=== PATIENT | female | born 1950 | race Caucasian/White ===

== ENCOUNTER → 2016-11-01 | Outpatient (CLI) | payer MEDICARE ==
--- NOTE | 2016-11-03 07:42 | MM ---
Reason for exam: screening (asymptomatic). Last mammogram was performed 4 years and 6 months ago. History: Patient is postmenopausal. Family history of breast cancer in paternal aunt. Physical Findings: A clinical breast exam by your physician is recommended on an annual basis and results should be correlated with mammographic findings. MG 3D Screening Mammo W/Cad Bilateral CC and MLO view(s) were taken. Prior study comparison: April 24, 2012, CAD bilateral diagnostic mammogram. March 08, 2012, right diagnostic mammogram w/CAD. There are scattered fibroglandular densities. No significant changes when compared with prior studies. ASSESSMENT: Benign, BI-RAD 2 RECOMMENDATION: Routine screening mammogram of both breasts in 1 year.
== END | disposition home or self-care (01) ==
LOC: RADMAMWWP 13:37
PROVIDERS: ATTEND Obstetrics & Gynecology
DX: Z12.31 Encounter for screening mammogram for malignant neoplasm of breast (principal)
CPT/HCPCS: 77063; G0202

== ENCOUNTER → 2017-04-17 | Outpatient (CLI) | payer MEDICARE ==
[2017-04-17 14:04] LABS: Blood Urea Nitrogen 12 mg/dL (7-17); Non-African American GFR(MDRD) >60 (>60 ml/min/1.73 sqM)
--- NOTE | 2017-04-17 14:56 | CT ---
EXAMINATION TYPE: CT soft tissue neck w con DATE OF EXAM: 04/17/2017 COMPARISON: NONE HISTORY: Lt Neck/Throat pain CT DLP: 279.2 mGycm CONTRAST: CT scan of the neck is performed with IV Contrast, patient injected with 100 mL of Omnipaque 300. Contrast enhanced CT of the neck was performed from the skull base through the lung apices. AIRWAY: The supraglottic, glottic, and subglottic portions of the airway appear patent and free of mass. SALIVARY GLANDS: The submandibular and parotid glands are free of mass or inflammatory process. THYROID GLAND: No nodules or masses seen. LYMPH NODES: No adenopathy seen greater than 1cm. LUNG APICES: No nodule or mass is seen. OTHER: Vascular structures are patent. Severe multilevel degenerative disc changes with ventral and dorsal spondylosis central stenosis at C4-5 and C5-6. No abscess seen. IMPRESSION: 1. No distinct abnormality to account for patient's symptoms. 2. Severe degenerative disc disease and spondylosis as discussed.
== END | disposition home or self-care (01) ==
LOC: RADCTMAIN 13:03
PROVIDERS: ATTEND Otolaryngology
DX: R07.0 Pain in throat (principal); M54.2 Cervicalgia
CPT/HCPCS: 82565; 84520; 70491; 36415; Q9967

== ENCOUNTER → 2017-11-13 | Outpatient (CLI) | payer MEDICARE ==
--- NOTE | 2017-11-15 08:53 | MM ---
Reason for exam: screening (asymptomatic). Last mammogram was performed 1 year ago. History: Patient is postmenopausal. Family history of breast cancer in paternal aunt. Physical Findings: A clinical breast exam by your physician is recommended on an annual basis and results should be correlated with mammographic findings. MG 3D Screening Mammo W/Cad Bilateral CC and MLO view(s) were taken. Prior study comparison: November 01, 2016, bilateral MG 3d screening mammo w/cad. April 24, 2012, CAD bilateral diagnostic mammogram. There are scattered fibroglandular densities. Asymmetries on the right show no persisting abnormality on the 3D images. Precautionary 6 month follow up recommended. Otherwise, no significant change. ASSESSMENT: Probably benign, BI-RAD 3 RECOMMENDATION: Follow-up diagnostic mammogram of the right breast in 6 months.
== END | disposition home or self-care (01) ==
LOC: RADMAMWWP 12:55
PROVIDERS: ATTEND Obstetrics & Gynecology
DX: Z12.31 Encounter for screening mammogram for malignant neoplasm of breast (principal)
CPT/HCPCS: 77063; 77067

== ENCOUNTER → 2018-06-12 | Outpatient (CLI) | payer MEDICARE ==
--- NOTE | 2018-06-13 06:28 | CT ---
EXAMINATION TYPE: CT sinus wo con DATE OF EXAM: 06/12/2018 COMPARISON: CT brain August 24, 2015. CT facial bones November 19, 2010. HISTORY: Headaches with Vocal cord issue and sinus trouble and with throat problems per patient. Post nasal drip per order. CT DLP: 533 mGycm. Automated Exposure Control for Dose Reduction was Utilized. TECHNIQUE: CT scan of the sinuses is performed without contrast, axial images are obtained, coronal r eformatted images are also reviewed. FINDINGS: Mild lobulated mucosal thickening involving inferior right maxillary sinus is improved from [address] CT. Remainder paranasal sinuses are clear without suspicious opacification or air-fluid levels . The ostiomeatal complex is patent bilaterally on the coronal images. Visualized portion of mastoid air cells show no abnormal opacification. The globes are intact bilate rally. Visualized portion of brain parenchyma redemonstrates mild to moderate diffuse cerebral atrop hy. IMPRESSION: Mild inferior chronic maxillary sinus disease. No acute sinusitis evident.
== END | disposition home or self-care (01) ==
LOC: RADCTMAIN 16:22
PROVIDERS: ATTEND Otolaryngology
DX: J32.0 Chronic maxillary sinusitis (principal)
CPT/HCPCS: 70486

== ENCOUNTER 2019-02-13 16:46 | Emergency (ER) | payer MEDICARE ==
[2019-02-13 17:43] LABS: Appearance,Urine Clear (Clear); Bacteria,Urine Rare /hpf; Bilirubin,Urine Negative (Negative); Blood,Urine Negative (Negative); Color,Urine Yellow; Glucose,Urine (UA) Negative (Negative); Hyaline Casts,Urine 42 /lpf (0-2); Hyphae Yeast, Urine Rare /hpf; Ketones,Urine Negative (Negative); Leukocyte Esterase,Urine Small (Negative); Nitrite,Urine Negative (Negative); PH, Urine 6.5 (5.0-8.0); Protein,Urine Negative (Negative); RBC,Urine 1 /hpf (0-5); Specific Gravity,Urine 1.016 (1.001-1.035); Squamous Epithelial Cell,Urine 1 /hpf (0-4); Urobilinogen,Urine <2.0 mg/dL (<2.0)
[2019-02-13 17:53] LABS: Albumin 4.7 g/dL (3.5-5.0); Calcium 10.6 mg/dL (8.4-10.2); Magnesium 1.8 mg/dL (1.6-2.3); Potassium 2.9 mmol/L (3.5-5.1); Total Bilirubin 0.6 mg/dL (0.2-1.3)
[2019-02-13] MEDS ORDERED: Potassium Replacement Protocol 1 EACH MISC MISCELLANE PRN (17:57)
[2019-02-13 17:58] LABS: Anisocytosis Slight; Basophils # (A) 0.1 k/uL (0-0.2); Basophils % (A) 1 %; Eosinophils # (A) 0.4 k/uL (0-0.7); Eosinophils % (A) 6 %; HCT 39.9 % (34.0-46.0); HGB 13.1 gm/dL (11.4-16.0); Lymphocytes # (A) 1.5 k/uL (1.0-4.8); Lymphocytes % (A) 25 %; MCH 32.3 pg (25.0-35.0); MCHC 32.8 g/dL (31.0-37.0); MCV 98.3 fL (80.0-100.0); Macrocytosis Slight; Mean Platelet Volume 7.7; Monocytes # (A) 0.2 k/uL (0-1.0); Monocytes % (A) 3 %; Neutrophils # (A) 3.8 k/uL (1.3-7.7); Neutrophils % (A) 61 %; Platelet Count 323 k/uL (150-450); RBC 4.06 m/uL (3.80-5.40); RDW 16.5 % (11.5-15.5); WBC 6.1 k/uL (3.8-10.6)
[2019-02-13] MEDS ORDERED: POTASSIUM CHLORIDE ER 20 MEQ TAB.ER PO SCH (18:00)
[2019-02-13] MEDS: POTASSIUM CHLORIDE 20 MEQ in WATER FOR INJECTION 1 100ML.BAG IVPB SCH ×2 (18:26→20:34)
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
[2019-02-13 20:59] VITALS: BP 124/82; PULSE 72; RESP 19; TEMP 98
== END 2019-02-13 20:59 | disposition home or self-care (01) ==
LOC: EC 16:46
DX: E87.6 Hypokalemia (principal); I45.10 Unspecified right bundle-branch block; N39.0 Urinary tract infection, site not specified; I10 Essential (primary) hypertension; M79.7 Fibromyalgia; M06.9 Rheumatoid arthritis, unspecified; F32.9 Major depressive disorder, single episode, unspecified; F41.9 Anxiety disorder, unspecified; Z87.891 Personal history of nicotine dependence; Z88.5 Allergy status to narcotic agent; Z88.8 Allergy status to other drugs, medicaments and biological substances; Z79.890 Hormone replacement therapy; Z79.891 Long term (current) use of opiate analgesic; Z79.899 Other long term (current) drug therapy; Z86.73 Personal history of transient ischemic attack (TIA), and cerebral infarction without residual deficits; Z97.8 Presence of other specified devices; Z80.0 Family history of malignant neoplasm of digestive organs; Z82.49 Family history of ischemic heart disease and other diseases of the circulatory system
CPT/HCPCS: 36415; 93005; 80053; 83735; 85025; 81001; 99285; 96365; J3480

== ENCOUNTER 2019-05-14 14:02 | Inpatient (IN) | payer MEDICARE ==
[2019-05-14 15:15] LABS: ABG Base Excess 15.1 mmol/L; ABG HCO3 38 mmol/L (21-25); ABG Oxygen Saturation 60.2 % (94-97); ABG PCO2 48 mmHg (35-45); ABG PH 7.51 (7.35-7.45); ABG TCO2 40 mmol/L (19-24); Allen Test Performed? Yes
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
[2019-05-14 15:18] LABS: ABG PO2 32 mmHg (83-108)
[2019-05-14 15:29] LABS: Appearance,Urine Clear (Clear); Bilirubin,Urine Negative (Negative); Blood,Urine Negative (Negative); Color,Urine Yellow; Glucose,Urine (UA) Negative (Negative); Ketones,Urine Trace (Negative); Leukocyte Esterase,Urine Negative (Negative); Nitrite,Urine Negative (Negative); Protein,Urine Negative (Negative); Specific Gravity,Urine 1.015 (1.001-1.035); Urobilinogen,Urine <2.0 mg/dL (<2.0)
[2019-05-14 15:31] LABS: Albumin 3.4 g/dL (3.5-5.0); Calcium 8.8 mg/dL (8.4-10.2); Magnesium 2.4 mg/dL (1.6-2.3); Potassium 3.1 mmol/L (3.5-5.1); Total Bilirubin 1.2 mg/dL (0.2-1.3); Total Protein 6.2 g/dL (6.3-8.2)
[2019-05-14 15:33] LABS: INR 1.1 (<1.2); Partial Thromboplastin Time 28.4 sec (22.0-30.0); Prothrombin Time 11.4 sec (9.0-12.0)
--- NOTE | 2019-05-14 15:33 | XR ---
EXAMINATION TYPE: XR chest 2V DATE OF EXAM: 05/14/2019 COMPARISON: 08/24/2015 HISTORY: Shortness of breath TECHNIQUE: Frontal and lateral views of the chest are obtained. FINDINGS: Scattered senescent parenchymal changes noted. Hyperinflation compatible with COPD. Patchy perihilar and basilar infiltrates noted. Chronic elevation right hemidiaphragm. Heart size is stable. Mediastinal structures are stable and grossly unremarkable. No evidence for hilar prominence. Degenerative changes dorsal spine. IMPRESSION: 1. Patchy perihilar and basilar infiltrates noted. Chronic elevation right hemidiaphragm.
[2019-05-14 15:37] LABS: Anisocytosis Slight; HCT 29.8 % (34.0-46.0); HGB 9.8 gm/dL (11.4-16.0); Hypochromasia Slight; MCH 33.3 pg (25.0-35.0); MCHC 32.8 g/dL (31.0-37.0); MCV 101.8 fL (80.0-100.0); Macrocytosis Moderate; Mean Platelet Volume 7.8; Platelet Count 555 k/uL (150-450); Poikilocytosis Moderate; RBC 2.93 m/uL (3.80-5.40); RDW 19.4 % (11.5-15.5); WBC 9.5 k/uL (3.8-10.6)
[2019-05-14 15:52] LABS: Anisocytosis (M) Present; Lymphocytes # (M) 1.33 k/uL (1.0-4.8); Monocytes # (M) 0.67 k/uL (0-1.0); Neutrophils % (M) 79 %; Nucleated Red Blood Cells 0 /100 WBC (0-0); Reactive Lymphocytes Present; Total Cells Counted 100
[2019-05-14 15:53] LABS: Polychromasia Present
[2019-05-14] MEDS ORDERED: AZITHROMYCIN 500 MG in SODIUM CHLORIDE 0.9% 250 ML IVPB STA (16:27)
[2019-05-14] MEDS ORDERED: PNEUMONIA PROTOCOL UTILIZED 1 EACH MISC PO PRN (16:27)
[2019-05-14] MEDS ORDERED: cefTRIAXone IN SWFI 1,000 MG/10 ML SYRINGE IVP STA (16:33)
--- NOTE | 2019-05-14 16:52 | CT ---
EXAMINATION TYPE: CT angio chest DATE OF EXAM: 05/14/2019 4:35 PM COMPARISON: None HISTORY: Pneumonia, abnormal CXR, weakness CT DLP: 254.4 mGycm Automated exposure control for dose reduction was used. CONTRAST: CTA scan of the thorax is performed with IV Contrast, patient injected with 80 mL of Isovue 370, pulm onary embolism protocol. There are 3-D post processed images.. FINDINGS: There is extensive patchy pulmonary alveolar edema. 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 There are multiple enlarged mediastinal and bronchial lymph nodes that measure up to 1.5 cm. Thoracic aorta shows no aneurysm or dissection. There is normal contrast opacification of the thoracic aorta. The ascending aorta measures 3.3 cm. There is normal contrast opacification of the pulmonary arteries. There are no filling defects. There is hypertrophic degenerative spurring in the thoracic spine. There is multilevel degenerative disc s pace narrowing and sclerosis of the endplates. There is thoracic spinal catheter noted. IMPRESSION: NO EVIDENCE OF PULMONARY EMBOLISM. EXTENSIVE PULMONARY AIRSPACE INFILTRATES. THIS APPEARS NEW COMPARED TO OLD CT SCAN OF 08/29/2011. THER E IS INCREASED MEDIASTINAL AND BRONCHIAL ADENOPATHY COMPARED TO OLD EXAM.
[2019-05-14] MEDS ORDERED: ASPIRIN 81 MG PO STA (17:26)
[2019-05-14] MEDS ORDERED: HEPARIN SODIUM,PORCINE 5,000 UNIT/ML 1 ML VIAL IV ONE (17:26)
[2019-05-14] MEDS ORDERED: HEPARIN SODIUM,PORCINE 5,000 UNIT/ML 1 ML VIAL IV PRN (17:26)
[2019-05-14] MEDS ORDERED: HEPARIN SOD,PORK IN 0.45% NACL 25,000 UNIT in 0.45% NACL 1 250ML.BAG IV SCH (17:30)
[2019-05-14] MEDS: SODIUM CHLORIDE 0.9% 1,000 ML IV SCH (17:59)
[2019-05-14] MEDS: FUROSEMIDE 10 MG/ML 4 ML VIAL IV SCH (21:24)
[2019-05-14] MEDS ORDERED: Potassium Replacement Protocol 1 EACH MISC MISCELLANE PRN (21:51)
[2019-05-14] MEDS: POTASSIUM CHLORIDE ER 20 MEQ TAB.ER PO SCH ×2 (21:56→22:46)
[2019-05-14] MEDS: ATORVASTATIN 20 MG TAB PO SCH (22:46)
--- NOTE | 2019-05-14 22:48 | P.HPIM ---
History of Present Illness H&P Date: 05/14/19 Chief Complaint: Generalized weakness and fatigue Patient is a 69-year-old female with a known history of rheumatoid arthritis currently on methotrexate and embrel , fibromyalgia, chronic pain, osteoarthritis, hypertension, depression/anxiety and also history of lumbar spinal stenosis, connective tissue disorder presented to the hospital with complaints of generalized weakness and fatigue. Patient says that she has been having these symptoms for the past 1 week and also she fell on the floor due to weaknessx2 and says she did hit her head at that time. Patient denied any fever or chills at home. No cough or sputum production. As per the family she had a cough off her taking deep breath last night. Patient came back last night from 10 day bus trip to [place] and visited [facility] and other places. Denied any complaints of chest pain. No headache or lightheadedness. Denied any leg swelling or calf pain. Patient does admit to having some mild ankle swelling. Denied any history of DVT in the past. Patient says that she has been sleeping more than normal as well. No speech problems or any focal weakness. Chest x-ray showed patchy perihilar and basilar infiltrate is noted. Chronic elevation of right diaphragm. D-dimer 0.61 CT angiogram of the chest was done showed no evidence of pulmonary embolism. Extensive pulmonary airspace infiltrates. This appears to be new compared to old computed tomography scan 2010. there is increase in mediastinal and bronchial adenopathy. 136, potassium 3.1, troponin 0.195 on admission. Patient was hypoxic with pulse ox 84% on room air at admission. Patient is not on any home oxygen. Review of Systems Constitutional: Patient denies any fever or chills . Patient does have generalized weakness and fatigue.. Abdomen: Patient denied nausea vomiting and diarrhea and abdominal pain. Cardiovascular: Patient denies any chest pain or short of breath no pal pitations. No leg swelling. Respiratory: patient denied any cough is from production. Does have shortness of breath Neurologic: Patient denied any numbness or tingling headache. Musculoskeletal: Patient denies any complaints of joint swelling or deformity. Skin: Negative Psychiatric: Negative Endocrine: No heat or cold intolerance. No recent weight gain. Genitourinary: No dysuria or hematuria. All other 14 point ROS negative except the above Past Medical History Past Medical History: CVA/TIA, Fibromyalgia, GERD/Reflux, Hypertension, Osteoa rthritis (OA), Rheumatoid Arthritis (RA) Additional Past Medical History / Comment(s): DJD,TIA -no residual,SOB,lumbar spinal stenosis,connective tissue disorder limited rom olvin wrists(fused) History of Any Multi-Drug Resistant Organisms: None Reported Past Surgical History: Orthopedic Surgery, Tonsillectomy, Tubal Ligation Additional Past Surgical History / Comment(s): ORIF LEFT TIB/FIB, LEFT FOOT SX, LASIK EYE SX Additional Past Anesthesia/Blood Transfusion Reaction / Comment(s): STATES POST OP ORTHO SX ENDED UP WITH TRACH, UNSURE IF PROBLEM WAS RELATED TO ANESTHESIA OR NOT in 1968, no problems with prior blood transfusion. Past Psychological History: Anxiety, Depression Smoking Status: Never smoker Past Alcohol Use History: None Reported Past Drug Use History: None Reported - Past Family History Father Family Medical History: Cancer Additional Family Medical History / Comment(s): lung Brother(s) Family Medical History: Cancer Additional Family Medical History / Comment(s): stomach Mother Family Medical History: Renal Disease Additional Family Medical History / Comment(s): heart problem Medications and Allergies Home Medications Medication Instructions Recorded Confirmed Type Etanercept [Enbrel] 50 mg SQ LAWTON 08/26/14 05/14/19 History Gabapentin [Neurontin] 600 mg PO TID 08/26/14 05/14/19 History Hydrochlorothiazide [Hydrodiuril] 25 mg PO DAILY 08/26/14 05/14/19 History Levothyroxine Sodium [Synthroid] 50 mcg PO DAILY 08/26/14 05/14/19 History buPROPion SR [Wellbutrin SR] 150 mg PO BID 08/26/14 05/14/19 History Melatonin 2 mg PO HS 12/03/14 05/14/19 History Venlafaxine HCl [Effexor XR] 75 mg PO BID 12/04/14 05/14/19 History Multivit-Min/FA/Lycopen/Lutein 1 tab PO DAILY 07/20/16 05/14/19 History [Centrum Silver Tablet] Atorvastatin [Lipitor] 20 mg PO HS 02/13/19 05/14/19 History Folic Acid 1 mg PO DAILY 02/13/19 05/14/19 History Methotrexate Sodium [Methotrexate] 25 mg PO LAWTON 02/13/19 05/14/19 History Metoprolol Tartrate [Lopressor] 50 mg PO BID 02/13/19 05/14/19 History Morphine Pump 1 pump INTRATHECA CONTINUOUS 02/13/19 05/14/19 History Propylene Glycol/Peg 400/Pf 1 drop BOTH EYES QID 02/13/19 05/14/19 History [Systane 0.3-0.4% Eye Drop] busPIRone HCl [Buspar] 10 mg PO BID 02/13/19 05/14/19 History oxyCODONE-APAP 7.5-325MG [Percocet 1 tab PO DAILY PRN 02/13/19 05/14/19 History 7.5-325 mg] Acyclovir 400 mg PO BID 05/14/19 05/14/19 History Furosemide [Lasix] 20 mg PO DAILY 05/14/19 05/14/19 History L.acidoph,Paracasei, B.lactis 1 cap PO DAILY 05/14/19 05/14/19 History [Probiotic] Potassium Chloride ER [K-Dur 10] 20 meq PO DAILY 05/14/19 05/14/19 History Ranitidine HCl [Zantac] 150 mg PO DAILY 05/14/19 05/14/19 History Sennosides/Docusate Sodium 1 tab PO DAILY 05/14/19 05/14/19 History [Docusate Sodium-Sennosides Tab] Allergies Allergy/AdvReac Type Severity Reaction Status Date / Time amlodipine besylate Allergy severe Verified 05/14/19 15:05 [From [facility]] nausea vomiting fentanyl Allergy severe Verified 05/14/19 15:05 nausea vomiting Physical Exam Vitals: Vital Signs Temp Pulse Pulse Resp BP BP Pulse Ox 05/14/19 21:25 14 05/14/19 19:40 97.9 F 64 17 103/54 94 L 05/14/19 18:51 96.5 F L 84 16 116/55 94 L 05/14/19 18:19 98.7 F 80 18 104/51 93 L 05/14/19 16:10 76 100/54 96 05/14/19 16:00 78 101/57 95 05/14/19 15:50 77 101/57 94 L 05/14/19 15:40 77 101/57 97 05/14/19 15:30 80 20 91/49 93 L 05/14/19 15:20 77 91/49 92 L 05/14/19 15:10 81 91/49 88 L 05/14/19 15:00 80 102/49 66 L 05/14/19 14:50 82 102/49 71 L 05/14/19 14:40 88 62 L 05/14/19 14:30 20 05/14/19 14:16 98.0 F 87 18 108/58 84 L Intake and Output 05/14/19 05/14/19 05/14/19 06:59 14:59 22:59 Other: Voiding Method Toilet Weight 65.771 kg PHYSICAL EXAMINATION: Patient is lying in the bed comfortably, no acute distress, awake alert and oriented.. HEENT: Normocephalic. Neck is supple. Pupils reactive. Nostrils clear. Oral cavity is moist. Ears reveal no drainage. Neck reveals no JVD, carotid bruits, or thyromegaly. CHEST EXAMINATION: Trachea is central. Symmetrical expansion. Bilateral scattered crackles noted. No wheezing.. CARDIAC: Normal S1, S2 with no gallops. No murmurs ABDOMEN: Soft. Bowel sounds normal. No organomegaly. No abdominal bruits. Extremities: reveal no edema. No clubbing or cyanosis Neurologically awake, alert, oriented x3 with well-coordinated movements. Lethargic. No focal deficits noted Skin: No rash or skin lesions. Psychiatric: Coperative. Nonsuicidal Musculoskeletal: No joint swelling or deformity. Normal range of motion. Results CBC & Chem 7: 05/14/19 14:50 05/14/19 14:50 Labs: Abnormal Lab Results - Last 24 Hours (Table) 05/14/19 05/14/19 05/14/19 Range/Units 14:50 14:50 14:50 RBC 2.93 L (3.80-5.40) m/uL Hgb 9.8 L (11.4-16.0) gm/dL Hct 29.8 L (34.0-46.0) % MCV 101.8 H (80.0-100.0) fL RDW 19.4 H (11.5-15.5) % Plt Count 555 H (150-450) k/uL D-Dimer (<0.60) mg/L FEU ABG pH (7.35-7.45) ABG pCO2 (35-45) mmHg ABG pO2 (83-108) mmHg ABG HCO3 (21-25) mmol/L ABG Total CO2 (19-24) mmol/L ABG O2 Saturation (94-97) % Sodium 136 L (137-145) mmol/L Potassium 3.1 L (3.5-5.1) mmol/L Chloride 88 L (98-107) mmol/L Carbon Dioxide 37 H (22-30) mmol/L BUN 21 H (7-17) mg/dL Glucose 116 H (74-99) mg/dL Magnesium 2.4 H (1.6-2.3) mg/dL AST 182 H (14-36) U/L Troponin I 0.195 H* (0.000-0.034) ng/mL Total Protein 6.2 L (6.3-8.2) g/dL Albumin 3.4 L (3.5-5.0) g/dL TSH 0.290 L (0.465-4.680) mIU/L Free T3 pg/mL 2.3 L (2.8-5.3) pg/ml Urine Ketones (Negative) 05/14/19 05/14/19 05/14/19 Range/Units 14:50 14:50 15:12 RBC (3.80-5.40) m/uL Hgb (11.4-16.0) gm/dL Hct (34.0-46.0) % MCV (80.0-100.0) fL RDW (11.5-15.5) % Plt Count (150-450) k/uL D-Dimer 0.60 H (<0.60) mg/L FEU ABG pH 7.51 H (7.35-7.45) ABG pCO2 48 H (35-45) mmHg ABG pO2 32 L* (83-108) mmHg ABG HCO3 38 H (21-25) mmol/L ABG Total CO2 40 H (19-24) mmol/L ABG O2 Saturation 60.2 L (94-97) % Sodium (137-145) mmol/L Potassium (3.5-5.1) mmol/L Chloride (98-107) mmol/L Carbon Dioxide (22-30) mmol/L BUN (7-17) mg/dL Glucose (74-99) mg/dL Magnesium (1.6-2.3) mg/dL AST (14-36) U/L Troponin I (0.000-0.034) ng/mL Total Protein (6.3-8.2) g/dL Albumin (3.5-5.0) g/dL TSH (0.465-4.680) mIU/L Free T3 pg/mL (2.8-5.3) pg/ml Urine Ketones Trace H (Negative) Thrombosis Risk Factor Assmnt - DVT/VTE Prophylaxis DVT/VTE Prophylaxis: Pharmacologic Prophylaxis ordered - Choose All That Apply Any of the Below Risk Factors Present?: Yes Each Factor Represents 1 point: Serious lung disease incl. pneumonia (< 1month) Each Risk Factor Represents 2 Points: Age 61-74 years Thrombosis Risk Factor Assessment Total Risk Factor Score: 3 Thrombosis Risk Factor Assessment Level: Moderate Risk Assessment and Plan Assessment: Acute hypoxemic respiratory failure secondary to extensive pulmonary infiltrates. Bilateral airspace infiltrates likely due to pneumonia versus interstitial lung disease Elevated troponin level. Possible non-ST elevated MA s/p recent falls 2 in one week. Rheumatoid arthritis on immunotherapy Fibromyalgia Chronic pain Depression/anxiety Chronically elevated right diaphragm Hypertension GERD Osteoarthritis Hypothyroidism History of lumbar spinal stenosis History of TIA History of connective tissue disorder DVT prophylaxis. Plan: Patient will be continued on antibiotics in the form of ceftriaxone and azithromycin. Oxygen therapy. Patient is also being continued on heparin drip. Trend troponins. Continue with aspirin and statins. Continue with home medications and follow up closely. Cardiology and pulmonary will be consulted. Further recommendations based on the clinical course. Discussed with her family at bedside in detail. Time with Patient: Greater than 30
--- NOTE | 2019-05-14 23:13 | CT ---
INDICATION: Fall one week ago, headache TECHNIQUE: CT acquisition is performed through the brain. Sagittal and coronal reformatted images are provided. No IV contrast is administered. DOSE INFORMATION: DLP 1036.4 mGy-cm. This CT exam was performed using one or more of the following dose reduction techniques: automated exposure control, adjustment of the mA and/or kV according to patient size, and/or use of iterative reconstruction technique. COMPARISON: CT head 08/24/15. FINDINGS: There is no evidence of acute intracranial hemorrhage or abnormal extra-axial fluid collection. There is no mass effect or midline shift. There is generalized parenchymal volume loss with symmetric prominence of the sulci, ventricles, and basal cisterns. The amin-white matter differentiation is preserved. The calvarium is intact. The paranasal sinuses and mastoid air cells are clear. IMPRESSION: 1. No evidence of acute intracranial process.
[2019-05-14 23:52] LABS: T4, Free (Free Thyroxine) 1.96 ng/dL (0.78-2.19)
[2019-05-15 06:21] LABS: Anisocytosis Slight; Basophils % (A) 0 %; Eosinophils # (A) 0.1 k/uL (0-0.7); Eosinophils % (A) 1 %; HCT 30.5 % (34.0-46.0); Hypochromasia Slight; Lymphocytes # (A) 0.6 k/uL (1.0-4.8); Lymphocytes % (A) 7 %; MCH 34.1 pg (25.0-35.0); MCHC 32.8 g/dL (31.0-37.0); MCV 103.7 fL (80.0-100.0); Macrocytosis Moderate; Mean Platelet Volume 7.2; Monocytes # (A) 0.2 k/uL (0-1.0); Monocytes % (A) 2 %; Neutrophils # (A) 7.5 k/uL (1.3-7.7); Neutrophils % (A) 87 %; Platelet Count 487 k/uL (150-450); Poikilocytosis Moderate; RBC 2.94 m/uL (3.80-5.40); WBC 8.7 k/uL (3.8-10.6)
[2019-05-15 06:31] LABS: Calcium 8.2 mg/dL (8.4-10.2)
[2019-05-15 06:50] LABS: Potassium 2.7 mmol/L (3.5-5.1)
[2019-05-15] MEDS: SODIUM CHLORIDE 0.9% 1,000 ML IV SCH (07:07)
[2019-05-15] MEDS: LEVOTHYROXINE 50 MCG TAB PO SCH (07:08)
[2019-05-15] MEDS: POTASSIUM CHLORIDE ER 20 MEQ TAB.ER PO SCH ×4 (07:08→20:09)
--- NOTE | 2019-05-15 07:35 | XR ---
EXAMINATION TYPE: XR chest 2V DATE OF EXAM: 05/15/2019 COMPARISON: Chest x-ray and CT chest from yesterday. HISTORY: Pneumonia progress study. TECHNIQUE: Frontal and lateral views of the chest are obtained. FINDINGS: There is persistent elevation and eventration anterior aspect right hemidiaphragm. Diffuse opacities bilaterally remain present. No pleural effusion or pneumothorax is seen bilaterally. The cardiac silhouette size remains within normal limits. Spine is straightened on lateral view. IMPRESSION: Diffuse bilateral alveolar edema and/or infiltrates are redemonstrated. No significant c hange from one day earlier.
[2019-05-15] MEDS: busPIRone HCl 10 MG TAB PO SCH ×2 (08:19→20:09)
[2019-05-15] MEDS: FAMOTIDINE 20 MG TAB PO SCH (08:19)
[2019-05-15] MEDS: buPROPion SR 150 MG TABLET.ER PO SCH ×2 (08:19→20:09)
[2019-05-15] MEDS: FOLIC ACID 1 MG TAB PO SCH (08:19)
[2019-05-15] MEDS: VIT A,C & E-LUTEIN-MINERALS 1 EACH TAB PO SCH (08:19)
[2019-05-15] MEDS: SENNOSIDES-DOCUSATE SODIUM 1 EACH TAB PO SCH (08:19)
[2019-05-15] MEDS: ARTIFICIAL TEARS-HYPROMELLOSE DROPS 15 ML BTL BOTH EYES SCH ×4 (08:28→20:11)
[2019-05-15] MEDS: FUROSEMIDE 10 MG/ML 4 ML VIAL IV SCH (08:28)
[2019-05-15] MEDS ORDERED: ASPIRIN 325 MG TAB PO SCH (09:00)
--- NOTE | 2019-05-15 11:17 | ECHOF ---
Referral Reason:pulm edema MEASUREMENTS -------- HEIGHT: 170.2 cm WEIGHT: 63.0 kg BP: 99/57 RVIDd: 2.1 cm (< 3.3) IVSd: 1.3 cm (0.6 - 1.1) LVIDd: 3.2 cm (3.9 - 5.3) LVPWd: 1.4 cm (0.6 - 1.1) IVSs: 1.5 cm LVIDs: 1.6 cm LVPWs: 1.7 cm LAESV Index (A-L): 16.68 ml/m Ao Diam: 2.6 cm (2.0 - 3.7) AV Cusp: 2.0 cm (1.5 - 2.6) LA Diam: 3.9 cm (2.7 - 3.8) MV EXCURSION: 14.967 mm (> 18.000) MV EF SLOPE: 71 mm/s (70 - 150) EPSS: 0.5 cm MV E Rob: 1.12 m/s MV DecT: 186 ms MV A Rob: 1.20 m/s MV E/A Ratio: 0.94 RAP: 5.00 mmHg RVSP: 34.67 mmHg FINDINGS -------- Sinus rhythm. This was a technically good study. The left ventricular size is normal. There is mild concentric left ventricular hypertrophy. Overa ll left ventricular systolic function is normal with, an EF between 55 - 60 %. Normal LAP Grade 1 D iastolic Dysfunction. The right ventricle is normal in size. Normal LA size by volume 22+/-6 ml/m2. The right atrial size is normal. Aortic valve is trileaflet and is mildly thickened. The mitral valve is normal. Mild mitral regurgitation is present. The tricuspid valve appears structurally normal. [id number] tricuspid regurgitation present. Right ventricular systolic pressure is normal at < 35 mmHg. There is no pulmonic regurgitation present. The aortic root size is normal. Normal inferior vena cava with normal inspiratory collapse consistent with estimated right atrial pre ssure of 5 mmHg. CONCLUSIONS -------- 1. Sinus rhythm. 2. This was a technically good study. 3. The left ventricular size is normal. 4. There is mild concentric left ventricular hypertrophy. 5. Overall left ventricular systolic function is normal with, an EF between 55 - 60 %. 6. Normal LAP Grade 1 Diastolic Dysfunction. 7. The right ventricle is normal in size. 8. Normal LA size by volume 22+/-6 ml/m2. 9. The right atrial size is normal. 10. Aortic valve is trileaflet and is mildly thickened. 11. The mitral valve is normal. 12. Mild mitral regurgitation is present. 13. The tricuspid valve appears structurally normal. 14. [id number] tricuspid regurgitation present. 15. Right ventricular systolic pressure is normal at < 35 mmHg. 16. There is no pulmonic regurgitation present. 17. The aortic root size is normal. 18. Normal inferior vena cava with normal inspiratory collapse consistent with estimated right atrial pressure of 5 mmHg. [employer] ATTENDANT: Angelina Ernst RDCS
[2019-05-15] MEDS ORDERED: POTASSIUM CHLORIDE 20 MEQ in WATER FOR INJECTION 1 100ML.BAG IVPB ONE (12:00)
[2019-05-15] MEDS: METOPROLOL TARTRATE 25 MG TAB PO SCH ×2 (12:39→20:09)
--- NOTE | 2019-05-15 15:38 | P.CNPUL ---
History of Present Illness Consult date: 05/15/19 Requesting physician: Linwood Rosenthal Reason for consult: dyspnea Chief complaint: Shortness of breath, weakness History of present illness: This is a 69-year-old white female patient of Dr. 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 Knox for pain management, and recently had a pain pump implanted. Patient presents to the emergency department with her daughter on 05/14/2019 for evaluation of profound fatigue and weakness, increased shortness of breath. Patient states she does have some shortness of breath on a regular basis however in the last 2 months this has significantly worsened, and she has been increasingly weak, she has had a loss of appetite, and 10 pound weight loss in the last 6 months. Denied any fever or chills, denied any night sweats, denied any chest pain, denied hemoptysis, denied any pleuritic chest discomfort, no cough, or congestion. Patient takes Enbrel and methotrexate for history of rheumatoid arthritis and follows with Dr. Flores from rheumatology. She states her weakness has gotten to the point where she had laid on the couch and was unable to even get up to the bathroom. Patient did have recent travel to [place] however she states her symptoms started long prior to her trip to [place]. No abdominal pain, no vomiting, she did report some mild ankle swelling, no chest pain, no calf pain, no altered mentation no worsening speech problems. Chest x-ray showed patchy pe rihilar and basilar infiltrates and chronic elevation of the right hemidiaphragm, lab work did not show leukocytosis, white blood cell count on admission was 9.5, hemoglobin is 9.8, platelet count was 555, d-dimer was mildly elevated at 0.60, sodium was 136, potassium 3.1, chloride was 88, CO2 is 37, BUN was 21, creatinine 1.02, plasma lactic acid was within normal limits at 1.7, troponins were elevated to 0.195, and 0.062. ProBNP was obtained and was elevated at 5330, pro-calcitonin was elevated at 0.99 suggesting presence of an infectious process, TSH was low at 0.290 and free T3 was 2.3. Urinalysis was negative for infection, with only trace ketones. CT chest angiogram was completed showing no evidence of pulmonary embolism but extensive pulmonary airspace infiltrates and increased mediastinal bronchial adenopathy, with multiple enlarged mediastinal bronchial lymph nodes measuring up to 1.[address] showed no evidence of acute intracranial process. Echocardiogram was completed showing normal left ventricular systolic function with an EF of 55- 60%, mild mitral regurg and mild to moderate tricuspid regurgitation no evidence of pulmonary hypertension. Patient was started on empiric antibiotics in the form of Rocephin and Zithromax, and IV Lasix and today's chest x-ray still shows diffuse bilateral alveolar edema and/or infiltrates with no significant change from the day earlier. He is currently on 4 L of oxygen with a pulse ox of 94%, blood pressure was 93/54, she is in no significant distress, and her lung sounds are positive for only bibasilar crackles, no rhonchi, no wheezing. Review of Systems All systems: negative Constitutional: Denies chills, Denies fever Eyes: denies blurred vision, denies pain Ears, nose, mouth and throat: Denies headache, Denies sore throat Cardiovascular: Denies chest pain, Denies shortness of breath Respiratory: Reports dyspnea, Denies cough Gastrointestinal: Reports loss of appetite, Denies abdominal pain, Denies diarrhea, Denies nausea, Denies vomiting Genitourinary: Denies dysuria, Denies hematuria Musculoskeletal: Denies myalgias Integumentary: Denies pruritus, Denies rash Neurological: Reports weakness, Denies numbness Psychiatric: Denies anxiety, Denies depression Endocrine: Denies fatigue, Denies weight change Past Medical History Past Medical History: CVA/TIA, Fibromyalgia, GERD/Reflux, Hypertension, Osteoarthritis (OA), Rheumatoid Arthritis (RA) Additional Past Medical History / Comment(s): DJD,TIA -no residual,SOB,lumbar spinal stenosis,connective tissue disorder limited rom olvin wrists(fused) History of Any Multi-Drug Resistant Organisms: None Reported Past Surgical History: Orthopedic Surgery, Tonsillectomy, Tubal Ligation Additional Past Surgical History / Comment(s): ORIF LEFT TIB/FIB, LEFT FOOT SX, LASIK EYE SX Additional Past Anesthesia/Blood Transfusion Reaction / Comment(s): STATES POST OP ORTHO SX ENDED UP WITH TRACH, UNSURE IF PROBLEM WAS RELATED TO ANESTHESIA OR NOT in 1968, no problems with prior blood transfusion. Past Psychological History: Anxiety, Depression Smoking Status: Never smoker Past Alcohol Use History: None Reported Past Drug Use History: None Reported - Past Family History Father Family Medical History: Cancer Additional Family Medical History / Comment(s): lung Brother(s) Family Medical History: Cancer Additional Family Medical History / Comment(s): stomach Mother Family Medical History: Renal Disease Additional Family Medical History / Comment(s): heart problem Medications and Allergies Home Medications Medication Instructions Recorded Confirmed Type Etanercept [Enbrel] 50 mg SQ LAWTON 08/26/14 05/14/19 History Gabapentin [Neurontin] 600 mg PO TID 08/26/14 05/14/19 History Hydrochlorothiazide [Hydrodiuril] 25 mg PO DAILY 08/26/14 05/14/19 History Levothyroxine Sodium [Synthroid] 50 mcg PO DAILY 08/26/14 05/14/19 History buPROPion SR [Wellbutrin SR] 150 mg PO BID 08/26/14 05/14/19 History Melatonin 2 mg PO HS 12/03/14 05/14/19 History Venlafaxine HCl [Effexor XR] 75 mg PO BID 12/04/14 05/14/19 History Multivit-Min/FA/Lycopen/Lutein 1 tab PO DAILY 07/20/16 05/14/19 History [Centrum Silver Tablet] Atorvastatin [Lipitor] 20 mg PO HS 02/13/19 05/14/19 History Folic Acid 1 mg PO DAILY 02/13/19 05/14/19 History Methotrexate Sodium [Methotrexate] 25 mg PO LAWTON 02/13/19 05/14/19 History Metoprolol Tartrate [Lopressor] 50 mg PO BID 02/13/19 05/14/19 History Morphine Pump 1 pump INTRATHECA CONTINUOUS 02/13/19 05/14/19 History Propylene Glycol/Peg 400/Pf 1 drop BOTH EYES QID 02/13/19 05/14/19 History [Systane 0.3-0.4% Eye Drop] busPIRone HCl [Buspar] 10 mg PO BID 02/13/19 05/14/19 History oxyCODONE-APAP 7.5-325MG [Percocet 1 tab PO DAILY PRN 02/13/19 05/14/19 History 7.5-325 mg] Acyclovir 400 mg PO BID 05/14/19 05/14/19 History Furosemide [Lasix] 20 mg PO DAILY 05/14/19 05/14/19 History L.acidoph,Paracasei, B.lactis 1 cap PO DAILY 05/14/19 05/14/19 History [Probiotic] Potassium Chloride ER [K-Dur 10] 20 meq PO DAILY 05/14/19 05/14/19 History Ranitidine HCl [Zantac] 150 mg PO DAILY 05/14/19 05/14/19 History Sennosides/Docusate Sodium 1 tab PO DAILY 05/14/19 05/14/19 History [Docusate Sodium-Sennosides Tab] Allergies Allergy/AdvReac Type Severity Reaction Status Date / Time amlodipine besylate Allergy severe Verified 05/14/19 15:05 [From [facility]] nausea vomiting fentanyl Allergy severe Verified 05/14/19 15:05 nausea vomiting Physical Exam Vitals: Vital Signs Temp Pulse Pulse Resp BP BP Pulse Ox 05/15/19 12:00 90 16 93/54 94 L 05/15/19 08:00 16 05/15/19 04:06 98.0 F 86 16 99/57 93 L 05/14/19 22:49 96.9 F L 76 16 109/62 95 05/14/19 21:25 14 05/14/19 19:40 97.9 F 64 17 103/54 94 L 05/14/19 18:51 96.5 F L 84 16 116/55 94 L 05/14/19 18:19 98.7 F 80 18 104/51 93 L 05/14/19 16:10 76 100/54 96 05/14/19 16:00 78 101/57 95 05/14/19 15:50 77 101/57 94 L 05/14/19 15:40 77 101/57 97 05/14/19 15:30 80 20 91/49 93 L 05/14/19 15:20 77 91/49 92 L 05/14/19 15:10 81 91/49 88 L 05/14/19 15:00 80 102/49 66 L 05/14/19 14:50 82 102/49 71 L 05/14/19 14:40 88 62 L 05/14/19 14:30 20 05/14/19 14:16 98.0 F 87 18 108/58 84 L Intake and Output 05/14/19 05/15/19 05/15/19 22:59 06:59 14:59 Intake Total 364.328 Output Total 2100 Balance -1735.672 Intake: Intake, IV Titration 364.328 Amount Azithromycin 500 mg In 250 Sodium Chloride 0.9% 250 ml @ 250 mls/hr IVPB ONCE STA Rx#:[id number] Heparin Sod,Pork in 0.45% 64.328 NaCl 25,000 unit In 0.45 % NaCl 1 250ml.bag @ 12 UNITS/KG/HR 7.893 mls/hr IV .Q24H YONATHAN Rx#: [id number] cefTRIAXone 1 gm In 50 Sodium Chloride 0.9% 50 ml @ 100 mls/hr IVPB Q24H YONATHAN Rx#:[id number] Output: Urine 2100 Other: Voiding Method Toilet Toilet Toilet Weight 63.4 kg GENERAL EXAM: Alert, pleasant, 69-year-old white female, on 4 L of oxygen with a pulse ox of 94%, comfortable in no apparent distress. HEAD: Normocephalic/atraumatic. EYES: Normal reaction of pupils, equal size. Conjunctiva pink, sclera white. NOSE: Clear with pink turbinates. THROAT: No erythema or exudates. NECK: No masses, no JVD, no thyroid enlargement, no adenopathy. CHEST: No chest wall deformity. Symmetrical expansion. LUNGS: Equal air entry with basilar crackles, but no wheeze, rhonchi or dullness. CVS: Regular rate and rhythm, normal S1 and S2, no gallops, no murmurs, no rubs ABDOMEN: Soft, nontender. No hepatosplenomegaly, normal bowel sounds, no guarding or rigidity. EXTREMITIES: No clubbing, no edema, no cyanosis, 2+ pulses and upper and lower extremities. MUSCULOSKELETAL: Muscle strength and tone normal. SPINE: No scoliosis or deformity SKIN: No rashes CENTRAL NERVOUS SYSTEM: Alert and oriented -3. No focal deficits, tone is normal in all 4 extremities. PSYCHIATRIC: Alert and oriented -3. Appropriate affect. Intact judgment and insight. Results - Laboratory Findings CBC and BMP: 05/15/19 05:48 08/22/19 05:48 ABG ABG pH 7.51 (7.35-7.45) H 05/14/19 15:12 ABG pCO2 48 mmHg (35-45) H 05/14/19 15:12 ABG pO2 32 mmHg (83-108) L* 05/14/19 15:12 ABG O2 Saturation 60.2 % (94-97) L 05/14/19 15:12 PT/INR, D-dimer PT 11.4 sec (9.0-12.0) 05/14/19 14:50 INR 1.1 (<1.2) 05/14/19 14:50 D-Dimer 0.60 mg/L FEU (<0.60) H 05/14/19 14:50 Abnormal lab findings: Abnormal Labs 05/14/19 05/14/19 05/14/19 14:50 14:50 14:50 RBC 2.93 L Hgb 9.8 L Hct 29.8 L MCV 101.8 H RDW 19.4 H Plt Count 555 H Lymphocytes # APTT D-Dimer ABG pH ABG pCO2 ABG pO2 ABG HCO3 ABG Total CO2 ABG O2 Saturation Sodium 136 L Potassium 3.1 L Chloride 88 L Carbon Dioxide 37 H BUN 21 H Glucose 116 H Calcium Magnesium 2.4 H AST 182 H Troponin I 0.195 H* Total Protein 6.2 L Albumin 3.4 L Procalcitonin TSH 0.290 L Free T3 pg/mL 2.3 L Urine Ketones 05/14/19 05/14/19 05/14/19 14:50 14:50 15:12 RBC Hgb Hct MCV RDW Plt Count Lymphocytes # APTT D-Dimer 0.60 H ABG pH 7.51 H ABG pCO2 48 H ABG pO2 32 L* ABG HCO3 38 H ABG Total CO2 40 H ABG O2 Saturation 60.2 L Sodium Potassium Chloride Carbon Dioxide BUN Glucose Calcium Magnesium AST Troponin I Total Protein Albumin Procalcitonin TSH Free T3 pg/mL Urine Ketones Trace H 05/14/19 05/15/19 05/15/19 19:10 00:45 05:48 RBC 2.94 L Hgb 10.0 L Hct 30.5 L MCV 103.7 H RDW 18.0 H Plt Count 487 H Lymphocytes # 0.6 L APTT 113.0 H* D-Dimer ABG pH ABG pCO2 ABG pO2 ABG HCO3 ABG Total CO2 ABG O2 Saturation Sodium Potassium Chloride Carbon Dioxide BUN Glucose Calcium Magnesium AST Troponin I Total Protein Albumin Procalcitonin 0.99 H TSH Free T3 pg/mL Urine Ketones 05/15/19 05/15/19 05/15/19 05:48 05:48 09:11 RBC Hgb Hct MCV RDW Plt Count Lymphocytes # APTT 43.3 H D-Dimer ABG pH ABG pCO2 ABG pO2 ABG HCO3 ABG Total CO2 ABG O2 Saturation Sodium 135 L Potassium 2.7 L* Chloride 89 L Carbon Dioxide 38 H BUN 21 H Glucose 100 H Calcium 8.2 L Magnesium AST Troponin I 0.062 H* Total Protein Albumin Procalcitonin TSH Free T3 pg/mL Urine Ketones - Diagnostic Findings Chest x-ray: report reviewed, image reviewed CT scan - chest: report reviewed, image reviewed Additional studies: Echocardiogram reviewed, EKG reviewed Assessment and Plan Plan: Assessment: #1. Acute hypoxemic respiratory failure, with significant multifocal airspace disease present on chest x-ray and CTA chest, with possibilities related to acute congestive heart failure, interstitial lung disease, rheumatoid lung, and infectious etiology. CT angios chest was negative for any evidence of pulmonary embolism #2. Acute exacerbation of CHF, with preserved left ventricular systolic function #3. Consider interstitial lung disease with mediastinal and bronchial adenopathy, could be related to underlying connective tissue disorder, rheumatoid arthritis, rule out sarcoidosis. Zak level is pending, calcium is nonelevated #4. History of rheumatoid arthritis, Sjogren's disease, on Enbrel and methotrexate #5. History of CVA in 1965 with residual speech slurring #6. Hypertension #7. Osteoarthritis #8. DJD #9. Lumbar spinal stenosis #10. Chronic pain, fibromyalgia, follows in the pain clinic, has a pain pump implanted #11. Anxiety, depression Plan: Continue IV Lasix, although patient has been diuresed overnight, and today's follow-up chest x-ray did not show significant improvement in the appearance of multifocal airspace disease present bilaterally. No fever or chills, no complaints of chest pain, no cough or congestion. Doubt significant infectious process, although cannot entirely rule it out, procalcitonin came back mildly elevated. Obtain a sputum specimen. CT chest and chest x-rays have been reviewed by Dr. Townsend, patient has been seen and evaluated by Dr. Townsend, there is possibility of interstitial lung disease could be related to underlying rheumatoid arthritis. Rule out sarcoidosis, Zak level is pending, although calcium level was nonelevated. May have to consider thoracoscopic lung biopsy to establish a definitive diagnosis of interstitial lung disease. For now continue with conservative measures, will add IV steroids. Continue bronchodilators, antibiotics, and IV Lasix. I performed a history & physical examination of the patient and discussed their management with my nurse practitioner, Jocelyne Barrios. I reviewed the nurse practitioner's note and agree with the documented findings and plan of care. Lung sounds are positive for diminished breath sounds with bibasilar crackles. The findings and the impression was discussed with the patient. I attest to the documentation by the nurse practitioner. Time with Patient: Greater than 30
[2019-05-15 17:04] LABS: Glucose,Whole Blood 92 mg/dL (75-99)
[2019-05-15] MEDS: INSULIN ASPART (NovoLOG) 100 UNIT/ML VIAL SQ SCH ×2 (17:49→20:13)
[2019-05-15] MEDS: methylPREDNISolone SOD SUCCI 125 MG/2 ML VIAL IV SCH ×2 (17:55→22:57)
[2019-05-15] MEDS: AZITHROMYCIN 500 MG TAB PO SCH (17:55)
--- NOTE | 2019-05-15 18:46 | CONS ---
CONSULTATION Mrs. Aponte is a 69-year-old female with known history of rheumatoid arthritis who presented with symptoms of progressive fatigue and weakness going on for the last few weeks. She had no associated chest discomfort. She had worsening dyspnea, occasional peripheral edema. No dizziness or palpitations. No syncope. No clear PND. No orthopnea. She is followed by Dr. Gonzales on a regular basis for arrhythmia; that has been stable. She has no other cardiac history. She has longstanding history of rheumatoid arthritis and has been followed by Dr. Flores in the past. Her coronary risk factors are positive for history of hypertension, hyperlipidemia. She is a nonsmoker, nondiabetic. Her medications include: 1. Lipitor 20 mg daily. 2. Acyclovir. 3. Enbrel. 4. Lasix 20 mg daily. 5. Neurontin. 6. Hydrochlorothiazide 25 mg daily. 7. Methotrexate 25 mg daily. 8. Metoprolol tartrate 50 mg twice a day. 9. Potassium 10 mEq daily. 10.Venlafaxine. 11.Bupropion. 12.Oxycodone. REVIEW OF SYSTEMS: RESPIRATORY SYSTEM: She has dyspnea on exertion. She has cough. No recent wheezing. GI SYSTEM: No recent GI bleeding. No peptic ulcer disease. SYSTEM: No dysuria or hematuria. NERVOUS SYSTEM: No history of stroke or seizure. MUSCULOSKELETAL: She has significant arthritic pain related to her rheumatoid arthritis. PHYSICAL EXAMINATION: This is a 69-year-old female, alert, oriented, in no apparent distress. Blood pressure running in the low 100s, high 90s, with a heart rate in the 60s to 70s. HEAD: Normocephalic. EYES: Sclerae anicteric. NECK: Left-sided bruit. LUNGS: Crackles bilaterally. HEART: Regular rate, rhythm S1, S2. No S3 with systolic ejection murmur at the base 2/6. No diastolic murmur. No rub. ABDOMEN: Soft, nontender. Positive bowel sounds. No organomegaly. EXTREMITIES: Trace edema. LAB DATA: Echocardiogram revealed a normal left ventricular size and systolic function with no evidence of increased left atrial pressure, with mild to moderate tricuspid regurgitation and mild mitral regurgitation. Her EKG shows sinus mechanism, normal axis and intervals with nonspecific ST-T wave changes. Her chest x-ray shows bilateral fluffy infiltrate. She underwent CT scan of the chest that showed no evidence pulmonary embolism with extensive pulmonary airspace that is new since 2011, with mediastinal bronchial adenopathy. Her troponin is 0.195 and 0.062. Procalcitonin is 0.99. BUN and creatinine are 21 and 0.87. Potassium 2.7. PH 7.51, pCO2 48, PO2 of 32. Her hemoglobin is 10, white blood cells of 8.7. IMPRESSION: 1. Severe hypoxemia on presentation with a bilateral fluffy infiltrate raising the possibility of possible rheumatoid lungs. 2. Mild troponin elevation, most likely related to the hypoxemia. I do not believe that we are dealing with a myocardial infarction. 3. Mild elevation of NT proBNP with preserved systolic function and normal left atrial pressure by echocardiography, with no clear physical examination consistent with congestive heart failure. 4. History of rheumatoid arthritis. 5. History of hypertension. 6. Hyperlipidemia. RECOMMENDATIONS: From the cardiac standpoint, I will resume a lower dose of beta yovana. Continue the rest of her present regimen. Will await the input of Dr. Vides. I would expect that if we should be able to switch her diuretics to oral tomorrow. Will replace her potassium. Depending on her progress, further recommendations will be made. I will stop her IV heparin at this time. Thank you for this consult. Will follow with you. MMODL / IJN: [id number] / GENEVA
[2019-05-15] MEDS: ATORVASTATIN 20 MG TAB PO SCH (20:09)
[2019-05-15 20:10] LABS: Glucose,Whole Blood 186 mg/dL (75-99)
[2019-05-16] MEDS: SODIUM CHLORIDE 0.9% 1,000 ML IV SCH (05:32)
[2019-05-16] MEDS: INSULIN ASPART (NovoLOG) 100 UNIT/ML VIAL SQ SCH ×4 (06:25→20:47)
[2019-05-16] MEDS: LEVOTHYROXINE 50 MCG TAB PO SCH (06:26)
[2019-05-16] MEDS: methylPREDNISolone SOD SUCCI 125 MG/2 ML VIAL IV SCH ×3 (06:26→17:19)
[2019-05-16 06:29] LABS: Glucose,Whole Blood 139 mg/dL (75-99)
[2019-05-16 07:22] LABS: Anisocytosis Slight; Basophils % (A) 0 %; Eosinophils % (A) 0 %; HCT 30.6 % (34.0-46.0); HGB 10.1 gm/dL (11.4-16.0); Hypochromasia Moderate; Lymphocytes # (A) 0.3 k/uL (1.0-4.8); Lymphocytes % (A) 5 %; MCH 34.7 pg (25.0-35.0); MCV 105.3 fL (80.0-100.0); Macrocytosis Moderate; Mean Platelet Volume 7.4; Monocytes # (A) 0.1 k/uL (0-1.0); Monocytes % (A) 1 %; Neutrophils # (A) 5.9 k/uL (1.3-7.7); Neutrophils % (A) 93 %; Platelet Count 467 k/uL (150-450); Poikilocytosis Slight; RDW 17.7 % (11.5-15.5); WBC 6.3 k/uL (3.8-10.6)
[2019-05-16 07:23] LABS: African American GFR (CKD) >90 (>60 ml/min/1.73 sqM); Anion Gap 7 mmol/L; Blood Urea Nitrogen 18 mg/dL (7-17); Calcium 8.5 mg/dL (8.4-10.2); Carbon Dioxide 38 mmol/L (22-30); Chloride 94 mmol/L (98-107); Glucose 133 mg/dL (74-99); Potassium 4.2 mmol/L (3.5-5.1); Sodium 139 mmol/L (137-145)
[2019-05-16] MEDS: IPRATROPIUM-ALBUTEROL 3 ML NEB INHALATION PRN ×2 (08:39→20:50)
[2019-05-16] MEDS: POTASSIUM CHLORIDE ER 20 MEQ TAB.ER PO SCH (08:50)
[2019-05-16] MEDS: FAMOTIDINE 20 MG TAB PO SCH (08:50)
[2019-05-16] MEDS: ARTIFICIAL TEARS-HYPROMELLOSE DROPS 15 ML BTL BOTH EYES SCH ×4 (08:50→20:37)
[2019-05-16] MEDS: busPIRone HCl 10 MG TAB PO SCH ×2 (08:50→20:37)
[2019-05-16] MEDS: SENNOSIDES-DOCUSATE SODIUM 1 EACH TAB PO SCH (08:50)
[2019-05-16] MEDS: METOPROLOL TARTRATE 25 MG TAB PO SCH ×2 (08:50→20:37)
[2019-05-16] MEDS: VIT A,C & E-LUTEIN-MINERALS 1 EACH TAB PO SCH (08:51)
[2019-05-16] MEDS: buPROPion SR 150 MG TABLET.ER PO SCH ×2 (08:51→20:38)
[2019-05-16] MEDS: FOLIC ACID 1 MG TAB PO SCH (08:51)
[2019-05-16] MEDS: ASPIRIN 81 MG PO SCH (08:51)
--- NOTE | 2019-05-16 11:17 | P.PN ---
Subjective Progress Note Date: 05/16/19 Principal diagnosis: Acute hypoxic respiratory failure, multifactorial, acute diastolic congestive heart, interstitial lung disease, rheumatoid lung and infectious etiology. This is a 69-year-old white female patient of Dr. 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 Knox for pain management, and recently had a pain pump implanted. Patient presents to the emergency department with her daughter on 05/14/2019 for evaluation of profound fatigue and weakness, increased shortness of breath. Patient states she does have some shortness of breath on a regular basis however in the last 2 months this has significantly worsened, and she has been increasingly weak, she has had a loss of appetite, and 10 pound weight loss in the last 6 months. Denied any fever or chills, denied any night sweats, denied any chest pain, denied hemoptysis, denied any pleuritic chest discomfort, no cough, or congestion. Patient takes Enbrel and methotrexate for history of rheumatoid arthritis and follows with Dr. Flores from rheumatology. She states her weakness has gotten to the point where she had laid on the couch and was unable to even get up to the bathroom. Patient did have recent travel to [place] however she states her symptoms started long prior to her trip to [place]. No abdominal pain, no vomiting, she did report some mild ankle swelling, no chest pain, no calf pain, no altered mentation no worsening speech problems. Chest x-ray showed patchy perihilar and basilar infiltrates and chronic elevation of the right hemidiaphragm, lab work did not show leukocytosis, white blood cell count on admission was 9.5, hemoglobin is 9.8, platelet count was 555, d-dimer was mildly elevated at 0.60, sodium was 136, potassium 3.1, chloride was 88, CO2 is 37, BUN was 21, creatinine 1.02, plasma lactic acid was within normal limits at 1.7, troponins were elevated to 0.195, and 0.062. ProBNP was obtained and was elevated at 5330, pro-calcitonin was elevated at 0.99 suggesting presence of an infectious process, TSH was low at 0.290 and free T3 was 2.3. Urinalysis was negative for infection, with only trace ketones. CT chest angiogram was completed showing no evidence of pulmonary embolism but extensive pulmonary airspace infiltrates and increased mediastinal bronchial adenopathy, with multiple enlarged mediastinal bronchial lymph nodes measuring up to 1.[address] showed no evidence of acute intracranial process. Echocardiogram was completed showing normal left ventricular systolic function with an EF of 55- 60%, mild mitral regurg and mild to moderate tricuspid regurgitation no evidence of pulmonary hypertension. Patient was started on empiric antibiotics in the form of Rocephin and Zithromax, and IV Lasix and today's chest x-ray still shows diffuse bilateral alveolar edema and/or infiltrates with no significant change from the day earlier. He is currently on 4 L of oxygen with a pulse ox of 94%, blood pressure was 93/54, she is in no significant distress, and her lung sounds are positive for only bibasilar crackles, no rhonchi, no wheezing. The patient is seen today 05/16/2019 in follow-up on the selective care unit. She is awake and alert in no acute distress. Breathing a bit easier today as compared to yesterday. Not quite back to her baseline. Maintaining O2 sat urations in the low 90s on 4 L/m per nasal cannula. She's afebrile. Hemodynamically stable. Blood culture reveals no growth. White count 6.3. Hemoglobin 10.1. Creatinine 0.72. She is currently on DuoNeb inhalations, IV Solu-Medrol, ceftriaxone and azithromycin. Objective - Vital Signs Vital signs: Vital Signs Temp 97.7 F 05/16/19 08:00 Pulse 80 05/16/19 08:49 Resp 18 05/16/19 08:00 BP 97/54 05/16/19 08:00 Pulse Ox 91 L 05/16/19 08:00 Intake & Output 05/15/19 05/16/19 05/16/19 18:59 06:59 18:59 Intake Total 1020 Output Total 1000 Balance 20 Weight 63.8 kg Intake: Intake, IV Titration 400 Amount Potassium Chloride 20 meq 100 In Water For Injection 1 100ml.bag @ 50 mls/hr IVPB ONCE ONE Rx#: [id number] Sodium Chloride 0.9% 1, 200 000 ml @ 25 mls/hr IV . Q24H [facility] Rx#:[id number] cefTRIAXone 1 gm In 100 Sodium Chloride 0.9% 50 ml @ 100 mls/hr IVPB Q24H [facility] Rx#:[id number] Oral 620 Output: Urine 1000 Other: Voiding Method Toilet Toilet Toilet # Voids 1 - Exam GENERAL EXAM: Alert, pleasant 69-year-old female patient, fairly comfortable in no apparent distress. On 4 L nasal cannula. HEAD: Normocephalic. EYES: Normal reaction of pupils, equal size. NOSE: Clear with pink turbinates. THROAT: No erythema or exudates. NECK: No masses, no JVD. CHEST: No chest wall deformity. LUNGS: Equal air entry with bibasilar crackles. CVS: S1 and S2 normal with no audible murmur, regular rhythm. ABDOMEN: No hepatosplenomegaly, normal bowel sounds, no guarding or rigidity. SPINE: No scoliosis or deformity SKIN: No rashes CENTRAL NERVOUS SYSTEM: No focal deficits, tone is normal in all 4 extremities. EXTREMITIES: Changes of chronic rheumatoid arthritis. There is no peripheral edema. No clubbing, no cyanosis. Peripheral pulses are intact. - Labs CBC & Chem 7: 05/16/19 06:22 05/16/19 06:22 Labs: Abnormal Lab Results - Last 24 Hours (Table) 05/15/19 05/15/19 05/16/19 Range/Units 19:47 20:08 06:17 RBC (3.80-5.40) m/uL Hgb (11.4-16.0) gm/dL Hct (34.0-46.0) % MCV (80.0-100.0) fL RDW (11.5-15.5) % Plt Count (150-450) k/uL Lymphocytes # (1.0-4.8) k/uL Potassium 3.2 L (3.5-5.1) mmol/L Chloride (98-107) mmol/L Carbon Dioxide (22-30) mmol/L BUN (7-17) mg/dL Glucose (74-99) mg/dL POC Glucose (mg/dL) 186 H 139 H (75-99) mg/dL 05/16/19 05/16/19 Range/Units 06:22 06:22 RBC 2.90 L (3.80-5.40) m/uL Hgb 10.1 L (11.4-16.0) gm/dL Hct 30.6 L (34.0-46.0) % MCV 105.3 H (80.0-100.0) fL RDW 17.7 H (11.5-15.5) % Plt Count 467 H (150-450) k/uL Lymphocytes # 0.3 L (1.0-4.8) k/uL Potassium (3.5-5.1) mmol/L Chloride 94 L (98-107) mmol/L Carbon Dioxide 38 H (22-30) mmol/L BUN 18 H (7-17) mg/dL Glucose 133 H (74-99) mg/dL POC Glucose (mg/dL) (75-99) mg/dL Microbiology - Last 24 Hours (Table) 05/14/19 17:37 Blood Culture - Preliminary Blood No Growth after 24 hours Assessment and Plan Assessment: Assessment: #1. Acute hypoxemic respiratory failure, with significant multifocal airspace disease present on chest x-ray and CTA chest, with possibilities related to acute congestive heart failure, interstitial lung disease, rheumatoid lung, and infectious etiology. CT angios chest was negative for any evidence of pulmonary embolism #2. Acute exacerbation of CHF, with preserved left ventricular systolic function #3. Consider interstitial lung disease with mediastinal and bronchial adenopathy, could be related to underlying connective tissue disorder, rheumatoid arthritis, rule out sarcoidosis. Zak level is pending, calcium is nonelevated #4. History of rheumatoid arthritis, Sjogren's disease, on Enbrel and methotrexate #5. History of CVA in 1965 with residual speech slurring #6. Hypertension #7. Osteoarthritis #8. DJD #9. Lumbar spinal stenosis #10. Chronic pain, fibromyalgia, follows in the pain clinic, has a pain pump implanted #11. Anxiety, depression Plan: The patient was seen and evaluated by Dr. Vides. She is improved but not quite back to her baseline. We'll continue with the current treatment plan including DuoNeb inhalations, IV Solu-Medrol, antibiotics in the form of ceftriaxone and azithromycin. We will continue to follow make further recommendations based on her clinical status. I, the cosigning physician, performed a history & physical examination of the patient. Lungs sounds with crackles in the posterior bases. Maintaining good O2 saturations in the 90s on 4 L/m per nasal cannula. I discussed the assessment and plan of care with my nurse practitioner, Viki Guerra. I attest to the above note as dictated by her.
[2019-05-16 12:07] LABS: Glucose,Whole Blood 160 mg/dL (75-99)
[2019-05-16] MEDS: VENLAFAXINE HCL ER 75 MG CAP PO SCH ×2 (13:07→20:40)
--- NOTE | 2019-05-16 13:54 | PN ---
PROGRESS NOTE Mrs. Aponte is a 69-year-old female with a known history of rheumatoid arthritis who presented with progressive fatigue and dyspnea, was noted to have severe hypoxemia. Her chest x-ray was consistent with fluffy filtrate bilaterally, most likely is consistent with rheumatoid lung. She is feeling better today. She was evaluated by Dr. Vides and initiated on steroids. She denies any chest pain. No dizziness. No palpitation. She denies any nausea. Her blood pressure has been under good control. Her diuretics were stopped. She continues to be otherwise on aspirin once a day, Lipitor 20 mg daily, metoprolol tartrate 25 mg twice a day. PHYSICAL EXAMINATION: Blood pressure 108/50 with the heart rate in 90s. LUNGS: With few crackles, no wheezes. HEART: Regular rate and rhythm. S1, S2. No S3. No rub appreciated. ABDOMEN: Soft, nontender. EXTREMITIES: No edema. LAB DATA: Lab data revealed a hemoglobin of 10.1, BUN and creatinine of 18 and 0.72. IMPRESSION: 1. Progressive dyspnea and hypoxemia, noncardiac, most likely related to rheumatoid lung. 2. History of arrhythmia, stable. 3. Hyperlipidemia. RECOMMENDATION: From the cardiac standpoint, she is stable. I will continue present therapy. I do not see any evidence of congestive heart failure. I would not recommend any further cardiac workup. We will see her on as-needed basis. She will follow up on a regular basis with Dr. Gonzales following her discharge. MMODL / IJN: [id number] /
[2019-05-16 17:17] LABS: Glucose,Whole Blood 156 mg/dL (75-99)
[2019-05-16] MEDS: AZITHROMYCIN 500 MG TAB PO SCH (17:18)
[2019-05-16] MEDS: ATORVASTATIN 20 MG TAB PO SCH (20:38)
[2019-05-16 20:46] LABS: Glucose,Whole Blood 177 mg/dL (75-99)
--- NOTE | 2019-05-17 00:16 | P.PN ---
Subjective Progress Note Date: 05/15/19 Principal diagnosis: Acute hypoxic respiratory failure Multifocal air space disease Acute CHF with preserved ejection fraction Patient is a 69-year-old female with a known history of rheumatoid arthritis currently on methotrexate and embrel , fibromyalgia, chronic pain, osteoart hritis, hypertension, depression/anxiety and also history of lumbar spinal stenosis, connective tissue disorder presented to the hospital with complaints of generalized weakness and fatigue. Patient says that she has been having these symptoms for the past 1 week and also she fell on the floor due to weaknessx2 and says she did hit her head at that time. Patient denied any fever or chills at home. No cough or sputum production. As per the family she had a cough off her taking deep breath last night. Patient came back last night from 10 day bus trip to [place] and visited [facility] and other places. Denied any complaints of chest pain. No headache or lightheadedness. Denied an y leg swelling or calf pain. Patient does admit to having some mild ankle swelling. Denied any history of DVT in the past. Patient says that she has been sleeping more than normal as well. No speech problems or any focal weakness. Chest x-ray showed patchy perihilar and basilar infiltrate is noted. Chronic elevation of right diaphragm. D-dimer 0.61 CT angiogram of the chest was done showed no evidence of pulmonary embolism. Extensive pulmonary airspace infiltrates. This appears to be new compared to old computed tomography scan 2010. there is increase in mediastinal and bronchial adenopathy. 136, potassium 3.1, troponin 0.195 on admission. Patient was hypoxic with pulse ox 84% on room air at admission. Patient is not on any home oxygen. 05/15/2019 Patient is still having shortness of breath but improved compared to yesterday. Continued on IV Lasix today. Patient was seen by pulmonary and was started on IV steroids. Continued on antibiotics no cough ceftriaxone and azithromycin. She is requiring oxygen with another cannula. Zak level and calcium was ordered for possible sarcoidosis into consideration. Is following. Current medications reviewed. Objective - Vital Signs Vital signs: Vital Signs Temp 98.3 F 05/15/19 19:50 Pulse 82 05/15/19 19:50 Resp 17 05/15/19 19:50 BP 100/55 05/15/19 19:50 Pulse Ox 94 L 05/15/19 19:50 Intake & Output 05/15/19 05/15/19 05/16/19 06:59 18:59 06:59 Intake Total 053.400 3676 Output Total 2100 1000 Balance -1735.672 20 Weight 63.4 kg Intake: Intake, IV Titration 364.328 400 Amount Azithromycin 500 mg In 250 Sodium Chloride 0.9% 250 ml @ 250 mls/hr IVPB ONCE STA Rx#:[id number] Heparin Sod,Pork in 0.45% 64.328 NaCl 25,000 unit In 0.45 % NaCl 1 250ml.bag @ 12 UNITS/KG/HR 7.893 mls/hr IV .Q24H [facility] Rx#: [id number] Potassium Chloride 20 meq 100 In Water For Injection 1 100ml.bag @ 50 mls/hr IVPB ONCE ONE Rx#: [id number] Sodium Chloride 0.9% 1, 200 000 ml @ 25 mls/hr IV . Q24H [facility] Rx#:[id number] cefTRIAXone 1 gm In 50 100 Sodium Chloride 0.9% 50 ml @ 100 mls/hr IVPB Q24H [facility] Rx#:[id number] Oral 620 Output: Urine 2100 1000 Other: Voiding Method Toilet Toilet Toilet # Voids 1 - Exam PHYSICAL EXAMINATION: Patient is lying in the bed comfortably, no acute distress, awake alert and oriented.. HEENT: Normocephalic. Neck is supple. Pupils reactive. Nostrils clear. Oral cavity is moist. Ears reveal no drainage. Neck reveals no JVD, carotid bruits, or thyromegaly. CHEST EXAMINATION: Trachea is central. Symmetrical expansion. Bilateral diffuse rhonchi and scattered crackles noted. No wheezing.. CARDIAC: Normal S1, S2 with no gallops. No murmurs ABDOMEN: Soft. Bowel sounds normal. No organomegaly. No abdominal bruits. Extremities: reveal no edema. No clubbing or cyanosis Neurologically awake, alert, oriented x3 with well-coordinated movements. Lethargic. No focal deficits noted Skin: No rash or skin lesions. Psychiatric: Coperative. Nonsuicidal Musculoskeletal: No joint swelling or deformity. Normal range of motion. - Labs CBC & Chem 7: 05/16/19 06:22 05/16/19 06:22 Labs: Abnormal Lab Results - Last 24 Hours (Table) 05/14/19 05/15/19 05/15/19 Range/Units 19:10 00:45 05:48 RBC 2.94 L (3.80-5.40) m/uL Hgb 10.0 L (11.4-16.0) gm/dL Hct 30.5 L (34.0-46.0) % MCV 103.7 H (80.0-100.0) fL RDW 18.0 H (11.5-15.5) % Plt Count 487 H (150-450) k/uL Lymphocytes # 0.6 L (1.0-4.8) k/uL APTT 113.0 H* (22.0-30.0) sec Sodium (137-145) mmol/L Potassium (3.5-5.1) mmol/L Chloride (98-107) mmol/L Carbon Dioxide (22-30) mmol/L BUN (7-17) mg/dL Glucose (74-99) mg/dL POC Glucose (mg/dL) (75-99) mg/dL Calcium (8.4-10.2) mg/dL Troponin I (0.000-0.034) ng/mL Procalcitonin 0.99 H (0.02-0.09) ng/mL 05/15/19 05/15/19 05/15/19 Range/Units 05:48 05:48 09:11 RBC (3.80-5.40) m/uL Hgb (11.4-16.0) gm/dL Hct (34.0-46.0) % MCV (80.0-100.0) fL RDW (11.5-15.5) % Plt Count (150-450) k/uL Lymphocytes # (1.0-4.8) k/uL APTT 43.3 H (22.0-30.0) sec Sodium 135 L (137-145) mmol/L Potassium 2.7 L* (3.5-5.1) mmol/L Chloride 89 L (98-107) mmol/L Carbon Dioxide 38 H (22-30) mmol/L BUN 21 H (7-17) mg/dL Glucose 100 H (74-99) mg/dL POC Glucose (mg/dL) (75-99) mg/dL Calcium 8.2 L (8.4-10.2) mg/dL Troponin I 0.062 H* (0.000-0.034) ng/mL Procalcitonin (0.02-0.09) ng/mL 05/15/19 05/15/19 Range/Units 19:47 20:08 RBC (3.80-5.40) m/uL Hgb (11.4-16.0) gm/dL Hct (34.0-46.0) % MCV (80.0-100.0) fL RDW (11.5-15.5) % Plt Count (150-450) k/uL Lymphocytes # (1.0-4.8) k/uL APTT (22.0-30.0) sec Sodium (137-145) mmol/L Potassium 3.2 L (3.5-5.1) mmol/L Chloride (98-107) mmol/L Carbon Dioxide (22-30) mmol/L BUN (7-17) mg/dL Glucose (74-99) mg/dL POC Glucose (mg/dL) 186 H (75-99) mg/dL Calcium (8.4-10.2) mg/dL Troponin I (0.000-0.034) ng/mL Procalcitonin (0.02-0.09) ng/mL Assessment and Plan Assessment: Acute hypoxemic respiratory failure secondary to extensive pulmonary infiltrates. Bilateral airspace infiltrates likely due to pneumonia versus interstitial lung disease versus rheumatoid versus sarcoid Elevated troponin level. Possible type 2 non-ST elevated [place] troponin is trend ing down s/p recent falls 2 in one week. Rheumatoid arthritis on immunotherapy Fibromyalgia Chronic pain Depression/anxiety Chronically elevated right diaphragm Hypertension GERD Osteoarthritis Hypothyroidism History of lumbar spinal stenosis History of TIA History of connective tissue disorder DVT prophylaxis. Plan: Patient will be continued on antibiotics in the form of ceftriaxone and azithro mycin. And with IV steroids. Heparin drip has been discontinued. Oxygen therapy. Troponin level trending down.. Continue with aspirin and statins. Continue with home medications and follow up closely. Cardiology and pulmonary is following. Further recommendations based on the clinical course. Discussed with her family at bedside in detail. Time with Patient: Greater than 30
[2019-05-17] MEDS: methylPREDNISolone SOD SUCCI 125 MG/2 ML VIAL IV SCH ×3 (00:20→11:58)
--- NOTE | 2019-05-17 00:20 | P.PN ---
Subjective Progress Note Date: 05/16/19 Principal diagnosis: Acute hypoxic respiratory failure Multifocal air space disease Acute CHF with preserved ejection fraction Patient is a 69-year-old female with a known history of rheumatoid arthritis currently on methotrexate and embrel , fibromyalgia, chronic pain, osteoart hritis, hypertension, depression/anxiety and also history of lumbar spinal stenosis, connective tissue disorder presented to the hospital with complaints of generalized weakness and fatigue. Patient says that she has been having these symptoms for the past 1 week and also she fell on the floor due to weaknessx2 and says she did hit her head at that time. Patient denied any fever or chills at home. No cough or sputum production. As per the family she had a cough off her taking deep breath last night. Patient came back last night from 10 day bus trip to [place] and visited [facility] and other places. Denied any complaints of chest pain. No headache or lightheadedness. Denied an y leg swelling or calf pain. Patient does admit to having some mild ankle swelling. Denied any history of DVT in the past. Patient says that she has been sleeping more than normal as well. No speech problems or any focal weakness. Chest x-ray showed patchy perihilar and basilar infiltrate is noted. Chronic elevation of right diaphragm. D-dimer 0.61 CT angiogram of the chest was done showed no evidence of pulmonary embolism. Extensive pulmonary airspace infiltrates. This appears to be new compared to old computed tomography scan 2010. there is increase in mediastinal and bronchial adenopathy. 136, potassium 3.1, troponin 0.195 on admission. Patient was hypoxic with pulse ox 84% on room air at admission. Patient is not on any home oxygen. 05/15/2019 Patient is still having shortness of breath but improved compared to yesterday. Continued on IV Lasix today. Patient was seen by pulmonary and was started on IV steroids. Continued on antibiotics no cough ceftriaxone and azithromycin. She is requiring oxygen with another cannula. Zak level and calcium was ordered for possible sarcoidosis into consideration. Is following. 05/16/2019 Patient is awake alert and oriented 3. Able to sit in the chair comfortably. No acute distress today. Breathing status is improved compared to yesterday. Still requiring oxygen with another cannula. Patient is being continued on IV steroids, breathing treatments and antibiotics. Blood cultures showed no growth so far. Patient has been afebrile. Overall improving slowly. WBC 6.3, hemoglobin 10.1 No other acute overnight issues. Current medications reviewed. Objective - Vital Signs Vital signs: Vital Signs Temp 97.5 F L 05/16/19 16:15 Pulse 84 05/16/19 16:15 Resp 16 05/16/19 16:15 BP 109/60 05/16/19 16:15 Pulse Ox 96 05/16/19 16:15 Intake & Output 05/15/19 05/16/19 05/16/19 18:59 06:59 18:59 Intake Total 1020 240 Output Total 1000 Balance 20 240 Weight 63.8 kg Intake: Intake, IV Titration 400 Amount Potassium Chloride 20 meq 100 In Water For Injection 1 100ml.bag @ 50 mls/hr IVPB ONCE ONE Rx#: [id number] Sodium Chloride 0.9% 1, 200 000 ml @ 25 mls/hr IV . Q24H [facility] Rx#:[id number] cefTRIAXone 1 gm In 100 Sodium Chloride 0.9% 50 ml @ 100 mls/hr IVPB Q24H [facility] Rx#:[id number] Oral 620 240 Output: Urine 1000 Other: Voiding Method Toilet Toilet Toilet # Voids 1 1 - Exam PHYSICAL EXAMINATION: Patient is lying in the bed comfortably, no acute distress, awake alert and oriented.. HEENT: Normocephalic. Neck is supple. Pupils reactive. Nostrils clear. Oral cavity is moist. Ears reveal no drainage. Neck reveals no JVD, carotid bruits, or thyromegaly. CHEST EXAMINATION: Trachea is central. Symmetrical expansion. Scattered rhonchi.. No wheezing.. CARDIAC: Normal S1, S2 with no gallops. No murmurs ABDOMEN: Soft. Bowel sounds normal. No organomegaly. No abdominal bruits. Extremities: reveal no edema. No clubbing or cyanosis Neurologically awake, alert, oriented x3 with well-coordinated movements. Lethargic. No focal deficits noted Skin: No rash or skin lesions. Psychiatric: Coperative. Nonsuicidal Musculoskeletal: No joint swelling or deformity. Normal range of motion. - Labs CBC & Chem 7: 05/16/19 06:22 05/16/19 06:22 Labs: Abnormal Lab Results - Last 24 Hours (Table) 05/14/19 05/15/19 05/15/19 Range/Units 19:10 19:47 20:08 RBC (3.80-5.40) m/uL Hgb (11.4-16.0) gm/dL Hct (34.0-46.0) % MCV (80.0-100.0) fL RDW (11.5-15.5) % Plt Count (150-450) k/uL Lymphocytes # (1.0-4.8) k/uL Potassium 3.2 L (3.5-5.1) mmol/L Chloride (98-107) mmol/L Carbon Dioxide (22-30) mmol/L BUN (7-17) mg/dL Glucose (74-99) mg/dL POC Glucose (mg/dL) 186 H (75-99) mg/dL Angiotensin Convert Enz 68 H (8-52) U/L 05/16/19 05/16/19 05/16/19 Range/Units 06:17 06:22 06:22 RBC 2.90 L (3.80-5.40) m/uL Hgb 10.1 L (11.4-16.0) gm/dL Hct 30.6 L (34.0-46.0) % MCV 105.3 H (80.0-100.0) fL RDW 17.7 H (11.5-15.5) % Plt Count 467 H (150-450) k/uL Lymphocytes # 0.3 L (1.0-4.8) k/uL Potassium (3.5-5.1) mmol/L Chloride 94 L (98-107) mmol/L Carbon Dioxide 38 H (22-30) mmol/L BUN 18 H (7-17) mg/dL Glucose 133 H (74-99) mg/dL POC Glucose (mg/dL) 139 H (75-99) mg/dL Angiotensin Convert Enz (8-52) U/L 05/16/19 05/16/19 Range/Units 11:59 17:14 RBC (3.80-5.40) m/uL Hgb (11.4-16.0) gm/dL Hct (34.0-46.0) % MCV (80.0-100.0) fL RDW (11.5-15.5) % Plt Count (150-450) k/uL Lymphocytes # (1.0-4.8) k/uL Potassium (3.5-5.1) mmol/L Chloride (98-107) mmol/L Carbon Dioxide (22-30) mmol/L BUN (7-17) mg/dL Glucose (74-99) mg/dL POC Glucose (mg/dL) 160 H 156 H (75-99) mg/dL Angiotensin Convert Enz (8-52) U/L Microbiology - Last 24 Hours (Table) 05/14/19 17:37 Blood Culture - Preliminary Blood No Growth after 24 hours Assessment and Plan Assessment: Acute hypoxemic respiratory failure secondary to extensive pulmonary infiltrates and acute CHF. Acute CHF with preserved systolic function Bilateral airspace infiltrates likely due to pneumonia versus interstitial lung disease versus rheumatoid versus sarcoid Elevated troponin level. Possible type 2 non-ST elevated [place] troponin is trending down s/p recent falls 2 in one week. Rheumatoid arthritis on immunotherapy Fibromyalgia Chronic pain Depression/anxiety Chronically elevated right diaphragm Hypertension GERD Osteoarthritis Hypothyroidism History of lumbar spinal stenosis History of TIA History of connective tissue disorder DVT prophylaxis. Plan: Patient will be continued on antibiotics in the form of ceftriaxone and azithromycin. Continue with IV steroids. Heparin drip has been discontinued. Oxygen therapy. Troponin level trending down.. Continue with aspirin and statins. Continue with home medications and follow up closely. Cardiology and pulmonary is following. Further recommendations based on the clinical course. Discussed with her family at bedside in detail. Time with Patient: Greater than 30
[2019-05-17] MEDS: SODIUM CHLORIDE 0.9% 1,000 ML IV SCH (05:33)
[2019-05-17] MEDS: LEVOTHYROXINE 50 MCG TAB PO SCH (05:38)
[2019-05-17 06:19] LABS: Glucose,Whole Blood 142 mg/dL (75-99)
[2019-05-17] MEDS: INSULIN ASPART (NovoLOG) 100 UNIT/ML VIAL SQ SCH ×4 (07:04→21:26)
[2019-05-17 07:13] LABS: Anisocytosis Slight; Basophils % (A) 0 %; Eosinophils % (A) 0 %; HCT 30.8 % (34.0-46.0); Hypochromasia Slight; Lymphocytes # (A) 0.4 k/uL (1.0-4.8); Lymphocytes % (A) 4 %; MCH 34.1 pg (25.0-35.0); MCHC 32.4 g/dL (31.0-37.0); MCV 105.2 fL (80.0-100.0); Macrocytosis Moderate; Mean Platelet Volume 7.6; Monocytes # (A) 0.1 k/uL (0-1.0); Monocytes % (A) 1 %; Neutrophils # (A) 10.3 k/uL (1.3-7.7); Neutrophils % (A) 95 %; Platelet Count 560 k/uL (150-450); Poikilocytosis Slight; RBC 2.93 m/uL (3.80-5.40); RDW 18.3 % (11.5-15.5); WBC 10.9 k/uL (3.8-10.6)
[2019-05-17] MEDS: ARTIFICIAL TEARS-HYPROMELLOSE DROPS 15 ML BTL BOTH EYES SCH ×4 (09:02→20:23)
[2019-05-17] MEDS: VIT A,C & E-LUTEIN-MINERALS 1 EACH TAB PO SCH (09:02)
[2019-05-17] MEDS: ASPIRIN 81 MG PO SCH (09:02)
[2019-05-17] MEDS: METOPROLOL TARTRATE 25 MG TAB PO SCH ×2 (09:03→20:22)
[2019-05-17] MEDS: FOLIC ACID 1 MG TAB PO SCH (09:03)
[2019-05-17] MEDS: SENNOSIDES-DOCUSATE SODIUM 1 EACH TAB PO SCH (09:03)
[2019-05-17] MEDS: FAMOTIDINE 20 MG TAB PO SCH (09:03)
[2019-05-17] MEDS: buPROPion SR 150 MG TABLET.ER PO SCH ×2 (09:04→20:22)
[2019-05-17] MEDS: VENLAFAXINE HCL ER 75 MG CAP PO SCH ×2 (09:04→20:22)
[2019-05-17] MEDS: busPIRone HCl 10 MG TAB PO SCH ×2 (09:04→20:22)
[2019-05-17] MEDS: IPRATROPIUM-ALBUTEROL 3 ML NEB INHALATION PRN ×2 (09:09→20:28)
[2019-05-17 12:07] LABS: Glucose,Whole Blood 176 mg/dL (75-99)
--- NOTE | 2019-05-17 13:31 | P.PN ---
Subjective Progress Note Date: 05/17/19 Principal diagnosis: Acute hypoxic respiratory failure, multifactorial, acute diastolic congestive heart, interstitial lung disease, rheumatoid lung and infectious etiology. This is a 69-year-old white female patient of Dr. 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 Knox for pain management, and recently had a pain pump implanted. Patient presents to the emergency department with her daughter on 05/14/2019 for evaluation of profound fatigue and weakness, increased shortness of breath. Patient states she does have some shortness of breath on a regular basis however in the last 2 months this has significantly worsened, and she has been increasingly weak, she has had a loss of appetite, and 10 pound weight loss in the last 6 months. Denied any fever or chills, denied any night sweats, denied any chest pain, denied hemoptysis, denied any pleuritic chest discomfort, no cough, or congestion. Patient takes Enbrel and methotrexate for history of rheumatoid arthritis and follows with Dr. Flores from rheumatology. She states her weakness has gotten to the point where she had laid on the couch and was unable to even get up to the bathroom. Patient did have recent travel to [place] however she states her symptoms started long prior to her trip to [place]. No abdominal pain, no vomiting, she did report some mild ankle swelling, no chest pain, no calf pain, no altered mentation no worsening speech problems. Chest x-ray showed patchy perihilar and basilar infiltrates and chronic elevation of the right hemidiaphragm, lab work did not show leukocytosis, white blood cell count on admission was 9.5, hemoglobin is 9.8, platelet count was 555, d-dimer was mildly elevated at 0.60, sodium was 136, potassium 3.1, chloride was 88, CO2 is 37, BUN was 21, creatinine 1.02, plasma lactic acid was within normal limits at 1.7, troponins were elevated to 0.195, and 0.062. ProBNP was obtained and was elevated at 5330, pro-calcitonin was elevated at 0.99 suggesting presence of an infectious process, TSH was low at 0.290 and free T3 was 2.3. Urinalysis was negative for infection, with only trace ketones. CT chest angiogram was completed showing no evidence of pulmonary embolism but extensive pulmonary airspace infiltrates and increased mediastinal bronchial adenopathy, with multiple enlarged mediastinal bronchial lymph nodes measuring up to 1.[address] showed no evidence of acute intracranial process. Echocardiogram was completed showing normal left ventricular systolic function with an EF of 55- 60%, mild mitral regurg and mild to moderate tricuspid regurgitation no evidence of pulmonary hypertension. Patient was started on empiric antibiotics in the form of Rocephin and Zithromax, and IV Lasix and today's chest x-ray still shows diffuse bilateral alveolar edema and/or infiltrates with no significant change from the day earlier. He is currently on 4 L of oxygen with a pulse ox of 94%, blood pressure was 93/54, she is in no significant distress, and her lung sounds are positive for only bibasilar crackles, no rhonchi, no wheezing. The patient is seen today 05/16/2019 in follow-up on the selective care unit. She is awake and alert in no acute distress. Breathing a bit easier today as compared to yesterday. Not quite back to her baseline. Maintaining O2 sat urations in the low 90s on 4 L/m per nasal cannula. She's afebrile. Hemodynamically stable. Blood culture reveals no growth. White count 6.3. Hemoglobin 10.1. Creatinine 0.72. She is currently on DuoNeb inhalations, IV Solu-Medrol, ceftriaxone and azithromycin. The patient is seen today 05/17/2019 in follow-up on the selective care unit. She is currently resting quite comfortably in bed.no worsening shortness of breath, cough or congestion. She is maintaining O2 saturations in the mid 90s on room air. She's afebrile. Hemodynamically stable. Sputum culture reveals no growth. Blood culture reveals no growth. White count 10.9. Hemoglobin 10.0. She has been maintained on DuoNeb inhalations, IV Solu-Medrol, antibiotics in the form of ceftriaxone and azithromycin. Objective - Vital Signs Vital signs: Vital Signs Temp 98.1 F 05/17/19 12:00 Pulse 81 05/17/19 12:00 Resp 18 05/17/19 12:00 BP 115/71 05/17/19 12:00 Pulse Ox 96 05/17/19 12:00 Intake & Output 05/16/19 05/17/19 05/17/19 18:59 06:59 18:59 Intake Total 240 300 230 Balance 240 300 230 Weight 63.6 kg Intake: Oral 240 300 230 Other: Voiding Method Toilet # Voids 1 2 - Exam GENERAL EXAM: Alert, pleasant 69-year-old female patient, comfortable in no apparent distress. On room air. HEAD: Normocephalic. EYES: Normal reaction of pupils, equal size. NOSE: Clear with pink turbinates. THROAT: No erythema or exudates. NECK: No masses, no JVD. CHEST: No chest wall deformity. LUNGS: Equal air entry with faint coarse bibasilar crackles. CVS: S1 and S2 normal with no audible murmur, regular rhythm. ABDOMEN: No hepatosplenomegaly, normal bowel sounds, no guarding or rigidity. SPINE: No scoliosis or deformity SKIN: No rashes CENTRAL NERVOUS SYSTEM: No focal deficits, tone is normal in all 4 extremities. EXTREMITIES: Changes of chronic rheumatoid arthritis. There is no peripheral edema. No clubbing, no cyanosis. Peripheral pulses are intact. - Labs CBC & Chem 7: 05/17/19 05:52 05/16/19 06:22 Labs: Abnormal Lab Results - Last 24 Hours (Table) 05/16/19 05/16/19 05/17/19 Range/Units 17:14 20:44 05:52 WBC 10.9 H (3.8-10.6) k/uL RBC 2.93 L (3.80-5.40) m/uL Hgb 10.0 L (11.4-16.0) gm/dL Hct 30.8 L (34.0-46.0) % MCV 105.2 H (80.0-100.0) fL RDW 18.3 H (11.5-15.5) % Plt Count 560 H (150-450) k/uL Neutrophils # 10.3 H (1.3-7.7) k/uL Lymphocytes # 0.4 L (1.0-4.8) k/uL POC Glucose (mg/dL) 156 H 177 H (75-99) mg/dL 08/24/19 08/24/19 Range/Units 06:18 11:51 WBC (3.8-10.6) k/uL RBC (3.80-5.40) m/uL Hgb (11.4-16.0) gm/dL Hct (34.0-46.0) % MCV (80.0-100.0) fL RDW (11.5-15.5) % Plt Count (150-450) k/uL Neutrophils # (1.3-7.7) k/uL Lymphocytes # (1.0-4.8) k/uL POC Glucose (mg/dL) 142 H 176 H (75-99) mg/dL Microbiology - Last 24 Hours (Table) 05/17/19 08:33 Gram Stain - Final Sputum Sputum Culture - Final 05/14/19 17:37 Blood Culture - Preliminary Blood No Growth after 48 hours Assessment and Plan Assessment: Assessment: #1. Acute hypoxemic respiratory failure, with significant multifocal airspace disease present on chest x-ray and CTA chest, with possibilities related to acute congestive heart failure, interstitial lung disease, rheumatoid lung, and infectious etiology. CT angios chest was negative for any evidence of pulmonary embolism #2. Acute exacerbation of CHF, with preserved left ventricular systolic function #3. Consider interstitial lung disease with mediastinal and bronchial adenopathy, could be related to underlying connective tissue disorder, rheumatoid arthritis, rule out sarcoidosis. Zak level is pending, calcium is nonelevated #4. History of rheumatoid arthritis, Sjogren's disease, on Enbrel and methotrexate #5. History of CVA in 1965 with residual speech slurring #6. Hypertension #7. Osteoarthritis #8. DJD #9. Lumbar spinal stenosis #10. Chronic pain, fibromyalgia, follows in the pain clinic, has a pain pump implanted #11. Anxiety, depression Plan: The patient was seen and evaluated by Dr. Vides. She is improved from the pulmonary standpoint. Sputum culture shows no growth. We'll convert her to oral prednisone burst and taper. Complete a course of antibiotics. Home once [place] d medically cleared. Follow-up with Dr. Vides in our office in 1-2 weeks' time. We can repeat a chest x-ray then. I, the cosigning physician, performed a history & physical examination of the patient. Lungs sounds with crackles in the posterior bases. Maintaining good O2 saturations in the 90s on room air. I discussed the assessment and plan of care with my nurse practitioner, Viki Guerra. I attest to the above note as dictated by her.
[2019-05-17 17:28] LABS: Glucose,Whole Blood 137 mg/dL (75-99)
[2019-05-17] MEDS: AZITHROMYCIN 500 MG TAB PO SCH (17:38)
[2019-05-17] MEDS: ATORVASTATIN 20 MG TAB PO SCH (20:22)
[2019-05-17 20:58] LABS: Glucose,Whole Blood 119 mg/dL (75-99)
[2019-05-18 06:43] LABS: Glucose,Whole Blood 112 mg/dL (75-99)
--- NOTE | 2019-05-18 07:03 | XR ---
EXAMINATION TYPE: XR chest 1V portable DATE OF EXAM: 05/18/2019 CLINICAL HISTORY: Difficulty breathing progress study. History of CHF. TECHNIQUE: Single AP portable upright view of the chest is obtained. COMPARISON: Chest x-ray from 3 days earlier FINDINGS: Reticular interstitial changes bilaterally are seen. Improved central opacities noted. No pleural effusion or pneumothorax is seen. Somewhat low lung volumes are present. Cardiac silhouette s ize is upper limits of normal. Overlying EKG leads. Osseous structures are intact. IMPRESSION: Improved bilateral central alveolar edema and/or infiltrates. No new infiltrates are seen .
[2019-05-18] MEDS: IPRATROPIUM-ALBUTEROL 3 ML NEB INHALATION PRN ×2 (07:37→19:22)
[2019-05-18] MEDS: SODIUM CHLORIDE 0.9% 1,000 ML IV SCH (08:45)
[2019-05-18] MEDS: LEVOTHYROXINE 50 MCG TAB PO SCH (08:45)
[2019-05-18] MEDS: INSULIN ASPART (NovoLOG) 100 UNIT/ML VIAL SQ SCH ×4 (08:45→21:22)
[2019-05-18] MEDS: ARTIFICIAL TEARS-HYPROMELLOSE DROPS 15 ML BTL BOTH EYES SCH ×4 (09:14→21:23)
[2019-05-18] MEDS: FOLIC ACID 1 MG TAB PO SCH (09:15)
[2019-05-18] MEDS: METOPROLOL TARTRATE 25 MG TAB PO SCH ×2 (09:15→21:22)
[2019-05-18] MEDS: VIT A,C & E-LUTEIN-MINERALS 1 EACH TAB PO SCH (09:15)
[2019-05-18] MEDS: FAMOTIDINE 20 MG TAB PO SCH (09:15)
[2019-05-18] MEDS: ASPIRIN 81 MG PO SCH (09:15)
[2019-05-18] MEDS: buPROPion SR 150 MG TABLET.ER PO SCH ×2 (09:15→17:05)
[2019-05-18] MEDS: VENLAFAXINE HCL ER 75 MG CAP PO SCH ×2 (09:15→17:06)
[2019-05-18] MEDS: busPIRone HCl 10 MG TAB PO SCH ×2 (09:15→17:06)
[2019-05-18] MEDS: predniSONE 20 MG TAB PO SCH (09:15)
[2019-05-18] MEDS: SENNOSIDES-DOCUSATE SODIUM 1 EACH TAB PO SCH (09:15)
--- NOTE | 2019-05-18 11:26 | P.PN ---
Subjective Progress Note Date: 05/18/19 Principal diagnosis: Acute hypoxic respiratory failure, multifactorial, acute diastolic congestive heart failure, interstitial lung disease, rheumatoid lung and infectious etiology This is a 69-year-old white female patient of Dr. 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 Knox for pain management, and recently had a pain pump implanted. Patient presents to the emergency department with her daughter on 05/14/2019 for evaluation of profound fatigue and weakness, increased shortness of breath. Patient states she does have some shortness of breath on a regular basis however in the last 2 months this has significantly worsened, and she has been increasingly weak, she has had a loss of appetite, and 10 pound weight loss in the last 6 months. Denied any fever or chills, denied any night sweats, denied any chest pain, denied hemoptysis, denied any pleuritic chest discomfort, no cough, or congestion. Patient takes Enbrel and methotrexate for history of rheumatoid arthritis and follows with Dr. Flores from rheumatology. She states her weakness has gotten to the point where she had laid on the couch and was unable to even get up to the bathroom. Patient did have recent travel to [place] however she states her symptoms started long prior to her trip to [place]. No abdominal pain, no vomiti ng, she did report some mild ankle swelling, no chest pain, no calf pain, no altered mentation no worsening speech problems. Chest x-ray showed patchy perihilar and basilar infiltrates and chronic elevation of the right hemidiaphragm, lab work did not show leukocytosis, white blood cell count on ad mission was 9.5, hemoglobin is 9.8, platelet count was 555, d-dimer was mildly elevated at 0.60, sodium was 136, potassium 3.1, chloride was 88, CO2 is 37, BUN was 21, creatinine 1.02, plasma lactic acid was within normal limits at 1.7, troponins were elevated to 0.195, and 0.062. ProBNP was obtained and was elevated at 5330, pro-calcitonin was elevated at 0.99 suggesting presence of an infectious process, TSH was low at 0.290 and free T3 was 2.3. Urinalysis was negative for infection, with only trace ketones. CT chest angiogram was completed showing no evidence of pulmonary embolism but extensive pulmonary airspace infiltrates and increased mediastinal bronchial adenopathy, with multiple enlarged mediastinal bronchial lymph nodes measuring up to 1.[address] showed no evidence of acute intracranial process. Echocardiogram was completed showing normal left ventricular systolic function with an EF of 55- 60%, mild mitral regurg and mild to moderate tricuspid regurgitation no evidence of pulmonary hypertension. Patient was started on empiric antibiotics in the form of Rocephin and Zithromax, and IV Lasix and today's chest x-ray still shows diffuse bilateral alveolar edema and/or infiltrates with no significant change from the day earlier. He is currently on 4 L of oxygen with a pulse ox of 94%, blood pressure was 93/54, she is in no significant distress, and her lung sounds are positive for only bibasilar crackles, no rhonchi, no wheezing. The patient is seen today 05/16/2019 in follow-up on the selective care unit. She is awake and alert in no acute distress. Breathing a bit easier today as compared to yesterday. Not quite back to her baseline. Maintaining O2 saturations in the low 90s on 4 L/m per nasal cannula. She's afebrile. Hemodynamically stable. Blood culture reveals no growth. White count 6.3. Hemoglobin 10.1. Creatinine 0.72. She is currently on DuoNeb inhalations, IV Solu-Medrol, ceftriaxone and azithromycin. The patient is seen today 05/17/2019 in follow-up on the selective care unit. She is currently resting quite comfortably in bed.no worsening shortness of breath, cough or congestion. She is maintaining O2 saturations in the mid 90s on room air. She's afebrile. Hemodynamically stable. Sputum culture reveals no growth. Blood culture reveals no growth. White count 10.9. Hemoglobin 10.0. She has been maintained on DuoNeb inhalations, IV Solu-Medrol, antibiotics in the form of ceftriaxone and azithromycin. On 05/18/2017 patient seen in follow-up on selective care unit, she is up ambulating to the bathroom, she still on 2 L of oxygen with a pulse ox of 96%, her pulse ox was 91%, she is hemodynamically stable, she states she is feeling better, breathing easier. No cough or congestion, no complaints of chest pain. Blood and sputum cultures are negative, IV steroids have been transitioned to oral, patient has been treated with the empiric antibiotics, she has been afebrile, hemodynamically stable. Zak level did come back mildly elevated at 68, calcium level is normal at 8.5. Objective - Vital Signs Vital signs: Vital Signs Temp 98.1 F 05/18/19 08:00 Pulse 91 05/18/19 08:00 Resp 16 05/18/19 08:00 BP 110/51 05/18/19 08:00 Pulse Ox 91 L 05/18/19 08:00 Intake & Output 05/17/19 05/18/19 05/18/19 18:59 06:59 18:59 Intake Total 610 300 Output Total 1000 Balance -390 300 Weight 64.2 kg Intake: Oral 610 300 Output: Urine 1000 Other: # Voids 1 - Exam GENERAL EXAM: Alert, pleasant, 69-year-old white female, on room air, with a pulse ox of 91%, comfortable in no apparent distress. HEAD: Normocephalic/atraumatic. EYES: Normal reaction of pupils, equal size. Conjunctiva pink, sclera white. NOSE: Clear with pink turbinates. THROAT: No erythema or exudates. NECK: No masses, no JVD, no thyroid enlargement, no adenopathy. CHEST: No chest wall deformity. Symmetrical expansion. LUNGS: Equal air entry with basilar crackles, but no wheeze, rhonchi or dullness. CVS: Regular rate and rhythm, normal S1 and S2, no gallops, no murmurs, no rubs ABDOMEN: Soft, nontender. No hepatosplenomegaly, normal bowel sounds, no guarding or rigidity. EXTREMITIES: No clubbing, no edema, no cyanosis, 2+ pulses and upper and lower extremities. MUSCULOSKELETAL: Muscle strength and tone normal. SPINE: No scoliosis or deformity SKIN: No rashes CENTRAL NERVOUS SYSTEM: Alert and oriented -3. No focal deficits, tone is normal in all 4 extremities. PSYCHIATRIC: Alert and oriented -3. Appropriate affect. Intact judgment and insight. - Labs CBC & Chem 7: 05/17/19 05:52 05/16/19 06:22 Labs: Abnormal Lab Results - Last 24 Hours (Table) 05/17/19 05/17/19 05/17/19 Range/Units 11:51 17:22 20:57 POC Glucose (mg/dL) 176 H 137 H 119 H (75-99) mg/dL 05/18/19 Range/Units 06:41 POC Glucose (mg/dL) 112 H (75-99) mg/dL Microbiology - Last 24 Hours (Table) 05/14/19 17:37 Blood Culture - Preliminary Blood No Growth after 72 hours 05/17/19 08:33 Gram Stain - Final Sputum Sputum Culture - Final Assessment and Plan Plan: Assessment: #1. Acute hypoxemic respiratory failure, with significant multifocal airspace disease present on chest x-ray and CTA chest, with possibilities related to acute congestive heart failure, interstitial lung disease, rheumatoid lung, and infectious etiology. CT angios chest was negative for any evidence of pulmonary embolism #2. Acute exacerbation of CHF, with preserved left ventricular systolic function #3. Consider interstitial lung disease with mediastinal and bronchial adenopathy, could be related to underlying connective tissue disorder, rheumatoid arthritis, rule out sarcoidosis. Zak level is pending, calcium is nonelevated #4. History of rheumatoid arthritis, Sjogren's disease, on Enbrel and methotre xate #5. History of CVA in 1965 with residual speech slurring #6. Hypertension #7. Osteoarthritis #8. DJD #9. Lumbar spinal stenosis #10. Chronic pain, fibromyalgia, follows in the pain clinic, has a pain pump implanted #11. Anxiety, depression Plan: Patient is breathing easier, feeling better, she is tolerating ambulation, room air pulse ox is 91%, no fever or chills, cultures are negative to date, patient has been transitioned to oral prednisone, diuretics have been discontinued, increase activity as tolerated, from pulmonary perspective patient is stable for discharge home today, we'll need follow-up in the outpatient basis with Dr. Townsend in 7-10 days. Finish outpatient course of oral antibiotics, prednisone taper. I performed a history & physical examination of the patient and discussed their management with my nurse practitioner, Jocelyne Barrios. I reviewed the nurse practitioner's note and agree with the documented findings and plan of care. Lung sounds are positive for diminished breath sounds with bibasilar crackles. The findings and the impression was discussed with the patient. I attest to the documentation by the nurse practitioner. Time with Patient: Less than 30
--- NOTE | 2019-05-18 11:59 | P.PN ---
Subjective Progress Note Date: 05/17/19 Principal diagnosis: Acute hypoxic respiratory failure Multifocal air space disease Acute CHF with preserved ejection fraction Patient is a 69-year-old female with a known history of rheumatoid arthritis currently on methotrexate and embrel , fibromyalgia, chronic pain, osteoart hritis, hypertension, depression/anxiety and also history of lumbar spinal stenosis, connective tissue disorder presented to the hospital with complaints of generalized weakness and fatigue. Patient says that she has been having these symptoms for the past 1 week and also she fell on the floor due to weaknessx2 and says she did hit her head at that time. Patient denied any fever or chills at home. No cough or sputum production. As per the family she had a cough off her taking deep breath last night. Patient came back last night from 10 day bus trip to [place] and visited [facility] and other places. Denied any complaints of chest pain. No headache or lightheadedness. Denied an y leg swelling or calf pain. Patient does admit to having some mild ankle swelling. Denied any history of DVT in the past. Patient says that she has been sleeping more than normal as well. No speech problems or any focal weakness. Chest x-ray showed patchy perihilar and basilar infiltrate is noted. Chronic elevation of right diaphragm. D-dimer 0.61 CT angiogram of the chest was done showed no evidence of pulmonary embolism. Extensive pulmonary airspace infiltrates. This appears to be new compared to old computed tomography scan 2010. there is increase in mediastinal and bronchial adenopathy. 136, potassium 3.1, troponin 0.195 on admission. Patient was hypoxic with pulse ox 84% on room air at admission. Patient is not on any home oxygen. 05/15/2019 Patient is still having shortness of breath but improved compared to yesterday. Continued on IV Lasix today. Patient was seen by pulmonary and was started on IV steroids. Continued on antibiotics no cough ceftriaxone and azithromycin. She is requiring oxygen with another cannula. Zak level and calcium was ordered for possible sarcoidosis into consideration. Is following. 05/16/2019 Patient is awake alert and oriented 3. Able to sit in the chair comfortably. No acute distress today. Breathing status is improved compared to yesterday. Still requiring oxygen with another cannula. Patient is being continued on IV steroids, breathing treatments and antibiotics. Blood cultures showed no growth so far. Patient has been afebrile. Overall improving slowly. WBC 6.3, hemoglobin 10.1 No other acute overnight issues. 05/17/2019 Patient is sitting in the bed comfortably. No complaints of shortness of breath or worsening symptoms. Saturating well on room air. Otherwise patient is complaining of weakness and wobbly with walking. Patient has been afebrile. Cultures have been negative so far. Otherwise currently being continued on DuoNeb's IV steroids and antibiotics. Pulmonary is on board. PTOT be consulted follow closely Current medications reviewed. Objective - Vital Signs Vital signs: Vital Signs Temp 97.9 F 05/17/19 16:00 Pulse 76 05/17/19 20:35 Resp 16 05/17/19 16:00 BP 103/51 05/17/19 16:00 Pulse Ox 94 L 05/17/19 20:26 Intake & Output 05/17/19 05/17/19 05/18/19 06:59 18:59 06:59 Intake Total 300 610 Output Total 1000 Balance 300 -390 Weight 63.6 kg Intake: Oral 300 610 Output: Urine 1000 Other: # Voids 2 - Exam PHYSICAL EXAMINATION: Patient is lying in the bed comfortably, no acute distress, awake alert and oriented.. HEENT: Normocephalic. Neck is supple. Pupils reactive. Nostrils clear. Oral cavity is moist. Ears reveal no drainage. Neck reveals no JVD, carotid bruits, or thyromegaly. CHEST EXAMINATION: Trachea is central. Symmetrical expansion. Scattered rhonchi.. No wheezing.. CARDIAC: Normal S1, S2 with no gallops. No murmurs ABDOMEN: Soft. Bowel sounds normal. No organomegaly. No abdominal bruits. Extremities: reveal no edema. No clubbing or cyanosis Neurologically awake, alert, oriented x3 with well-coordinated movements. Lethargic. No focal deficits noted Skin: No rash or skin lesions. Psychiatric: Coperative. Nonsuicidal Musculoskeletal: No joint swelling or deformity. Normal range of motion. - Labs CBC & Chem 7: 05/17/19 05:52 05/16/19 06:22 Labs: Abnormal Lab Results - Last 24 Hours (Table) 05/17/19 05/17/19 05/17/19 Range/Units 05:52 06:18 11:51 WBC 10.9 H (3.8-10.6) k/uL RBC 2.93 L (3.80-5.40) m/uL Hgb 10.0 L (11.4-16.0) gm/dL Hct 30.8 L (34.0-46.0) % MCV 105.2 H (80.0-100.0) fL RDW 18.3 H (11.5-15.5) % Plt Count 560 H (150-450) k/uL Neutrophils # 10.3 H (1.3-7.7) k/uL Lymphocytes # 0.4 L (1.0-4.8) k/uL POC Glucose (mg/dL) 142 H 176 H (75-99) mg/dL 05/17/19 05/17/19 Range/Units 17:22 20:57 WBC (3.8-10.6) k/uL RBC (3.80-5.40) m/uL Hgb (11.4-16.0) gm/dL Hct (34.0-46.0) % MCV (80.0-100.0) fL RDW (11.5-15.5) % Plt Count (150-450) k/uL Neutrophils # (1.3-7.7) k/uL Lymphocytes # (1.0-4.8) k/uL POC Glucose (mg/dL) 137 H 119 H (75-99) mg/dL Microbiology - Last 24 Hours (Table) 05/17/19 08:33 Gram Stain - Final Sputum Sputum Culture - Final 05/14/19 17:37 Blood Culture - Preliminary Blood No Growth after 48 hours Assessment and Plan Assessment: Acute hypoxemic respiratory failure secondary to extensive pulmonary infiltrates and acute CHF. Acute CHF with preserved systolic function. Bilateral airspace infiltrates likely due to pneumonia versus interstitial lung disease versus rheumatoid versus sarcoid Elevated troponin level. Possible type 2 non-ST elevated VT troponin is trending down s/p recent falls 2 in one week. Rheumatoid arthritis on immunotherapy Fibromyalgia Chronic pain Depression/anxiety Chronically elevated right diaphragm Hypertension GERD Osteoarthritis Hypothyroidism History of lumbar spinal stenosis History of TIA History of connective tissue disorder DVT prophylaxis. Plan: Patient will be continued on antibiotics in the form of ceftriaxone and azithromycin. Continue with IV steroids. Heparin drip has been discontinued. She is currently saturating well on room air. Was on oxygen with another cannula.. Troponin level trending down.. Continue with aspirin and statins. Continue with home medications and follow up closely. Cardiology and pulmonary has seen the patient. Further recommendations based on the clinical course. Discussed with her family at bedside in detail. Time with Patient: Greater than 30
[2019-05-18 12:31] LABS: Glucose,Whole Blood 130 mg/dL (75-99)
[2019-05-18 16:50] LABS: Glucose,Whole Blood 112 mg/dL (75-99)
[2019-05-18] MEDS: AZITHROMYCIN 500 MG TAB PO SCH (17:06)
[2019-05-18 20:42] LABS: Glucose,Whole Blood 155 mg/dL (75-99)
[2019-05-18] MEDS: ATORVASTATIN 20 MG TAB PO SCH (21:22)
[2019-05-19] MEDS: SODIUM CHLORIDE 0.9% 1,000 ML IV SCH (06:05)
[2019-05-19 06:37] LABS: Glucose,Whole Blood 81 mg/dL (75-99)
[2019-05-19] MEDS: INSULIN ASPART (NovoLOG) 100 UNIT/ML VIAL SQ SCH ×2 (07:03→12:13)
[2019-05-19] MEDS: LEVOTHYROXINE 50 MCG TAB PO SCH (07:04)
[2019-05-19] MEDS: buPROPion SR 150 MG TABLET.ER PO SCH (08:47)
[2019-05-19] MEDS: FOLIC ACID 1 MG TAB PO SCH (08:47)
[2019-05-19] MEDS: predniSONE 20 MG TAB PO SCH (08:47)
[2019-05-19] MEDS: ASPIRIN 81 MG PO SCH (08:47)
[2019-05-19] MEDS: busPIRone HCl 10 MG TAB PO SCH (08:47)
[2019-05-19] MEDS: FAMOTIDINE 20 MG TAB PO SCH (08:47)
[2019-05-19] MEDS: VENLAFAXINE HCL ER 75 MG CAP PO SCH (08:47)
[2019-05-19] MEDS: VIT A,C & E-LUTEIN-MINERALS 1 EACH TAB PO SCH (08:47)
[2019-05-19] MEDS: SENNOSIDES-DOCUSATE SODIUM 1 EACH TAB PO SCH (08:47)
[2019-05-19] MEDS: METOPROLOL TARTRATE 25 MG TAB PO SCH (08:47)
[2019-05-19] MEDS: ARTIFICIAL TEARS-HYPROMELLOSE DROPS 15 ML BTL BOTH EYES SCH (08:51)
[2019-05-19 08:52] VITALS: RESP 20
--- NOTE | 2019-05-19 10:28 | CT ---
EXAMINATION TYPE: CT chest wo con DATE OF EXAM: 05/19/2019 COMPARISON: 05/14/2019 HISTORY: ILD CT DLP: 510.4 mGycm, Automated exposure control for dose reduction was used. CONTRAST: None TECHNIQUE: Axial images were obtained at 1 mm thick sections at 10 mm intervals. This will limit po rtions of the examination which may not be visualized within the [id number]. Images were obtained in the prone and supine views. FINDINGS: Portion of the thyroid visualized is normal. There are patchy infiltrates through the right upper lobe. This has improved from comparison. Groundg lass opacities present previously largely improved. There are residual smaller areas of patchy infilt rate slight increased groundglass opacities within the lung vega. No enlarged mediastinal or hilar adenopathy is evident. The largest lymph node in the pretracheal s pace measures 0.9 cm transverse. The ascending aorta diameter at the level of the main pulmonary kris ry is 3.2 cm. The main pulmonary artery diameter at the bifurcation is 3.[address] sections are obtained through the upper abdomen. Abdomen is essentially unremarkable. IMPRESSIONS: 1. There is improving groundglass opacities with some residual patchy infiltrates present. Findings c an be related to resolving pulmonary edema and/or infectious etiologies. 2. Findings appear to be superimposed on pulmonary fibrosis. 3. Monitoring can be performed with standard CT chest
[2019-05-19 11:24] VITALS: BP 129/67; PULSE 73; TEMP 97.9
[2019-05-19 12:04] LABS: Glucose,Whole Blood 103 mg/dL (75-99)
--- NOTE | 2019-05-19 13:52 | P.PN ---
Subjective Progress Note Date: 05/19/19 Principal diagnosis: Acute hypoxic respiratory failure, multifactorial, acute diastolic congestive heart failure, interstitial lung disease, rheumatoid lung and infectious etiology This is a 69-year-old white female patient of Dr. 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 Knox for pain management, and recently had a pain pump implanted. Patient presents to the emergency department with her daughter on 05/14/2019 for evaluation of profound fatigue and weakness, increased shortness of breath. Patient states she does have some shortness of breath on a regular basis however in the last 2 months this has significantly worsened, and she has been increasingly weak, she has had a loss of appetite, and 10 pound weight loss in the last 6 months. Denied any fever or chills, denied any night sweats, denied any chest pain, denied hemoptysis, denied any pleuritic chest discomfort, no cough, or congestion. Patient takes Enbrel and methotrexate for history of rheumatoid arthritis and follows with Dr. Flores from rheumatology. She states her weakness has gotten to the point where she had laid on the couch and was unable to even get up to the bathroom. Patient did have recent travel to [place] however she states her symptoms started long prior to her trip to [place]. No abdominal pain, no vomiti ng, she did report some mild ankle swelling, no chest pain, no calf pain, no altered mentation no worsening speech problems. Chest x-ray showed patchy perihilar and basilar infiltrates and chronic elevation of the right hemidiaphragm, lab work did not show leukocytosis, white blood cell count on ad mission was 9.5, hemoglobin is 9.8, platelet count was 555, d-dimer was mildly elevated at 0.60, sodium was 136, potassium 3.1, chloride was 88, CO2 is 37, BUN was 21, creatinine 1.02, plasma lactic acid was within normal limits at 1.7, troponins were elevated to 0.195, and 0.062. ProBNP was obtained and was elevated at 5330, pro-calcitonin was elevated at 0.99 suggesting presence of an infectious process, TSH was low at 0.290 and free T3 was 2.3. Urinalysis was negative for infection, with only trace ketones. CT chest angiogram was completed showing no evidence of pulmonary embolism but extensive pulmonary airspace infiltrates and increased mediastinal bronchial adenopathy, with multiple enlarged mediastinal bronchial lymph nodes measuring up to 1.[address] showed no evidence of acute intracranial process. Echocardiogram was completed showing normal left ventricular systolic function with an EF of 55- 60%, mild mitral regurg and mild to moderate tricuspid regurgitation no evidence of pulmonary hypertension. Patient was started on empiric antibiotics in the form of Rocephin and Zithromax, and IV Lasix and today's chest x-ray still shows diffuse bilateral alveolar edema and/or infiltrates with no significant change from the day earlier. He is currently on 4 L of oxygen with a pulse ox of 94%, blood pressure was 93/54, she is in no significant distress, and her lung sounds are positive for only bibasilar crackles, no rhonchi, no wheezing. The patient is seen today 05/16/2019 in follow-up on the selective care unit. She is awake and alert in no acute distress. Breathing a bit easier today as compared to yesterday. Not quite back to her baseline. Maintaining O2 saturations in the low 90s on 4 L/m per nasal cannula. She's afebrile. Hemodynamically stable. Blood culture reveals no growth. White count 6.3. Hemoglobin 10.1. Creatinine 0.72. She is currently on DuoNeb inhalations, IV Solu-Medrol, ceftriaxone and azithromycin. The patient is seen today 05/17/2019 in follow-up on the selective care unit. She is currently resting quite comfortably in bed.no worsening shortness of breath, cough or congestion. She is maintaining O2 saturations in the mid 90s on room air. She's afebrile. Hemodynamically stable. Sputum culture reveals no growth. Blood culture reveals no growth. White count 10.9. Hemoglobin 10.0. She has been maintained on DuoNeb inhalations, IV Solu-Medrol, antibiotics in the form of ceftriaxone and azithromycin. On 05/18/2019 patient seen in follow-up on selective care unit, she is up ambulating to the bathroom, she still on 2 L of oxygen with a pulse ox of 96%, her pulse ox was 91%, she is hemodynamically stable, she states she is feeling better, breathing easier. No cough or congestion, no complaints of chest pain. Blood and sputum cultures are negative, IV steroids have been transitioned to oral, patient has been treated with the empiric antibiotics, she has been afebrile, hemodynamically stable. Zak level did come back mildly elevated at 68, calcium level is normal at 8.5. On 05/19/2019 patient seen in follow-up on selective care unit, she is awake and alert, in no acute distress, tolerating ambulation, room air pulse ox is 92%, denies any chest pain, denies any cough or congestion, lung sounds reveal some limited crackles at the right lower base, no rhonchi, no wheezing, no fever or chills, blood and sputum culture showed no growth. Hemodynamically patient is stable, no complaints of chest pain, no new labs today, chest CT was obtained showing improving groundglass opacities with some residual patchy infiltrates. Findings appear to be superimposed on pulmonary fibrosis. Patient is stable for discharge home from pulmonary perspective Objective - Vital Signs Vital signs: Vital Signs Temp 97.9 F 05/19/19 11:23 Pulse 73 05/19/19 11:23 Resp 20 05/19/19 11:23 BP 129/67 05/19/19 11:23 Pulse Ox 92 L 05/19/19 11:23 Intake & Output 05/18/19 05/19/19 05/19/19 18:59 06:59 18:59 Intake Total 222 290 240 Output Total 600 600 Balance -378 -310 240 Weight 63 kg Intake: Intake, IV Titration 50 Amount Sodium Chloride 0.9% 1, 50 000 ml @ 25 mls/hr IV . Q24H [facility] Rx#:[id number] Oral 222 240 240 Output: Urine 600 600 Other: Voiding Method Toilet # Voids 1 1 - Exam GENERAL EXAM: Alert, pleasant, 69-year-old white female, on room air, with a pulse ox of 91%, comfortable in no apparent distress. HEAD: Normocephalic/atraumatic. EYES: Normal reaction of pupils, equal size. Conjunctiva pink, sclera white. NOSE: Clear with pink turbinates. THROAT: No erythema or exudates. NECK: No masses, no JVD, no thyroid enlargement, no adenopathy. CHEST: No chest wall deformity. Symmetrical expansion. LUNGS: Equal air entry with basilar crackles, but no wheeze, rhonchi or dullness. CVS: Regular rate and rhythm, normal S1 and S2, no gallops, no murmurs, no rubs ABDOMEN: Soft, nontender. No hepatosplenomegaly, normal bowel sounds, no guarding or rigidity. EXTREMITIES: No clubbing, no edema, no cyanosis, 2+ pulses and upper and lower extremities. MUSCULOSKELETAL: Muscle strength and tone normal. SPINE: No scoliosis or deformity SKIN: No rashes CENTRAL NERVOUS SYSTEM: Alert and oriented -3. No focal deficits, tone is normal in all 4 extremities. PSYCHIATRIC: Alert and oriented -3. Appropriate affect. Intact judgment and insight. - Labs CBC & Chem 7: 05/17/19 05:52 05/16/19 06:22 Labs: Abnormal Lab Results - Last 24 Hours (Table) 05/18/19 05/18/19 05/19/19 Range/Units 16:45 20:40 12:02 POC Glucose (mg/dL) 112 H 155 H 103 H (75-99) mg/dL Microbiology - Last 24 Hours (Table) 05/17/19 08:33 Gram Stain - Final Sputum Sputum Culture - Final 05/14/19 17:37 Blood Culture - Preliminary Blood No Growth after 96 hours Assessment and Plan Plan: Assessment: #1. Acute hypoxemic respiratory failure, with significant multifocal airspace disease present on chest x-ray and CTA chest, with possibilities related to acute congestive heart failure, interstitial lung disease, rheumatoid lung, and infectious etiology. CT angios chest was negative for any evidence of pulmonary embolism #2. Acute exacerbation of CHF, with preserved left ventricular systolic function #3. Consider interstitial lung disease with mediastinal and bronchial adenopathy, could be related to underlying connective tissue disorder, rheumatoid arthritis, rule out sarcoidosis. Zak level is pending, calcium is nonelevated #4. History of rheumatoid arthritis, Sjogren's disease, on Enbrel and methotrexate #5. History of CVA in 1965 with residual speech slurring #6. Hypertension #7. Osteoarthritis #8. DJD #9. Lumbar spinal stenosis #10. Chronic pain, fibromyalgia, follows in the pain clinic, has a pain pump i mplanted #11. Anxiety, depression Plan: Patient remains stable, continues to improve, tolerating ambulation, today CT chest shows improving groundglass opacities with residual patchy infiltrates, ringing superimposed on pulmonary fibrosis. Clinically improving, no fever or chills, stable for discharge home from pulmonary perspective, follow up with Dr. Townsend in the office in 7-10 days. Patient can finish outpatient course of oral antibiotics, prednisone taper. I performed a history & physical examination of the patient and discussed their management with my nurse practitioner, Jocelyne Barrios. I reviewed the nurse practitioner's note and agree with the documented findings and plan of care. Lung sounds are positive for diminished breath sounds with bibasilar crackles. The findings and the impression was discussed with the patient. I attest to the documentation by the nurse practitioner. Time with Patient: Less than 30
--- NOTE | 2019-05-19 21:45 | P.PN ---
Subjective Progress Note Date: 05/18/19 Principal diagnosis: Acute hypoxic respiratory failure Multifocal air space disease Acute CHF with preserved ejection fraction Patient is a 69-year-old female with a known history of rheumatoid arthritis currently on methotrexate and embrel , fibromyalgia, chronic pain, osteoart hritis, hypertension, depression/anxiety and also history of lumbar spinal stenosis, connective tissue disorder presented to the hospital with complaints of generalized weakness and fatigue. Patient says that she has been having these symptoms for the past 1 week and also she fell on the floor due to weaknessx2 and says she did hit her head at that time. Patient denied any fever or chills at home. No cough or sputum production. As per the family she had a cough off her taking deep breath last night. Patient came back last night from 10 day bus trip to [place] and visited [facility] and other places. Denied any complaints of chest pain. No headache or lightheadedness. Denied an y leg swelling or calf pain. Patient does admit to having some mild ankle swelling. Denied any history of DVT in the past. Patient says that she has been sleeping more than normal as well. No speech problems or any focal weakness. Chest x-ray showed patchy perihilar and basilar infiltrate is noted. Chronic elevation of right diaphragm. D-dimer 0.61 CT angiogram of the chest was done showed no evidence of pulmonary embolism. Extensive pulmonary airspace infiltrates. This appears to be new compared to old computed tomography scan 2010. there is increase in mediastinal and bronchial adenopathy. 136, potassium 3.1, troponin 0.195 on admission. Patient was hypoxic with pulse ox 84% on room air at admission. Patient is not on any home oxygen. 05/15/2019 Patient is still having shortness of breath but improved compared to yesterday. Continued on IV Lasix today. Patient was seen by pulmonary and was started on IV steroids. Continued on antibiotics no cough ceftriaxone and azithromycin. She is requiring oxygen with another cannula. Zak level and calcium was ordered for possible sarcoidosis into consideration. Is following. 05/16/2019 Patient is awake alert and oriented 3. Able to sit in the chair comfortably. No acute distress today. Breathing status is improved compared to yesterday. Still requiring oxygen with another cannula. Patient is being continued on IV steroids, breathing treatments and antibiotics. Blood cultures showed no growth so far. Patient has been afebrile. Overall improving slowly. WBC 6.3, hemoglobin 10.1 No other acute overnight issues. 05/17/2019 Patient is sitting in the bed comfortably. No complaints of shortness of breath or worsening symptoms. Saturating well on room air. Otherwise patient is complaining of weakness and wobbly with walking. Patient has been afebrile. Cultures have been negative so far. Otherwise currently being continued on DuoNeb's IV steroids and antibiotics. Pulmonary is on board. PTOT be consulted follow closely. 05/18/2019 Patient's breathing status is much improved now. Saturating well on room air. Generalized weakness and tiredness has improved. Steroids have been changed to by mouth. Possible discharge tomorrow with more clinical improvement. Patient denied any chest pain or shortness of breath. No fever no chills. Current medications reviewed. Objective - Vital Signs Vital signs: Vital Signs Temp 98.1 F 05/18/19 12:00 Pulse 70 05/18/19 12:00 Resp 16 05/18/19 12:00 BP 108/67 05/18/19 12:00 Pulse Ox 91 L 05/18/19 12:00 Intake & Output 05/17/19 05/18/19 05/18/19 18:59 06:59 18:59 Intake Total 610 300 222 Output Total 1000 600 Balance -390 300 -378 Weight 64.2 kg Intake: Oral 610 300 222 Output: Urine 1000 600 Other: # Voids 1 - Exam PHYSICAL EXAMINATION: Patient is lying in the bed comfortably, no acute distress, awake alert and oriented.. HEENT: Normocephalic. Neck is supple. Pupils reactive. Nostrils clear. Oral cavity is moist. Ears reveal no drainage. Neck reveals no JVD, carotid bruits, or thyromegaly. CHEST EXAMINATION: Trachea is central. Symmetrical expansion. Scattered rhonchi.. No wheezing.. CARDIAC: Normal S1, S2 with no gallops. No murmurs ABDOMEN: Soft. Bowel sounds normal. No organomegaly. No abdominal bruits. Extremities: reveal no edema. No clubbing or cyanosis Neurologically awake, alert, oriented x3 with well-coordinated movements. Lethargic. No focal deficits noted Skin: No rash or skin lesions. Psychiatric: Coperative. Nonsuicidal Musculoskeletal: No joint swelling or deformity. Normal range of motion. - Labs CBC & Chem 7: 05/17/19 05:52 05/16/19 06:22 Labs: Abnormal Lab Results - Last 24 Hours (Table) 05/17/19 05/17/19 05/18/19 Range/Units 17:22 20:57 06:41 POC Glucose (mg/dL) 137 H 119 H 112 H (75-99) mg/dL 05/18/19 Range/Units 12:17 POC Glucose (mg/dL) 130 H (75-99) mg/dL Microbiology - Last 24 Hours (Table) 05/14/19 17:37 Blood Culture - Preliminary Blood No Growth after 72 hours Assessment and Plan Assessment: Acute hypoxemic respiratory failure secondary to extensive pulmonary infiltrates and acute CHF. Acute CHF with preserved systolic function. Bilateral airspace infiltrates likely due to pneumonia versus interstitial lung disease versus rheumatoid versus sarcoid Elevated troponin level. Possible type 2 non-ST elevated MA troponin is trending down s/p recent falls 2 in one week. Rheumatoid arthritis on immunotherapy Fibromyalgia Chronic pain Depression/anxiety Chronically elevated right diaphragm Hypertension GERD Osteoarthritis Hypothyroidism History of lumbar spinal stenosis History of TIA History of connective tissue disorder DVT prophylaxis. Plan: Patient will be continued on antibiotics in the form of ceftriaxone and azithromycin. Continue with IV steroids. He went to by mouth Heparin drip has been discontinued. She is currently saturating well on room air. Was on oxygen with nasal cannula.. Troponin level trending down.. Continue with aspirin and statins. Continue with home medications and follow up closely. Cardiology and pulmonary has seen the patient. Further recommendations based on the clinical course. Discussed with her family at bedside in detail. Time with Patient: Greater than 30
== END 2019-05-19 15:21 | disposition home health service (06) | DRG 280 ==
LOC: EC 14:02 → 3SCARD 16:30
PROVIDERS: ADMIT Hospitalist; ATTEND Hospitalist
DX: I11.0 Hypertensive heart disease with heart failure (principal); J18.9 Pneumonia, unspecified organism; I21.A1 Myocardial infarction type 2; J96.01 Acute respiratory failure with hypoxia; I50.41 Acute combined systolic (congestive) and diastolic (congestive) heart failure; J84.10 Pulmonary fibrosis, unspecified; E03.9 Hypothyroidism, unspecified; E78.5 Hyperlipidemia, unspecified; F32.9 Major depressive disorder, single episode, unspecified; F41.9 Anxiety disorder, unspecified; G89.29 Other chronic pain; I08.1 Rheumatic disorders of both mitral and tricuspid valves; K21.9 Gastro-esophageal reflux disease without esophagitis; M05.10 Rheumatoid lung disease with rheumatoid arthritis of unspecified site; M35.00 Sjogren syndrome, unspecified; M48.061 Spinal stenosis, lumbar region without neurogenic claudication; M79.7 Fibromyalgia; Z79.890 Hormone replacement therapy; Z79.899 Other long term (current) drug therapy; I69.328 Other speech and language deficits following cerebral infarction; Z87.891 Personal history of nicotine dependence; Z80.1 Family history of malignant neoplasm of trachea, bronchus and lung; Z80.0 Family history of malignant neoplasm of digestive organs; Z82.49 Family history of ischemic heart disease and other diseases of the circulatory system; Z84.1 Family history of disorders of kidney and ureter; Z79.891 Long term (current) use of opiate analgesic; Z91.81 History of falling; Z88.5 Allergy status to narcotic agent; Z88.8 Allergy status to other drugs, medicaments and biological substances
CPT/HCPCS: 36415; 36600; 70450; 71045; 71046; 71250; 71275; 80048; 80053; 81003; 82164; 82805; 83605; 83735; 83880; 84132; 84145; 84439; 84443; 84481; 84484; 85025; 85379; 85610; 85730; 87040; 87070; 87205; 93005; 93306; 94640; 94760; 96374; 96375; 99291

== ENCOUNTER 2019-06-16 08:11 | Day surgery (SDC) | payer MEDICARE ==
[2019-06-12 11:40] VITALS: BMI 21.7
[~2019-06-16 08:11] MED LIST: LACTATED RINGERS 1,000 ML IV SCH; LIDOCAINE 1% 20 ML VIAL (10MG/ML) FOR IV START INTRADERMA PRN; MIDAZOLAM 2 MG/2 ML VIAL IV PRN; Pre Op ABX Message 1 EACH MISC MISCELLANE ONE
[2019-06-16 08:37] VITALS: TEMP 98.1
[2019-06-16 08:49] LABS: Glucose,Whole Blood 87 mg/dL (75-99)
[2019-06-16] MEDS ORDERED: PROPOFOL 10 MG/ML 20 ML VIAL IV ONE (09:03)
[2019-06-16] MEDS ORDERED: MIDAZOLAM 2 MG/2 ML VIAL ONE (09:03)
[2019-06-16] MEDS ORDERED: BUPIVACAINE (PF) 0.5% 30 ML VIAL SQ ONE (09:06)
[2019-06-16] MEDS ORDERED: LIDOCAINE 2% INJ 20 MG/ML SQ ONE (09:06)
[2019-06-16 09:51] VITALS: RESP 18
[2019-06-16 09:59] VITALS: BP 120/72; PULSE 67
--- NOTE | 2019-06-17 10:24 | OP ---
OPERATIVE REPORT SURGERY DATE: 06/16/2019. PREOPERATIVE DIAGNOSIS: Left carpal tunnel syndrome. POSTOPERATIVE DIAGNOSIS: Left carpal tunnel syndrome. PROCEDURE: Left carpal tunnel release and endoscopic open carpal tunnel release. PROCEDURE DESCRIPTION: The patient is taken to the Operative Suite where the procedure was done local with sedation. A light amount of IV sedation was provided by the Department of Anesthesia but the patient was kept alert enough to indicate any ill effect in the hand or fingers during the procedure. Two endoscopic portals were prepared and anesthetized in the usual way. The proximal portal was approximately 1 cm proximal to the distal wrist crease and just ulnar to the midline. The distal portal was longitudinal, located at the edge of the transverse carpal ligament, using the usual anatomical landmarks. Both incisions were anesthetized with 2% Xylocaine and 0.5% Marcaine, both without Epinephrine. The proximal incision was opened first, retractors were used for exposure and for hemostasis. Blunt dissection was taken through the subcutaneous tissue until the forearm fascia was identified. This was then incised longitudinally. By applying volar retraction at the distal aspect of the incision, the potential space beneath the forearm fascia and the bursa containing the flexor tensions was easily identified. A blunt probe was then inserted into this space down into the transverse carpal ligament. The undersurface of the transverse carpal ligament was palpated, and by running the dissector along its undersurface, a washboard effect could be palpated, insuring the proper position had been obtained. At this point, the distal incision was opened. Dissection was taken bluntly through the subcutaneous tissue to the palmar fascia. This is incised longitudinally, and the edge of the transverse carpal ligament was identified under direct vision. The spatula dissector was then brought through the distal incision to ensure the entire transverse carpal ligament was identified and the proper dissection planes had been attained. A trocar and slotted cannula assembly are inserted into the proximal incision. The hand was placed on the benitez in an extended position. Retractors were placed into the distal incision so the trocar assembly could then be brought out through the distal incision under direct visualization. The trocar was removed leaving the slotted cannula. The endoscope then inserted in the proximal incision and the light and the focus were adjusted. Using a variety of knives, the transverse carpal ligament was released under direct vision. Complete release of the transverse carpal ligament was confirmed by a variety of means. First of all, the edges could be seen to directly retract apart as they exist under tension. In addition, the fat could be seen to fall into the cannula. Additionally, a probe could be palpated beneath the skin and the lights in the scope could be seen much more clearly beneath the skin. The trocar was reinserted into the slotted cannula and the assembly was removed. The hand was then taken out of the hand benitez. The patient was asked to put the fingers through a full range of motion. The patient was asked of any numbness in the fingers and none was noted. Both incisions were closed with a single suture of 6-0 nylon. Soft, bulky dressing was applied and the patient was taken to the Recovery Room in satisfactory condition. MMODL / IJN: [id number] /
== END 2019-06-16 10:09 | disposition home or self-care (01) ==
LOC: OR 08:11
PROVIDERS: ATTEND Orthopaedic Surgery Hand Surgery
DX: G56.03 Carpal tunnel syndrome, bilateral upper limbs (principal); E05.90 Thyrotoxicosis, unspecified without thyrotoxic crisis or storm; I11.0 Hypertensive heart disease with heart failure; F32.9 Major depressive disorder, single episode, unspecified; E03.9 Hypothyroidism, unspecified; R45.0 Nervousness; R06.02 Shortness of breath; R26.81 Unsteadiness on feet; M06.832 Other specified rheumatoid arthritis, left wrist; M06.831 Other specified rheumatoid arthritis, right wrist; I08.1 Rheumatic disorders of both mitral and tricuspid valves; E78.2 Mixed hyperlipidemia; I50.32 Chronic diastolic (congestive) heart failure; R29.898 Other symptoms and signs involving the musculoskeletal system; M79.7 Fibromyalgia; Z79.899 Other long term (current) drug therapy; Z79.890 Hormone replacement therapy; Z79.891 Long term (current) use of opiate analgesic; Z88.8 Allergy status to other drugs, medicaments and biological substances; Z88.5 Allergy status to narcotic agent; Z88.4 Allergy status to anesthetic agent; Z87.01 Personal history of pneumonia (recurrent); Z86.73 Personal history of transient ischemic attack (TIA), and cerebral infarction without residual deficits; Z79.52 Long term (current) use of systemic steroids; Z87.891 Personal history of nicotine dependence; Z83.3 Family history of diabetes mellitus; Z82.49 Family history of ischemic heart disease and other diseases of the circulatory system
CPT/HCPCS: 29848; J2001; J2250; J2704

== ENCOUNTER 2019-08-10 14:52 | Emergency (ER) | payer MEDICARE ==
[2019-08-10 14:57] VITALS: BP 137/80; PULSE 72; RESP 16; TEMP 97.8
--- NOTE | 2019-08-10 15:23 | ED ---
General Adult HPI - General Chief complaint: Skin/Abscess/Foreign Body Stated complaint: Rash Time Seen by Provider: 08/10/19 14:57 Source: patient, RN notes reviewed Mode of arrival: ambulatory Limitations: no limitations - History of Present Illness Initial comments: 69-year-old female presents to the emergency department for possible bug bite. States that she was working in her basement over the weekend. States that she thinks she got a bug bite of the right forearm at that time. Patient's legs also felt itchy and so she has 2 scratches on the left calf. Patient states she saw urgent care on Sunday after it happened but they were not sure exactly what the lesion was. She denies fevers or chills. Denies it growing in size or spreading.Patient has no other complaints at this time including shortness of breath, chest pain, abdominal pain, nausea or vomiting, headache, or visual changes. - Related Data Home Medications Medication Instructions Recorded Confirmed Etanercept [Enbrel] 50 mg SQ LAWTON 08/26/14 06/16/19 Levothyroxine Sodium [Synthroid] 50 mcg PO DAILY 08/26/14 06/16/19 buPROPion SR [Wellbutrin SR] 150 mg PO BID 08/26/14 06/16/19 Melatonin 2 mg PO HS 12/03/14 06/16/19 Venlafaxine HCl [Effexor XR] 150 mg PO BID 12/04/14 06/16/19 Multivit-Min/FA/Lycopen/Lutein 1 tab PO DAILY 07/20/16 06/16/19 [Centrum Silver Tablet] Atorvastatin [Lipitor] 20 mg PO HS 02/13/19 06/16/19 Folic Acid 1 mg PO DAILY 02/13/19 06/16/19 Methotrexate Sodium [Methotrexate] 17.5 mg PO LAWTON 02/13/19 06/16/19 Morphine Pump 1 pump INTRATHECA CONTINUOUS 02/13/19 06/16/19 Propylene Glycol/Peg 400/Pf 1 drop BOTH EYES QID 02/13/19 06/16/19 [Systane 0.3-0.4% Eye Drop] busPIRone HCl [Buspar] 10 mg PO BID 02/13/19 06/16/19 oxyCODONE-APAP 7.5-325MG [Percocet 1 tab PO DAILY PRN 02/13/19 06/16/19 7.5-325 mg] Acyclovir 400 mg PO BID 05/14/19 06/16/19 L.acidoph,Paracasei, B.lactis 1 cap PO DAILY 05/14/19 06/16/19 [Probiotic] Ranitidine HCl [Zantac] 150 mg PO DAILY 05/14/19 06/16/19 Sennosides/Docusate Sodium 1 tab PO DAILY 05/14/19 06/16/19 [Docusate Sodium-Sennosides Tab] Metoprolol Tartrate [Lopressor] 25 mg PO BID 06/12/19 06/16/19 Potassium Chloride 8 meq PO DAILY 06/12/19 06/16/19 predniSONE 15 mg PO DAILY 06/12/19 06/16/19 Previous Rx's Medication Instructions Recorded Albuterol Inhaler [Ventolin Hfa 1 - 2 puff INHALATION RT-Q6H PRN 05/19/19 Inhaler] #1 inhaler Aspirin 81 mg PO DAILY #30 chew 05/19/19 Gabapentin [Neurontin] 600 mg PO HS #0 05/19/19 Cephalexin [Keflex] 500 mg PO Q6H #40 cap 08/10/19 Allergies Allergy/AdvReac Type Severity Reaction Status Date / Time amlodipine besylate Allergy severe Verified 08/10/19 14:57 [From [facility]] nausea vomiting fentanyl Allergy severe Verified 08/10/19 14:57 nausea vomiting Review of Systems ROS Statement: Those systems with pertinent positive or pertinent negative responses have been documented in the HPI. ROS Other: All systems not noted in ROS Statement are negative. 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 Past Psychological History: Anxiety, Depression Smoking Status: Never smoker - Past Family History Father Family Medical History: Cancer Additional Family Medical History / Comment(s): lung Brother(s) Family Medical History: Cancer Additional Family Medical History / Comment(s): stomach Mother Family Medical History: Renal Disease Additional Family Medical History / Comment(s): heart problem General Exam Limitations: no limitations General appearance: alert, in no apparent distress Head exam: Present: atraumatic, normocephalic, normal inspection Eye exam: Present: normal appearance, PERRL, EOMI. Absent: scleral icterus, conjunctival injection, periorbital swelling ENT exam: Present: normal exam, mucous membranes moist Neck exam: Present: normal inspection, full ROM. Absent: tenderness, meningismus, lymphadenopathy Respiratory exam: Present: normal lung sounds bilaterally. Absent: respiratory distress, wheezes, rales, rhonchi, stridor Cardiovascular Exam: Present: regular rate, normal rhythm, normal heart sounds. Absent: systolic murmur, diastolic murmur, rubs, gallop, clicks Extremities exam: Present: full ROM, normal capillary refill, other (Patient has a 1 cm x 1 cm erythematous ecchymotic lesion noted to the right forearm. It does not necessarily appear cellulitic. There is no spreading redness and borders are well defined. There is no induration or abscess. No satellite lesions. It is not blanchable). Absent: tenderness, pedal edema, joint swelling, calf tenderness Course Vital Signs 08/10/19 14:53 Temperature 97.8 F Pulse Rate 72 Respiratory 16 Rate Blood Pressure 137/80 O2 Sat by Pulse 98 Oximetry Medical Decision Making - Medical Decision Making Patient presents for lesion to the right forearm. It does not necessarily appear like a cellulitis as borders are well defined and it does not appear to be spreading. It appears almost ecchymotic in nature. However patient will be started on Keflex to cover for any infectious component. She will follow up with primary care in the next couple days. If lesion continues she may need to see dermatology for a biopsy. This was discussed with her. She will return if she has any worsening symptoms. Otherwise she will call her primary care provider on Sunday. Disposition Clinical Impression: Skin lesion Disposition: HOME SELF-CARE Condition: Good Instructions (If sedation given, give patient instructions): Cellulitis (ED) Additional Instructions: Please take Keflex as directed. Follow-up with primary care in 1-2 days. Return to the emergency Department if patient has any worsening symptoms. Prescriptions: Cephalexin [Keflex] 500 mg PO Q6H #40 cap Is patient prescribed a controlled substance at d/c from ED?: No Referrals: Steve Stevens MD [Primary Care Provider] - 1-2 days Time of Disposition: 15:20
== END 2019-08-10 15:35 | disposition home or self-care (01) ==
LOC: EC 14:52
DX: L98.9 Disorder of the skin and subcutaneous tissue, unspecified (principal); M79.7 Fibromyalgia; K21.9 Gastro-esophageal reflux disease without esophagitis; I10 Essential (primary) hypertension; M06.9 Rheumatoid arthritis, unspecified; F32.9 Major depressive disorder, single episode, unspecified; F41.9 Anxiety disorder, unspecified; Z86.73 Personal history of transient ischemic attack (TIA), and cerebral infarction without residual deficits; Z79.890 Hormone replacement therapy; Z79.891 Long term (current) use of opiate analgesic; Z79.52 Long term (current) use of systemic steroids; Z79.899 Other long term (current) drug therapy; Z88.8 Allergy status to other drugs, medicaments and biological substances; Z88.5 Allergy status to narcotic agent
CPT/HCPCS: 99282

== ENCOUNTER 2020-11-28 13:17 | Observation (INO) | payer MEDICARE ==
--- NOTE | 2020-11-28 13:42 | ED ---
Weakness HPI - General Chief complaint: Weakness Stated complaint: low O2, weakness Time Seen by Provider: 11/28/20 13:33 Source: patient Mode of arrival: wheelchair Limitations: no limitations - History of Present Illness Initial comments: Bharati is a pleasant 70-year-old female who presents to the ER today for evaluation of generalized weakness, subjective fever and shortness of breath. Patient reports she was seen by pulmonology earlier this week she was told her option was low but was okay. Patient states that she is become progressively weaker very fatigued. She reports she feels short of breath with any ambulation. She denies any chest pain or palpitations. She states she follows with pulmonology due to previous pneumonia admission. She denies having COPD or asthma or reactive airway disease. She states she's been prescribed breathing treatments in the past but never use them. Patient denies any known sick contacts. - Related Data Home Medications Medication Instructions Recorded Confirmed Etanercept [Enbrel] 50 mg SQ LAWTON 08/26/14 11/28/20 Levothyroxine Sodium [Synthroid] 50 mcg PO DAILY 08/26/14 11/28/20 buPROPion SR [Wellbutrin SR] 150 mg PO BID 08/26/14 11/28/20 Venlafaxine HCl [Effexor XR] 75 mg PO BID 12/04/14 11/28/20 Atorvastatin [Lipitor] 20 mg PO HS 02/13/19 11/28/20 Folic Acid 5 mg PO DAILY 02/13/19 11/28/20 Morphine Pump 1 pump INTRATHECA CONTINUOUS 02/13/19 11/28/20 L.acidoph,Paracasei, B.lactis 1 cap PO DAILY 05/14/19 11/28/20 [Probiotic] Metoprolol Tartrate [Lopressor] 50 mg PO BID 06/12/19 11/28/20 Cyclobenzaprine [Flexeril] 10 mg PO HS 11/28/20 11/28/20 Docusate [Colace] 100 mg PO DAILY 11/28/20 11/28/20 Esomeprazole Magnesium [NexIUM] 20 mg PO DAILY 11/28/20 11/28/20 Furosemide [Lasix] 40 mg PO DAILY 11/28/20 11/28/20 Gabapentin [Neurontin] 600 mg PO TID 11/28/20 11/28/20 Potassium Chloride ER [K-Dur 10] 20 meq PO DAILY 11/28/20 11/28/20 Primidone [Mysoline] 100 mg PO HS 11/28/20 11/28/20 busPIRone HCL 15 mg PO TID 11/28/20 11/28/20 Previous Rx's Medication Instructions Recorded Aspirin 81 mg PO DAILY #30 chew 05/19/19 Allergies Allergy/AdvReac Type Severity Reaction Status Date / Time amlodipine besylate Allergy severe Verified 11/28/20 14:57 [From [facility]] nausea vomiting fentanyl Allergy severe Verified 11/28/20 14:57 nausea vomiting methotrexate AdvReac MOUTH SORES Verified 11/28/20 14:57 Review of Systems ROS Statement: Those systems with pertinent positive or pertinent negative responses have been documented in the HPI. ROS Other: All systems not noted in ROS Statement are negative. 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 Past Psychological History: Anxiety, Depression Smoking Status: Never smoker Past Alcohol Use History: None Reported Past Drug Use History: None Reported - Past Family History Father Family Medical History: Cancer Additional Family Medical History / Comment(s): lung Brother(s) Family Medical History: Cancer Additional Family Medical History / Comment(s): stomach Mother Family Medical History: Renal Disease Additional Family Medical History / Comment(s): heart problem General Exam - General Exam Comments Initial Comments: Physical Exam GENERAL: Patient is well-developed and well-nourished. HENT: Normocephalic, Atraumatic. EYES: PERRL, EOMI PULMONARY: Unlabored respirations. No audible rales rhonchi or wheezing was noted. CARDIOVASCULAR: There is a regular rate and rhythm without any murmurs gallops or rubs. ABDOMEN: Soft and nontender with normal bowel sounds. SKIN: Skin is clear with no lesions or rashes and otherwise unremarkable. : Deferred NEUROLOGIC: Patient is alert and oriented x3. Moving all extremities spontaneously MUSCULOSKELETAL: Normal extremities with adequate strength and full range of motion. No lower extremity swelling or edema. No calf tenderness. PSYCHIATRIC: Normal psychiatric evaluation. 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 No acute ST elevations or depressions, no acute ischemia or infarction. Medical Decision Making - Medical Decision Making And evaluated history is obtained from patient Patient was able to ambulate to the restroom however return to the ER room with an oxygen saturation of only 85% and was diaphoretic Subjective workup was initiated including COVID swab As relatively unremarkable COVID negative Given the patient's hypoxia and influenza was ordered as well as PE study Given patient's vital signs are do feel she requires admission supplemental oxygenation and further evaluation. Patient care was discussed with Dr. South accepts the admission - Lab Data Result diagrams: 11/28/20 13:55 11/28/20 13:55 Lab Results 11/28/20 11/28/20 11/28/20 Range/Units 13:55 13:55 13:55 WBC 8.3 (3.8-10.6) k/uL RBC 4.01 (3.80-5.40) m/uL Hgb 13.0 (11.4-16.0) gm/dL Hct 38.7 (34.0-46.0) % MCV 96.5 (80.0-100.0) fL MCH 32.4 (25.0-35.0) pg MCHC 33.6 (31.0-37.0) g/dL RDW 13.1 (11.5-15.5) % Plt Count 264 (150-450) k/uL MPV 8.0 Neutrophils % 63 % Lymphocytes % 15 % Monocytes % 10 % Eosinophils % 9 % Basophils % 1 % Neutrophils # 5.2 (1.3-7.7) k/uL Lymphocytes # 1.2 (1.0-4.8) k/uL Monocytes # 0.8 (0-1.0) k/uL Eosinophils # 0.7 (0-0.7) k/uL Basophils # 0.1 (0-0.2) k/uL PT 10.1 (9.0-12.0) sec INR 0.9 (<1.2) APTT 29.7 (22.0-30.0) sec Sodium (137-145) mmol/L Potassium (3.5-5.1) mmol/L Chloride (98-107) mmol/L Carbon Dioxide (22-30) mmol/L Anion Gap mmol/L BUN (7-17) mg/dL Creatinine (0.52-1.04) mg/dL Est GFR (CKD-EPI)AfAm (>60 ml/min/1.73 sqM) Est GFR (CKD-EPI)NonAf (>60 ml/min/1.73 sqM) Glucose (74-99) mg/dL Plasma Lactic Acid Parker (0.7-2.0) mmol/L Calcium (8.4-10.2) mg/dL Total Bilirubin (0.2-1.3) mg/dL AST (14-36) U/L ALT (4-34) U/L Alkaline Phosphatase (38-126) U/L Total Protein (6.3-8.2) g/dL Albumin (3.5-5.0) g/dL Urine Color Light Yellow Urine Appearance Clear (Clear) Urine pH 7.0 (5.0-8.0) Ur Specific [place] 1.006 (1.001-1.035) Urine Protein Negative (Negative) Urine Glucose (UA) Negative (Negative) Urine Ketones Negative (Negative) Urine Blood Negative (Negative) Urine Nitrite Negative (Negative) Urine Bilirubin Negative (Negative) Urine Urobilinogen <2.0 (<2.0) mg/dL Ur Leukocyte Esterase Negative (Negative) Coronavirus (PCR) (Not Detectd) 11/28/20 11/28/20 11/28/20 Range/Units 13:55 13:55 13:55 WBC (3.8-10.6) k/uL RBC (3.80-5.40) m/uL Hgb (11.4-16.0) gm/dL Hct (34.0-46.0) % MCV (80.0-100.0) fL MCH (25.0-35.0) pg MCHC (31.0-37.0) g/dL RDW (11.5-15.5) % Plt Count (150-450) k/uL MPV Neutrophils % % Lymphocytes % % Monocytes % % Eosinophils % % Basophils % % Neutrophils # (1.3-7.7) k/uL Lymphocytes # (1.0-4.8) k/uL Monocytes # (0-1.0) k/uL Eosinophils # (0-0.7) k/uL Basophils # (0-0.2) k/uL PT (9.0-12.0) sec INR (<1.2) APTT (22.0-30.0) sec Sodium 137 (137-145) mmol/L Potassium 4.1 (3.5-5.1) mmol/L Chloride 96 L (98-107) mmol/L Carbon Dioxide 35 H (22-30) mmol/L Anion Gap 6 mmol/L BUN 13 (7-17) mg/dL Creatinine 0.86 (0.52-1.04) mg/dL Est GFR (CKD-EPI)AfAm 79 (>60 ml/min/1.73 sqM) Est GFR (CKD-EPI)NonAf 68 (>60 ml/min/1.73 sqM) Glucose 102 H (74-99) mg/dL Plasma Lactic Acid Parker 1.5 (0.7-2.0) mmol/L Calcium 9.0 (8.4-10.2) mg/dL Total Bilirubin 0.5 (0.2-1.3) mg/dL AST 97 H (14-36) U/L ALT 21 (4-34) U/L Alkaline Phosphatase 124 (38-126) U/L Total Protein 7.3 (6.3-8.2) g/dL Albumin 4.2 (3.5-5.0) g/dL Urine Color Urine Appearance (Clear) Urine pH (5.0-8.0) Ur Specific [place] (1.001-1.035) Urine Protein (Negative) Urine Glucose (UA) (Negative) Urine Ketones (Negative) Urine Blood (Negative) Urine Nitrite (Negative) Urine Bilirubin (Negative) Urine Urobilinogen (<2.0) mg/dL Ur Leukocyte Esterase (Negative) Coronavirus (PCR) Not Detected (Not Detectd) Disposition Clinical Impression: Hypoxia, Fever Disposition: ADMITTED IP TO THIS HOSP Condition: Stable Is patient prescribed a controlled substance at d/c from ED?: No
[2020-11-28] MEDS: SODIUM CHLORIDE 0.9% 500 ML 500 ML IV SCH ×2 (14:01→14:02)
[2020-11-28 14:17] LABS: Albumin 4.2 g/dL (3.5-5.0); Appearance,Urine Clear (Clear); Bilirubin,Urine Negative (Negative); Blood,Urine Negative (Negative); Color,Urine Light Yellow; Glucose,Urine (UA) Negative (Negative); Ketones,Urine Negative (Negative); Leukocyte Esterase,Urine Negative (Negative); Nitrite,Urine Negative (Negative); Potassium 4.1 mmol/L (3.5-5.1); Protein,Urine Negative (Negative); Specific Gravity,Urine 1.006 (1.001-1.035); Total Bilirubin 0.5 mg/dL (0.2-1.3); Total Protein 7.3 g/dL (6.3-8.2); Urobilinogen,Urine <2.0 mg/dL (<2.0)
[2020-11-28 14:21] LABS: INR 0.9 (<1.2); Partial Thromboplastin Time 29.7 sec (22.0-30.0); Prothrombin Time 10.1 sec (9.0-12.0)
--- NOTE | 2020-11-28 14:53 | XR ---
EXAMINATION TYPE: XR chest 1V portable DATE OF EXAM: 11/28/2020 COMPARISON: Chest x-ray dated 11/25/2020 HISTORY: Cough TECHNIQUE: Single frontal view of the chest is obtained. FINDINGS: There is stable elevation of right hemidiaphragm. Cardiac mediastinal silhouette is stable . Aorta is dense. There is no evident pneumothorax or pleural effusion. There are overlying leads. Th ere is some prominence of interstitium. IMPRESSION: Question some interstitial lung disease. Correlate for possible interstitial edema.
[2020-11-28 15:08] LABS: Basophils # (A) 0.1 k/uL (0-0.2); Basophils % (A) 1 %; Eosinophils # (A) 0.7 k/uL (0-0.7); Eosinophils % (A) 9 %; HCT 38.7 % (34.0-46.0); Lymphocytes # (A) 1.2 k/uL (1.0-4.8); Lymphocytes % (A) 15 %; MCH 32.4 pg (25.0-35.0); MCHC 33.6 g/dL (31.0-37.0); MCV 96.5 fL (80.0-100.0); Monocytes # (A) 0.8 k/uL (0-1.0); Monocytes % (A) 10 %; Neutrophils # (A) 5.2 k/uL (1.3-7.7); Neutrophils % (A) 63 %; Platelet Count 264 k/uL (150-450); RBC 4.01 m/uL (3.80-5.40); RDW 13.1 % (11.5-15.5); WBC 8.3 k/uL (3.8-10.6)
[2020-11-28] MEDS ORDERED: NALOXONE 0.4 MG/ML 1 ML VIAL IV PRN (15:46)
--- NOTE | 2020-11-28 16:30 | CT ---
EXAMINATION TYPE: CT chest angio for PE DATE OF EXAM: 11/28/2020 COMPARISON: 05/14/2019 HISTORY: Cough CT DLP: 298.6 mGycm Automated exposure control for dose reduction was used. CONTRAST: CT Chest for pulmonary embolism performed with with IV Contrast, patient injected with 80 mL of Isovu e 370. FINDINGS: There is satisfactory opacification of the pulmonary artery circulation there are no filling defects to suggest pulmonary embolism. There are a few scattered mediastinal and hilar lymph nodes which are slightly enlarged. There are coarse interstitial densities in the lung bases with bronchiectasis consistent with chronic inflammation. There is no pleural effusion or pneumothorax. The great vessels chest are normal. The osseous structures are grossly intact. Limited scanning the upper abdomen reveals a markedly distended gallbladder without evidence of galls tone although the gallbladder is not imaged in its entirety. The liver is also prominent in size. IMPRESSION: 1. No evidence of pulmonary embolism. 2. Chronic interstitial changes in the lung bases with bronchiectasis. 3. Borderline enlarged mediastinal and hilar lymph nodes. 4 markedly distended gallbladder.
[2020-11-28] MEDS ORDERED: MORPHINE INTRATHECA SCH (18:30)
[2020-11-28] MEDS ORDERED: ETANERCEPT 50 MG/ML SQ SCH (19:00)
[2020-11-28] MEDS: PRIMIDONE 50 MG TAB PO SCH (20:52)
[2020-11-28] MEDS: buPROPion SR 150 MG TABLET.ER PO SCH (20:52)
[2020-11-28] MEDS: VENLAFAXINE HCL ER 75 MG CAP PO SCH (20:53)
[2020-11-28] MEDS: ATORVASTATIN 20 MG TAB PO SCH (20:53)
[2020-11-28] MEDS: METOPROLOL TARTRATE 50 MG TAB PO SCH (20:53)
[2020-11-28] MEDS ORDERED: CYCLOBENZAPRINE 10 MG TAB PO SCH (21:00)
[2020-11-28] MEDS: busPIRone HCl 5 MG TAB PO SCH (21:33)
[2020-11-28] MEDS: GABAPENTIN 300 MG CAP PO SCH (21:33)
[2020-11-29] MEDS: LEVOTHYROXINE 50 MCG TAB PO SCH (05:45)
[2020-11-29] MEDS ORDERED: DOCUSATE 100 MG CAP PO SCH (09:00)
[2020-11-29] MEDS: FUROSEMIDE 40 MG TAB PO SCH (09:06)
[2020-11-29] MEDS: POTASSIUM CHLORIDE ER 10 MEQ TAB.ER.PRT PO SCH (09:07)
[2020-11-29] MEDS: FOLIC ACID 1 MG TAB PO SCH (09:07)
[2020-11-29] MEDS: METOPROLOL TARTRATE 50 MG TAB PO SCH ×2 (09:07→20:51)
[2020-11-29] MEDS: busPIRone HCl 5 MG TAB PO SCH ×3 (09:07→20:52)
[2020-11-29] MEDS: LACTOBACILLUS ACIDOPH & BULGAR 1 EACH PACKET PO SCH (09:07)
[2020-11-29] MEDS: ASPIRIN 81 MG PO SCH (09:07)
[2020-11-29] MEDS: GABAPENTIN 300 MG CAP PO SCH (09:07)
[2020-11-29] MEDS: PANTOPRAZOLE 40 MG TABLET PO SCH (09:08)
[2020-11-29] MEDS: buPROPion SR 150 MG TABLET.ER PO SCH ×2 (09:08→20:51)
[2020-11-29] MEDS: VENLAFAXINE HCL ER 75 MG CAP PO SCH ×2 (09:08→20:51)
[2020-11-29] MEDS: oxyCODONE-APAP 7.5-325MG 1 EACH TAB PO PRN ×2 (09:40→17:32)
[2020-11-29] MEDS: ENOXAPARIN 40 MG/0.4 ML SYRINGE SQ SCH (11:49)
[2020-11-29] MEDS: DOXYCYCLINE 100 MG CAP PO SCH ×2 (11:49→20:57)
[2020-11-29] MEDS: ALBUTEROL NEBULIZED 2.5 MG/3 ML INHALATION SCH ×4 (12:29→20:36)
[2020-11-29] MEDS: BACLOFEN 10 MG TAB PO SCH ×2 (16:30→20:51)
[2020-11-29] MEDS: ATORVASTATIN 20 MG TAB PO SCH (20:51)
[2020-11-29] MEDS: PRIMIDONE 50 MG TAB PO SCH (20:51)
--- NOTE | 2020-11-29 23:10 | P.HPIM ---
History of Present Illness H&P Date: 11/29/20 Chief Complaint: Body jerking History of presenting complaint: This is a pleasant 70-year-old patient of Dr. Stevens. Chronic stable medical conditions include fibromyalgia, GERD, hypertension, rheumatoid arthritis, lumbar spinal stenosis, connective tissue disorder. Significant arthritis. Patient presents with a few days of having jerking movements of the body. Sometimes arm sometimes buttocks different parts the body. It can come on at any time. Patient does not lose consciousness. No premonitory symptoms. Patient had a spinal procedure done by Dr. Bland about 5 days ago. This is for her neuropathy. Symptoms were present prior to the same. Also patient been hydrated congested cough. Some yellow sputum. Decreased appetite no change in bowel or urine. Some shortness of breath. Review of systems: GEN.: Tired EYES: None HEENT: None NECK: None RESPIRATORY: As above] CARDIOVASCULAR: None GASTROINTESTINAL: None GENITOURINARY: None MUSCULOSKELETAL: Joint pains LYMPHATICS: None HEMATOLOGICAL: None PSYCHIATRY: None NEUROLOGICAL: As above Past medical history to include: TIA/stroke, fibromyalgia, GERD, hypertension, primary arthritis, rheumatoid arthritis, lumbar spinal stenosis, connective tissue disorder, anxiety depression Social history: Lives alone. No history of smoking or alcohol Physical examination: VITAL SIGNS: 99.8, 62, 18, 129 with 61, 97% room air GENERAL: BMI 23.5, laying in bed, slightly anxious. EYES: Pupils equal. Conjunctiva normal. HEENT: External appearance of nose and ears normal, oral cavity grossly normal. NECK: JVD not raised; masses not palpable. HEART: First and second heart sounds are normal; no edema. LUNGS:[ Respiratory rate increased, slightly decreased breath sounds. ABDOMEN: Soft, nontender, liver spleen not palpable, no masses palpable. PSYCH: Alert and oriented x3; mood and affect anxiousl. MUSCULAR skeletal: Evidence of severe OA especially in the hands NEUROLOGICAL: Cranial nerves grossly intact; no facial asymmetry, power and sensation grossly intact. LYMPHATICS: No lymph nodes palpable in the axilla and neck INVESTIGATIONS, reviewed in the clinical context: WBC 8.3 hemoglobin 13 platelets 264 potassium 4.1 creatinine 0.86 UA negative Coronavirus [PCR]-not detected Influenza type A,, b both negative EKG tracing personally reviewed by me-normal sinus rhythm Chest x-ray film personally reviewed by me-aid station prominence Chest CTA-chronic interstitial changes in the lung bases with bronchiectasis. Borderline-enlarged lymph nodes. Distended gallbladder Assessment and plan: -This patient presents with what she describes it maybe myoclonic jerks different parts of the body at different times. I'm wondering if this is a manifestation of her Neurontin. The dose of the same to be cut back. And see how she does. I do not see any evidence of hypocalcemia. -Evidence of bronchiectasis on the computed tomography scan. Patient having respiratory symptoms. Initially started the patient on doxycycline but was scheduled IV ceftriaxone for at least couple of doses. This no fever no chills. Patient is bringing up yellow sputum -Chronic fibromyalgia, continue Percocet -GERD continue with Pepcid when necessary -Essential hypertension continue with Lopressor -Primary and rheumatoid arthritis severe multiple joints -Chronic lumbar spinal stenosis -Depression and anxiety not otherwise specified. Continue with antidepressants.- -Chronic pain syndrome especially back lower extremity. Patient has a morphine pump. Also had a procedure in the lumbar spine per Dr. Laguerre last week Care was discussed with the patient. Questions were answered. Also get a neurological opinion. Doubt this to be seizures. 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 Past Psychological History: Anxiety, Depression Smoking Status: Never smoker Past Alcohol Use History: None Reported Additional Past Alcohol Use History / Comment(s): smoked only 2 yrs of college. Past Drug Use History: None Reported - Past Family History Father Family Medical History: Cancer Additional Family Medical History / Comment(s): lung Brother(s) Family Medical History: Cancer Additional Family Medical History / Comment(s): stomach Mother Family Medical History: Renal Disease Additional Family Medical History / Comment(s): heart problem Medications and Allergies Home Medications Medication Instructions Recorded Confirmed Type Etanercept [Enbrel] 50 mg SQ LAWTON 08/26/14 11/28/20 History Levothyroxine Sodium [Synthroid] 50 mcg PO DAILY 08/26/14 11/28/20 History buPROPion SR [Wellbutrin SR] 150 mg PO BID 08/26/14 11/28/20 History Venlafaxine HCl [Effexor XR] 75 mg PO BID 12/04/14 11/28/20 History Atorvastatin [Lipitor] 20 mg PO HS 02/13/19 11/28/20 History Folic Acid 5 mg PO DAILY 02/13/19 11/28/20 History Morphine Pump 1 pump INTRATHECA CONTINUOUS 02/13/19 11/28/20 History L.acidoph,Paracasei, B.lactis 1 cap PO DAILY 05/14/19 11/28/20 History [Probiotic] Aspirin 81 mg PO DAILY #30 chew 05/19/19 11/28/20 Rx Metoprolol Tartrate [Lopressor] 50 mg PO BID 06/12/19 11/28/20 History Cyclobenzaprine [Flexeril] 10 mg PO HS 11/28/20 11/28/20 History Docusate [Colace] 100 mg PO DAILY 11/28/20 11/28/20 History Esomeprazole Magnesium [NexIUM] 20 mg PO DAILY 11/28/20 11/28/20 History Furosemide [Lasix] 40 mg PO DAILY 11/28/20 11/28/20 History Gabapentin [Neurontin] 600 mg PO TID 11/28/20 11/28/20 History Potassium Chloride ER [K-Dur 10] 20 meq PO DAILY 11/28/20 11/28/20 History Primidone [Mysoline] 100 mg PO HS 11/28/20 11/28/20 History busPIRone HCL 15 mg PO TID 11/28/20 11/28/20 History oxyCODONE-APAP 7.5-325MG [Percocet 1 tab PO TID PRN 11/29/20 11/29/20 History 7.5-325 mg] Allergies Allergy/AdvReac Type Severity Reaction Status Date / Time amlodipine besylate Allergy severe Verified 11/28/20 14:57 [From [facility]] nausea vomiting fentanyl Allergy severe Verified 11/28/20 14:57 nausea vomiting methotrexate AdvReac MOUTH SORES Verified 11/28/20 14:57 Physical Exam Vitals: Vital Signs Temp Pulse Pulse Resp BP BP Pulse Ox 11/29/20 09:23 95 11/29/20 07:00 97.8 F 79 16 108/59 95 11/29/20 02:00 97.8 F 71 16 116/69 95 11/28/20 20:00 98.4 F 89 20 124/65 96 11/28/20 17:15 18 11/28/20 17:05 97.8 F 81 20 146/77 95 11/28/20 15:57 73 18 90/64 100 11/28/20 14:14 109/51 97 11/28/20 14:05 98 11/28/20 13:52 81 24 11/28/20 13:30 85 L 11/28/20 13:19 99.8 F H 62 18 129/61 97 Intake and Output 11/28/20 11/29/20 11/29/20 22:59 06:59 14:59 Intake Total 180 100 Balance 180 100 Intake: Oral 180 100 Other: Voiding Method Toilet Toilet Toilet # Voids 1 1 1 Weight 68.039 kg Results CBC & Chem 7: 11/28/20 13:55 11/28/20 13:55 Labs: Abnormal Lab Results - Last 24 Hours (Table) 11/28/20 Range/Units 13:55 Chloride 96 L (98-107) mmol/L Carbon Dioxide 35 H (22-30) mmol/L Glucose 102 H (74-99) mg/dL AST 97 H (14-36) U/L Thrombosis Risk Factor Assmnt - Choose All That Apply Other Risk Factors: Yes Each Risk Factor Represents 3 Points: History of DVT/PE Thrombosis Risk Factor Assessment Total Risk Factor Score: 3 Thrombosis Risk Factor Assessment Level: Moderate Risk
[2020-11-30] MEDS: oxyCODONE-APAP 7.5-325MG 1 EACH TAB PO PRN ×2 (02:00→10:36)
[2020-11-30] MEDS: LEVOTHYROXINE 50 MCG TAB PO SCH (05:36)
[2020-11-30] MEDS: ENOXAPARIN 40 MG/0.4 ML SYRINGE SQ SCH (08:41)
[2020-11-30] MEDS: busPIRone HCl 5 MG TAB PO SCH ×2 (08:42→16:04)
[2020-11-30] MEDS: BACLOFEN 10 MG TAB PO SCH ×2 (08:42→16:04)
[2020-11-30] MEDS: FOLIC ACID 1 MG TAB PO SCH (08:43)
[2020-11-30] MEDS: METOPROLOL TARTRATE 50 MG TAB PO SCH (08:43)
[2020-11-30] MEDS: VENLAFAXINE HCL ER 75 MG CAP PO SCH (08:43)
[2020-11-30] MEDS: FUROSEMIDE 40 MG TAB PO SCH (08:43)
[2020-11-30] MEDS: POTASSIUM CHLORIDE ER 10 MEQ TAB.ER.PRT PO SCH (08:43)
[2020-11-30] MEDS: buPROPion SR 150 MG TABLET.ER PO SCH (08:43)
[2020-11-30] MEDS: LACTOBACILLUS ACIDOPH & BULGAR 1 EACH PACKET PO SCH (08:44)
[2020-11-30] MEDS: ASPIRIN 81 MG PO SCH (08:44)
[2020-11-30] MEDS: PANTOPRAZOLE 40 MG TABLET PO SCH (08:44)
--- NOTE | 2020-11-30 09:38 | P.CNNES ---
History of Present Illness Consult date: 11/29/20 Requesting physician: Gael South Reason for Consult: Jerking movements History of Present Illness: Patient is a 70-year-old female came to the hospital yesterday at 1:19 PM for evaluation of generalized weakness, subjective fever and shortness of breath. Patient states that she has chronic back issues, and follows up with Dr. Noble. Patient underwent lumbar transforaminal injection on 11/17/2020. On 11/19/2020, she started having difficulty with walking. Yesterday on Sunday, she was having difficulty and pain for walking. She also developed difficulty in breathing, and her oxygen saturation was 89%. Patient noticed some intermittent jerking of her arm or even the leg and it would spasm, and she was concerned of falling within the leg jerks (which she describes as knees going forwards with a jerk). These myoclonic jerks have been present for the last 1 week, and are sporadic. These myoclonic jerks seems to be slightly getting worse. Patient denies any focal symptoms. Vital signs on arrival blood pressure 129/61, pulse is 62, temperature 99.8. Chest x-ray showed question some interstitial lung disease. Correlate for possible interstitial edema. EKG shows normal sinus rhythm, incomplete right bundle branch block. CTA of the chest shows no evidence of pulmonary embolism. Chronic interstitial changes in the lung bases with bronchiectasis. Borderline enlarged mediastinal and hilar lymph nodes. Markedly distended gallbladder. Blood tests shows normal CBC, PT/PTT, Chem-20 with mildly elevated AST 97, UA negative, influenza screen and alfred virus PCR negative. Patient takes Wellbutrin 150 mg twice a day, Enbrel for rheumatoid arthritis he is present he He is he is a meeting when he he he will be he time I would like a hammer is a, Effexor 75 mg, folic acid 1 mg, has morphine pump. Lipitor 20 mg aspirin 81 mg, primidone 100 mg at bedtime. Lasix 40 mg, Flexeril 10 mg at bedtime, BuSpar 15 mg 3 times a day, gabapentin 600 mg 3 times a day and Percocet 3 times a day when necessary. Review of Systems As above in detail. Patient complains of some shortness of breath, cough, and jerks. All other review of systems unremarkable. Patient has chronic back pain. 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 Past Psychological History: Anxiety, Depression Smoking Status: Never smoker Past Alcohol Use History: None Reported Additional Past Alcohol Use History / Comment(s): smoked only 2 yrs of college. Past Drug Use History: None Reported - Past Family History Father Family Medical History: Cancer Additional Family Medical History / Comment(s): lung Brother(s) Family Medical History: Cancer Additional Family Medical History / Comment(s): stomach Mother Family Medical History: Renal Disease Additional Family Medical History / Comment(s): heart problem Medications and Allergies Home Medications Medication Instructions Recorded Confirmed Type Etanercept [Enbrel] 50 mg SQ LAWTON 08/26/14 11/28/20 History Levothyroxine Sodium [Synthroid] 50 mcg PO DAILY 08/26/14 11/28/20 History buPROPion SR [Wellbutrin SR] 150 mg PO BID 08/26/14 11/28/20 History Venlafaxine HCl [Effexor XR] 75 mg PO BID 12/04/14 11/28/20 History Atorvastatin [Lipitor] 20 mg PO HS 02/13/19 11/28/20 History Folic Acid 5 mg PO DAILY 02/13/19 11/28/20 History Morphine Pump 1 pump INTRATHECA CONTINUOUS 02/13/19 11/28/20 History L.acidoph,Paracasei, B.lactis 1 cap PO DAILY 05/14/19 11/28/20 History [Probiotic] Aspirin 81 mg PO DAILY #30 chew 05/19/19 11/28/20 Rx Metoprolol Tartrate [Lopressor] 50 mg PO BID 06/12/19 11/28/20 History Cyclobenzaprine [Flexeril] 10 mg PO HS 11/28/20 11/28/20 History Docusate [Colace] 100 mg PO DAILY 11/28/20 11/28/20 History Esomeprazole Magnesium [NexIUM] 20 mg PO DAILY 11/28/20 11/28/20 History Furosemide [Lasix] 40 mg PO DAILY 11/28/20 11/28/20 History Gabapentin [Neurontin] 600 mg PO TID 11/28/20 11/28/20 History Potassium Chloride ER [K-Dur 10] 20 meq PO DAILY 11/28/20 11/28/20 History Primidone [Mysoline] 100 mg PO HS 11/28/20 11/28/20 History busPIRone HCL 15 mg PO TID 11/28/20 11/28/20 History oxyCODONE-APAP 7.5-325MG [Percocet 1 tab PO TID PRN 11/29/20 11/29/20 History 7.5-325 mg] Allergies Allergy/AdvReac Type Severity Reaction Status Date / Time amlodipine besylate Allergy severe Verified 11/28/20 14:57 [From [facility]] nausea vomiting fentanyl Allergy severe Verified 11/28/20 14:57 nausea vomiting methotrexate AdvReac MOUTH SORES Verified 11/28/20 14:57 Physical Examination - Vital Signs Vital Signs: Vital Signs Temp Pulse Pulse Pulse Resp BP Pulse Ox 11/29/20 15:00 97.9 F 75 14 128/77 94 L 11/29/20 12:43 82 16 11/29/20 12:32 80 16 11/29/20 09:23 95 11/29/20 07:00 97.8 F 79 16 108/59 95 11/29/20 02:00 97.8 F 71 16 116/69 95 11/28/20 20:00 98.4 F 89 20 124/65 96 11/28/20 17:15 18 11/28/20 17:05 97.8 F 81 20 146/77 95 Intake and Output 11/29/20 11/29/20 11/29/20 06:59 14:59 22:59 Intake Total 100 Balance 100 Intake: Oral 100 Other: Voiding Method Toilet Toilet Toilet # Voids 1 1 2 On examination patient is an elderly female, in no acute distress. Patient is alert and awake fully oriented. Speech and language functions are normal. Attention, concentration and fund of knowledge is adequate. On cranial nerve examination pupils are round and reactive to light, visual vega are full on confrontation, extraocular muscles are intact with no nystagmus. Face is symmetric, tongue protrudes to the midline. Palatal elevation and sensation normal, hearing is slightly decreased to finger rubbing, shoulder shrug normal, facial sensation normal. On muscle strength testing there is no pronator drift and the strength is normal in arms and legs. Patient has some myoclonic jerks noted of the arms as well as legs, sporadic intermittent. Reflexes are diminished and plantars are downgoing. Sensory touch is equal. No ataxia for [id number] testing, tone and bulk of muscles normal. Gait deferred. The is no bruit, S1 and S2 audible, abdomen soft nontender. Peripheral pulses present. No edema. Results - Laboratory Findings CBC and BMP: 11/28/20 13:55 11/28/20 13:55 Abnormal Lab Findings: Abnormal Labs 11/28/20 13:55 Chloride 96 L Carbon Dioxide 35 H Glucose 102 H AST 97 H Assessment and Plan Assessment: * Myoclonic jerks, likely due to metabolic dysfunction/encephalopathy. Patient has possible pneumonia/bronchiectasis, and also multiple psychoactive medications including opiates, Neurontin likely contributing to these rob clonic jerks. * Bronchiectasis on computed tomography scan * Fibromyalgia * Hypertension * Rheumatoid arthritis * Chronic back pain on morphine pump. Plan: * Patient's myoclonic jerks are likely related to underlying acute pulmonary condition and also possibly contributed by current use of to opiate/Neurontin. * We will decrease Neurontin to 300 mg 3 times a day (currently on 600 mg 3 times a day) * Treatment of underlying pulmonary condition as per IM. * Discussed with patient's son in detail.
[2020-11-30] MEDS: ALBUTEROL NEBULIZED 2.5 MG/3 ML INHALATION SCH ×3 (09:41→16:35)
[2020-11-30 14:35] VITALS: BP 124/75; PULSE 67; RESP 20; TEMP 98
[2020-11-30] MEDS ORDERED: GABAPENTIN 300 MG CAP PO SCH (21:00)
--- NOTE | 2020-12-01 18:04 | P.DS ---
Providers Date of admission: 11/28/20 15:47 Expected date of discharge: 11/30/20 Attending physician: Gael South Consults: 11/29/20 11:34 Consult Physician Routine Consulting Provider: Oc Fregoso Consult Reason/Comments: jerking movements Do you want consulting provider notified?: Yes [facility]: Chief Complaint: Body jerking History of presenting complaint: This is a pleasant 70-year-old patient of Dr. Stevens. Chronic stable medical conditions include fibromyalgia, GERD, hypertension, rheumatoid arthritis, lumbar spinal stenosis, connective tissue disorder. Significant arthritis. Patient presents with a few days of having jerking movements of the body. Sometimes arm sometimes buttocks different parts the body. It can come on at any time. Patient does not lose consciousness. No premonitory symptoms. Patient had a spinal procedure done by Dr. Bland about 5 days ago. This is for her neuropathy. Symptoms were present prior to the same. Also patient been hydrated congested cough. Some yellow sputum. Decreased appetite no change in bowel or urine. Some shortness of breath. Patient is seen by neurology. Patient of Dr. zulema molina. Dose of Neurontin was cutback. This was discussed with the patient. Following day patient doing much better. She also felt a flareup of the room bronchiectasis. Slight. He is given IV ceftriaxone. Significantly improved. He'll complete a short course of oral antibiotic. Consultation: Dr. Shaffer from neurology Past medical history to include: TIA/stroke, fibromyalgia, GERD, hypertension, primary arthritis, rheumatoid arthritis, lumbar spinal stenosis, connective tissue disorder, anxiety depression Social history: Lives alone. No history of smoking or alcohol Physical examination: VITAL SIGNS: 97.8, 78, 16, 1 23 x 73, 97% on 2 L GENERAL: BMI 23.5, laying in bed, comfortable EYES: Pupils equal. Conjunctiva normal. HEENT: External appearance of nose and ears normal, oral cavity grossly normal. NECK: JVD not raised; masses not palpable. HEART: First and second heart sounds are normal; no edema. LUNGS:[ Respiratory rate increased, slightly decreased breath sounds. ABDOMEN: Soft, nontender, liver spleen not palpable, no masses palpable. PSYCH: Alert and oriented x3; mood and affect anxiousl. MUSCULAR skeletal: Evidence of severe OA especially in the hands NEUROLOGICAL: Cranial nerves grossly intact; no facial asymmetry, power and sensation grossly intact. INVESTIGATIONS, reviewed in the clinical context: WBC 8.3 hemoglobin 13 platelets 264 potassium 4.1 creatinine 0.86 UA negative Coronavirus [PCR]-not detected Influenza type A,, b both negative EKG tracing personally reviewed by me-normal sinus rhythm Chest x-ray film personally reviewed by me-aid station prominence Chest CTA-chronic interstitial changes in the lung bases with bronchiectasis. Borderline-enlarged lymph nodes. Distended gallbladder Assessment and plan: -Myoclonic jerks felt to be from underlying Neurontin. Dose was cutback. Improved -Acute exacerbation of bronchiectasis. Responded well to IV ceftriaxone. Swi shed to oral Ceftin. -Chronic fibromyalgia, continue Percocet -GERD continue with Pepcid when necessary -Essential hypertension continue with Lopressor -Primary and rheumatoid arthritis severe multiple joints -Chronic lumbar spinal stenosis -Depression and anxiety not otherwise specified. Continue with antidepressants.- -Chronic pain syndrome especially back lower extremity. Patient has a morphine pump. Also had a procedure in the lumbar spine per Dr. Laguerre last week Disposition: Home Patient Condition at Discharge: Stable Plan - Discharge Summary Discharge Rx Participant: No New Discharge Prescriptions: New Cefuroxime Axetil [Ceftin] 500 mg PO BID 1 Days #10 tab Baclofen [Lioresal] 5 mg PO TID PRN #30 tab PRN Reason: Spasms Gabapentin [Neurontin] 300 mg PO HS #30 cap Continue Levothyroxine Sodium [Synthroid] 50 mcg PO DAILY buPROPion SR [Wellbutrin SR] 150 mg PO BID Etanercept [Enbrel] 50 mg SQ LAWTON Venlafaxine HCl [Effexor XR] 75 mg PO BID Folic Acid 5 mg PO DAILY Morphine Pump 1 pump INTRATHECA CONTINUOUS Atorvastatin [Lipitor] 20 mg PO HS L.acidoph,Paracasei, B.lactis [Probiotic] 1 cap PO DAILY Aspirin 81 mg PO DAILY #30 chew Metoprolol Tartrate [Lopressor] 50 mg PO BID Primidone [Mysoline] 100 mg PO HS Esomeprazole Magnesium [NexIUM] 20 mg PO DAILY Furosemide [Lasix] 40 mg PO DAILY Potassium Chloride ER [K-Dur 10] 20 meq PO DAILY busPIRone HCL 15 mg PO TID oxyCODONE-APAP 7.5-325MG [Percocet 7.5-325 mg] 1 tab PO TID PRN PRN Reason: Pain Discontinued Docusate [Colace] 100 mg PO DAILY Cyclobenzaprine [Flexeril] 10 mg PO HS Gabapentin [Neurontin] 600 mg PO TID Discharge Medication List Etanercept [Enbrel] 50 mg SQ LAWTON 08/26/14 [History] Levothyroxine Sodium [Synthroid] 50 mcg PO DAILY 08/26/14 [History] buPROPion SR [Wellbutrin SR] 150 mg PO BID 08/26/14 [History] Venlafaxine HCl [Effexor XR] 75 mg PO BID 12/04/14 [History] Atorvastatin [Lipitor] 20 mg PO HS 02/13/19 [History] Folic Acid 5 mg PO DAILY 02/13/19 [History] Morphine Pump 1 pump INTRATHECA CONTINUOUS 02/13/19 [History] L.acidoph,Paracasei, B.lactis [Probiotic] 1 cap PO DAILY 05/14/19 [History] Aspirin 81 mg PO DAILY #30 chew 05/19/19 [Rx] Metoprolol Tartrate [Lopressor] 50 mg PO BID 06/12/19 [History] Esomeprazole Magnesium [NexIUM] 20 mg PO DAILY 11/28/20 [History] Furosemide [Lasix] 40 mg PO DAILY 11/28/20 [History] Potassium Chloride ER [K-Dur 10] 20 meq PO DAILY 11/28/20 [History] Primidone [Mysoline] 100 mg PO HS 11/28/20 [History] busPIRone HCL 15 mg PO TID 11/28/20 [History] oxyCODONE-APAP 7.5-325MG [Percocet 7.5-325 mg] 1 tab PO TID PRN 11/29/20 [History] Baclofen [Lioresal] 5 mg PO TID PRN #30 tab 11/30/20 [Rx] Cefuroxime Axetil [Ceftin] 500 mg PO BID 1 Days #10 tab 11/30/20 [Rx] Gabapentin [Neurontin] 300 mg PO HS #30 cap 11/30/20 [Rx] Follow up Appointment(s)/Referral(s): Steve Stevens MD [Primary Care Provider] - 1-2 days [facility], [NON-STAFF] - 1-2 Days Cindy Dong MD [Medical Doctor] - 1 Week Activity/Diet/Wound Care/Special Instructions: activity as tolerated regular diet as tolerated homecare Discharge Disposition: HOME WITH HOME HEALTH SERVICES
== END 2020-11-30 16:36 | disposition home health service (06) ==
LOC: EC 13:17 → 6NMEDSUR 15:47
PROVIDERS: ADMIT Hospitalist; ATTEND Hospitalist
DX: J47.1 Bronchiectasis with (acute) exacerbation (principal); G25.3 Myoclonus; I10 Essential (primary) hypertension; K21.9 Gastro-esophageal reflux disease without esophagitis; M06.9 Rheumatoid arthritis, unspecified; M79.7 Fibromyalgia; M48.061 Spinal stenosis, lumbar region without neurogenic claudication; I45.10 Unspecified right bundle-branch block; K82.8 Other specified diseases of gallbladder; L94.9 Localized connective tissue disorder, unspecified; R74.01 Elevation of levels of liver transaminase levels; M19.042 Primary osteoarthritis, left hand; M19.041 Primary osteoarthritis, right hand; G89.4 Chronic pain syndrome; M54.9 Dorsalgia, unspecified; G62.9 Polyneuropathy, unspecified; M24.632 Ankylosis, left wrist; M24.631 Ankylosis, right wrist; F32.9 Major depressive disorder, single episode, unspecified; F41.9 Anxiety disorder, unspecified; Z20.822 Contact with and (suspected) exposure to COVID-19; Z79.890 Hormone replacement therapy; Z79.891 Long term (current) use of opiate analgesic; Z79.82 Long term (current) use of aspirin; Z79.899 Other long term (current) drug therapy; Z88.5 Allergy status to narcotic agent; Z88.8 Allergy status to other drugs, medicaments and biological substances; Z97.8 Presence of other specified devices; Z86.73 Personal history of transient ischemic attack (TIA), and cerebral infarction without residual deficits; Z98.51 Tubal ligation status; Z98.890 Other specified postprocedural states; Z87.891 Personal history of nicotine dependence; Z86.711 Personal history of pulmonary embolism; Z86.718 Personal history of other venous thrombosis and embolism; Z80.0 Family history of malignant neoplasm of digestive organs; Z82.49 Family history of ischemic heart disease and other diseases of the circulatory system; Z84.1 Family history of disorders of kidney and ureter; Z80.1 Family history of malignant neoplasm of trachea, bronchus and lung
CPT/HCPCS: 96365; 96372 ×2; 96361; 99285; 36415; 94640 ×4; 94760 ×2; 93005; 80053; 83605; 85025; 85610; 85730; 81003; 87040; 87502; 87635; 71045; 71275; G0378 ×3; S0106 ×3; J1650 ×2; J0696; Q9967

== ENCOUNTER 2020-12-15 09:22 | Day surgery (SDC) | payer MEDICARE ==
[2020-12-14 09:27] VITALS: BMI 24.3
[~2020-12-15 09:22] MED LIST changes: -LIDOCAINE 1% 20 ML VIAL (10MG/ML) FOR IV START INTRADERMA PRN; -MIDAZOLAM 2 MG/2 ML VIAL IV PRN; -Pre Op ABX Message 1 EACH MISC MISCELLANE ONE
[2020-12-15 10:12] VITALS: RESP 16; TEMP 96.2
[2020-12-15] MEDS ORDERED: LIDOCAINE 1% INJ 10MG/ML (20 ML MDV) ONE (10:50)
[2020-12-15] MEDS ORDERED: PROPOFOL 10 MG/ML 20 ML VIAL IV ONE (10:50)
--- NOTE | 2020-12-15 11:01 | P.PCN ---
Date of Procedure: 12/15/20 Procedure(s) Performed: BRIEF HISTORY: Patient is a 70-year-old, pleasant, male scheduled for an upper endoscopy as a part of evaluation of epigastric pain, burning mouth, heartburn and chronic cough for the last several months duration.. No help with PPIs in the past. PROCEDURE PERFORMED: Esophagogastroduodenoscopy with biopsy. PREOPERATIVE DIAGNOSIS: Epigastric pain/chronic cough and burning mouth. IV sedation per anesthesia. PROCEDURE: After informed consent was obtained, the patient was brought into the endoscopy unit. IV sedation was administered by Anesthesia under continuous monitoring. Initially the Olympus GIF-140 video endoscope was inserted into the mouth. Esophagus intubated without any difficulty. It was gradually advanced into the stomach carefully examined. There was evidence of early pyloric stenosis and despite multiple letters I was not able to advance the scope into t he duodenum.. The scope at this time was withdrawn to the stomach, adequately insufflated with air, and upon careful examination, mucosa of the antrum had mild diffuse gastritis and biopsies were done from this area. The body, cardia and the fundus appeared normal. The scope was then withdrawn into the esophagus. The GE junction was located at 39 cm from the incisors. Small sliding type hiatal hernia noted The esophagus appeared normal. There were no erosions or ulcerations seen, biopsies were done from the distal esophagus and the patient tolerated the procedure well. IMPRESSION: 1. Early pyloric stenosis. 2. Mild antral gastritis 3. Small hiatal hernia but no evidence of esophagitis or Wolff's esophagus. RECOMMENDATIONS: The findings of this examination were discussed with the patient as well as a family. She was advised to follow with the biopsy results. She'll be seen in office in 3-4 weeks..
[2020-12-15 11:20] VITALS: BP 108/57; PULSE 70
== END 2020-12-15 11:37 | disposition home or self-care (01) ==
LOC: ORWHC2ENDO 09:22
PROVIDERS: ATTEND Internal Medicine Gastroenterology
DX: K21.00 Gastro-esophageal reflux disease with esophagitis, without bleeding (principal); K31.1 Adult hypertrophic pyloric stenosis; K29.70 Gastritis, unspecified, without bleeding; K44.9 Diaphragmatic hernia without obstruction or gangrene; I11.0 Hypertensive heart disease with heart failure; I50.9 Heart failure, unspecified; E78.5 Hyperlipidemia, unspecified; M19.90 Unspecified osteoarthritis, unspecified site; M06.9 Rheumatoid arthritis, unspecified; E07.9 Disorder of thyroid, unspecified; M79.7 Fibromyalgia; Z88.8 Allergy status to other drugs, medicaments and biological substances; Z88.5 Allergy status to narcotic agent; Z79.899 Other long term (current) drug therapy; Z79.82 Long term (current) use of aspirin; Z86.73 Personal history of transient ischemic attack (TIA), and cerebral infarction without residual deficits; Z96.89 Presence of other specified functional implants; Z79.890 Hormone replacement therapy
CPT/HCPCS: 88305; 43239; J2001; J2704

== ENCOUNTER → 2021-03-02 | Outpatient (CLI) | payer MEDICARE ==
--- NOTE | 2021-03-02 18:14 | CT ---
EXAMINATION TYPE: CT angio chest DATE OF EXAM: 03/02/2021 COMPARISON: 11/28/2020 HISTORY: SOB, hx of PE CT DLP: 286.6 mGycm Automated exposure control for dose reduction was used. CONTRAST: Performed with IV Contrast, patient injected with 50cc mL of Isovue 370. There are 3-D post processed images. There is patchy reticular interstitial infiltrate in the lung vega bilaterally. This is predominant ly peripheral interstitial density. There is no pleural effusion. There is no pericardial effusion. H eart size is normal. There are a few paratracheal and mediastinal lymph nodes that measure up to 1 cm. There are no hilar masses. Thoracic aorta appears intact. There is no aneurysm or dissection. The ascending aorta measures 3.4 c m. There is normal contrast opacification of the pulmonary arteries. I see no filling defects. There is some multilevel hypertrophic degenerative spurring in the thoracic spine. There is no compre ssion fracture. Sternum is intact. IMPRESSION: No evidence of pulmonary embolism. Pulmonary interstitial infiltrates consistent with interstitial fi brosis that is very slightly increased compared to old exam.
== END | disposition home or self-care (01) ==
LOC: RADCTMAIN 16:11
PROVIDERS: ATTEND Internal Medicine
DX: R91.8 Other nonspecific abnormal finding of lung field (principal); Z86.711 Personal history of pulmonary embolism
CPT/HCPCS: 82565; 84520; 71275; 36415; Q9967

== ENCOUNTER → 2021-03-03 | Outpatient (CLI) | payer MEDICARE ==
--- NOTE | 2021-03-04 18:40 | ECHOF ---
Referral Reason:R06.00 dyspnea MEASUREMENTS -------- HEIGHT: 170.2 cm WEIGHT: 74.4 kg BP: IVSd: 1.3 cm (0.6 - 1.1) LVIDd: 3.8 cm (3.9 - 5.3) LVPWd: 1.3 cm (0.6 - 1.1) IVSs: 1.5 cm LVIDs: 2.8 cm LVPWs: 1.5 cm LAESV Index (A-L): 21.04 ml/m Ao Diam: 2.6 cm (2.0 - 3.7) AV Cusp: 1.9 cm (1.5 - 2.6) LA Diam: 4.2 cm (2.7 - 3.8) MV EXCURSION: 19.436 mm (> 18.000) MV EF SLOPE: 55 mm/s (70 - 150) EPSS: 0.3 cm MV E Rob: 0.74 m/s MV DecT: 213 ms MV A Rob: 0.93 m/s MV E/A Ratio: 0.80 RAP: 5.00 mmHg RVSP: 30.42 mmHg FINDINGS -------- Sinus rhythm. This was a technically good study. The left ventricular size is normal. There is mild concentric left ventricular hypertrophy. Overa ll left ventricular systolic function is low-normal with, an EF between 50 - 55 %. The right ventricle is normal in size. Normal LA size by volume 22+/-6 ml/m2. The right atrial size is normal. The aortic valve is trileaflet, and appears structurally normal. No aortic stenosis or regurgitation. Mild mitral regurgitation is present. Mild tricuspid regurgitation present. Right ventricular systolic pressure is normal at < 35 mmHg. There is no pulmonic regurgitation present. There is no pericardial effusion. CONCLUSIONS -------- 1. The left ventricular size is normal. 2. There is mild concentric left ventricular hypertrophy. 3. Overall left ventricular systolic function is low-normal with, an EF between 50 - 55 %. 4. The right ventricle is normal in size. 5. Normal LA size by volume 22+/-6 ml/m2. 6. The right atrial size is normal. 7. The aortic valve is trileaflet, and appears structurally normal. No aortic stenosis or regurgitati on. 8. Mild mitral regurgitation is present. 9. Mild tricuspid regurgitation present. 10. There is no pericardial effusion. CANDY FEEDER: Isha Leyva RDCS
== END | disposition home or self-care (01) ==
LOC: RADECHMAIN 14:18
PROVIDERS: ATTEND Internal Medicine
DX: I08.1 Rheumatic disorders of both mitral and tricuspid valves (principal)
CPT/HCPCS: 93306

== ENCOUNTER 2021-06-01 22:56 | Emergency (ER) | payer MEDICARE ==
[2021-06-01 23:14] VITALS: RESP 24
[2021-06-01] MEDS ORDERED: hydrOXYzine HCL 25 MG TAB PO STA (23:48)
--- NOTE | 2021-06-02 00:36 | ED ---
General Adult HPI - General Chief complaint: Skin/Abscess/Foreign Body Stated complaint: Back discomfort Time Seen by Provider: 06/01/21 23:35 Source: patient, RN notes reviewed Mode of arrival: ambulatory Limitations: no limitations - History of Present Illness Initial comments: This is a 71-year-old female presents emergency Department with chief complaint of a rash. Patient states rash has been going on for several weeks has progressively worsened. Patient states it started as some blood blistering on her leg and which has now spread in which she states a pop and she has remaining spots on her skin that are bothersome can be painful or itchy. Patient states prior to the blistering showing up she did see dermatology again no ascending abnormal though she again states the blister was not there. She has tried some Bactroban ointment which was given to her by her PCP states it seems to help there is an open up. Patient is currently on steroids secondary to her respiratory issues she's had no new medications. She's had recent lab work which were unremarkable. - Related Data Home Medications Medication Instructions Recorded Confirmed Etanercept [Enbrel] 50 mg SQ LAWTON 08/26/14 12/15/20 Levothyroxine Sodium [Synthroid] 50 mcg PO DAILY 08/26/14 12/15/20 buPROPion SR [Wellbutrin SR] 150 mg PO BID 08/26/14 12/15/20 Venlafaxine HCl [Effexor XR] 75 mg PO BID 12/04/14 12/15/20 Atorvastatin [Lipitor] 20 mg PO HS 02/13/19 12/15/20 Folic Acid 1 mg PO DAILY 02/13/19 12/15/20 Morphine Pump 1 pump INTRATHECA CONTINUOUS 02/13/19 12/15/20 L.acidoph,Paracasei, B.lactis 1 cap PO DAILY 05/14/19 12/15/20 [Probiotic] Metoprolol Tartrate [Lopressor] 25 mg PO BID 06/12/19 12/15/20 Esomeprazole Magnesium [NexIUM] 20 mg PO DAILY 11/28/20 12/15/20 Furosemide [Lasix] 40 mg PO DAILY 11/28/20 12/15/20 Potassium Chloride ER [K-Dur 10] 10 meq PO DAILY 11/28/20 12/15/20 busPIRone HCL 15 mg PO TID 11/28/20 12/15/20 oxyCODONE-APAP 7.5-325MG [Percocet 1 tab PO TID PRN 11/29/20 12/15/20 7.5-325 mg] Gabapentin [Neurontin] 100 mg PO TID 12/14/20 12/15/20 Multivit-Min/FA/Lycopen/Lutein 1 each PO DAILY 12/14/20 12/15/20 [Centrum Silver Tablet] Stool Softner 1 dose PO DIRECTED PRN 12/14/20 12/15/20 Previous Rx's Medication Instructions Recorded Aspirin 81 mg PO DAILY #30 chew 05/19/19 Allergies Allergy/AdvReac Type Severity Reaction Status Date / Time amlodipine besylate Allergy severe Verified 06/01/21 23:14 [From [facility]] nausea vomiting fentanyl Allergy severe Verified 06/01/21 23:14 nausea vomiting methotrexate AdvReac MOUTH SORES Verified 06/01/21 23:14 Review of Systems ROS Statement: Those systems with pertinent positive or pertinent negative responses have been documented in the HPI. ROS Other: All systems not noted in ROS Statement are negative. Past Medical History Past Medical History: Heart Failure, CVA/TIA, Fibromyalgia, GERD/Reflux, Hy perlipidemia, Hypertension, Osteoarthritis (OA), Pneumonia, Rheumatoid Arthritis (RA), Thyroid Disorder Additional Past Medical History / Comment(s): DJD,TIA -no residual ,lumbar spinal stenosis,connective tissue disorder, limited rom olvin wrists(fused), states pneumonia 2019 with renal failure & CHF., recent hospitalization for weakness and sob, currently has PT & OT and Home Health Care., uses cane., states she has a "awful taste & smell that makes her nauseated " and "violent nightmares." History of Any Multi-Drug Resistant Organisms: None Reported Past Surgical History: Orthopedic Surgery, Tonsillectomy, Tubal Ligation Additional Past Surgical History / Comment(s): ORIF LEFT TIB/FIB, LEFT FOOT SX, LASIK EYE SX, carpal tunnel olvin. Additional Past Anesthesia/Blood Transfusion Reaction / Comment(s): STATES POST OP ORTHO SX ENDED UP WITH TRACH, UNSURE IF PROBLEM WAS RELATED TO ANESTHESIA OR NOT in 1968- No problems since., CLAUSTROPHOBIC, no problems with prior blood transfusion. Past Psychological History: Anxiety, Depression Smoking Status: Never smoker Past Alcohol Use History: Daily Past Drug Use History: None Reported - Past Family History Father Family Medical History: Cancer Additional Family Medical History / Comment(s): lung Brother(s) Family Medical History: Cancer Additional Family Medical History / Comment(s): stomach Mother Family Medical History: Renal Disease Additional Family Medical History / Comment(s): heart problem General Exam Limitations: no limitations General appearance: alert, in no apparent distress Head exam: Present: atraumatic, normocephalic, normal inspection Respiratory exam: Present: normal lung sounds bilaterally. Absent: respiratory distress, wheezes, rales, rhonchi, stridor Cardiovascular Exam: Present: regular rate, normal rhythm, normal heart sounds. Absent: systolic murmur, diastolic murmur, rubs, gallop, clicks GI/Abdominal exam: Present: soft, normal bowel sounds. Absent: distended, tenderness, guarding, rebound, rigid Neurological exam: Present: alert Skin exam: Present: warm, dry, intact, normal color, rash Course Vital Signs 06/01/21 23:11 Temperature 99.1 F Pulse Rate 108 H Respiratory 24 Rate Blood Pressure 144/76 O2 Sat by Pulse 98 Oximetry Medical Decision Making - Medical Decision Making Patient's been having ongoing rash she is advised to follow-up with dermatology for skin biopsy patient will be given symptomatic control and return parameters were discussed. Disposition Clinical Impression: Rash Disposition: HOME SELF-CARE Condition: Stable Additional Instructions: Please return to the Emergency Department if symptoms worsen or any other concerns. Is patient prescribed a controlled substance at d/c from ED?: No Referrals: Steve Stevens MD [Primary Care Provider] - 1-2 days Time of Disposition: 00:36
[2021-06-02 01:07] VITALS: BP 149/79; PULSE 79; TEMP 98.8
== END 2021-06-02 01:00 | disposition home or self-care (01) ==
LOC: EC 22:56
DX: R21 Rash and other nonspecific skin eruption (principal); I11.0 Hypertensive heart disease with heart failure; I50.9 Heart failure, unspecified; E78.5 Hyperlipidemia, unspecified; M06.9 Rheumatoid arthritis, unspecified; K21.9 Gastro-esophageal reflux disease without esophagitis; M79.7 Fibromyalgia; F32.9 Major depressive disorder, single episode, unspecified; F41.9 Anxiety disorder, unspecified; Z79.890 Hormone replacement therapy; Z79.899 Other long term (current) drug therapy
CPT/HCPCS: 99282

== ENCOUNTER → 2021-06-28 | Outpatient (CLI) | payer MEDICARE ==
--- NOTE | 2021-06-29 14:10 | MM ---
Reason for exam: screening (asymptomatic). Last mammogram was performed 1 year and 1 month ago. History: Patient is postmenopausal. Family history of breast cancer in paternal aunt. Physical Findings: A clinical breast exam by your physician is recommended on an annual basis and results should be correlated with mammographic findings. MG 3D Screening Mammo W/Cad Bilateral CC and MLO view(s) were taken. Prior study comparison: May 20, 2020, bilateral MG 3d screening mammo w/cad. November 13, 2017, bilateral MG 3d screening mammo w/cad. November 01, 2016, bilateral MG 3d screening mammo w/cad. There are scattered fibroglandular densities. No significant changes when compared with prior studies. ASSESSMENT: Benign, BI-RAD 2 RECOMMENDATION: Routine screening mammogram of both breasts in 1 year.
== END | disposition home or self-care (01) ==
LOC: RADMAMWWP 15:47
PROVIDERS: ATTEND Obstetrics & Gynecology
DX: Z12.31 Encounter for screening mammogram for malignant neoplasm of breast (principal); Z80.3 Family history of malignant neoplasm of breast; Z78.0 Asymptomatic menopausal state
CPT/HCPCS: 77063; 77067

== ENCOUNTER → 2021-08-31 | Outpatient (CLI) | payer MEDICARE ==
[2021-08-31 15:13] LABS: HCT 44.2 % (34.0-46.0); HGB 14.1 gm/dL (11.4-16.0); MCH 31.2 pg (25.0-35.0); MCHC 31.8 g/dL (31.0-37.0); MCV 98.3 fL (80.0-100.0); Mean Platelet Volume 7.7; Platelet Count 287 k/uL (150-450); RDW 12.7 % (11.5-15.5); WBC 7.4 k/uL (3.8-10.6)
[2021-08-31 15:22] LABS: Appearance,Urine Clear (Clear); Bilirubin,Urine Negative (Negative); Blood,Urine Negative (Negative); Color,Urine Yellow; Glucose,Urine (UA) Negative (Negative); INR 0.9 (<1.2); Ketones,Urine Negative (Negative); Leukocyte Esterase,Urine Negative (Negative); Nitrite,Urine Negative (Negative); PH, Urine 6.5 (5.0-8.0); Partial Thromboplastin Time 29.1 sec (22.0-30.0); Protein,Urine Negative (Negative); Prothrombin Time 10.2 sec (9.0-12.0); Specific Gravity,Urine 1.007 (1.001-1.035); Urobilinogen,Urine <2.0 mg/dL (<2.0)
[2021-08-31 15:23] LABS: Potassium 3.9 mmol/L (3.5-5.1)
[2021-08-31 15:24] LABS: Albumin 4.2 g/dL (3.5-5.0); Total Bilirubin 0.4 mg/dL (0.2-1.3); Total Protein 7.4 g/dL (6.3-8.2)
== END | disposition home or self-care (01) ==
LOC: LABPAT 14:24
PROVIDERS: ATTEND Orthopaedic Surgery
DX: Z01.812 Encounter for preprocedural laboratory examination (principal); M17.12 Unilateral primary osteoarthritis, left knee
CPT/HCPCS: 80053; 81003; 85027; 85610; 85730; 87070

== ENCOUNTER 2021-09-06 07:39 | Day surgery (SDC) | payer MEDICARE ==
[2021-09-01 14:21] VITALS: BMI 25.3
[~2021-09-06 07:39] MED LIST changes: +ACETAMINOPHEN TAB 500 MG TAB PO PRN; +DEXAMETHASONE SOD PHOSPHATE 4 MG/ML 1 ML VIAL IV ONE; +GABAPENTIN 300 MG CAP PO PRN; -LACTATED RINGERS 1,000 ML IV SCH; +MELOXICAM 7.5 MG TAB PO PRN; +ONDANSETRON 4 MG/2 ML VIAL IVP ONE; +ROPIVACAINE 246.25 MG, EPINEPHrine 0.5 MG, KETOROLAC (30 mg/mL) 30 MG, cloNIDine HCL/PF... MISCELLANE PRN; +TRANEXAMIC ACID 1,000 MG in SODIUM CHLORIDE 0.9% 100 ML IVPB PRN
[2021-09-06] MEDS ORDERED: bisacodyL 10 MG SUPP RECTAL PRN (08:22)
[2021-09-06] MEDS ORDERED: HYDROmorphone 0.5 MG/0.5 ML SYRINGE IVP PRN ×2 (08:22)
[2021-09-06] MEDS ORDERED: NALOXONE 0.4 MG/ML 1 ML VIAL IV PRN (08:22)
[2021-09-06] MEDS ORDERED: ONDANSETRON 4 MG/2 ML VIAL IVP PRN (08:22)
[2021-09-06] MEDS ORDERED: NA PHOS,M-B/NA PHOS,DI-BA 133 ML ENEMA RECTAL PRN (08:22)
[2021-09-06] MEDS ORDERED: HYDROmorphone 0.2 MG/1 ML SYRINGE IVP PRN (08:22)
[2021-09-06] MEDS ORDERED: MAGNESIUM HYDROXIDE 2,400 MG/10 ML CUP PO PRN (08:22)
[2021-09-06] MEDS ORDERED: MIDAZOLAM 2 MG/2 ML VIAL IVP ONE ×2 (08:44)
--- NOTE | 2021-09-06 09:13 | P.ANPRN ---
Procedure Note - Anesthesia - Nerve Block Performed Left Adductor Canal Infusion Time Out Performed: Yes (0843) Date of Procedure: 09/06/21 Procedure Start Time: 08:45 Procedure Stop Time: 09:00 Location of Patient: PreOp Indication: Acute Post-Operative Pain, Analgesia, Requested by Surgeon Sedation Type: Sedate with meaningful contact maintained Preparation: Sterile Prep, Sterile Dressing Position: Supine Catheter: Indwelling Needle Types: Pajunk Needle Gauge: 18 Ultrasound used to visualize needle placement: Yes Ultrasound used to observe medication spread: Yes Injectate: 0.5% Ropivacaine (see comment for volume) Blood Aspirated: No Pain Paresthesia on Injection Noted: No Resistance on Injection: Normal Image Stored and Saved: Yes Events: Uneventful and Well Tolerated (20 ml of 0.5% Ropivacaine mixed with 20 ml of 09% Nacl - 20 ml of mixture injected on each side.)
[2021-09-06] MEDS: LACTATED RINGERS 1,000 ML IV SCH (09:14)
[2021-09-06] MEDS ORDERED: TRANEXAMIC ACID 1,000 MG/10 ML VIAL ONE (09:20)
[2021-09-06] MEDS ORDERED: ROCURONIUM 10 MG/ML (5 ML VIAL) IV ONE (09:20)
[2021-09-06] MEDS ORDERED: GLYCOPYRROLATE 0.2 MG/ML 2 ML VIAL ONE (09:20)
[2021-09-06] MEDS ORDERED: SODIUM CHLORIDE 0.9% 100 ML BAG ONE (09:20)
[2021-09-06] MEDS ORDERED: MIDAZOLAM 2 MG/2 ML VIAL ONE (09:20)
[2021-09-06] MEDS ORDERED: SODIUM CHLORIDE 0.9% (PF) 10 ML VIAL ONE (09:20)
[2021-09-06] MEDS ORDERED: ROPIVACAINE 5 MG/ML 30 ML VIAL ONE (09:20)
[2021-09-06] MEDS ORDERED: PROPOFOL 10 MG/ML 20 ML VIAL IV ONE (09:20)
[2021-09-06] MEDS ORDERED: NEOSTIGMINE 1 MG/ML 10 ML VIAL ONE (09:20)
[2021-09-06] MEDS ORDERED: SUCCINYLCHOLINE CHLORIDE 100 MG/5 ML SYR IV ONE (09:20)
[2021-09-06] MEDS ORDERED: HYDROmorphone (PF) 1 MG/ML ONE (09:20)
[2021-09-06] MEDS ORDERED: LIDOCAINE 1% INJ 10MG/ML (20 ML MDV) ONE (09:20)
[2021-09-06] MEDS ORDERED: ceFAZolin 1,000 MG in SODIUM CHLORIDE 0.9% 1,000 ML IRRIGATION ONE (09:25)
--- NOTE | 2021-09-06 10:41 | P.ANPRN ---
Procedure Note - Anesthesia - Nerve Block Performed Left Luisck Single Time Out Performed: Yes (0843) Date of Procedure: 09/06/21 Location of Patient: PreOp Indication: Acute Post-Operative Pain, Analgesia, Requested by Surgeon Sedation Type: Sedate with meaningful contact maintained Preparation: Sterile Prep Position: Supine Catheter: None Needle Types: Pajunk Needle Gauge: 20 Ultrasound used to visualize needle placement: Yes Ultrasound used to observe medication spread: Yes Injectate: 0.5% Ropivacaine (see comment for volume) Blood Aspirated: No Pain Paresthesia on Injection Noted: No Resistance on Injection: Normal Image Stored and Saved: Yes Events: Uneventful and Well Tolerated (20 ml of 0.5% Ropivacaine mixed with 20 ml of 09% Nacl - 20 ml of mixture injected on each block)
--- NOTE | 2021-09-06 10:58 | P.OP ---
Date of Procedure: 09/06/21 Preoperative Diagnosis: Severe osteoarthritis left knee Postoperative Diagnosis: Severe osteoarthritis left knee Procedure(s) Performed: Left total knee arthroplasty Implants: [employer]hew Journey II CR Oxinium cruciate retaining femoral component size 5, left [employer] Journey nonporous tibial baseplate size 4, left [employer] Journey II, XLPE Deep Dished articular insert, size 9 mm, Size 3- 4, left [employer] Journey Esha II resurfacing patellar component, oval, 32 mm All components were cemented using Palacos R bone cement The articulation is Oxinium on polyethylene Anesthesia: SONDRA Surgeon: Bib Peres Clinical Research Technician #1: Aura Garnett Estimated Blood Loss (ml): 50 Pathology: other (Bone and cartilage) Condition: stable Disposition: PACU Indications for Procedure: After failure of conservative treatment we discussed the surgical and nonsurgical treatment options at length. Patient wishes to proceed with a total knee arthroplasty. Complications specific to this procedure were discussed at length, including but not limited to infection, bleeding, stiffness, and nerve injury. Covid-19 was also discussed at length with the patient, and they are aware of the current policies and procedures. The patient was given the option of delaying surgery, but they elect to proceed knowing these risks. Patient is aware of all these complications and informed consent was obtained Operative Findings: The operative findings are consistent with severe osteoarthritis of the left knee Description of Procedure: Patient was seen in the preoperative area and the consent was reviewed and the operative site was marked with a skin marker. The patient verified the procedure and the operative site. An adductor canal block and an iPACK block was placed by anesthesia in the preoperative area. The patient was then brought to the operating room and given preoperative antibiotics intravenously. A gram of transexamic acid was given intravenously. A general anesthetic was administered by the anesthesia department. A tourniquet was placed on the upper thigh and the lower extremity was prepped with chlorhexidine and draped in usual sterile fashion. A universal timeout was then performed which confirmed the patient's name, surgical site, ALLERGIES, and consent. The lower extremity was then exsanguinated and tourniquet was inflated to 250 mmHg. A standard anterior midline approach to the knee was performed. The skin and subcutaneous tissue were sharply dissected down to the patellar tendon. A medial parapatellar arthrotomy was then performed. The knee was then extended, the patellar was everted, and the knee was again flexed. The infra-patellar fat pad was removed in order to enhance exposure. The anterior horns of both menisci were excised, and a release was performed to the posterior medial aspect of the knee. On gross visual inspection, there was complete loss of articular cartilage in the medial and patellofemoral joint spaces. There was also significant cartilage damage in the lateral compartment. There were multiple periarticular osteophytes globally about the knee which were then removed with a Ronguer. The femoral canal was then opened with the 9.5 mm intramedullary drill. The 8 mm intramedullary richard was then inserted into the femoral canal with the distal femoral cutting guide set for 5 of valgus. The distal femoral cutting block was then pinned in place. The intramedullary richard was then removed, and the distal femur was then cut. The cutting block was then removed and the cut was checked for symmetry. The resected bone was then measured to confirm the appropriate distal femoral resection. Next, the sizing guide was then placed and set for 3 external rotation based off of the epicondylar axis and Whitesides line. Pins were then placed and the drill holes, and the femur was sized with the sizing stylus. The pins were then removed, and the sizing guide was then removed. The spikes of the femoral block was then placed into the predrilled holes, and malleted into place. Two 45 mm pins were then placed into the fixation holes on the cutting block. An bang wing was then used to ensure there would be no notching with the anterior cut. The anterior condyles were cut without notching. The anterior chord cut was then performed, followed by the posterior cut, posterior chamfer cut, and the anterior chamfer cut. The collateral ligaments were protected during the entire process. The cutting block was then removed. Any remaining bone and osteophytes were removed from the femur with a Rominger. The femoral canal was plugged with autologous bone. Attention was then directed to the tibia. The remaining ACL was removed with a Ronguer, and the tibia was then gently subluxed forward with a large bent knee retractor. Any remaining menisci were excised. The posterior lateral corner was cauterized in order to coagulate the lateral geniculate artery. The extra medullary tibial cutting guide was then placed, set for the appropriate rotation, slope, and depth of resection. The proximal tibia cutting guide was then pinned in place. Proximal tibia was then cut and sized. The femoral trial was placed. A narrow saw blade was then used to remove the anterior intracondylar femoral bone. The CR notch trial was then placed. The tibial trial was placed with the appropriate-sized insert. The knee was able to fully extend and flex to 130 and was stable throughout all range of motion. The knee was then extended and the patella was everted. Patella was then measured, and then using an osteotomy guide, the patella was cut at the appropriate level. The patella was then measured and drilled and the patella trial was then placed. The knee was then taken through range of motion with the patella trial and the patella tracked normally using the no thumbs technique.. The knee was then extended patella trial was then removed and the patella was everted. Knee was then flexed and lug holes were drilled through the femoral trial and the femoral trial was then removed. The tibial was then re-exposed, and the tibial broach guide was then pinned in place after it was set for the appropriate rotation to allow for the most coverage without overhang. The tibia was then reamed and broached. The cut surfaces of bone were then irrigated with pulsatile lavage. The knee was also irrigated with Irrisept solution. The components were then opened, the cement was mixed, and the components were then cemented in place. The cement was allowed to harden with the knee in full extension. After the cemented hardened. The tourniquet was released, and hemostasis was obtained. A second gram of transexamic acid was given intravenously. The knee was again irrigated. The knee was again taken through range of motion and found to be stable throughout all range of motion of 0-130, and the patella tracked normally. The fascia was then closed with 0 Vicryl followed by #2 strata fix suture. The subcutaneous tissue was closed with 3-0 Vicryl and 3-0 strata fix. Exofin glue was used for the skin and placed with the knee in flexion. After the glue had dried, and Optafoam silver impregnated dressing was applied. The patient was then transferred to recovery room in stable condition. The registered sales assistant JOSIAH Voss was required due the complexity surgery and the need for a skilled surgical instrument mechanic. She assisted in positioning, draping, retraction, and closure of the wound.
[2021-09-06] MEDS ORDERED: ROPIVACAINE 0.2%-NS ON-Q PUMP 2 MG/ML EACH MISCELLANE ONE (11:24)
--- NOTE | 2021-09-06 11:32 | XR ---
EXAMINATION TYPE: XR knee limited LT DATE OF EXAM: 09/06/2021 COMPARISON: NONE TECHNIQUE: Two views submitted HISTORY: Post op FINDINGS: There is a prosthetic knee in near anatomic alignment. There is soft tissue edema and emphysema. Va scular calcification noted. IMPRESSION: 1. Postoperative change. Appears in near-anatomic alignment
[2021-09-06] MEDS: HYDROmorphone 0.5 MG/0.5 ML SYRINGE IVP PRN ×2 (11:41→11:57)
[2021-09-06] MEDS: oxyCODONE-APAP 7.5-325MG 1 EACH TAB PO SCH ×2 (16:05→21:00)
[2021-09-06] MEDS: GABAPENTIN 100 MG CAP PO SCH ×2 (16:06→20:59)
[2021-09-06] MEDS: busPIRone HCl 5 MG TAB PO SCH ×2 (16:06→21:03)
[2021-09-06] MEDS: SUCRALFATE 1 GM TAB PO SCH ×2 (16:06→20:59)
[2021-09-06] MEDS: SODIUM CHLORIDE 0.9% 1,000 ML IV SCH (16:06)
[2021-09-06] MEDS: PANTOPRAZOLE 40 MG TABLET PO SCH (17:53)
--- NOTE | 2021-09-06 18:00 | XR ---
EXAMINATION TYPE: XR chest 1V portable DATE OF EXAM: 09/06/2021 5:33 PM COMPARISON:Chest radiographs from 08/15/2021 CLINICAL INDICATION:Female, 71 years old with history of chf; TECHNIQUE: Frontal view of the chest. FINDINGS: Lungs/Pleura: There is no evidence of pleural effusion, focal consolidation, or pneumothorax. Pulmonary vascularity: Mild Pulmonary vascular congestion. Heart/mediastinum: Cardiomediastinal silhouette is enlarged and stable. Musculoskeletal: No acute osseous pathology. IMPRESSION: Congestive heart failure changes with cardiomegaly and mild pulmonary vascular congestion. Correlate with BNP.
--- NOTE | 2021-09-06 20:49 | CONS ---
CONSULTATION DATE OF SERVICE: 09/06/2021 REASON FOR CONSULTATION: Advice regarding CHF and other medical issues, requested by Dr. Peres. HISTORY OF PRESENT ILLNESS: This 71-year-old woman with a past medical history of CHF, history of CVA, TIA, fibromyalgia, GERD, hypertension, hyperlipidemia, being followed by Dr. Stevens in the outpatient setting, underwent left total knee arthroplasty by Dr. Peres. The patient is slightly drowsy from the pain medication. Otherwise, there is no history of any fever, rigor or chills. No history of headache, loss of consciousness, seizures, chest pain, palpitations at this time. PAST MEDICAL HISTORY: History of CHF, CVA, TIA, fibromyalgia, GERD, hypertension, hyperlipidemia, history of DJD, history of rheumatoid arthritis, hypothyroidism. HOME MEDICATIONS: Oxycodone, buspirone, Wellbutrin XR, potassium chloride, multivitamins, morphine pump, metoprolol, levothyroxine, lactobacillus, Neurontin, Lasix, folic acid, Enbrel, Colace, Flexeril, biotin, Lipitor. Doses are reviewed. ALLERGIES: NORVASC, FENTANYL, METHOTREXATE. FAMILY HISTORY: History of lung cancer in the family. SOCIAL HISTORY: No history of smoking. No history of alcohol intake. REVIEW OF SYSTEMS: ENT: Diminished hearing. Diminished vision. CARDIOVASCULAR SYSTEM: As mentioned earlier. RESPIRATORY SYSTEM: As mentioned earlier. GI: No nausea, vomiting, diarrhea. : No dysuria. NERVOUS SYSTEM: As mentioned earlier. ALLERGY/IMMUNOLOGY: No asthma or hay fever. MUSCULOSKELETAL: As mentioned earlier. HEMATOLOGY/ONCOLOGY: No history of anemia. ENDOCRINE: No history of diabetes or hypothyroidism. CONSTITUTIONAL: As mentioned earlier. DERMATOLOGY: Negative. RHEUMATOLOGY: As mentioned earlier. PSYCHIATRY: As mentioned earlier. PHYSICAL EXAMINATION: Patient is alert, oriented x3. The pulse is 92, blood pressure 129/60, respiration 18, temperature 97.2, pulse ox 93% on 3 L. HEENT: Conjunctivae normal. Oral mucosa moist. NECK: No jugular venous distention. No carotid bruit. No lymph node enlargement. CARDIOVASCULAR: S1, S2 muffled. No S3. No S4. RESPIRATION: Breath sounds diminished at the bases. A few scattered rhonchi. ABDOMEN: Soft, nontender. No mass palpable. LEGS: Status post left knee arthroplasty. NERVOUS SYSTEM: Higher functions as mentioned earlier. Otherwise, slightly drowsy but arousable. No focal motor or sensory deficit. LYMPHATICS: No lymph node palpable in neck, axillae or groin. SKIN: No ulcer, rash, bleeding. JOINTS: As mentioned earlier. LABS: Preop labs show hematology is normal and coags show D-dimer 0.6. Chemistry shows CO2 is 39. ASSESSMENT: 1. Status post left total knee joint arthroplasty. 2. History of congestive heart failure. 3. History of cerebrovascular accident, transient ischemic attack. 4. History of fibromyalgia. 5. Gastroesophageal reflux disease. 6. Hypertension. 7. Hyperlipidemia. 8. History of degenerative joint disease. 9. History of pneumonia. 10.History of rheumatoid arthritis. 11.History of hypothyroidism. 12.History of lumbar spinal stenosis. 13.History of renal failure. 14.Anxiety, depression. 15.FULL CODE. RECOMMENDATIONS AND DISCUSSION: In this 71-year-old woman who presented after surgery, at this time I recommend to resume the home medications. I would also recommend a STAT chest x-ray to rule out any possible fluid overload. Otherwise, continue to monitor. Incentive spirometry. DVT prophylaxis. Patient may be asked to follow with Dr. Stevens closely after discharge. Home medication will be continued. Thank you, Dr. Peres, for letting us participate in the care of this patient. MMOWENL / IJN: [id number] /
[2021-09-06] MEDS: ASPIRIN 325 MG TAB PO SCH (20:59)
[2021-09-06] MEDS: VENLAFAXINE HCL 75 MG TAB PO SCH (20:59)
[2021-09-06] MEDS: METOPROLOL TARTRATE 25 MG TAB PO SCH (20:59)
[2021-09-06] MEDS: buPROPion SR 150 MG TABLET.ER PO SCH (21:00)
[2021-09-06] MEDS ORDERED: SENNOSIDES-DOCUSATE SODIUM 1 EACH TAB PO SCH (21:00)
[2021-09-06] MEDS ORDERED: ATORVASTATIN 20 MG TAB PO SCH (21:00)
[2021-09-06] MEDS ORDERED: CYCLOBENZAPRINE 10 MG TAB PO SCH (21:00)
[2021-09-07] MEDS: LACTATED RINGERS 1,000 ML IV SCH (01:01)
[2021-09-07] MEDS: SODIUM CHLORIDE 0.9% 1,000 ML IV SCH ×2 (01:02→05:52)
[2021-09-07] MEDS ORDERED: LEVOTHYROXINE 50 MCG TAB PO SCH (06:30)
--- NOTE | 2021-09-07 07:49 | P.PN ---
Progress Note - Text Progress Note Date: 09/07/21 patient was seen and evaluated at bedside. Status post postoperative day 1 for left total knee arthroplasty patient had adductor canal catheter for postop pain control. Patient rated pain at rest 4 out of 10 in severity. Patient describes pain is aching, throbbing type on the sides of the knee and back of the knee. Patient started walking with support. With activity patient pain levels are 6 out of 10 in severity. With the help of oral pain medications pain levels are tolerable. Patient denied any weakness/ numbness in lower extremities. patient denied any fever, pain over the catheter site. Physical exam: Patient vital signs stable Patient is alert awake oriented 3 responding to all questions appropriately Examination of the catheter site showed dressing intact, no leaking fluid around the catheter, no redness, no tenderness over the catheter insertion area. plan: status post postoperative day 1 for right total knee arthroplasty with adductor canal catheter for pain control. Patient was discussed to continue the medication at the rate of 8 mL per hour until the pump is completely empty and instructed the patient how to discontinue the catheter.
--- NOTE | 2021-09-07 07:58 | P.DS ---
Providers Attending physician: Bib Peres Consults: 09/06/21 08:22 Consult Physician Routine Consulting Provider: Ruddy Shannon Consult Reason/Comments: medical management Do you want consulting provider notified?: Yes Primary care physician: Steve Stevens - Discharge Diagnosis(es) (1) Primary osteoarthritis of left knee Current Visit: Yes Status: Acute (2) Status post total left knee replacement Current Visit: Yes Status: Acute Hospital Course: This is a 71-year-old Female who was last seen with complaint of continued left knee pain. The patient has a known history of degenerative arthritis of the left knee and presents to discuss surgical options. After discussion and consideration the patient elects to proceed with total left knee arthroplasty. The patient is seen preoperatively by her primary care physician and cleared for surgery. The patient is admitted to [facility] for total left knee arthroplasty. The procedure is performed without complication or sequelae. He is doing well postoperatively. Vital signs are stable at discharge. Labs are stable at discharge. the patient is ambulating well with walker with minimal assistance. The patient is discharged to home on postop day #1 pending medical clearance. Please see orders and refer to the [facility] rec for accurate list of medications. Patient Condition at Discharge: Good Plan - Discharge Summary Discharge Rx Participant: Yes New Discharge Prescriptions: New Aspirin 325 mg PO BID #60 tab Sennosides [Senokot] 2 tab PO DAILY PRN #60 tablet PRN Reason: Constipation Ondansetron Odt [Zofran Odt] 1 tab PO Q8HR PRN #10 tab PRN Reason: Nausea No Action Levothyroxine Sodium [Synthroid] 50 mcg PO DAILY buPROPion SR [Wellbutrin SR] 150 mg PO BID Folic Acid 1 mg PO DAILY Morphine Pump 1 pump INTRATHECA CONTINUOUS Atorvastatin [Lipitor] 20 mg PO HS L.acidoph,Paracasei, B.lactis [Probiotic] 1 cap PO DAILY Aspirin 81 mg PO DAILY #30 chew Metoprolol Tartrate [Lopressor] 25 mg PO BID Furosemide [Lasix] 40 mg PO DAILY Potassium Chloride ER [K-Dur 10] 10 meq PO DAILY busPIRone HCL 15 mg PO TID oxyCODONE-APAP 7.5-325MG [Percocet 7.5-325 mg] 1 tab PO TID PRN PRN Reason: Pain Gabapentin [Neurontin] 100 mg PO TID Docusate [Colace] 100 mg PO DAILY Etanercept [Enbrel] 50 mg SQ LWATON Venlafaxine HCl [Effexor] 75 mg PO BID Propylene Glycol [Systane Complete] 1 drop BOTH EYES DAILY PRN PRN Reason: DRY EYES Biotin [Biotin Disolve] 5,000 mcg PO DAILY Cyclobenzaprine [Flexeril] 10 mg PO HS Multivitamins, Thera [Multivitamin (formulary)] 1 tab PO DAILY Sucralfate 1 gm PO ACHS Discharge Medication List Levothyroxine Sodium [Synthroid] 50 mcg PO DAILY 08/26/14 [History] buPROPion SR [Wellbutrin SR] 150 mg PO BID 08/26/14 [History] Atorvastatin [Lipitor] 20 mg PO HS 02/13/19 [History] Folic Acid 1 mg PO DAILY 02/13/19 [History] Morphine Pump 1 pump INTRATHECA CONTINUOUS 02/13/19 [History] L.acidoph,Paracasei, B.lactis [Probiotic] 1 cap PO DAILY 05/14/19 [History] Aspirin 81 mg PO DAILY #30 chew 05/19/19 [Rx] Metoprolol Tartrate [Lopressor] 25 mg PO BID 06/12/19 [History] Furosemide [Lasix] 40 mg PO DAILY 11/28/20 [History] Potassium Chloride ER [K-Dur 10] 10 meq PO DAILY 11/28/20 [History] busPIRone HCL 15 mg PO TID 11/28/20 [History] oxyCODONE-APAP 7.5-325MG [Percocet 7.5-325 mg] 1 tab PO TID PRN 11/29/20 [History] Gabapentin [Neurontin] 100 mg PO TID 12/14/20 [History] Biotin [Biotin Disolve] 5,000 mcg PO DAILY 09/01/21 [History] Cyclobenzaprine [Flexeril] 10 mg PO HS 09/01/21 [History] Docusate [Colace] 100 mg PO DAILY 09/01/21 [History] Etanercept [Enbrel] 50 mg SQ LAWTON 09/01/21 [History] Multivitamins, Thera [Multivitamin (formulary)] 1 tab PO DAILY 09/01/21 [History] Propylene Glycol [Systane Complete] 1 drop BOTH EYES DAILY PRN 09/01/21 [History] Sucralfate 1 gm PO ACHS 09/01/21 [History] Venlafaxine HCl [Effexor] 75 mg PO BID 09/01/21 [History] Aspirin 325 mg PO BID #60 tab 09/06/21 [Rx] Ondansetron Odt [Zofran Odt] 1 tab PO Q8HR PRN #10 tab 09/06/21 [Rx] Sennosides [Senokot] 2 tab PO DAILY PRN #60 tablet 09/06/21 [Rx] Follow up Appointment(s)/Referral(s): Bib Peres DO [Doctor of Osteopathic Medicine] - 2 Weeks Activity/Diet/Wound Care/Special Instructions: Weightbearing as tolerated with a walker. CPM 5-6h daily as tolerated. Leave dressing intact. Dressing may be removed by home care nurse or by patient in 7 days. Then change dressing twice daily until follow up. May shower with initial dressing intact and after removal. If dressing become saturated, please remove. Recommend use of compression stockings daily until follow up to help prevent swelling and blood clots. May remove at night before sleeping. Please take aspirin 325mg twice daily for 30 days to prevent blood clots. Patient's postop pain medication to be managed by Dr. Dong's office. Please follow up with [facility] and call with any questions or concerns, . Discharge Disposition: HOME WITH HOME HEALTH SERVICES
[2021-09-07] MEDS ORDERED: DOCUSATE 100 MG CAP PO SCH (09:00)
[2021-09-07] MEDS ORDERED: MELOXICAM 7.5 MG TAB PO SCH (09:00)
[2021-09-07] MEDS ORDERED: NON FORMULARY DRUG (Biotin [Biotin Disolve] 5,000 MCG Tablet) PO SCH (09:00)
[2021-09-07] MEDS ORDERED: POTASSIUM CHLORIDE ER 10 MEQ TAB.ER.PRT PO SCH (09:00)
[2021-09-07] MEDS ORDERED: MULTIVITAMINS, THERA 1 EACH TAB PO SCH (09:00)
[2021-09-07] MEDS ORDERED: FUROSEMIDE 40 MG TAB PO SCH (09:00)
[2021-09-07] MEDS ORDERED: FOLIC ACID 1 MG TAB PO SCH (09:00)
[2021-09-07] MEDS: busPIRone HCl 5 MG TAB PO SCH (09:14)
[2021-09-07] MEDS: PANTOPRAZOLE 40 MG TABLET PO SCH (09:15)
[2021-09-07] MEDS: ASPIRIN 325 MG TAB PO SCH (09:15)
[2021-09-07] MEDS: SUCRALFATE 1 GM TAB PO SCH ×2 (09:16→11:36)
[2021-09-07] MEDS: buPROPion SR 150 MG TABLET.ER PO SCH (09:16)
[2021-09-07] MEDS: VENLAFAXINE HCL 75 MG TAB PO SCH (09:16)
[2021-09-07] MEDS: GABAPENTIN 100 MG CAP PO SCH (09:17)
[2021-09-07] MEDS: METOPROLOL TARTRATE 25 MG TAB PO SCH (09:17)
[2021-09-07] MEDS: oxyCODONE-APAP 7.5-325MG 1 EACH TAB PO SCH (09:18)
[2021-09-07 09:30] LABS: Basophils # (A) 0.01 X 10*3/uL (0.00-0.10); Basophils % (A) 0.1 %; Eosinophils # (A) 0.02 X 10*3/uL (0.04-0.35); Eosinophils % (A) 0.2 %; HCT 34.7 % (37.2-46.3); HGB 10.7 g/dL (12.0-15.0); Lymphocytes # (A) 1.64 X 10*3/uL (0.90-5.00); Lymphocytes % (A) 14.8 %; MCH 31.2 pg (27.0-32.0); MCHC 30.8 g/dL (32.0-37.0); MCV 101.2 fL (80.0-97.0); Mean Platelet Volume 11.9 fL (9.5-12.2); Monocytes % (A) 13.6 %; Neutrophils # (A) 7.86 X 10*3/uL (1.80-7.70); Neutrophils % (A) 70.9 %; Platelet Count 249 X 10*3/uL (140-440); RBC 3.43 X 10*6/uL (4.10-5.20); RDW 12.5 % (11.5-14.5); WBC 11.07 X 10*3/uL (4.50-10.00)
[2021-09-07] MEDS ORDERED: KETOROLAC 30 MG/ML 1 ML VIAL IVP STA (13:04)
[2021-09-07 14:12] VITALS: BP 111/59; PULSE 67; RESP 16; TEMP 97.9
--- NOTE | 2021-09-07 14:41 | P.PN ---
Subjective Progress Note Date: 09/07/21 This 71-year-old female who was recently admitted with orthopedic services and underwent left total knee arthroplasty with Dr. Peres. Patient is being closely monitored and scheduled for discharge today. Patient does follow with [facility] in the outpatient setting as patient has a chronic morphine pump and also takes oxycodone prescribed. Patient states she is having some pain of the left leg although no worsening. Patient being arranged with home care and rehab in the outpatient setting. Patient currently denies any chest pain, shortness of breath, or palpitations. Patient is afebrile. No reports of nausea or vomiting and patient tolerating diet. Patient reports the passing gas although has not had a bowel movement as of yet. Labs: CBC is 11.07, hemoglobin is 10.7, platelets are 249 Review of systems: Constitutional: No reports of fatigue, fever, or chills Cardiovascular: No reports of chest pain or palpitations Respiratory: No reports of shortness of breath or cough GI: No reports of nausea, vomiting, or diarrhea : No reports of dysuria or retention Neurovascular: No reports of weakness or numbness, reports left knee pain All medications have been reviewed Active Medications Aspirin (Aspirin 325 Mg Tab) 325 mg PO BID [facility] Stop: 10/06/21 21:01 Last Admin: 09/07/21 09:15 Dose: 325 mg Documented by: Atorvastatin Calcium (Atorvastatin 20 Mg Tab) 20 mg PO [facility] Last Admin: 09/06/21 20:59 Dose: 20 mg Documented by: Bisacodyl (Bisacodyl 10 Mg Supp) 10 mg RECTAL DAILY PRN PRN Reason: Constipation Stop: 10/06/21 08:23 Bupropion HCl (Bupropion Sr 150 Mg Tablet.Er) 150 mg PO BID [facility] Last Admin: 09/07/21 09:16 Dose: 150 mg Documented by: Buspirone HCl (Buspirone Hcl 5 Mg Tab) 15 mg PO TID [facility] Last Admin: 09/07/21 09:14 Dose: 15 mg Documented by: Cyclobenzaprine HCl (Cyclobenzaprine 10 Mg Tab) 10 mg PO [facility] Last Admin: 09/06/21 20:59 Dose: 10 mg Documented by: Docusate Sodium (Docusate 100 Mg Cap) 100 mg PO DAILY [facility] Last Admin: 09/07/21 09:15 Dose: 100 mg Documented by: Folic Acid (Folic Acid 1 Mg Tab) 1 mg PO DAILY [facility] Last Admin: 09/07/21 09:18 Dose: 1 mg Documented by: Furosemide (Furosemide 40 Mg Tab) 40 mg PO DAILY [facility] Last Admin: 09/07/21 09:18 Dose: 40 mg Documented by: Gabapentin (Gabapentin 100 Mg Cap) 100 mg PO TID [facility] Last Admin: 09/07/21 09:17 Dose: 100 mg Documented by: Hydromorphone HCl (Hydromorphone 0.2 Mg/1 Ml Syringe) 0.2 mg IVP Q3HR PRN PRN Reason: Pain Scale 4 to 6 Stop: 10/06/21 08:23 Hydromorphone HCl (Hydromorphone 0.5 Mg/0.5 Ml Syringe) 0.125 mg IVP Q3HR PRN PRN Reason: Pain Scale 1 to 3 Stop: 10/06/21 08:23 Hydromorphone HCl (Hydromorphone 0.5 Mg/0.5 Ml Syringe) 0.5 mg IVP Q3HR PRN PRN Reason: Pain Scale 7 to 10 Stop: 10/06/21 08:23 Lactated Ringer's (Lactated Ringers) 1,000 mls @ 20 mls/hr IV .Q24H [facility] Stop: 10/05/21 21:16 Last Admin: 09/07/21 01:01 Dose: Not Given Documented by: Sodium Chloride (Saline 0.9%) 1,000 mls @ 65 mls/hr IV .[id number] [facility] Stop: 10/06/21 08:31 Last Admin: 09/07/21 05:52 Dose: 65 mls/hr Documented by: Levothyroxine Sodium (Levothyroxine 50 Mcg Tab) 50 mcg PO DAILY@0630 [facility] Last Admin: 09/07/21 05:46 Dose: 50 mcg Documented by: Magnesium Hydroxide (Magnesium Hydroxide 2,400 Mg/10 Ml Cup) 2,400 mg PO DAILY PRN PRN Reason: Constipation Stop: 10/06/21 08:23 Meloxicam (Meloxicam 7.5 Mg Tab) 7.5 mg PO DAILY [facility] Stop: 10/07/21 09:01 Last Admin: 09/07/21 09:17 Dose: 7.5 mg Documented by: Metoprolol Tartrate (Metoprolol Tartrate 25 Mg Tab) 25 mg PO BID [facility] Last Admin: 09/07/21 09:17 Dose: 25 mg Documented by: Multivitamins (Multivitamins, Thera 1 Each Tab) 1 each PO DAILY [facility] Last Admin: 09/07/21 09:13 Dose: 1 each Documented by: Naloxone HCl (Naloxone 0.4 Mg/Ml 1 Ml Vial) 0.2 mg IV Q2M PRN PRN Reason: Opioid Reversal Stop: 10/06/21 08:23 Ondansetron HCl (Ondansetron 4 Mg/2 Ml Vial) 4 mg IVP Q8HR PRN PRN Reason: Nausea And Vomiting Stop: 10/06/21 08:23 Oxycodone/Acetaminophen (Oxycodone-Apap 7.5-325mg 1 Each Tab) 1 each PO TID [facility] Stop: 10/06/21 16:01 Last Admin: 09/07/21 09:18 Dose: 1 each Documented by: Pantoprazole Sodium (Pantoprazole 40 Mg Tablet) 40 mg PO AC-BRKFST [facility] Last Admin: 09/07/21 09:15 Dose: 40 mg Documented by: Potassium Chloride (Potassium Chloride Er 10 Meq Tab.Er.Prt) 10 meq PO DAILY [facility] Last Admin: 09/07/21 09:16 Dose: 10 meq Documented by: Senna/Docusate Sodium (Sennosides-Docusate Sodium 1 Each Tab) 2 each PO HS [facility] Stop: 10/06/21 21:01 Last Admin: 09/06/21 20:59 Dose: 2 each Documented by: Sodium Biphosphate/Sodium Phosphate (Na Phos,M-B/Na Phos,Di-Ba 133 Ml Enema) 133 ml RECTAL DAILY PRN PRN Reason: Constipation Stop: 10/06/21 08:23 Sucralfate (Sucralfate 1 Gm Tab) 1 gm PO ACHS [facility] Last Admin: 09/07/21 11:36 Dose: 1 gm Documented by: Venlafaxine HCl (Venlafaxine Hcl 75 Mg Tab) 75 mg PO BID [facility] Last Admin: 09/07/21 09:16 Dose: 75 mg Documented by: Physical Exam: Gen: This is a 71-year-old female awake, alert and oriented 3, well-developed, well-nourished. HEENT: Head is atraumatic, normocephalic. Pupils equal, round. Sclerae is anicteric. NECK: Supple. No JVD. No lymphadenopathy. No thyromegaly. LUNGS: Diminished breath sounds bilaterally with no wheezing noted. Scattered rhonchi noted. No intercostal retractions. HEART: S1, S2 are muffled ABDOMEN: Soft. Bowel sounds are present. No masses. No tenderness. EXTREMITIES: No pedal edema. No calf tenderness. Left knee surgical site dry and intact NEUROLOGICAL: Patient is awake, alert and oriented x3. Cranial nerves 2 through 12 are grossly intact. Assessment: Status post left total knee joint arthroplasty History of congestive heart failure History of cerebrovascular accident, TIA History of fibromyalgia gastroesophageal reflux disease Hypertension Hyperlipidemia history of degenerative joint disease history of pneumonia history of rheumatoid arthritis history of hypothyroidism history of lumbar spinal stenosis history of renal failure Anxiety, depression Full code Plan: Recommend to continue with current medications and management. Pain management per orthopedic services. Encouraged incentive spirometer use and instructed the patient to keep using at least 10 times every hour while awake even in the outpatient setting. Appropriate home medications have been resumed and patient is to continue following with [facility] in the outpatient setting. Patient does have oxygen as needed in the outpatient setting. Patient anticipates being discharged today in case management following arranging with home care in the outpatient setting. Will continue to follow along with orthopedic services during hospitalization. Thank you for this consultation. Objective - Vital Signs Vital signs: Vital Signs Temp 98.8 F 09/07/21 07:00 Pulse 83 09/07/21 07:00 Resp 17 09/07/21 07:00 BP 113/65 09/07/21 07:00 Pulse Ox 92 L 09/07/21 07:00 Intake & Output 09/06/21 09/07/21 09/07/21 18:59 06:59 18:59 Intake Total 1301 Output Total 50 Balance 1251 Weight 70.5 kg Intake: IV 1301 Output: Estimated Blood Loss 50 Other: Voiding Method Bedside Commode # Voids 1 3 - Labs CBC & Chem 7: 09/07/21 05:49 Labs: Abnormal Lab Results - Last 24 Hours (Table) 09/07/21 Range/Units 05:49 WBC 11.07 H (4.50-10.00) X 10*3/uL RBC 3.43 L (4.10-5.20) X 10*6/uL Hgb 10.7 L (12.0-15.0) g/dL Hct 34.7 L (37.2-46.3) % MCV 101.2 H (80.0-97.0) fL MCHC 30.8 L (32.0-37.0) g/dL Neutrophils # 7.86 H (1.80-7.70) X 10*3/uL Monocytes # 1.50 H (0.20-1.00) X 10*3/uL Eosinophils # 0.02 L (0.04-0.35) X 10*3/uL
== END 2021-09-07 15:07 | disposition home health service (06) ==
LOC: OR 07:39 → 4SSUR 11:03 → OR 09-07 15:07
PROVIDERS: ATTEND Orthopaedic Surgery
DX: M17.12 Unilateral primary osteoarthritis, left knee (principal); I10 Essential (primary) hypertension; F32.9 Major depressive disorder, single episode, unspecified; E03.9 Hypothyroidism, unspecified; I11.0 Hypertensive heart disease with heart failure; N28.9 Disorder of kidney and ureter, unspecified; I50.9 Heart failure, unspecified; I77.6 Arteritis, unspecified; M06.9 Rheumatoid arthritis, unspecified; M21.162 Varus deformity, not elsewhere classified, left knee; K21.9 Gastro-esophageal reflux disease without esophagitis; Z88.5 Allergy status to narcotic agent; Z88.8 Allergy status to other drugs, medicaments and biological substances; Z79.899 Other long term (current) drug therapy; Z79.82 Long term (current) use of aspirin
CPT/HCPCS: 97110; 97161; 64999; 64448; 76942; 85025; 88300; 87635; 73560; 71045; 27447; C1713; C1776; J2250; J1100; J2710; S0106 ×2; J0690 ×3; J2405; J2001; J1170 ×2; J2795 ×2; J0330; J2704

== ENCOUNTER 2021-09-29 06:36 | Emergency (ER) | payer MEDICARE ==
[2021-09-29] MEDS ORDERED: DIAZEPAM 5 MG/ML 2 ML INJ IVP STA (06:49)
--- NOTE | 2021-09-29 07:10 | ED ---
General Adult HPI - General Chief complaint: Back Pain/Injury Stated complaint: Back Pain Time Seen by Provider: 09/29/21 06:40 Source: patient, EMS, RN notes reviewed Mode of arrival: EMS Limitations: physical limitation - History of Present Illness Initial comments: 71-year-old female presents emergency from chief complaint of spasms all over. Patient states that she just feels very jumpy. Patient states she's not sure why this is happening. She denies any chest pain or shortness of breath. She states she is chronic back pain which has not worsened from her normal. She states she has left leg pain but is currently related to recent knee surgery. She denies any nausea vomiting diarrhea constipation or fevers or chills no other complaints. She states she is due to have her morphine pump refilled today. - Related Data Home Medications Medication Instructions Recorded Confirmed Levothyroxine Sodium [Synthroid] 50 mcg PO DAILY 08/26/14 09/29/21 buPROPion SR [Wellbutrin SR] 150 mg PO BID 08/26/14 09/29/21 Atorvastatin [Lipitor] 20 mg PO HS 02/13/19 09/29/21 Folic Acid 1 mg PO DAILY 02/13/19 09/29/21 Morphine Pump 1 pump INTRATHECA CONTINUOUS 02/13/19 09/29/21 Metoprolol Tartrate [Lopressor] 50 mg PO DAILY 06/12/19 09/29/21 Furosemide [Lasix] 40 mg PO DAILY 11/28/20 09/29/21 Potassium Chloride ER [K-Dur 10] 10 meq PO DAILY 11/28/20 09/29/21 busPIRone HCL 15 mg PO TID 11/28/20 09/29/21 oxyCODONE-APAP 7.5-325MG [Percocet 1 tab PO TID PRN 11/29/20 09/29/21 7.5-325 mg] Gabapentin [Neurontin] 100 mg PO TID 12/14/20 09/29/21 Cyclobenzaprine [Flexeril] 10 mg PO HS 09/01/21 09/29/21 Docusate [Colace] 100 mg PO DAILY 09/01/21 09/29/21 Etanercept [Enbrel] 50 mg SQ LAWTON 09/01/21 09/29/21 Multivitamins, Thera [Multivitamin 1 tab PO DAILY 09/01/21 09/29/21 (formulary)] Propylene Glycol [Systane Complete] 1 drop BOTH EYES DAILY PRN 09/01/21 09/29/21 Sucralfate 1 gm PO ACHS 09/01/21 09/29/21 Venlafaxine HCl [Effexor] 75 mg PO BID 09/01/21 09/29/21 Allergies Allergy/AdvReac Type Severity Reaction Status Date / Time amlodipine besylate Allergy severe Verified 09/29/21 07:47 [From [facility]] nausea vomiting fentanyl Allergy severe Verified 09/29/21 07:47 nausea vomiting methotrexate AdvReac MOUTH SORES Verified 09/29/21 07:47 Review of Systems ROS Statement: Those systems with pertinent positive or pertinent negative responses have been documented in the HPI. ROS Other: All systems not noted in ROS Statement are negative. Past Medical History Past Medical History: Heart Failure, CVA/TIA, Fibromyalgia, GERD/Reflux, Hyperlipidemia, Hypertension, Osteoarthritis (OA), Pneumonia, Rheumatoid Arthritis (RA), Thyroid Disorder Additional Past Medical History / Comment(s): DJD,TIA -no residual ,lumbar spinal stenosis,connective tissue disorder, limited rom olvin wrists(fused), states pneumonia 2019 with renal failure & CHF., recent hospitalization for weak ness and sob, currently has PT & OT and Home Health Care., uses cane., states she has a "awful taste & smell that makes her nauseated " and "violent nightmares." History of Any Multi-Drug Resistant Organisms: None Reported Past Surgical History: Orthopedic Surgery, Tonsillectomy, Tubal Ligation Additional Past Surgical History / Comment(s): ORIF LEFT TIB/FIB, LEFT FOOT SX, LASIK EYE SX, carpal tunnel olvin. Additional Past Anesthesia/Blood Transfusion Reaction / Comment(s): STATES POST OP ORTHO SX ENDED UP WITH TRACH, UNSURE IF PROBLEM WAS RELATED TO ANESTHESIA OR NOT in 1968- No problems since., CLAUSTROPHOBIC, no problems with prior blood transfusion. Past Psychological History: Anxiety, Depression Smoking Status: Never smoker Past Alcohol Use History: Daily Additional Past Alcohol Use History / Comment(s): . Past Drug Use History: None Reported - Past Family History Father Family Medical History: Cancer Additional Family Medical History / Comment(s): lung Brother(s) Family Medical History: Cancer Additional Family Medical History / Comment(s): stomach Mother Family Medical History: Renal Disease Additional Family Medical History / Comment(s): heart problem General Exam Limitations: physical limitation General appearance: alert, in no apparent distress Head exam: Present: atraumatic, normocephalic, normal inspection Neck exam: Present: normal inspection, full ROM. Absent: tenderness, meningismus, lymphadenopathy Respiratory exam: Present: normal lung sounds bilaterally. Absent: respiratory distress, wheezes, rales, rhonchi, stridor Cardiovascular Exam: Present: regular rate, normal rhythm, normal heart sounds. Absent: systolic murmur, diastolic murmur, rubs, gallop, clicks GI/Abdominal exam: Present: soft, normal bowel sounds. Absent: distended, tenderness, guarding, rebound, rigid Extremities exam: Present: other (Left knee swelling noted or vascular intact) Back exam: Present: full ROM, tenderness, paraspinal tenderness. Absent: vertebral tenderness Neurological exam: Present: alert, oriented X3, CN II-XII intact, reflexes normal. Absent: motor sensory deficit Skin exam: Present: warm, dry, intact, normal color. Absent: rash Course Vital Signs 09/29/21 09/29/21 06:39 08:38 Temperature 97.6 F Pulse Rate 81 80 Respiratory 16 18 Rate Blood Pressure 149/93 151/78 O2 Sat by Pulse 100 99 Oximetry Medical Decision Making - Medical Decision Making Patient's eyes were reviewed patient does have mild hypokalemia which was re placed. Patient stated that her morphine pump is ran out symptoms every since started including diarrhea, nausea and dysphagia very fidgety. A did provide the patient with regards which alleviated symptoms. Patient is scheduled for an appointment 11 4 her morphine to be refilled she will be discharged in stable condition return parameters discussed. - Lab Data Result diagrams: 09/29/21 06:49 09/29/21 06:49 Lab Results 09/29/21 09/29/21 09/29/21 Range/Units 06:49 06:49 07:52 WBC 9.6 (3.8-10.6) k/uL RBC 4.07 (3.80-5.40) m/uL Hgb 12.6 (11.4-16.0) gm/dL Hct 38.0 (34.0-46.0) % MCV 93.4 (80.0-100.0) fL MCH 31.0 (25.0-35.0) pg MCHC 33.2 (31.0-37.0) g/dL RDW 12.9 (11.5-15.5) % Plt Count 378 (150-450) k/uL MPV 8.0 Neutrophils % 81 % Lymphocytes % 12 % Monocytes % 4 % Eosinophils % 1 % Basophils % 0 % Neutrophils # 7.8 H (1.3-7.7) k/uL Lymphocytes # 1.1 (1.0-4.8) k/uL Monocytes # 0.4 (0-1.0) k/uL Eosinophils # 0.1 (0-0.7) k/uL Basophils # 0.0 (0-0.2) k/uL Sodium 135 L (137-145) mmol/L Potassium 3.0 L (3.5-5.1) mmol/L Chloride 91 L (98-107) mmol/L Carbon Dioxide 37 H (22-30) mmol/L Anion Gap 7 mmol/L BUN 11 (7-17) mg/dL Creatinine 0.75 (0.52-1.04) mg/dL Est GFR (CKD-EPI)AfAm >90 (>60 ml/min/1.73 sqM) Est GFR (CKD-EPI)NonAf 79 (>60 ml/min/1.73 sqM) Glucose 117 H (74-99) mg/dL Calcium 9.5 (8.4-10.2) mg/dL Total Bilirubin 0.8 (0.2-1.3) mg/dL AST 25 (14-36) U/L ALT 9 (4-34) U/L Alkaline Phosphatase 152 H (38-126) U/L Total Protein 7.2 (6.3-8.2) g/dL Albumin 3.9 (3.5-5.0) g/dL Urine Color Yellow Urine Appearance Clear (Clear) Urine pH 6.5 (5.0-8.0) Ur Specific [place] 1.018 (1.001-1.035) Urine Protein Trace H (Negative) Urine Glucose (UA) Negative (Negative) Urine Ketones Negative (Negative) Urine Blood Negative (Negative) Urine Nitrite Negative (Negative) Urine Bilirubin Negative (Negative) Urine Urobilinogen <2.0 (<2.0) mg/dL Ur Leukocyte Esterase Moderate H (Negative) Urine RBC 3 (0-5) /hpf Urine WBC 1 (0-5) /hpf Ur Squamous Epith Cells 1 (0-4) /hpf Hyaline Casts 1 (0-2) /lpf Disposition Clinical Impression: Hypokalemia, Opiate withdrawal Disposition: HOME SELF-CARE Condition: Stable Instructions (If sedation given, give patient instructions): Hypokalemia (ED) Additional Instructions: Please return to the Emergency Department if symptoms worsen or any other concerns. Is patient prescribed a controlled substance at d/c from ED?: No Referrals: Steve Stevens MD [Primary Care Provider] - 1-2 days Time of Disposition: 09:15
[2021-09-29 07:13] LABS: Basophils % (A) 0 %; Eosinophils # (A) 0.1 k/uL (0-0.7); Eosinophils % (A) 1 %; HGB 12.6 gm/dL (11.4-16.0); Lymphocytes # (A) 1.1 k/uL (1.0-4.8); Lymphocytes % (A) 12 %; MCHC 33.2 g/dL (31.0-37.0); MCV 93.4 fL (80.0-100.0); Monocytes # (A) 0.4 k/uL (0-1.0); Monocytes % (A) 4 %; Neutrophils # (A) 7.8 k/uL (1.3-7.7); Neutrophils % (A) 81 %; Platelet Count 378 k/uL (150-450); RBC 4.07 m/uL (3.80-5.40); RDW 12.9 % (11.5-15.5); WBC 9.6 k/uL (3.8-10.6)
[2021-09-29] MEDS ORDERED: MORPHINE SULFATE 4 MG/ML SYRINGE IVP STA ×2 (07:31→08:02)
[2021-09-29 07:32] LABS: ALT 9 U/L (4-34); AST 25 U/L (14-36); African American GFR (CKD) >90 (>60 ml/min/1.73 sqM); Albumin 3.9 g/dL (3.5-5.0); Alkaline Phosphatase 152 U/L (38-126); Anion Gap 7 mmol/L; Blood Urea Nitrogen 11 mg/dL (7-17); Calcium 9.5 mg/dL (8.4-10.2); Carbon Dioxide 37 mmol/L (22-30); Chloride 91 mmol/L (98-107); Glucose 117 mg/dL (74-99); Non-African American GFR(CKD) 79 (>60 ml/min/1.73 sqM); Sodium 135 mmol/L (137-145); Total Bilirubin 0.8 mg/dL (0.2-1.3); Total Protein 7.2 g/dL (6.3-8.2)
[2021-09-29] MEDS ORDERED: POTASSIUM CHLORIDE ER 20 MEQ TAB.ER PO STA (07:51)
[2021-09-29 08:07] LABS: Appearance,Urine Clear (Clear); Bilirubin,Urine Negative (Negative); Blood,Urine Negative (Negative); Color,Urine Yellow; Glucose,Urine (UA) Negative (Negative); Hyaline Casts,Urine 1 /lpf (0-2); Ketones,Urine Negative (Negative); Leukocyte Esterase,Urine Moderate (Negative); Nitrite,Urine Negative (Negative); PH, Urine 6.5 (5.0-8.0); Protein,Urine Trace (Negative); RBC,Urine 3 /hpf (0-5); Specific Gravity,Urine 1.018 (1.001-1.035); Squamous Epithelial Cell,Urine 1 /hpf (0-4); Urobilinogen,Urine <2.0 mg/dL (<2.0); WBC,Urine 1 /hpf (0-5)
[2021-09-29 08:39] VITALS: RESP 18
[2021-09-29] MEDS ORDERED: HYDROmorphone 0.5 MG/0.5 ML SYRINGE IVP STA ×2 (08:46→10:08)
[2021-09-29 10:40] VITALS: BP 126/78; PULSE 90; TEMP 98
== END 2021-09-29 10:40 | disposition home or self-care (01) ==
LOC: EC 06:36
DX: E87.6 Hypokalemia (principal); F11.23 Opioid dependence with withdrawal; I11.0 Hypertensive heart disease with heart failure; I50.9 Heart failure, unspecified; K21.9 Gastro-esophageal reflux disease without esophagitis; E78.5 Hyperlipidemia, unspecified; M79.7 Fibromyalgia; M19.90 Unspecified osteoarthritis, unspecified site; E07.9 Disorder of thyroid, unspecified; F41.9 Anxiety disorder, unspecified; F32.A Depression, unspecified; Z98.51 Tubal ligation status; Z86.73 Personal history of transient ischemic attack (TIA), and cerebral infarction without residual deficits
CPT/HCPCS: 99283; 96374; 96375 ×2; 96376 ×2; 36415; 80053; 85025; 81001; J2270; J3360; J1170

== ENCOUNTER 2021-09-29 16:51 | Emergency (ER) | payer MEDICARE ==
[2021-09-29 17:40] VITALS: BP 148/71; PULSE 90; RESP 18; TEMP 98.8
[2021-09-29] MEDS ORDERED: LORazepam 1 MG TAB PO STA (18:07)
[2021-09-29] MEDS ORDERED: HYDROmorphone 1 MG/ML 1 ML SYRINGE IM STA (18:07)
--- NOTE | 2021-09-29 20:22 | ED ---
General Adult HPI - General Chief complaint: Upper Respiratory Infection Stated complaint: Weird smell, body aches Time Seen by Provider: 09/29/21 17:40 Source: patient Mode of arrival: wheelchair Limitations: no limitations - History of Present Illness Initial comments: Patient is a 71-year-old female past history of chronic back pain, CVA, heart failure who presents to the emergency department with shakiness and abnormal smells. States that her morphine pump has been out of medication for the past 4 days. She was seen in the emergency department earlier today for opiate withdrawal. States that she went to Dr. Dong's office and they did fill her pump. She reports that she continues to have the same symptoms as earlier today. She attempted to call her neurologist however they have not returned her call back. States that she is having inability to sleep as she is very restless. Denies any fevers. No sick contacts. Denies any chest pain or shortness of breath. No abdominal pain. No other alleviating, precipitating or modifying factors - Related Data Home Medications Medication Instructions Recorded Confirmed Levothyroxine Sodium [Synthroid] 50 mcg PO DAILY 08/26/14 09/29/21 buPROPion SR [Wellbutrin SR] 150 mg PO BID 08/26/14 09/29/21 Atorvastatin [Lipitor] 20 mg PO HS 02/13/19 09/29/21 Folic Acid 1 mg PO DAILY 02/13/19 09/29/21 Morphine Pump 1 pump INTRATHECA CONTINUOUS 02/13/19 09/29/21 Metoprolol Tartrate [Lopressor] 50 mg PO DAILY 06/12/19 09/29/21 Furosemide [Lasix] 40 mg PO DAILY 11/28/20 09/29/21 Potassium Chloride ER [K-Dur 10] 10 meq PO DAILY 11/28/20 09/29/21 busPIRone HCL 15 mg PO TID 11/28/20 09/29/21 oxyCODONE-APAP 7.5-325MG [Percocet 1 tab PO TID PRN 11/29/20 09/29/21 7.5-325 mg] Gabapentin [Neurontin] 100 mg PO TID 12/14/20 09/29/21 Cyclobenzaprine [Flexeril] 10 mg PO HS 09/01/21 09/29/21 Docusate [Colace] 100 mg PO DAILY 09/01/21 09/29/21 Etanercept [Enbrel] 50 mg SQ LAWTON 09/01/21 09/29/21 Multivitamins, Thera [Multivitamin 1 tab PO DAILY 09/01/21 09/29/21 (formulary)] Propylene Glycol [Systane Complete] 1 drop BOTH EYES DAILY PRN 09/01/21 09/29/21 Sucralfate 1 gm PO ACHS 09/01/21 09/29/21 Venlafaxine HCl [Effexor] 75 mg PO BID 09/01/21 09/29/21 Previous Rx's Medication Instructions Recorded LORazepam [Ativan] 0.5 mg PO TID 3 Days #9 tab 09/29/21 Allergies Allergy/AdvReac Type Severity Reaction Status Date / Time amlodipine besylate Allergy severe Verified 09/29/21 17:39 [From [facility]] nausea vomiting fentanyl Allergy severe Verified 09/29/21 17:39 nausea vomiting methotrexate AdvReac MOUTH SORES Verified 09/29/21 17:39 Review of Systems ROS Statement: Those systems with pertinent positive or pertinent negative responses have been documented in the HPI. ROS Other: All systems not noted in ROS Statement are negative. Past Medical History Past Medical History: Heart Failure, CVA/TIA, Fibromyalgia, GERD/Reflux, Hyperlipidemia, Hypertension, Osteoarthritis (OA), Pneumonia, Rheumatoid Arthritis (RA), Thyroid Disorder Additional Past Medical History / Comment(s): DJD,TIA -no residual ,lumbar spinal stenosis,connective tissue disorder, limited rom olvin wrists(fused), states pneumonia 2019 with renal failure & CHF., recent hospitalization for weakness and sob, currently has PT & OT and Home Health Care., uses cane., states she has a "awful taste & smell that makes her nauseated " and "violent nightmares." History of Any Multi-Drug Resistant Organisms: None Reported Past Surgical History: Orthopedic Surgery, Tonsillectomy, Tubal Ligation Additional Past Surgical History / Comment(s): ORIF LEFT TIB/FIB, LEFT FOOT SX, LASIK EYE SX, carpal tunnel olvin. Additional Past Anesthesia/Blood Transfusion Reaction / Comment(s): STATES POST OP ORTHO SX ENDED UP WITH TRACH, UNSURE IF PROBLEM WAS RELATED TO ANESTHESIA OR NOT in 1968- No problems since., CLAUSTROPHOBIC, no problems with prior blood transfusion. Past Psychological History: Anxiety, Depression Smoking Status: Never smoker Past Alcohol Use History: Daily Past Drug Use History: None Reported - Past Family History Father Family Medical History: Cancer Additional Family Medical History / Comment(s): lung Brother(s) Family Medical History: Cancer Additional Family Medical History / Comment(s): stomach Mother Family Medical History: Renal Disease Additional Family Medical History / Comment(s): heart problem General Exam Limitations: no limitations General appearance: alert, in no apparent distress Head exam: Present: atraumatic, normocephalic, normal inspection Eye exam: Present: normal appearance, PERRL, EOMI. Absent: scleral icterus, conjunctival injection, periorbital swelling ENT exam: Present: normal exam, mucous membranes moist Neck exam: Present: normal inspection. Absent: tenderness, meningismus, lymphadenopathy Respiratory exam: Present: normal lung sounds bilaterally. Absent: respiratory distress, wheezes, rales, rhonchi, stridor Cardiovascular Exam: Present: regular rate, normal rhythm, normal heart sounds. Absent: systolic murmur, diastolic murmur, rubs, gallop, clicks GI/Abdominal exam: Present: soft, normal bowel sounds. Absent: distended, tenderness, guarding, rebound, rigid Extremities exam: Present: normal inspection, full ROM, normal capillary refill. Absent: tenderness, pedal edema, joint swelling, calf tenderness Back exam: Present: normal inspection Neurological exam: Present: alert, oriented X3, CN II-XII intact Psychiatric exam: Present: normal affect, normal mood Skin exam: Present: warm, dry, intact, normal color. Absent: rash Course Vital Signs 09/29/21 09/29/21 17:35 18:25 Temperature 98.8 F Pulse Rate 90 Respiratory 18 18 Rate Blood Pressure 148/71 O2 Sat by Pulse 97 Oximetry Medical Decision Making - Medical Decision Making Upon arrival patient was placed into the hallway 26. I did review her labs from earlier in the day. I did review her paperwork from Dr. Dong's office. Patient is given 1 mg of Dilaudid and 1 mg of Ativan for withdrawal symptoms. She is swabbed for Covid which is negative. Patient denies any headaches. She is neurologically intact. She is to call Dr. Shuayto in the morning for further evaluation. Return for any new or worsening symptoms. Patient was discharged in stable condition - Lab Data Lab Results 09/29/21 Range/Units 18:14 Coronavirus (PCR) Not Detected (Not Detectd) Disposition Clinical Impression: Opiate withdrawal Disposition: HOME SELF-CARE Condition: Stable Instructions (If sedation given, give patient instructions): Opioid Withdrawal (ED) Additional Instructions: Please call Dr. Dong tomorrow for follow-up. Return to the emergency room for any new or worsening symptoms Prescriptions: LORazepam [Ativan] 0.5 mg PO TID 3 Days #9 tab Is patient prescribed a controlled substance at d/c from ED?: No Referrals: Steve Stevens MD [Primary Care Provider] - 1-2 days Cindy Dong MD [Medical Doctor] - 1-2 days Time of Disposition: 20:22
== END 2021-09-29 23:09 | disposition home or self-care (01) ==
LOC: EC 16:51
DX: F11.23 Opioid dependence with withdrawal (principal); Z20.822 Contact with and (suspected) exposure to COVID-19; I11.0 Hypertensive heart disease with heart failure; I50.9 Heart failure, unspecified; K21.9 Gastro-esophageal reflux disease without esophagitis; E78.5 Hyperlipidemia, unspecified; M06.9 Rheumatoid arthritis, unspecified; M79.7 Fibromyalgia; F32.A Depression, unspecified; F41.9 Anxiety disorder, unspecified; Z79.890 Hormone replacement therapy; Z79.899 Other long term (current) drug therapy
CPT/HCPCS: 87635; 99284; 96372; J1170

== ENCOUNTER 2021-11-15 11:14 | Day surgery (SDC) | payer MEDICARE ==
[2021-11-11 11:07] VITALS: BMI 24.3
[~2021-11-15 11:14] MED LIST changes: -ACETAMINOPHEN TAB 500 MG TAB PO PRN; -DEXAMETHASONE SOD PHOSPHATE 4 MG/ML 1 ML VIAL IV ONE; -GABAPENTIN 300 MG CAP PO PRN; +LACTATED RINGERS 1,000 ML IV SCH; +LIDOCAINE 1% (10MG/ML) FOR IV START INTRADERMA PRN; -MELOXICAM 7.5 MG TAB PO PRN; -ONDANSETRON 4 MG/2 ML VIAL IVP ONE; -ROPIVACAINE 246.25 MG, EPINEPHrine 0.5 MG, KETOROLAC (30 mg/mL) 30 MG, cloNIDine HCL/PF... MISCELLANE PRN; -TRANEXAMIC ACID 1,000 MG in SODIUM CHLORIDE 0.9% 100 ML IVPB PRN
[2021-11-15 11:41] VITALS: TEMP 96.9
[2021-11-15] MEDS ORDERED: PROPOFOL 10 MG/ML 20 ML VIAL IV ONE (12:01)
--- NOTE | 2021-11-15 12:13 | P.PCN ---
Date of Procedure: 11/15/21 Procedure(s) Performed: BRIEF HISTORY: Patient is a 71-year-old pleasant female scheduled for an elective colonoscopy as a part of evaluation change in bowel habits for the last several months duration. PROCEDURE PERFORMED: Colonoscopy. PREOPERATIVE DIAGNOSIS: Change in bowel habits. IV sedation per Anesthesia. PROCEDURE: After informed consent was obtained, the patient, was brought into the endoscopy unit. IV sedation was administered by Anesthesia under continuous monitoring. Digital rectal examination was normal. Initially the Olympus CF-160 flexible video colonoscope was then inserted in the rectum, gradually advanced into the cecum without any difficulty. Careful examination was performed as the scope was gradually being withdrawn. Ileocecal valve and the appendiceal orifice were visualized and appeared normal. Prep was excellent. Mucosa of the cecum, ascending colon, transverse colon, descending colon, sigmoid colon, and rectum appeared normal. Retroflexion was performed in the rectum and no lesions were seen. The patient tolerated the procedure well. IMPRESSION: Normal-appearing colon from rectum to cecum with no evidence of colorectal neoplasia. RECOMMENDATIONS: Findings of this examination were discussed with the patient as well as a family.. She was advised to continue with MiraLAX and fiber supplements daily. Recommended a repeat colonoscopy in 10 years
[2021-11-15 12:29] VITALS: RESP 16
[2021-11-15 12:48] VITALS: BP 118/74; PULSE 73
== END 2021-11-15 13:09 | disposition home or self-care (01) ==
LOC: ORWHC2ENDO 11:14
PROVIDERS: ATTEND Internal Medicine Gastroenterology
DX: K59.09 Other constipation (principal); I11.0 Hypertensive heart disease with heart failure; I50.9 Heart failure, unspecified; E78.5 Hyperlipidemia, unspecified; M79.7 Fibromyalgia; K21.9 Gastro-esophageal reflux disease without esophagitis; Z99.81 Dependence on supplemental oxygen; Z87.448 Personal history of other diseases of urinary system; E07.9 Disorder of thyroid, unspecified; Z86.73 Personal history of transient ischemic attack (TIA), and cerebral infarction without residual deficits; Z98.51 Tubal ligation status; M06.9 Rheumatoid arthritis, unspecified; Z79.890 Hormone replacement therapy; Z79.891 Long term (current) use of opiate analgesic; Z79.899 Other long term (current) drug therapy; Z88.4 Allergy status to anesthetic agent; Z88.8 Allergy status to other drugs, medicaments and biological substances
CPT/HCPCS: 45378; J2704

== ENCOUNTER 2022-02-03 16:12 | Emergency (ER) | payer MEDICARE ==
[2022-02-03 16:21] VITALS: BP 128/64; PULSE 88; RESP 18; TEMP 98.5
--- NOTE | 2022-02-03 18:36 | XR ---
EXAMINATION TYPE: XR shoulder complete RT DATE OF EXAM: 02/03/2022 COMPARISON: NONE HISTORY: Shoulder pain TECHNIQUE: 3 views FINDINGS: There is mild spurring at the greater tuberosity humerus. There is spurring at the AC joint . I see no fracture nor dislocation. IMPRESSION: No acute abnormality of the right shoulder.
--- NOTE | 2022-02-03 18:39 | CT ---
EXAMINATION TYPE: CT brain [place] DATE OF EXAM: 02/03/2022 COMPARISON: CT brain 05/14/2019 HISTORY: fall, posterior head injury CT DLP: 1431.8 mGycm Automated exposure control for dose reduction was used. There is mild cerebral cortical atrophy. There is no mass effect or midline shift. There is no sign o f intracranial hemorrhage. No evidence of cerebral edema. Calvarium is intact. There is normal aerati on of the mastoid sinuses. The cervical vertebra have normal alignment. There is degenerative disc space narrowing from C3 to C7 . There is large hypertrophic anterior multilevel osteophyte formation. Facet joints are intact. Ther e is mild hypertrophic facet arthropathy. IMPRESSION: Mild cerebral atrophy. No acute intracranial abnormality. No change. Extensive hypertrophic degenerative disc changes in the cervical spine. No fracture.
--- NOTE | 2022-02-03 18:48 | ED ---
Fall HPI - General Chief Complaint: Fall Stated Complaint: Fall 1500 Hit Head Time Seen by Provider: 02/03/22 17:18 Source: patient Mode of arrival: wheelchair - History of Present Illness Initial Comments: Patient is a 71-year-old female presenting for evaluation after falling. She states that she was bending over watering ricardo today when she lost her balance and hit her head on the concrete steps to her porch. She also injured the right shoulder in the process. Patient is now complaining of a bump on the back of her head where the impact was. Patient denies any chest pain, shortness of breath, palpitations, weakness, fever, chills, nausea, vomiting, dizziness, loss of consciousness, use of blood thinners, vision or hearing changes, numbness, tingling, loss of range of motion of any of the extremities. - Related Data Home Medications Medication Instructions Recorded Confirmed Levothyroxine Sodium [Synthroid] 50 mcg PO DAILY 08/26/14 11/15/21 buPROPion SR [Wellbutrin SR] 150 mg PO BID 08/26/14 11/15/21 Atorvastatin [Lipitor] 20 mg PO HS 02/13/19 11/15/21 Folic Acid 1 mg PO DAILY 02/13/19 11/15/21 Morphine Pump 1 pump INTRATHECA CONTINUOUS 02/13/19 11/15/21 Metoprolol Tartrate [Lopressor] 25 mg PO BID 06/12/19 11/15/21 Furosemide [Lasix] 40 mg PO DAILY 11/28/20 11/15/21 Potassium Chloride ER [K-Dur 10] 10 meq PO DAILY 11/28/20 11/15/21 oxyCODONE-APAP 7.5-325MG [Percocet 1 tab PO TID PRN 11/29/20 11/15/21 7.5-325 mg] Gabapentin [Neurontin] 100 mg PO TID 12/14/20 11/15/21 Cyclobenzaprine [Flexeril] 10 mg PO HS 09/01/21 11/15/21 Docusate [Colace] 100 mg PO DAILY 09/01/21 11/15/21 Etanercept [Enbrel] 50 mg SQ LAWTON 09/01/21 11/15/21 Multivitamins, Thera [Multivitamin 1 tab PO DAILY 09/01/21 11/15/21 (formulary)] Sucralfate 1 gm PO ACHS 09/01/21 11/15/21 Venlafaxine HCl [Effexor] 75 mg PO BID 09/01/21 11/15/21 Carboxymethylcellulose Sodium 1 dropper BOTH EYES DIRECTED PRN 11/11/21 11/15/21 [Thera Tears] Melatonin 5 mg PO HS PRN 11/11/21 11/15/21 Prednisolone Acetate/Pf 1 drop BOTH EYES BID 11/11/21 11/15/21 [Prednisolone Acet 1% Eye Drop] Propylene Glycol/Peg 400/Pf 1 dropper BOTH EYES DIRECTED PRN 11/11/21 11/15/21 [Systane 0.3-0.4% Eye Drop] busPIRone HCL 10 mg PO TID 11/11/21 11/15/21 Allergies Allergy/AdvReac Type Severity Reaction Status Date / Time amlodipine besylate Allergy severe Verified 11/15/21 11:43 [From [facility]] nausea vomiting fentanyl Allergy severe Verified 11/15/21 11:43 nausea vomiting methotrexate AdvReac MOUTH SORES Verified 11/15/21 11:43 Review of Systems ROS Statement: Those systems with pertinent positive or pertinent negative responses have been documented in the HPI. ROS Other: All systems not noted in ROS Statement are negative. Past Medical History Past Medical History: Heart Failure, CVA/TIA, Fibromyalgia, GERD/Reflux, Hyperlipidemia, Hypertension, Osteoarthritis (OA), Pneumonia, Rheumatoid Arthritis (RA), Thyroid Disorder Additional Past Medical History / Comment(s): DJD,TIA -no residual ,lumbar spinal stenosis,connective tissue disorder, limited rom olvin wrists(fused), states pneumonia 2019 with renal failure & CHF., recent hospitalization for weakness and sob, currently has PT & OT and Home Health Care., uses cane., states she has a "awful taste & smell that makes her nauseated " and "violent nightmares." History of Any Multi-Drug Resistant Organisms: None Reported Past Surgical History: Orthopedic Surgery, Tonsillectomy, Tubal Ligation Additional Past Surgical History / Comment(s): ORIF LEFT TIB/FIB, LEFT FOOT SX, LASIK EYE SX, carpal tunnel olvin. Additional Past Anesthesia/Blood Transfusion Reaction / Comment(s): STATES POST OP ORTHO SX ENDED UP WITH TRACH, UNSURE IF PROBLEM WAS RELATED TO ANESTHESIA OR NOT in 1968- No problems since., CLAUSTROPHOBIC, no problems with prior blood transfusion. Past Psychological History: Anxiety, Depression Smoking Status: Never smoker Past Alcohol Use History: Daily Past Drug Use History: None Reported - Past Family History Father Family Medical History: Cancer Additional Family Medical History / Comment(s): lung Brother(s) Family Medical History: Cancer Additional Family Medical History / Comment(s): stomach Mother Family Medical History: Renal Disease Additional Family Medical History / Comment(s): heart problem General Exam Limitations: no limitations General appearance: alert, in no apparent distress Head exam: Present: normocephalic, normal inspection, other (Large scalp hematoma in the occipital region) Eye exam: Present: normal appearance, PERRL, EOMI. Absent: scleral icterus Pupils: Present: normal accommodation Neck exam: Present: normal inspection, full ROM. Absent: tenderness Respiratory exam: Present: normal lung sounds bilaterally. Absent: respiratory distress, wheezes, rales, rhonchi, stridor Cardiovascular Exam: Present: regular rate, normal rhythm, normal heart sounds. Absent: systolic murmur, diastolic murmur, rubs, gallop, clicks Extremities exam: Present: normal inspection, full ROM. Absent: tenderness Neurological exam: Present: alert, oriented X3, CN II-XII intact Expanded Patient oriented to: Present: person, place Speech: Present: fluid speech Cranial nerves: EOM's Intact: Normal, Tongue Deviation: Normal, Facial Sensation: Normal Cerebellar function: Finger to Nose: Normal, Heel to Brower: Normal Eye Response: (4) open spontaneously Motor Response: (6) obeys commands Verbal Response: (5) oriented Poonam Total: 15 Psychiatric exam: Present: normal affect, normal mood Skin exam: Present: warm, dry, intact, normal color. Absent: rash Course Vital Signs 02/03/22 16:19 Temperature 98.5 F Pulse Rate 88 Respiratory 18 Rate Blood Pressure 128/64 O2 Sat by Pulse 98 Oximetry Medical Decision Making - Medical Decision Making Patient is a 71-year-old female presenting for evaluation post fall. She lost her balance when bending over resulting in her hitting the back of her head on concrete steps. She is also complaining of right shoulder pain. On examination there are no focal neurological deficits, right shoulder range of motion and right arm sensation are intact. CT of the brain and cervical spine without contrast shows no acute intracranial process and no fracture or dislocation. X- ray of the right shoulder shows no fracture or dislocation. Educated the patient on the findings. She appears stable for discharge with outpatient follow-up at this time. I educated her on supportive treatment with Motrin, Tylenol, icing. All of with your PCP on Sunday. Report back to ER if any worsening symptoms. I educated her on return parameters and alarm symptoms. Answered all questions. Patient conveyed verbal understanding and agreed to the plan. My attending is Dr. Way Disposition Clinical Impression: Fall, Scalp hematoma Disposition: HOME SELF-CARE Condition: Good Instructions (If sedation given, give patient instructions): Fall Prevention for Older Adults (ED), Head Injury (ED) Additional Instructions: Continue to ice the bump on her head to help decrease swelling. Take Motrin and Tylenol as stated for pain control. Report back to ER if any worsening symptoms. Follow-up with your PCP on Sunday. Is patient prescribed a controlled substance at d/c from ED?: No Referrals: Steve Stevens MD [Primary Care Provider] - 1-2 days Time of Disposition: 18:48
== END 2022-02-03 19:01 | disposition home or self-care (01) ==
LOC: EC 16:12
DX: S00.03XA Contusion of scalp, initial encounter (principal); M25.511 Pain in right shoulder; I11.0 Hypertensive heart disease with heart failure; I50.9 Heart failure, unspecified; K21.9 Gastro-esophageal reflux disease without esophagitis; E78.5 Hyperlipidemia, unspecified; M19.90 Unspecified osteoarthritis, unspecified site; M79.7 Fibromyalgia; E07.9 Disorder of thyroid, unspecified; Z86.73 Personal history of transient ischemic attack (TIA), and cerebral infarction without residual deficits; Z88.8 Allergy status to other drugs, medicaments and biological substances; Z88.5 Allergy status to narcotic agent; Z79.899 Other long term (current) drug therapy; Z79.890 Hormone replacement therapy; W19.XXXA Unspecified fall, initial encounter
CPT/HCPCS: 70450; 72125; 99284

== ENCOUNTER 2022-02-11 16:59 | Emergency (ER) | payer MEDICARE ==
[2022-02-11 18:17] VITALS: TEMP 98
--- NOTE | 2022-02-11 19:32 | XR ---
Result: History: Pain status post fall. Comparison: None available. Technique: 3 views of the lumbar spine. Findings: The bone mineralization is normal. There is no acute fracture or subluxation of the lumbar spine. The vertebral body heights are grossl y preserved. There is multilevel severe lumbar spondylosis with mild levoconvex curvature. There is g rade 1 anterolisthesis of L3 on L4. Impression: Degenerative changes without acute osseous abnormality.
--- NOTE | 2022-02-11 19:33 | XR ---
RESULT: HISTORY: lower back pain TECHNIQUE: 2 views of the right hip. COMPARISON: 01/18/2012. FINDINGS: There is no acute fracture or dislocation. The right hip is preserved. IMPRESSION: No acute osseous abnormality.
[2022-02-11 21:52] VITALS: BP 167/132; PULSE 76; RESP 14
[2022-02-11] MEDS ORDERED: HYDROmorphone 0.5 MG/0.5 ML SYRINGE IM STA (22:31)
[2022-02-11] MEDS ORDERED: ONDANSETRON ODT 4 MG TAB PO STA (22:31)
--- NOTE | 2022-02-11 22:40 | ED ---
General Adult HPI - General Chief complaint: Extremity Injury, Lower Stated complaint: hip & back pain Time Seen by Provider: 02/11/22 21:33 Source: patient, RN notes reviewed Mode of arrival: wheelchair Limitations: no limitations - History of Present Illness Initial comments: 81-year-old female presents to the emergency department for evaluation of right side pain. Patient states she had a fall onto concrete just over a week ago resulting in injury to her head and shoulder. Patient states she was seen in the emergency department at that time and her injuries were evaluated. States she was discharged home to follow up as needed. Patient states she has had ongoing right-sided pain that is worse with movement and palpation. Patient states she does have a "catch" when she walks. Denies any new trauma, injury, or fall. - Related Data Home Medications Medication Instructions Recorded Confirmed Levothyroxine Sodium [Synthroid] 50 mcg PO DAILY 08/26/14 11/15/21 buPROPion SR [Wellbutrin SR] 150 mg PO BID 08/26/14 11/15/21 Atorvastatin [Lipitor] 20 mg PO HS 02/13/19 11/15/21 Folic Acid 1 mg PO DAILY 02/13/19 11/15/21 Morphine Pump 1 pump INTRATHECA CONTINUOUS 02/13/19 11/15/21 Metoprolol Tartrate [Lopressor] 25 mg PO BID 06/12/19 11/15/21 Furosemide [Lasix] 40 mg PO DAILY 11/28/20 11/15/21 Potassium Chloride ER [K-Dur 10] 10 meq PO DAILY 11/28/20 11/15/21 oxyCODONE-APAP 7.5-325MG [Percocet 1 tab PO TID PRN 11/29/20 11/15/21 7.5-325 mg] Gabapentin [Neurontin] 100 mg PO TID 12/14/20 11/15/21 Cyclobenzaprine [Flexeril] 10 mg PO HS 09/01/21 11/15/21 Docusate [Colace] 100 mg PO DAILY 09/01/21 11/15/21 Etanercept [Enbrel] 50 mg SQ LAWTON 09/01/21 11/15/21 Multivitamins, Thera [Multivitamin 1 tab PO DAILY 09/01/21 11/15/21 (formulary)] Sucralfate 1 gm PO ACHS 09/01/21 11/15/21 Venlafaxine HCl [Effexor] 75 mg PO BID 09/01/21 11/15/21 Carboxymethylcellulose Sodium 1 dropper BOTH EYES DIRECTED PRN 11/11/21 11/15/21 [Thera Tears] Melatonin 5 mg PO HS PRN 11/11/21 11/15/21 Prednisolone Acetate/Pf 1 drop BOTH EYES BID 11/11/21 11/15/21 [Prednisolone Acet 1% Eye Drop] Propylene Glycol/Peg 400/Pf 1 dropper BOTH EYES DIRECTED PRN 11/11/21 11/15/21 [Systane 0.3-0.4% Eye Drop] busPIRone HCL 10 mg PO TID 11/11/21 11/15/21 Allergies Allergy/AdvReac Type Severity Reaction Status Date / Time amlodipine besylate Allergy severe Verified 02/11/22 18:11 [[facility]] nausea vomiting fentanyl Allergy severe Verified 02/11/22 18:11 nausea vomiting methotrexate AdvReac MOUTH SORES Verified 02/11/22 18:11 Review of Systems ROS Statement: Those systems with pertinent positive or pertinent negative responses have been documented in the HPI. ROS Other: All systems not noted in ROS Statement are negative. Past Medical History Past Medical History: Heart Failure, CVA/TIA, Fibromyalgia, GERD/Reflux, Hyperlipidemia, Hypertension, Osteoarthritis (OA), Pneumonia, Rheumatoid Arthritis (RA), Thyroid Disorder Additional Past Medical History / Comment(s): DJD,TIA -no residual ,lumbar spinal stenosis,connective tissue disorder, limited rom olvin wrists(fused), states pneumonia 2019 with renal failure & CHF., recent hospitalization for weakness and sob, currently has PT & OT and Home Health Care., uses cane., states she has a "awful taste & smell that makes her nauseated " and "violent nightmares." History of Any Multi-Drug Resistant Organisms: None Reported Past Surgical History: Orthopedic Surgery, Tonsillectomy, Tubal Ligation Additional Past Surgical History / Comment(s): ORIF LEFT TIB/FIB, LEFT FOOT SX, LASIK EYE SX, carpal tunnel olvin. Additional Past Anesthesia/Blood Transfusion Reaction / Comment(s): STATES POST OP ORTHO SX ENDED UP WITH TRACH, UNSURE IF PROBLEM WAS RELATED TO ANESTHESIA OR NOT in 1968- No problems since., CLAUSTROPHOBIC, no problems with prior blood transfusion. Past Psychological History: Anxiety, Depression Smoking Status: Never smoker Past Alcohol Use History: Daily Past Drug Use History: None Reported - Past Family History Father Family Medical History: Cancer Additional Family Medical History / Comment(s): lung Brother(s) Family Medical History: Cancer Additional Family Medical History / Comment(s): stomach Mother Family Medical History: Renal Disease Additional Family Medical History / Comment(s): heart problem General Exam Limitations: no limitations (Well-developed, well-nourished female in no acute distress. Initial temperature 98.0, pulse 87, respirations 16, blood pressure 123/63, pulse ox 98% on room air.) General appearance: alert, in no apparent distress Head exam: Present: normocephalic, other (Healing contusion to the right side of the scalp) Eye exam: Present: normal appearance, PERRL, EOMI. Absent: scleral icterus, conjunctival injection Neck exam: Present: normal inspection. Absent: tenderness, meningismus, full ROM (limited range of motion normal for patient due to chronic degenerative cervical spine changes), lymphadenopathy Respiratory exam: Present: normal lung sounds bilaterally, chest wall tenderness (right lateral lower chest wall tenderness upon palpation of ribs 8-10; healing contusion noted to posteriorly around ribs 10-12). Absent: respiratory distress, wheezes, rales, rhonchi, stridor Cardiovascular Exam: Present: regular rate, normal rhythm, normal heart sounds. Absent: systolic murmur, diastolic murmur, rubs, gallop, clicks GI/Abdominal exam: Present: soft, normal bowel sounds. Absent: distended, tenderness, guarding, rebound, rigid Right Hip exam: Present: normal inspection, full ROM (able to ambulate with cane). Absent: tenderness, swelling, external rotation, internal rotation Upper Leg exam: Present: normal inspection, full ROM. Absent: tenderness, swelling Knee exam: Present: normal inspection, full ROM. Absent: tenderness, swelling Lower Leg exam: Present: normal inspection, full ROM. Absent: tenderness, swelling Ankle exam: Present: normal inspection, full ROM. Absent: tenderness, swelling Foot/Toe exam: Present: normal inspection, full ROM. Absent: tenderness, swelling Neurovascular tendon exam: Present: no vascular compromise. Absent: pulse deficit, abnormal cap refill, motor deficit, sensory deficit, tendon deficit Gait: observed and normal Back exam: Present: normal inspection. Absent: CVA tenderness (R), CVA tenderness (L) Neurological exam: Present: alert, oriented X3 Psychiatric exam: Present: normal affect, normal mood Skin exam: Present: warm, dry, intact, normal color. Absent: rash Course Vital Signs 02/11/22 02/11/22 18:12 21:51 Temperature 98 F Pulse Rate 87 76 Respiratory 16 14 Rate Blood Pressure 123/63 167/132 O2 Sat by Pulse 98 96 Oximetry Medical Decision Making - Medical Decision Making 71-year-old female with a past medical history of heart failure, fibromyalgia, hypertension, and chronic pain presents to the emergency department for eval uation of right sided pain. Patient states she had a fall a week ago with injury to her head and right shoulder. States she has continued to have pain on the right side near her hip and ribs. Upon exam, patient is well-appearing and in no acute distress. She does have healing contusions noted on her scalp and posterior chest wall. She is able to ambulate without difficulty using her cane. X-rays of the right hip, lumbar spine, and right ribs showed no acute changes. Patient was given Dilaudid for pain with improvement. She also has a morphine pump due to her chronic pain. I suspect her pain is likely musculoskeletal pain that is loosely related to her fall. She is encouraged to maintain her mobility, apply heat or ice to sore areas, and to follow up with her PCP for R recheck next week. Return parameters discussed in detail. Patient and family verbalized understanding and agreed with this plan. Attending:Zabrina. - Radiology Data Radiology results: report reviewed, image reviewed X-ray of the right ribs with PA chest was obtained. Report was reviewed in its entirety. Impression per Dr. Camacho is no rib fracture seen. Minimal fibrotic changes at the lung bases. No change compared to the old exam. X-ray of the right hip was obtained. Report was reviewed in its entirety. Impression per Dr. Marie is no acute osseous abnormality. X-ray of the lumbar spine was obtained. Report was reviewed in its entirety. Impression per Dr. Marie is degenerative changes without acute osseous abnormality. Disposition Clinical Impression: Hip pain, right, Right-sided chest wall pain Disposition: HOME SELF-CARE Condition: Stable Instructions (If sedation given, give patient instructions): Hip Pain (ED) Additional Instructions: Continue taking home medications as prescribed. May apply heating pad or ice if desired. Maintain mobility with frequent ambulation and gentle range of motion exercises. Follow-up with your PCP for a recheck as needed. Return to the emergency department with any new, worsening, or concerning symptoms. Is patient prescribed a controlled substance at d/c from ED?: No Referrals: Steve Stevens MD [Primary Care Provider] - 1-2 days
--- NOTE | 2022-02-11 23:03 | XR ---
EXAMINATION TYPE: XR ribs RT w pa chest xray DATE OF EXAM: 02/11/2022 COMPARISON: Chest x-ray 09/06/2021 HISTORY: Chest pain TECHNIQUE: 5 view FINDINGS: There is no heart failure nor confluent pneumonic infiltrate. There is some coarsening of i nterstitial markings at the lung bases. No pleural effusion or pneumothorax. No evidence of a rib fra cture. IMPRESSION: No rib fracture seen. Minimal fibrotic changes at the lung bases. No change compared to old exam.
== END 2022-02-11 23:43 | disposition home or self-care (01) ==
LOC: EC 16:59
DX: M25.551 Pain in right hip (principal); R07.89 Other chest pain; E78.5 Hyperlipidemia, unspecified; I10 Essential (primary) hypertension; Z79.1 Long term (current) use of non-steroidal anti-inflammatories (NSAID); E07.9 Disorder of thyroid, unspecified; Z86.73 Personal history of transient ischemic attack (TIA), and cerebral infarction without residual deficits; W13.3XXA Fall through floor, initial encounter; Z88.8 Allergy status to other drugs, medicaments and biological substances; Z88.6 Allergy status to analgesic agent; Z88.9 Allergy status to unspecified drugs, medicaments and biological substances
CPT/HCPCS: 71101; 72100; 73502; 99283; 96372; J1170

== ENCOUNTER → 2022-04-14 | Outpatient (CLI) | payer MEDICARE ==
--- NOTE | 2022-04-14 13:51 | USB ---
Reason for Exam: Clinical finding. Patient History: Menarche at age 11. First Full-Term at age 22. Postmenopausal. Patient has history of breast feeding. Paternal aunt had breast cancer. Risk Values: Norma 5 year model risk: 1.6%. NCI Lifetime model risk: 3.9%. Technique: Method: Targeted. Prior Study Comparison: 11/13/2017 Bilateral Screening Mammogram, [facility]. 05/20/2020 Bilateral Screening Mammogram, [facility]. 06/28/2021 Bilateral Screening Mammogram, [facility]. Findings: The upper inner quadrant of the left breast, the axilla of the left breast and the retroareolar of the left breast were scanned. There is a subcutaneous mass at the site of concern left 11:00 position measuring 1.6 x 1.1 x 0.8 cm. The lesion is partially echogenic with central decreased echogenicity and is of uncertain etiology. Tissue diagnosis is recommended.. Overall Assessment: Suspicious, BI-RAD 4 Management: Ultrasound Core Biopsy of the left breast. A clinical breast exam by your physician is recommended on an annual basis and results should be correlated with mammographic findings. Electronically signed and approved by: Jose Hutchison M.D. [facility]
== END | disposition home or self-care (01) ==
LOC: RADMAMWWP 12:54
PROVIDERS: ATTEND Obstetrics & Gynecology
DX: R92.8 Other abnormal and inconclusive findings on diagnostic imaging of breast (principal); Z78.0 Asymptomatic menopausal state; Z80.3 Family history of malignant neoplasm of breast
CPT/HCPCS: 77065; 76642; G0279; 77061

== ENCOUNTER → 2022-04-26 | Day surgery (SDC) | payer MEDICARE ==
--- NOTE | 2022-05-01 12:21 | USB ---
Risk Values: Norma 5 year model risk: 1.6%. NCI Lifetime model risk: 3.9%. Prior Study Comparison: 11/13/2017 Bilateral Screening Mammogram, [facility]. 05/20/2020 Bilateral Screening Mammogram, [facility]. 06/28/2021 Bilateral Screening Mammogram, [facility]. Pathology Description: Location: 11 o'clock. Marker Left Behind. Needle Type: Mammotome Cores: 5 Gauge: 13 The 1.6 x 1.3 x 0.8 cm oval echogenic lesion in the superficial aspect of the left breast, 11:00 position, 5 cm from the nipple is identified and targeted for biopsy. This corresponds to the patient's palpable site and may represent an early noncalcified oil cyst when correlating with the mammogram. The procedure of ultrasound guided core biopsy was explained to the patient. Benefits, alternatives, and risks were discussed. An informed consent was then obtained. The patient was placed in supine positioning for imaging and for the procedure. The overlying skin was prepped and draped in usual sterile fashion. Lidocaine was used as anesthetic into the skin and subcutaneous tissue up to area of concern in the left breast. Under ultrasound guidance, a 13-gauge vacuum-assisted mammotome Elite biopsy was used to obtain 5 core samples. Following this, a Hydromark butterfly clip was left in lesion. The patient tolerated the procedure well without any immediate complication. The patient was kept in the radiology department for short stay after the procedure and then discharged home in stable condition. Postprocedure mammogram: Shows clip at the palpable site. There is overlying dressing that is being trialed for purposes of patient work flow. The patient was transferred to mammography for physician ordered post procedure mammogram for clip placement verification. Impression: Successful, uncomplicated ultrasound guided core biopsy of the palpable 11:00 echogenic area, possible early noncalcified oil cyst in the left breast; full pathology results to follow. Pathology Results: Result: Benign, Fat necrosis. LEFT BREAST, ELEVEN O'CLOCK, ULTRASOUND GUIDED NEEDLE CORE BIOPSY: Fat necrosis/scar with histiocytes and mild chronic inflammation. Negative for malignancy. Overall Assessment: Benign Management: Screening Mammogram of both breasts in 2 months. Back on schedule. Electronically signed and approved by: Kathleen Villa M.D. Radiologist
== END ==
LOC: RADUSWWP 10:20
PROVIDERS: ATTEND Surgery
DX: N61.0 Mastitis without abscess (principal); L90.5 Scar conditions and fibrosis of skin; Z88.8 Allergy status to other drugs, medicaments and biological substances; Z79.899 Other long term (current) drug therapy; Z79.890 Hormone replacement therapy; Z79.891 Long term (current) use of opiate analgesic; Z82.49 Family history of ischemic heart disease and other diseases of the circulatory system; Z84.1 Family history of disorders of kidney and ureter; Z80.0 Family history of malignant neoplasm of digestive organs; Z80.1 Family history of malignant neoplasm of trachea, bronchus and lung
CPT/HCPCS: 88305; 19083; A4648; 77065

== ENCOUNTER 2022-05-28 12:10 | Emergency (ER) | payer MEDICARE ==
[2022-05-28 12:17] VITALS: BP 160/74; PULSE 94; RESP 19; TEMP 98.5
--- NOTE | 2022-05-28 13:22 | ED ---
URI HPI - General Chief Complaint: Upper Respiratory Infection Stated Complaint: Covid+, SOB Time Seen by Provider: 05/28/22 12:19 Source: patient, RN notes reviewed Mode of arrival: ambulatory Limitations: no limitations - History of Present Illness Initial Comments: Patient is a 73-year-old male presenting to the emergency room at the direction of her primary care provider for a prescription for Paxil. Patient states that her primary care provider stated that they would not be able to prescribe Paxil that for the patient until the patient was seen in the office. She reports shortness of breath body aches, headache and occasional fevers ongoing for the past 24 hours with a positive home Covid test today. She has home oxygen for when necessary use for her CHF but has not needed to utilize that since becoming ill with Covid. She has a significant past medical history and is on immune suppressant therapy for rheumatoid arthritis. She has an additional past medical history of fibromyalgia, hypothyroidism, CVA, hypertension, hyperlipidemia and as stated above congestive heart failure. - Related Data Home Medications Medication Instructions Recorded Confirmed Levothyroxine Sodium [Synthroid] 50 mcg PO DAILY 08/26/14 04/17/22 buPROPion SR [Wellbutrin SR] 150 mg PO BID 08/26/14 04/17/22 Atorvastatin [Lipitor] 20 mg PO HS 02/13/19 04/17/22 Folic Acid 1 mg PO DAILY 02/13/19 04/17/22 Morphine Pump 1 pump INTRATHECA CONTINUOUS 02/13/19 04/17/22 Metoprolol Tartrate [Lopressor] 12.5 mg PO BID 06/12/19 04/17/22 Furosemide [Lasix] 40 mg PO DAILY 11/28/20 04/17/22 Potassium Chloride ER [K-Dur 10] 10 meq PO DAILY 11/28/20 04/17/22 oxyCODONE-APAP 7.5-325MG [Percocet 1 tab PO TID PRN 11/29/20 04/17/22 7.5-325 mg] Gabapentin [Neurontin] 100 mg PO TID 12/14/20 04/17/22 Cyclobenzaprine [Flexeril] 10 mg PO HS 09/01/21 04/17/22 Docusate [Colace] 100 mg PO DAILY 09/01/21 04/17/22 Etanercept [Enbrel] 50 mg SQ LAWTON 09/01/21 04/17/22 Multivitamins, Thera [Multivitamin 1 tab PO DAILY 09/01/21 04/17/22 (formulary)] Sucralfate 1 gm PO QID 09/01/21 04/17/22 Venlafaxine HCl [Effexor] 75 mg PO BID 09/01/21 04/17/22 Carboxymethylcellulose Sodium 1 dropper BOTH EYES DIRECTED PRN 11/11/21 04/17/22 [Thera Tears] Melatonin 5 mg PO HS PRN 11/11/21 04/17/22 Propylene Glycol/Peg 400/Pf 1 dropper BOTH EYES DIRECTED PRN 11/11/21 04/17/22 [Systane 0.3-0.4% Eye Drop] busPIRone HCL 10 mg PO TID 11/11/21 04/17/22 Previous Rx's Medication Instructions Recorded Nirmatrelvir/Ritonavir [Paxlovid 1 each PO BID 5 Days #10 tab 05/28/22 2X150 mg-100 mg (Eua)] Allergies Allergy/AdvReac Type Severity Reaction Status Date / Time amlodipine besylate Allergy severe Verified 05/28/22 12:17 [From [facility]] nausea vomiting fentanyl Allergy severe Verified 05/28/22 12:17 nausea vomiting lamotrigine Allergy Unknown Verified 05/28/22 12:17 Review of Systems ROS Statement: Those systems with pertinent positive or pertinent negative responses have been documented in the HPI. ROS Other: All systems not noted in ROS Statement are negative. Past Medical History Past Medical History: Heart Failure, CVA/TIA, Fibromyalgia, GERD/Reflux, Hyperlipidemia, Hypertension, Osteoarthritis (OA), Pneumonia, Rheumatoid Arthritis (RA), Thyroid Disorder Additional Past Medical History / Comment(s): DJD,TIA -no residual ,lumbar spinal stenosis,connective tissue disorder, limited rom olvin wrists(fused), states pneumonia 2019 with renal failure & CHF., recent hospitalization for weakness and sob, currently has PT & OT and Home Health Care., uses cane., states she has a "awful taste & smell that makes her nauseated " and "violent nightmares." History of Any Multi-Drug Resistant Organisms: None Reported Past Surgical History: Orthopedic Surgery, Tonsillectomy, Tubal Ligation Additional Past Surgical History / Comment(s): ORIF LEFT TIB/FIB, LEFT FOOT SX, LASIK EYE SX, carpal tunnel olvin. Additional Past Anesthesia/Blood Transfusion Reaction / Comment(s): STATES POST OP ORTHO SX ENDED UP WITH TRACH, UNSURE IF PROBLEM WAS RELATED TO ANESTHESIA OR NOT in 1968- No problems since., CLAUSTROPHOBIC, no problems with prior blood transfusion. Past Psychological History: Anxiety, Depression Smoking Status: Never smoker Past Alcohol Use History: Occasional Past Drug Use History: None Reported - Past Family History Father Family Medical History: Cancer Additional Family Medical History / Comment(s): lung Brother(s) Family Medical History: Cancer Additional Family Medical History / Comment(s): stomach Mother Family Medical History: Renal Disease Additional Family Medical History / Comment(s): heart problem General Exam Limitations: no limitations General appearance: alert, in no apparent distress Head exam: Present: atraumatic, normocephalic, normal inspection Eye exam: Present: normal appearance, PERRL, EOMI. Absent: scleral icterus, conjunctival injection, periorbital swelling ENT exam: Present: normal exam, mucous membranes moist Neck exam: Present: normal inspection Respiratory exam: Present: normal lung sounds bilaterally. Absent: respiratory distress, wheezes, rales, rhonchi, stridor Cardiovascular Exam: Present: regular rate, normal rhythm, normal heart sounds. Absent: systolic murmur, diastolic murmur, rubs, gallop, clicks GI/Abdominal exam: Present: soft, normal bowel sounds. Absent: distended, tenderness, guarding, rebound, rigid Extremities exam: Absent: normal inspection (Multiple joint deformities upper extremities noted), pedal edema Back exam: Present: normal inspection Neurological exam: Present: alert, oriented X3, CN II-XII intact Psychiatric exam: Present: normal affect, normal mood Skin exam: Present: warm, dry, intact, normal color. Absent: rash Course Vital Signs 05/28/22 12:13 Temperature 98.5 F Pulse Rate 94 Respiratory 19 Rate Blood Pressure 160/74 O2 Sat by Pulse 94 L Oximetry Medical Decision Making - Medical Decision Making 72-year-old female with Covid positive home test today presenting for antiviral prescription. No hypoxemia, fever or tachycardia noted. No indication for diagnostic testing or laboratory studies at this time. Discussed treatment protocols for Covid including prescription for Paxlovid; she needs to hold her atenolol was her atorvastatin while taking Paxlovid. Along with symptomatic treatment with her already prescribed Percocet for pain continuation of Aleve for breakthrough and fevers. Case discussed with Dr. Way. Disposition Clinical Impression: COVID-19 Disposition: HOME SELF-CARE Instructions (If sedation given, give patient instructions): Upper Respiratory Infection (ED), COVID-19 (Coronavirus Disease 2019) (ED) Additional Instructions: Please quarantine for 5 days after testing positive and restart quarantine if symptoms worsen. Please utilize AleveC as needed for fevers and pain. Taking vitamin C, Zinc, vitamin D 50 mcg, and melatonin may help symptom recovery. Please complete course of Paxlovid as prescribed. Please follow-up with your primary care provider after quarantine is completed. Please return to the Emergency Department if symptoms worsen or any other concerns. Prescriptions: Nirmatrelvir/Ritonavir [Paxlovid 2X150 mg-100 mg (Eua)] 1 each PO BID 5 Days #10 tab Is patient prescribed a controlled substance at d/c from ED?: No Referrals: Steve Stevens MD [Primary Care Provider] - 1-2 days Time of Disposition: 13:24
== END 2022-05-28 15:12 | disposition home or self-care (01) ==
LOC: EC 12:10
DX: U07.1 COVID-19 (principal); I11.0 Hypertensive heart disease with heart failure; I50.9 Heart failure, unspecified; E78.5 Hyperlipidemia, unspecified; M06.9 Rheumatoid arthritis, unspecified; E07.9 Disorder of thyroid, unspecified; Z86.73 Personal history of transient ischemic attack (TIA), and cerebral infarction without residual deficits; Z79.890 Hormone replacement therapy; Z79.899 Other long term (current) drug therapy; Z88.8 Allergy status to other drugs, medicaments and biological substances; Z88.6 Allergy status to analgesic agent
CPT/HCPCS: 99284

== ENCOUNTER → 2022-06-21 | Outpatient (CLI) | payer MEDICARE ==
--- NOTE | 2022-06-21 16:40 | XR ---
EXAMINATION TYPE: XR chest 2V DATE OF EXAM: 06/21/2022 COMPARISON: 02/11/2022 INDICATION: Chronic pain syndrome presurgical clearance TECHNIQUE: Frontal and lateral views of the chest are obtained. FINDINGS: The heart size is normal. The pulmonary vasculature is normal. The lungs are clear. There is chronic elevation of the right diaphragm. IMPRESSION: 1. No acute pulmonary process.
[2022-06-21 17:10] LABS: Partial Thromboplastin Time 28.3 sec (22.0-30.0); Prothrombin Time 10.4 sec (9.0-12.0)
[2022-06-21 23:11] LABS: Basophils # (A) 0.05 X 10*3/uL (0.00-0.10); Basophils % (A) 0.7 %; Eosinophils # (A) 0.49 X 10*3/uL (0.04-0.35); Eosinophils % (A) 7.2 %; HCT 40.9 % (37.2-46.3); HGB 13.8 g/dL (12.0-15.0); Immature Grans, Automated 0.1 %; Lymphocytes # (A) 1.62 X 10*3/uL (0.90-5.00); MCH 33.6 pg (27.0-32.0); MCHC 33.7 g/dL (32.0-37.0); MCV 99.5 fL (80.0-97.0); Mean Platelet Volume 13.7 fL (9.5-12.2); Monocytes # (A) 0.81 X 10*3/uL (0.20-1.00); NRBC Per 100 WBC 0 /100 WBCS (0.0-0.0); Neutrophils # (A) 3.78 X 10*3/uL (1.80-7.70); Platelet Count 266 X 10*3/uL (140-440); RBC 4.11 X 10*6/uL (4.10-5.20); RDW 12.7 % (11.5-14.5); WBC 6.76 X 10*3/uL (4.50-10.00)
[2022-06-22 01:55] LABS: Appearance,Urine Clear (Clear); Bilirubin,Urine Negative (Negative); Blood,Urine Negative (Negative); Color,Urine Yellow (Yellow); Ketones,Urine Trace mg/dL (Negative); Nitrite,Urine Negative (Negative); Specific Gravity,Urine 1.017 (1.001-1.030); Urobilinogen,Urine 0.2 (0.2,1.0)
[2022-06-22 02:05] LABS: Bacteria,Urine None Seen /HPF (None Seen)
[2022-06-22 02:16] LABS: African American GFR (CKD) 76.4 (60.0-200.0); Albumin 4.3 g/dL (3.8-4.9); Albumin/Globulin Ratio 1.81 (1.60-3.17); Anion Gap 11.3 mmol/L (10.00-18.00); BUN/Creat Ratio 16.96 Ratio (12.00-20.00); Blood Urea Nitrogen 14.7 mg/dL (9.0-27.0); Calcium 9.8 mg/dL (8.7-10.3); Carbon Dioxide 33.3 mmol/L (20.0-27.5); Globulin 2.4 g/dL (1.6-3.3); Non-African American GFR(CKD) 65.9 (60.0-200.0); Potassium 3.8 mmol/L (3.5-5.5); Total Bilirubin 0.2 mg/dL (0.30-1.20); Total Protein 6.6 g/dL (6.2-8.2)
== END | disposition home or self-care (01) ==
LOC: LABWHC1 15:33
PROVIDERS: ATTEND Neurological Surgery
DX: G89.4 Chronic pain syndrome (principal); I45.10 Unspecified right bundle-branch block; I45.81 Long QT syndrome
CPT/HCPCS: 36415; 71046; 80053; 81001; 83036; 85025; 85610; 85730; 87086; 93005

== ENCOUNTER 2022-07-10 23:00 | Emergency (ER) | payer MEDICARE ==
[2022-07-10 23:09] VITALS: TEMP 98.9
[2022-07-11] MEDS ORDERED: LORazepam 2 MG/ML INJ IV STA (01:28)
[2022-07-11] MEDS ORDERED: SODIUM CHLORIDE 0.9% 1,000 ML IV STA (01:28)
[2022-07-11] MEDS ORDERED: oxyCODONE ER 10 MG TAB.ER.12H PO STA (01:29)
--- NOTE | 2022-07-11 01:33 | ED ---
General Adult HPI - General Source: patient, RN notes reviewed Mode of arrival: ambulatory Limitations: no limitations <Kyler Ochoa - Last Filed: 07/11/22 04:18> <Mike Sterilng - Last Filed: 07/11/22 05:44> - General Chief complaint: Recheck/Abnormal Lab/Rx Stated complaint: post surgery complications Time Seen by Provider: 07/11/22 01:14 - History of Present Illness Initial comments: This is a pleasant 72-year-old female with a history of chronic pain. Patient states she had her morphine pain pump removed earlier today at [facility]. Patient sees Dr. Dong for pain management. Patient was on morphine pain pump for several months. Patient has also been on Percocet 7.5's for several years. Patient states that since having the pump removed this morning she has been using her Percocet at home. Last dose was at 6 PM. Patient states she was doing okay at that time but after a few hours in the evening she started getting symptoms of anxiety, some nausea, shakiness, and irritating smell. Patient states he symptoms are consistent with when she had withdrawal symptoms back in October of this year. Patient denying any chest pain. She denies any abnormalities at the excision site. No headache, no fever or chills, no changes in vision or hearing, no sore throat or difficulty with speech, no neck pain, no chest pain or shortness of breath, no abdominal pain, no vomiting, no changes in urination or bowel movements, no numbness or tingling, no extremity pain, no skin rashes or lesions. (Kyler Ochoa) - Related Data Home Medications Medication Instructions Recorded Confirmed Levothyroxine Sodium [Synthroid] 50 mcg PO DAILY 08/26/14 04/17/22 buPROPion SR [Wellbutrin SR] 150 mg PO BID 08/26/14 04/17/22 Atorvastatin [Lipitor] 20 mg PO HS 02/13/19 04/17/22 Folic Acid 1 mg PO DAILY 02/13/19 04/17/22 Morphine Pump 1 pump INTRATHECA CONTINUOUS 02/13/19 04/17/22 Metoprolol Tartrate [Lopressor] 12.5 mg PO BID 06/12/19 04/17/22 Furosemide [Lasix] 40 mg PO DAILY 11/28/20 04/17/22 Potassium Chloride ER [K-Dur 10] 10 meq PO DAILY 11/28/20 04/17/22 oxyCODONE-APAP 7.5-325MG [Percocet 1 tab PO TID PRN 11/29/20 04/17/22 7.5-325 mg] Gabapentin [Neurontin] 100 mg PO TID 12/14/20 04/17/22 Cyclobenzaprine [Flexeril] 10 mg PO HS 09/01/21 04/17/22 Docusate [Colace] 100 mg PO DAILY 09/01/21 04/17/22 Etanercept [Enbrel] 50 mg SQ LAWTON 09/01/21 04/17/22 Multivitamins, Thera [Multivitamin 1 tab PO DAILY 09/01/21 04/17/22 (formulary)] Sucralfate 1 gm PO QID 09/01/21 04/17/22 Venlafaxine HCl [Effexor] 75 mg PO BID 09/01/21 04/17/22 Carboxymethylcellulose Sodium 1 dropper BOTH EYES DIRECTED PRN 11/11/21 04/17/22 [Thera Tears] Melatonin 5 mg PO HS PRN 11/11/21 04/17/22 Propylene Glycol/Peg 400/Pf 1 dropper BOTH EYES DIRECTED PRN 11/11/21 04/17/22 [Systane 0.3-0.4% Eye Drop] busPIRone HCL 10 mg PO TID 11/11/21 04/17/22 Previous Rx's Medication Instructions Recorded Nirmatrelvir/Ritonavir [Paxlovid 1 each PO BID 5 Days #10 tab 05/28/22 2X150 mg-100 mg (Eua)] Allergies Allergy/AdvReac Type Severity Reaction Status Date / Time amlodipine besylate Allergy severe Verified 05/28/22 12:17 [From [facility]] nausea vomiting fentanyl Allergy severe Verified 05/28/22 12:17 nausea vomiting lamotrigine Allergy Unknown Verified 05/28/22 12:17 paclitaxel Allergy Unknown Verified 07/10/22 23:09 Review of Systems ROS Other: All systems not noted in ROS Statement are negative. <Kyler Ochoa - Last Filed: 07/11/22 04:18> ROS Other: All systems not noted in ROS Statement are negative. <Mike Sterling - Last Filed: 07/11/22 05:44> ROS Statement: Those systems with pertinent positive or pertinent negative responses have been documented in the HPI. Past Medical History Past Medical History: Heart Failure, CVA/TIA, Fibromyalgia, GERD/Reflux, Hyperlipidemia, Hypertension, Osteoarthritis (OA), Pneumonia, Rheumatoid Arthritis (RA), Thyroid Disorder Additional Past Medical History / Comment(s): DJD,TIA -no residual ,lumbar spinal stenosis,connective tissue disorder, limited rom olvin wrists(fused), states pneumonia 2019 with renal failure & CHF., recent hospitalization for weakness and sob, currently has PT & OT and Home Health Care., uses cane., states she has a "awful taste & smell that makes her nauseated " and "violent nightmares." History of Any Multi-Drug Resistant Organisms: None Reported Past Surgical History: Orthopedic Surgery, Tonsillectomy, Tubal Ligation Additional Past Surgical History / Comment(s): ORIF LEFT TIB/FIB, LEFT FOOT SX, LASIK EYE SX, carpal tunnel olvin. Additional Past Anesthesia/Blood Transfusion Reaction / Comment(s): STATES POST OP ORTHO SX ENDED UP WITH TRACH, UNSURE IF PROBLEM WAS RELATED TO ANESTHESIA OR NOT in 1968- No problems since., CLAUSTROPHOBIC, no problems with prior blood transfusion. Past Psychological History: Anxiety, Depression Smoking Status: Never smoker Past Alcohol Use History: Occasional Past Drug Use History: None Reported - Past Family History Father Family Medical History: Cancer Additional Family Medical History / Comment(s): lung Brother(s) Family Medical History: Cancer Additional Family Medical History / Comment(s): stomach Mother Family Medical History: Renal Disease Additional Family Medical History / Comment(s): heart problem <DonKyler - Last Filed: 07/11/22 04:18> General Exam Limitations: no limitations General appearance: alert, anxious, in distress Head exam: Present: atraumatic, normocephalic, normal inspection Eye exam: Present: normal appearance, PERRL, EOMI. Absent: scleral icterus, conjunctival injection, periorbital swelling ENT exam: Present: normal exam, mucous membranes moist, normal external ear exam. Absent: normal oropharynx, mucous membranes dry Neck exam: Present: normal inspection, full ROM. Absent: tenderness, meningismus, lymphadenopathy Respiratory exam: Present: normal lung sounds bilaterally. Absent: respiratory distress, wheezes, rales, rhonchi, stridor Cardiovascular Exam: Present: normal rhythm, tachycardia, normal heart sounds. Absent: systolic murmur, diastolic murmur, rubs, gallop, clicks GI/Abdominal exam: Present: soft, normal bowel sounds, other (Pain pump excision site and wound noted anteriorly to the left abdomen and posterior to the left flank area. Appears to be adequately coapted, dressing dry and intact.). Absent: distended, tenderness, guarding, rebound, rigid Extremities exam: Present: normal inspection, full ROM, normal capillary refill. Absent: tenderness, pedal edema, joint swelling, calf tenderness Back exam: Present: normal inspection Neurological exam: Present: alert, oriented X3, CN II-XII intact Psychiatric exam: Present: normal affect, normal mood Skin exam: Present: warm, dry, intact, normal color. Absent: rash <Kyler Ochoa - Last Filed: 07/11/22 04:18> - General Exam Comments Initial Comments: Cranial nerves II through XII grossly intact. Capillary refill less than 2 seconds. No mottling. Patient appears to be anxious. (Kyler Ochoa) Course <Kyler Ochoa - Last Filed: 07/11/22 04:18> Vital Signs 07/10/22 07/11/22 07/11/22 23:06 03:12 05:24 Temperature 98.9 F Pulse Rate 120 H 100 110 H Respiratory 18 12 20 Rate Blood Pressure 165/99 161/82 155/92 O2 Sat by Pulse 95 90 L 98 Oximetry - Reevaluation(s) Reevaluation #1: 07/11/22 04:08 Patient reevaluated and is much improved. Patient understandably sleepy after receiving the medication but is easily arousable. Alert and oriented 4. (Kyler Ochoa) Medical Decision Making - Lab Data Result diagrams: 07/11/22 01:41 07/11/22 01:41 <Kyler Ochoa - Last Filed: 07/11/22 04:18> - Lab Data Result diagrams: 07/11/22 01:41 07/11/22 01:41 <Mike Sterling - Last Filed: 07/11/22 05:44> - Medical Decision Making Patient came in with mild symptomology related to narcotic withdrawal.She was given 1 dose of Ativan here as well as 1 dose of oxycodone. Patient much improved. Patient has Percocet at home that she takes 3 times a day as needed. Patient has a pain management physician which we will have her contact in the morning. Patient understands this. Patient knows to call at [address] Dong's office. Patient was a bit too sedate to discharge at 4 AM. Patient stood up and became a little lightheaded. Patient could not go home with the daughter for logistical reasons. Patient endorsed to the ED supervising physician for a.m. for further observation and disposition. The case was discussed in detail with ED attending physician. Presentation, findings, treatment plan discussed in detail. Supervising Dr. Sterling ([facility]) - Lab Data Lab Results 07/11/22 07/11/22 07/11/22 Range/Units 01:41 01:41 01:41 WBC 9.8 (3.8-10.6) k/uL RBC 4.42 (3.80-5.40) m/uL Hgb 14.1 (11.4-16.0) gm/dL Hct 41.1 (34.0-46.0) % MCV 92.9 (80.0-100.0) fL MCH 31.9 (25.0-35.0) pg MCHC 34.4 (31.0-37.0) g/dL RDW 12.7 (11.5-15.5) % Plt Count 284 (150-450) k/uL MPV 8.9 Neutrophils % 75 % Lymphocytes % 15 % Monocytes % 7 % Eosinophils % 1 % Basophils % 0 % Neutrophils # 7.4 (1.3-7.7) k/uL Lymphocytes # 1.5 (1.0-4.8) k/uL Monocytes # 0.7 (0-1.0) k/uL Eosinophils # 0.1 (0-0.7) k/uL Basophils # 0.0 (0-0.2) k/uL Sodium 137 (137-145) mmol/L Potassium 3.2 L (3.5-5.1) mmol/L Chloride 92 L (98-107) mmol/L Carbon Dioxide 33 H (22-30) mmol/L Anion Gap 12 mmol/L BUN 16 (7-17) mg/dL Creatinine 0.81 (0.52-1.04) mg/dL Est GFR (CKD-EPI)AfAm 83 (>60 ml/min/1.73 sqM) Est GFR (CKD-EPI)NonAf 72 (>60 ml/min/1.73 sqM) Glucose 103 H (74-99) mg/dL Calcium 9.4 (8.4-10.2) mg/dL Magnesium 1.9 (1.6-2.3) mg/dL Total Bilirubin 0.4 (0.2-1.3) mg/dL AST 25 (14-36) U/L ALT 13 (4-34) U/L Alkaline Phosphatase 131 H (38-126) U/L Troponin I <0.012 (0.000-0.034) ng/mL Total Protein 7.2 (6.3-8.2) g/dL Albumin 4.4 (3.5-5.0) g/dL Disposition <Kyler Ochoa - Last Filed: 07/11/22 04:18> Is patient prescribed a controlled substance at d/c from ED?: No <Mike Sterling - Last Filed: 07/11/22 05:44> Clinical Impression: Acute narcotic withdrawal, Hypokalemia Narrative: Mild symptomology related to narcotic withdrawal (Kyler Ochoa) Disposition: HOME SELF-CARE Condition: Good Instructions (If sedation given, give patient instructions): Opioid Withdrawal (ED) Referrals: Cindy Dong MD [Medical Doctor] - 07/11/22 8:00 am
[2022-07-11 02:06] LABS: Basophils % (A) 0 %; Eosinophils # (A) 0.1 k/uL (0-0.7); Eosinophils % (A) 1 %; HCT 41.1 % (34.0-46.0); HGB 14.1 gm/dL (11.4-16.0); Lymphocytes # (A) 1.5 k/uL (1.0-4.8); Lymphocytes % (A) 15 %; MCH 31.9 pg (25.0-35.0); MCHC 34.4 g/dL (31.0-37.0); MCV 92.9 fL (80.0-100.0); Mean Platelet Volume 8.9; Monocytes # (A) 0.7 k/uL (0-1.0); Monocytes % (A) 7 %; Neutrophils # (A) 7.4 k/uL (1.3-7.7); Neutrophils % (A) 75 %; Platelet Count 284 k/uL (150-450); RBC 4.42 m/uL (3.80-5.40); RDW 12.7 % (11.5-15.5); WBC 9.8 k/uL (3.8-10.6)
[2022-07-11 02:22] LABS: Albumin 4.4 g/dL (3.5-5.0); Calcium 9.4 mg/dL (8.4-10.2); Magnesium 1.9 mg/dL (1.6-2.3); Potassium 3.2 mmol/L (3.5-5.1); Total Bilirubin 0.4 mg/dL (0.2-1.3); Total Protein 7.2 g/dL (6.3-8.2)
[2022-07-11] MEDS ORDERED: POTASSIUM CHLORIDE ER 20 MEQ TAB.ER PO STA (04:20)
[2022-07-11 05:25] VITALS: BP 155/92; PULSE 110; RESP 20
[2022-07-11 06:36] LABS: Amphetamine Screen,Urine Not Detected (NotDetected); Barbiturate Screen,Urine Detected (NotDetected); Benzodiazepines Screen,Urine Not Detected (NotDetected); Cocaine Screen,Urine Not Detected (NotDetected); Methadone Screen, Urine Not Detected (NotDetected); Opiate Screen,Urine Detected (NotDetected); Oxycodone Screen, Urine Detected (NotDetected); Phencyclidine Screen,Urine Not Detected (NotDetected); Tricyclic Antidepressant,Urine Not Detected (NotDetected); Urn Cannabinoid Scrn Not Detected (NotDetected)
== END 2022-07-11 06:09 | disposition home or self-care (01) ==
LOC: EC 23:00
DX: F11.23 Opioid dependence with withdrawal (principal); E87.6 Hypokalemia; Z86.73 Personal history of transient ischemic attack (TIA), and cerebral infarction without residual deficits; K21.9 Gastro-esophageal reflux disease without esophagitis; E78.5 Hyperlipidemia, unspecified; I10 Essential (primary) hypertension; M19.90 Unspecified osteoarthritis, unspecified site; M06.9 Rheumatoid arthritis, unspecified; E07.9 Disorder of thyroid, unspecified; F41.9 Anxiety disorder, unspecified; F32.A Depression, unspecified; Z88.8 Allergy status to other drugs, medicaments and biological substances
CPT/HCPCS: 36415; 93005; 80053; 83735; 84484; 85025; 80306; 99283; 96374; 96361; J2060

== ENCOUNTER 2022-07-21 11:24 | Emergency (ER) | payer MEDICARE ==
[2022-07-21 13:12] LABS: Basophils # (A) 0.1 k/uL (0-0.2); Basophils % (A) 1 %; Eosinophils # (A) 0.3 k/uL (0-0.7); Eosinophils % (A) 3 %; HCT 45.6 % (34.0-46.0); HGB 15.9 gm/dL (11.4-16.0); Lymphocytes # (A) 1.6 k/uL (1.0-4.8); Lymphocytes % (A) 17 %; MCH 31.7 pg (25.0-35.0); MCHC 34.8 g/dL (31.0-37.0); MCV 91.1 fL (80.0-100.0); Mean Platelet Volume 9.4; Monocytes # (A) 0.6 k/uL (0-1.0); Monocytes % (A) 6 %; Neutrophils # (A) 6.8 k/uL (1.3-7.7); Neutrophils % (A) 71 %; Platelet Count 380 k/uL (150-450); RBC 5.01 m/uL (3.80-5.40); RDW 12.7 % (11.5-15.5); WBC 9.6 k/uL (3.8-10.6)
[2022-07-21 13:28] LABS: Albumin 4.6 g/dL (3.5-5.0); Calcium 9.8 mg/dL (8.4-10.2); Potassium 3.5 mmol/L (3.5-5.1); Total Bilirubin 0.6 mg/dL (0.2-1.3); Total Protein 7.7 g/dL (6.3-8.2)
--- NOTE | 2022-07-21 14:11 | ED ---
General Adult HPI - General Chief complaint: Recheck/Abnormal Lab/Rx Stated complaint: Low potassium,sent by PCP Time Seen by Provider: 07/21/22 12:46 Source: patient Mode of arrival: ambulatory Limitations: no limitations - History of Present Illness Initial comments: This patient is a 72-year-old woman who presents here to have her potassium rechecked. Patient states that she had gone to see her physician, Dr. Stevens yesterday as routine follow-up after having had a pain pump removed. The patient states that she received a call telling her that her potassium was found to be dangerously low and that she should be seen in the emergency department. Patient states that mother then that she has been having some fatigue and generalized weakness. She has been having some paresthesias to the bilateral hands. She states she has been having some nausea and she had been having diarrhea as some opiate withdrawal following removal of the pain pump. She is starting on some oral opioids to taper off of to combat the withdrawal. She is not currently having vomiting and the diarrhea has stopped in fact she was having an element of constipation. Onset/Timin -: days(s) Severity scale (1-10): 0 Improves with: none Worsens with: none Associated Symptoms: weakness Treatments Prior to Arrival: none - Related Data Home Medications Medication Instructions Recorded Confirmed Levothyroxine Sodium [Synthroid] 50 mcg PO DAILY 08/26/14 04/17/22 buPROPion SR [Wellbutrin SR] 150 mg PO BID 08/26/14 04/17/22 Atorvastatin [Lipitor] 20 mg PO HS 02/13/19 04/17/22 Folic Acid 1 mg PO DAILY 02/13/19 04/17/22 Morphine Pump 1 pump INTRATHECA CONTINUOUS 02/13/19 04/17/22 Metoprolol Tartrate [Lopressor] 12.5 mg PO BID 06/12/19 04/17/22 Furosemide [Lasix] 40 mg PO DAILY 11/28/20 04/17/22 Potassium Chloride ER [K-Dur 10] 10 meq PO DAILY 11/28/20 04/17/22 oxyCODONE-APAP 7.5-325MG [Percocet 1 tab PO TID PRN 11/29/20 04/17/22 7.5-325 mg] Gabapentin [Neurontin] 100 mg PO TID 12/14/20 04/17/22 Cyclobenzaprine [Flexeril] 10 mg PO HS 09/01/21 04/17/22 Docusate [Colace] 100 mg PO DAILY 09/01/21 04/17/22 Etanercept [Enbrel] 50 mg SQ LAWTON 09/01/21 04/17/22 Multivitamins, Thera [Multivitamin 1 tab PO DAILY 09/01/21 04/17/22 (formulary)] Sucralfate 1 gm PO QID 09/01/21 04/17/22 Venlafaxine HCl [Effexor] 75 mg PO BID 09/01/21 04/17/22 Carboxymethylcellulose Sodium 1 dropper BOTH EYES DIRECTED PRN 11/11/21 04/17/22 [Thera Tears] Melatonin 5 mg PO HS PRN 11/11/21 04/17/22 Propylene Glycol/Peg 400/Pf 1 dropper BOTH EYES DIRECTED PRN 11/11/21 04/17/22 [Systane 0.3-0.4% Eye Drop] busPIRone HCL 10 mg PO TID 11/11/21 04/17/22 Previous Rx's Medication Instructions Recorded Nirmatrelvir/Ritonavir [Paxlovid 1 each PO BID 5 Days #10 tab 05/28/22 2X150 mg-100 mg (Eua)] Allergies Allergy/AdvReac Type Severity Reaction Status Date / Time amlodipine besylate Allergy severe Verified 07/21/22 11:37 [From [facility]] nausea vomiting fentanyl Allergy severe Verified 07/21/22 11:37 nausea vomiting lamotrigine Allergy Unknown Verified 07/21/22 11:37 paclitaxel Allergy Unknown Verified 07/21/22 11:37 Review of Systems ROS Statement: Those systems with pertinent positive or pertinent negative responses have been documented in the HPI. ROS Other: All systems not noted in ROS Statement are negative. Constitutional: Reports: weakness. Denies: fever, chills Respiratory: Denies: cough, dyspnea Cardiovascular: Denies: chest pain, palpitations, edema Gastrointestinal: Reports: constipation. Denies: abdominal pain, vomiting, diarrhea Genitourinary: Denies: dysuria, hematuria Musculoskeletal: Denies: back pain Skin: Denies: rash Neurological: Reports: paresthesias. Denies: headache, weakness, numbness Past Medical History Past Medical History: Heart Failure, CVA/TIA, Fibromyalgia, GERD/Reflux, Hyperlipidemia, Hypertension, Osteoarthritis (OA), Pneumonia, Rheumatoid Arthritis (RA), Thyroid Disorder Additional Past Medical History / Comment(s): DJD,TIA -no residual ,lumbar spinal stenosis,connective tissue disorder, limited rom olvin wrists(fused), s tatrigo pneumonia 2019 with renal failure & CHF., recent hospitalization for weakness and sob, currently has PT & OT and Home Health Care., uses cane., states she has a "awful taste & smell that makes her nauseated " and "violent nightmares." History of Any Multi-Drug Resistant Organisms: None Reported Past Surgical History: Orthopedic Surgery, Tonsillectomy, Tubal Ligation Additional Past Surgical History / Comment(s): ORIF LEFT TIB/FIB, LEFT FOOT SX, LASIK EYE SX, carpal tunnel olvin. Additional Past Anesthesia/Blood Transfusion Reaction / Comment(s): STATES POST OP ORTHO SX ENDED UP WITH TRACH, UNSURE IF PROBLEM WAS RELATED TO ANESTHESIA OR NOT in 1968- No problems since., CLAUSTROPHOBIC, no problems with prior blood transfusion. Past Psychological History: Anxiety, Depression Smoking Status: Never smoker Past Alcohol Use History: Occasional Past Drug Use History: None Reported - Past Family History Father Family Medical History: Cancer Additional Family Medical History / Comment(s): lung Brother(s) Family Medical History: Cancer Additional Family Medical History / Comment(s): stomach Mother Family Medical History: Renal Disease Additional Family Medical History / Comment(s): heart problem General Exam Limitations: no limitations General appearance: alert, in no apparent distress Head exam: Present: atraumatic, normocephalic Eye exam: Present: normal appearance. Absent: scleral icterus, conjunctival injection ENT exam: Present: mucous membranes dry Respiratory exam: Present: normal lung sounds bilaterally. Absent: respiratory distress, wheezes, rales, rhonchi, stridor Cardiovascular Exam: Present: regular rate, normal rhythm, normal heart sounds. Absent: systolic murmur, diastolic murmur, rubs, gallop GI/Abdominal exam: Present: soft. Absent: distended, tenderness, guarding, rebound, rigid, mass Extremities exam: Present: normal inspection, normal capillary refill. Absent: pedal edema, calf tenderness Neurological exam: Present: alert, CN II-XII intact. Absent: motor sensory deficit Skin exam: Present: warm, dry, intact, normal color. Absent: rash Course Vital Signs 07/21/22 07/21/22 11:35 14:51 Temperature 98.4 F Pulse Rate 78 75 Respiratory 16 18 Rate Blood Pressure 137/84 122/95 O2 Sat by Pulse 99 97 Oximetry Medical Decision Making - Lab Data Result diagrams: 07/21/22 12:59 07/21/22 12:59 Lab Results 07/21/22 07/21/22 Range/Units 12:59 12:59 WBC 9.6 (3.8-10.6) k/uL RBC 5.01 (3.80-5.40) m/uL Hgb 15.9 (11.4-16.0) gm/dL Hct 45.6 (34.0-46.0) % MCV 91.1 (80.0-100.0) fL MCH 31.7 (25.0-35.0) pg MCHC 34.8 (31.0-37.0) g/dL RDW 12.7 (11.5-15.5) % Plt Count 380 (150-450) k/uL MPV 9.4 Neutrophils % 71 % Lymphocytes % 17 % Monocytes % 6 % Eosinophils % 3 % Basophils % 1 % Neutrophils # 6.8 (1.3-7.7) k/uL Lymphocytes # 1.6 (1.0-4.8) k/uL Monocytes # 0.6 (0-1.0) k/uL Eosinophils # 0.3 (0-0.7) k/uL Basophils # 0.1 (0-0.2) k/uL Sodium 136 L (137-145) mmol/L Potassium 3.5 (3.5-5.1) mmol/L Chloride 84 L (98-107) mmol/L Carbon Dioxide 41 H* (22-30) mmol/L Anion Gap 11 mmol/L BUN 16 (7-17) mg/dL Creatinine 0.76 (0.52-1.04) mg/dL Est GFR (CKD-EPI)AfAm 90 (>60 ml/min/1.73 sqM) Est GFR (CKD-EPI)NonAf 78 (>60 ml/min/1.73 sqM) Glucose 114 H (74-99) mg/dL Calcium 9.8 (8.4-10.2) mg/dL Total Bilirubin 0.6 (0.2-1.3) mg/dL AST 26 (14-36) U/L ALT 15 (4-34) U/L Alkaline Phosphatase 110 (38-126) U/L Total Protein 7.7 (6.3-8.2) g/dL Albumin 4.6 (3.5-5.0) g/dL Disposition Clinical Impression: Metabolic alkalosis Disposition: HOME SELF-CARE Condition: Good Is patient prescribed a controlled substance at d/c from ED?: No Referrals: Steve Stevens MD [Primary Care Provider] - 1-2 days Charlie Diehl DO [STAFF PHYSICIAN] - 1-2 days
[2022-07-21] MEDS ORDERED: SODIUM CHLORIDE 0.9% 1,000 ML IV ONE (14:15)
[2022-07-21] MEDS ORDERED: MORPHINE SULFATE 2 MG/ML SYRINGE IV STA (14:41)
[2022-07-21 15:46] VITALS: BP 151/85; PULSE 82; RESP 16; TEMP 98.6
[2022-07-21 16:42] LABS: Appearance,Urine Clear (Clear); Bilirubin,Urine Negative (Negative); Blood,Urine Negative (Negative); Color,Urine Light Yellow; Glucose,Urine (UA) Negative (Negative); Hyaline Casts,Urine 1 /lpf (0-2); Ketones,Urine 1+ (Negative); Leukocyte Esterase,Urine Small (Negative); Nitrite,Urine Negative (Negative); Protein,Urine Negative (Negative); RBC,Urine 1 /hpf (0-5); Specific Gravity,Urine 1.007 (1.001-1.035); Squamous Epithelial Cell,Urine <1 /hpf (0-4); Urobilinogen,Urine <2.0 mg/dL (<2.0); WBC,Urine 5 /hpf (0-5)
[2022-07-21 16:52] LABS: Creatinine,Urine Random 50.3 mg/dL
[2022-07-21 22:57] LABS: Potassium,Urine Random 12.2 mmol/L (25.0-125.0)
== END 2022-07-21 16:29 | disposition home or self-care (01) ==
LOC: EC 11:24
DX: E87.3 Alkalosis (principal); I50.9 Heart failure, unspecified; G45.9 Transient cerebral ischemic attack, unspecified; K21.9 Gastro-esophageal reflux disease without esophagitis; E78.5 Hyperlipidemia, unspecified; I10 Essential (primary) hypertension; M19.90 Unspecified osteoarthritis, unspecified site; E07.9 Disorder of thyroid, unspecified; F32.A Depression, unspecified; F41.9 Anxiety disorder, unspecified; Z79.810 Long term (current) use of selective estrogen receptor modulators (SERMs); Z79.83 Long term (current) use of bisphosphonates; Z79.02 Long term (current) use of antithrombotics/antiplatelets; Z79.51 Long term (current) use of inhaled steroids; Z79.899 Other long term (current) drug therapy; Z79.84 Long term (current) use of oral hypoglycemic drugs; Z88.8 Allergy status to other drugs, medicaments and biological substances
CPT/HCPCS: 36415; 84300; 83930; 82570; 80053; 84133; 85025; 81001; 83935; 99284; 96374; 96360; 96361; J2270

== ENCOUNTER → 2022-08-09 | Outpatient (CLI) | payer MEDICARE ==
[2022-08-09 14:33] LABS: Prothrombin Time 10.7 sec (9.0-12.0)
[2022-08-09 17:55] LABS: Basophils # (A) 0.06 X 10*3/uL (0.00-0.10); Eosinophils # (A) 0.26 X 10*3/uL (0.04-0.35); Eosinophils % (A) 4.3 %; HCT 39.2 % (37.2-46.3); HGB 13.6 g/dL (12.0-15.0); Immature Grans, Automated 0.2 %; Lymphocytes # (A) 1.44 X 10*3/uL (0.90-5.00); Lymphocytes % (A) 23.6 %; MCHC 34.7 g/dL (32.0-37.0); MCV 95.1 fL (80.0-97.0); Mean Platelet Volume 12.7 fL (9.5-12.2); Monocytes # (A) 0.68 X 10*3/uL (0.20-1.00); Monocytes % (A) 11.2 %; NRBC Per 100 WBC 0 /100 WBCS (0.0-0.0); Neutrophils # (A) 3.64 X 10*3/uL (1.80-7.70); Neutrophils % (A) 59.7 %; Platelet Count 296 X 10*3/uL (140-440); RBC 4.12 X 10*6/uL (4.10-5.20); RDW 12.9 % (11.5-14.5); WBC 6.09 X 10*3/uL (4.50-10.00)
[2022-08-09 18:32] LABS: African American GFR (CKD) 83.4 (60.0-200.0); Albumin 4.3 g/dL (3.8-4.9); Albumin/Globulin Ratio 1.91 (1.60-3.17); Anion Gap 11.1 mmol/L (10.00-18.00); BUN/Creat Ratio 15.14 Ratio (12.00-20.00); Blood Urea Nitrogen 12.2 mg/dL (9.0-27.0); Calcium 9.9 mg/dL (8.7-10.3); Carbon Dioxide 31.6 mmol/L (20.0-27.5); Globulin 2.2 g/dL (1.6-3.3); Potassium 4.3 mmol/L (3.5-5.5); Total Bilirubin 0.3 mg/dL (0.30-1.20); Total Protein 6.5 g/dL (6.2-8.2)
[2022-08-09 18:44] LABS: Appearance,Urine Clear (Clear); Bilirubin,Urine Negative (Negative); Blood,Urine Negative (Negative); Color,Urine Yellow (Yellow); Ketones,Urine Negative (Negative); Nitrite,Urine Negative (Negative); Specific Gravity,Urine 1.016 (1.001-1.030); Urobilinogen,Urine 0.2 (0.2,1.0)
[2022-08-09 18:53] LABS: Bacteria,Urine None Seen /HPF (None Seen)
== END | disposition home or self-care (01) ==
LOC: LABWHC1 13:17
PROVIDERS: ATTEND Family Medicine
DX: M43.19 Spondylolisthesis, multiple sites in spine (principal); M48.02 Spinal stenosis, cervical region; M54.41 Lumbago with sciatica, right side
CPT/HCPCS: 36415; 80053; 81001; 83036; 85025; 85610; 85730; 87086

== ENCOUNTER → 2022-09-01 | Outpatient (CLI) | payer MEDICARE | END | disposition home or self-care (01) | LOC: LABWHC1 15:34 | PROVIDERS: ATTEND Neurological Surgery | DX: Z20.822 Contact with and (suspected) exposure to COVID-19 (principal); M43.19 Spondylolisthesis, multiple sites in spine; M48.02 Spinal stenosis, cervical region; M54.41 Lumbago with sciatica, right side ==

== ENCOUNTER 2023-09-11 12:35 | Observation (INO) | payer MEDICARE ==
[2023-09-11 12:46] LABS: Glucose,Whole Blood 79 mg/dL (70-110)
--- NOTE | 2023-09-11 12:50 | ED ---
Neuro HPI - General Chief Complaint: Neuro Symptoms/Deficit Stated Complaint: stroke symp Time Seen by Provider: 09/11/23 12:47 Source: EMS, RN notes reviewed, old records reviewed, Caregiver Mode of arrival: EMS Limitations: no limitations - History of Present Illness Is the patient presenting with stroke symptoms?: No -: hour(s), unknown Initial Comments: This is a 73-year-old female who initially presented with strokelike symptoms are related to originally initial presentation was for fall. There was some thought whether patient had some slurred speech prior to arrival that slurred speech is resolved here in the ER. Patient is a long and . Medical history and currently is without complaint patient of fall yesterday and had some episodic slurred speech since. Patient symptoms are greater than 24 hours in nature. Persistent improved here in the ER. Patient's history of TIA is complaining of headache's, symptoms continue to improve here in the ER Location: speech - Related Data Home Medications: Home Medications Medication Instructions Recorded Confirmed Levothyroxine Sodium [Synthroid] 50 mcg PO AC-BRKFST 08/26/14 09/11/23 Atorvastatin [Lipitor] 20 mg PO HS 02/13/19 09/11/23 Folic Acid 1 mg PO DAILY 02/13/19 09/11/23 Furosemide [Lasix] 40 mg PO DAILY 11/28/20 09/11/23 Etanercept [Enbrel] 50 mg SQ LAWTON 09/01/21 09/11/23 Melatonin 5 mg PO HS PRN 11/11/21 09/11/23 Carboxymethylcellulose Sodium 1 drop BOTH EYES QID PRN 09/11/23 09/11/23 [Refresh Tears] Cevimeline [Evoxac] 30 mg PO BID 09/11/23 09/11/23 Gabapentin [Neurontin] 300 mg PO TID 09/11/23 09/11/23 Metoprolol Tartrate [Lopressor] 25 mg PO BID 09/11/23 09/11/23 Multivit-Min/FA/Lycopen/Lutein 1 tab PO DAILY 09/11/23 09/11/23 [Centrum Silver Tablet] Naproxen Sod/Diphenhydramine 1 tab PO HS PRN 09/11/23 09/11/23 [Aleve Pm Caplet] OXcarbazepine [Trileptal] 150 mg PO DAILY 09/11/23 09/11/23 Ondansetron Odt [Zofran ODT] 4 mg PO TID 09/11/23 09/11/23 Pantoprazole [Protonix] 40 mg PO BID 09/11/23 09/11/23 Potassium Gluconate 99 mg PO DAILY 09/11/23 09/11/23 Primidone [Mysoline] 50 mg PO HS 09/11/23 09/11/23 Topiramate [Topamax] 50 mg PO DAILY 09/11/23 09/11/23 Venlafaxine HCl ER [Effexor XR] 150 mg PO DAILY 09/11/23 09/11/23 busPIRone HCL 15 mg PO BID 09/11/23 09/11/23 oxyCODONE HCL/ACETAMINOPHEN 1 tab PO Q6HR PRN 09/11/23 09/11/23 [Percocet 10-325 mg] Previous Rx's Medication Instructions Recorded Acetaminophen Tab [Tylenol] 650 mg PO Q6HR PRN tab 09/13/23 Aspirin 81 mg PO DAILY #30 tab 09/13/23 Allergies/Adverse Reactions: Allergies Allergy/AdvReac Type Severity Reaction Status Date / Time lamotrigine Allergy Unknown Verified 09/11/23 14:59 paclitaxel Allergy Unknown Verified 09/11/23 14:59 amlodipine besylate AdvReac severe Verified 09/11/23 14:59 [[facility]] nausea vomiting fentanyl AdvReac severe Verified 09/11/23 14:59 nausea vomiting Review of Systems ROS Statement: Those systems with pertinent positive or pertinent negative responses have been documented in the HPI. ROS Other: All systems not noted in ROS Statement are negative. General Exam - General Exam Comments Initial Comments: Slurred speech Limitations: altered mental status General appearance: alert, in no apparent distress, anxious Head exam: Present: atraumatic, normocephalic, normal inspection Eye exam: Present: normal appearance, PERRL, EOMI. Absent: scleral icterus, conjunctival injection, periorbital swelling ENT exam: Present: normal exam, mucous membranes moist Neck exam: Present: normal inspection. Absent: tenderness, meningismus, lymphadenopathy Respiratory exam: Present: normal lung sounds bilaterally. Absent: respiratory distress, wheezes, rales, rhonchi, stridor Cardiovascular Exam: Present: regular rate, normal rhythm, normal heart sounds. Absent: systolic murmur, diastolic murmur, rubs, gallop, clicks GI/Abdominal exam: Present: soft, normal bowel sounds. Absent: distended, tenderness, guarding, rebound, rigid Extremities exam: Present: normal inspection, full ROM, normal capillary refill. Absent: tenderness, pedal edema, joint swelling, calf tenderness Back exam: Present: normal inspection Neurological exam: Present: alert, oriented X3, CN II-XII intact Psychiatric exam: Present: normal affect, normal mood Skin exam: Present: warm, dry, intact, normal color. Absent: rash Stroke MDM - Lab Data Result diagrams: 09/11/23 13:04 09/13/23 05:28 Lab Results 09/11/23 09/11/23 09/11/23 Range/Units 12:44 13:04 13:04 WBC 7.4 (3.8-10.6) k/uL RBC 4.01 (3.80-5.40) m/uL Hgb 13.2 (11.4-16.0) gm/dL Hct 40.4 (34.0-46.0) % MCV 100.6 H (80.0-100.0) fL MCH 32.8 (25.0-35.0) pg MCHC 32.6 (31.0-37.0) g/dL RDW 13.0 (11.5-15.5) % Plt Count 275 (150-450) k/uL MPV 10.8 Neutrophils % 63 % Lymphocytes % 16 % Monocytes % 9 % Eosinophils % 7 % Basophils % 1 % Neutrophils # 4.7 (1.3-7.7) k/uL Lymphocytes # 1.2 (1.0-4.8) k/uL Monocytes # 0.7 (0-1.0) k/uL Eosinophils # 0.5 (0-0.7) k/uL Basophils # 0.0 (0-0.2) k/uL PT 10.2 (10.0-12.5) sec INR 0.9 (<1.2) APTT 28.3 (22.0-30.0) sec Sodium (137-145) mmol/L Potassium (3.5-5.1) mmol/L Chloride (98-107) mmol/L Carbon Dioxide (22-30) mmol/L Anion Gap mmol/L BUN (7-17) mg/dL Creatinine (0.52-1.04) mg/dL Est GFR (CKD-EPI)AfAm (>60 ml/min/1.73 sqM) Est GFR (CKD-EPI)NonAf (>60 ml/min/1.73 sqM) Glucose (74-99) mg/dL POC Glucose (mg/dL) 79 (70-110) mg/dL POC Glu [employer] Martín Cochran Calcium (8.4-10.2) mg/dL Total Bilirubin (0.2-1.3) mg/dL AST (14-36) U/L ALT (4-34) U/L Alkaline Phosphatase (38-126) U/L Creatine Kinase (30-135) U/L Troponin I (0.000-0.034) ng/mL Total Protein (6.3-8.2) g/dL Albumin (3.5-5.0) g/dL 09/11/23 09/11/23 Range/Units 13:04 13:04 WBC (3.8-10.6) k/uL RBC (3.80-5.40) m/uL Hgb (11.4-16.0) gm/dL Hct (34.0-46.0) % MCV (80.0-100.0) fL MCH (25.0-35.0) pg MCHC (31.0-37.0) g/dL RDW (11.5-15.5) % Plt Count (150-450) k/uL MPV Neutrophils % % Lymphocytes % % Monocytes % % Eosinophils % % Basophils % % Neutrophils # (1.3-7.7) k/uL Lymphocytes # (1.0-4.8) k/uL Monocytes # (0-1.0) k/uL Eosinophils # (0-0.7) k/uL Basophils # (0-0.2) k/uL PT (10.0-12.5) sec INR (<1.2) APTT (22.0-30.0) sec Sodium 139 (137-145) mmol/L Potassium 4.1 (3.5-5.1) mmol/L Chloride 101 (98-107) mmol/L Carbon Dioxide 27 (22-30) mmol/L Anion Gap 11 mmol/L BUN 15 (7-17) mg/dL Creatinine 0.67 (0.52-1.04) mg/dL Est GFR (CKD-EPI)AfAm >90 (>60 ml/min/1.73 sqM) Est GFR (CKD-EPI)NonAf 86 (>60 ml/min/1.73 sqM) Glucose 80 (74-99) mg/dL POC Glucose (mg/dL) (70-110) mg/dL POC Glu [employer] ID Calcium 9.4 (8.4-10.2) mg/dL Total Bilirubin 0.3 (0.2-1.3) mg/dL AST 33 (14-36) U/L ALT 15 (4-34) U/L Alkaline Phosphatase 154 H (38-126) U/L Creatine Kinase 67 (30-135) U/L Troponin I <0.012 (0.000-0.034) ng/mL Total Protein 6.9 (6.3-8.2) g/dL Albumin 3.8 (3.5-5.0) g/dL - NIH Stroke Scale 1a. Level of Consciousness: (0) alert 1b. LOC Questions: (0) answers correctly 1c. LOC Commands: (0) performs tasks correctly 2. Best Gaze: (0) normal 3. Visual: (0) no visual loss 4. Facial Palsy: (0) normal symmetrical movement 5a. Motor Arm Left: (0) no drift 5b. Motor Arm Right: (0) no drift 6a. Motor Leg Left: (0) no drift 6b. Motor Leg Right: (0) no drift 7. Limb Ataxia: (0) absent 8. Sensory: (0) normal 9. Best Language: (1) mild/moderate aphasia 10. Dysarthria: (1) mild/moderate dysarthria 11. Extinction/Inattention: (0) no abnormality - Thrombolytic Inclusion/Exclusion Thrombolytic Exclusion Criteria: Symptom Onset > 4.5 Hours - Medical Decision Making 73 female to the emergency department for evaluation of some slurred speech and symptoms are greater than 24 hours in onset. Patient not TPA candidate secondary to onset. Symptoms. Patient will be admitted for further evaluation management - Radiology Data Radiology results: report reviewed (CT brain CT had neck negative for acute disease), image reviewed - EKG Data -: EKG Interpreted by Me (EKG is sinus 73 VT 197 QRS 114 QTc 404) Past Medical History Past Medical History: Heart Failure, CVA/TIA, Fibromyalgia, GERD/Reflux, Hyperlipidemia, Hypertension, Osteoarthritis (OA), Pneumonia, Rheumatoid Arthritis (RA), Thyroid Disorder Additional Past Medical History / Comment(s): DJD,TIA -no residual ,lumbar spinal stenosis,connective tissue disorder, limited rom olvin wrists(fused), states pneumonia 2019 with renal failure & CHF., recent hospitalization for weakness and sob, currently has PT & OT and Home Health Care., uses cane., states she has a "awful taste & smell that makes her nauseated " and "violent nightmares." History of Any Multi-Drug Resistant Organisms: None Reported Past Surgical History: Orthopedic Surgery, Tonsillectomy, Tubal Ligation Additional Past Surgical History / Comment(s): ORIF LEFT TIB/FIB, LEFT FOOT SX, LASIK EYE SX, carpal tunnel olvin. Additional Past Anesthesia/Blood Transfusion Reaction / Comment(s): STATES POST OP ORTHO SX ENDED UP WITH TRACH, UNSURE IF PROBLEM WAS RELATED TO ANESTHESIA OR NOT in 1968- No problems since., CLAUSTROPHOBIC, no problems with prior blood transfusion. Past Psychological History: Anxiety, Depression Smoking Status: Never smoker Past Alcohol Use History: Occasional Past Drug Use History: None Reported - Past Family History Father Family Medical History: Cancer Additional Family Medical History / Comment(s): lung Brother(s) Family Medical History: Cancer Additional Family Medical History / Comment(s): stomach Mother Family Medical History: Renal Disease Additional Family Medical History / Comment(s): heart problem Course Vital Signs 09/11/23 09/11/23 09/11/23 12:39 14:16 16:00 Temperature 97 F L Pulse Rate 74 73 74 Respiratory 18 18 18 Rate Blood Pressure 131/78 104/80 137/96 O2 Sat by Pulse 95 95 95 Oximetry 09/11/23 17:41 Temperature Pulse Rate 74 Respiratory 18 Rate Blood Pressure 133/83 O2 Sat by Pulse 94 L Oximetry - Reevaluation(s) Reevaluation #1: Medical records reviewed Code stroke paged Reevaluation #2: Patient symptoms are persistent here in the ER Reevaluation #3: Patient informed of results and questions answered Patient is not a TPA candidate secondary to low NIH scale Reevaluation #4: Was pt. sent in by a medical professional or institution (JOSIAH Olivera, PRODUCTION ASSEMBLER, urgent care, hospital, or alf...) When possible be specific @ -no Did you speak to anyone other than the patient for history (EMS, parent, family, police, friend...)? What history was obtained from this source @ -no Did you review nursing and triage notes (agree or disagree)? Why? @ -agree Are old charts reviewed (outside hosp., previous admission, EMS record, old EKG, old radiological studies, urgent care reports/EKG's, alf records)? Report findings @ -yes Differential Diagnosis (chest pain, altered mental status, abdominal pain women, abdominal pain men, vaginal bleeding, weakness, fever, dyspnea, syncope, headache, dizziness, GI bleed, back pain, seizure, CVA, palpatations, mental health, musculoskeletal)? @ -prior EKG interpreted by me (3pts min.). @ -yes X-rays interpreted by me (1pt min.). @ -yes CT interpreted by me (1pt min.). @ -no U/S interpreted by me (1pt. min.). @ -no What testing was considered but not performed or refused? (CT, X-rays, U/S, labs)? Why? @ -none What meds were considered but not given or refused? Why? @ -none Did you discuss the management of the patient with other professionals (professionals i.e. JOSIAH Olivera, PRODUCTION ASSEMBLER, lab, RT, psych nurse, social work nurse, edge grinder machine, teacher, school resource officer, geriatric case manager)? Give summary @ -no Was smoking cessation discussed for >3mins.? @ -no Was critical care preformed (if so, how long)? @ -no Were there social determinants of health that impacted care today? How? (Homelessness, low income, unemployed, alcoholism, drug addiction, transportation, low edu. Level, literacy, decrease access to med. care, shelter, rehab)? @ -none Was there de-escalation of care discussed even if they declined (Discuss DNR or withdrawal of care, Hospice)? DNR status @ -no What co-morbidities impacted this encounter? (DM, HTN, Smoking, COPD, CAD, Cancer, CVA, ARF, Chemo, Hep., AIDS, mental health diagnosis, sleep apnea, morbid obesity)? @ -none Was patient admitted / discharged? Hospital course, mention meds given and route, prescriptions, significant lab abnormalities, going to OR and other pertinent info. @ - Undiagnosed new problem with uncertain prognosis? @ -no Drug Therapy requiring intensive monitoring for toxicity (Heparin, Nitro, Insulin, Cardizem)? @ -no Were any procedures done? @ -no Diagnosis/symptom? @ - Acute, or Chronic, or Acute on Chronic? @ -Acute Uncomplicated (without systemic symptoms) or Complicated (systemic symptoms)? @ -Complicated Side effects of treatment? @ -no Exacerbation, Progression, or Severe Exacerbation? @ -exacerbation Poses a threat to life or bodily function? How? (Chest pain, [place], NE, pneumonia, PE, COPD, DKA, ARF, appy, cholecystitis, CVA, Diverticulitis, Homicidal, Suicidal, threat to staff... and all critical care pts) @ -yes Reevaluation #5: Differential CVA Ischemic stroke, hemorrhagic stroke, brain tumor, atypical migraine, Wernicke's encephalopathy, seizure, multiple sclerosis, meningitis, encephalitis, hy poglycemia, Guillain-Scott, electrolytes disturbance, myasthenia gravis.... This is not meant to be an all-inclusive list - Consultations Consultation #1: Spoke with [facility] were agreeable to admit this patient Disposition Clinical Impression: Transient cerebral ischemia, Altered mental status, Weakness Disposition: ADMITTED IP TO THIS HOSP Condition: Good Is patient prescribed a controlled substance at d/c from ED?: No Time of Disposition: 14:45
[2023-09-11] MEDS ORDERED: SODIUM CHLORIDE 0.9% 1,000 ML IV STA (12:52)
--- NOTE | 2023-09-11 13:19 | CT ---
EXAMINATION TYPE: CT brain wo con for TPA DATE OF EXAM: 09/11/2023 COMPARISON: 02/03/2022 HISTORY: 73-year-old female CODE STROKE, Aphasia, slurred speech TECHNIQUE: Examination was done in axial plane without intravenous contrast. Coronal and sagittal r econstructions performed. CT DLP: 1070.6 mGycm Automated exposure control for dose reduction was used. FINDINGS: There is no evidence of acute intracranial hemorrhage, acute ischemic changes, mass, mass-effect, or extra-axial fluid collection. There is no effacement of cerebral sulci or basal subarachnoid cister ns. There is no hydrocephalus. There is no midline shift. Iglesias-white matter distinction is preserv ed. Patchy periventricular white matter hypodensities. Paranasal sinuses and mastoid air cells are well pneumatized. Orbits and globes are intact. IMPRESSION: Mild patchy changes of chronic small vessel ischemic disease. No acute intracranial abnormality seen.
--- NOTE | 2023-09-11 13:52 | CT ---
EXAMINATION TYPE: CT angio head neck DATE OF EXAM: 09/11/2023 COMPARISON: Brain same day HISTORY: 73-year-old female neurologic deficit, acute, stroke suspected, slurred speech TECHNIQUE: Contiguous axial scanning of the head and neck performed with IV Contrast, patient injecte d with 65 mL of Isovue 370. Coronal and sagittal reconstructions performed. 3-D reconstructions gener ated on a dedicated workstation. CT DLP: 472.9 mGycm Automated exposure control for dose reduction was used. FINDINGS: NECK: Conventional branching anatomy. The right vertebral artery is slightly more dominant but otherwise, both vertebral arteries are paten t throughout the course. The right common carotid artery is patent. Moderate atherosclerotic calcification at the right carotid bifurcation. There is mild, less than 20% narrowing at the origin of the right ICA by NASCET criteria. Short retropharyngeal course of the mid right ICA. The left common carotid artery is patent. Minimal hydrostatic changes at the left carotid bifurcation . Left ICA is widely patent. NECK: Right vertebral artery slightly more dominant. Both vertebral and basilar arteries are patent. Promin ent bilateral posterior communicating arteries supplying the plasterer maintenance. Remainder of the posterior circula tion is patent. The bilateral internal carotid arteries and remainder of the anterior circulation is patent. No aneurysmal change is identified. Dural venous sinuses are patent. IMPRESSION: 1. HEAD: NO HEMODYNAMICALLY SIGNIFICANT STENOSIS OF THE CAROTID OR VERTEBRAL ARTERIES OF THE NECK. TX LD, LESS THAN 20% PROXIMAL RIGHT ICA STENOSIS. 2. NECK: NO LARGE VESSEL INTRACRANIAL ARTERIAL OCCLUSION, SIGNIFICANT STENOSIS, OR ANEURYSM CHANGE IS SEEN.
[2023-09-11 13:59] LABS: ALT 15 U/L (4-34); AST 33 U/L (14-36); African American GFR (CKD) >90 (>60 ml/min/1.73 sqM); Albumin 3.8 g/dL (3.5-5.0); Alkaline Phosphatase 154 U/L (38-126); Anion Gap 11 mmol/L; Blood Urea Nitrogen 15 mg/dL (7-17); Calcium 9.4 mg/dL (8.4-10.2); Carbon Dioxide 27 mmol/L (22-30); Chloride 101 mmol/L (98-107); Creatine Kinase 67 U/L (30-135); Glucose 80 mg/dL (74-99); Non-African American GFR(CKD) 86 (>60 ml/min/1.73 sqM); Potassium 4.1 mmol/L (3.5-5.1); Sodium 139 mmol/L (137-145); Total Bilirubin 0.3 mg/dL (0.2-1.3); Total Protein 6.9 g/dL (6.3-8.2)
[2023-09-11 14:01] LABS: INR 0.9 (<1.2); Partial Thromboplastin Time 28.3 sec (22.0-30.0); Prothrombin Time 10.2 sec (10.0-12.5)
[2023-09-11 14:10] LABS: Basophils % (A) 1 %; Eosinophils # (A) 0.5 k/uL (0-0.7); Eosinophils % (A) 7 %; HCT 40.4 % (34.0-46.0); HGB 13.2 gm/dL (11.4-16.0); Lymphocytes # (A) 1.2 k/uL (1.0-4.8); Lymphocytes % (A) 16 %; MCH 32.8 pg (25.0-35.0); MCHC 32.6 g/dL (31.0-37.0); MCV 100.6 fL (80.0-100.0); Mean Platelet Volume 10.8; Monocytes # (A) 0.7 k/uL (0-1.0); Monocytes % (A) 9 %; Neutrophils # (A) 4.7 k/uL (1.3-7.7); Neutrophils % (A) 63 %; Platelet Count 275 k/uL (150-450); RBC 4.01 m/uL (3.80-5.40); WBC 7.4 k/uL (3.8-10.6)
[2023-09-11] MEDS ORDERED: MORPHINE SULFATE 4 MG/ML SYRINGE IVP STA (14:30)
[2023-09-11] MEDS ORDERED: ASPIRIN 325 MG TAB PO STA (14:45)
[2023-09-11] MEDS ORDERED: MELATONIN 5 MG TABLET PO PRN (19:58)
[2023-09-11] MEDS ORDERED: ACETAMINOPHEN TAB 325 MG TAB PO PRN (20:00)
[2023-09-11] MEDS: PRIMIDONE 50 MG TAB PO SCH (22:03)
[2023-09-11] MEDS: ATORVASTATIN 20 MG TAB PO SCH (22:03)
[2023-09-11] MEDS: ONDANSETRON ODT 4 MG TAB PO SCH (22:03)
[2023-09-11] MEDS: CEVIMELINE 30 MG CAP PO SCH (22:03)
[2023-09-11] MEDS: HEPARIN SODIUM,PORCINE 5,000 UNIT/ML 1 ML VIAL SQ SCH (22:03)
[2023-09-11] MEDS: PANTOPRAZOLE 40 MG TABLET PO SCH (22:03)
[2023-09-11] MEDS: busPIRone HCl 5 MG TAB PO SCH (22:03)
[2023-09-11] MEDS: oxyCODONE-APAP 10-325MG 1 EACH TAB PO PRN (22:03)
[2023-09-11] MEDS: METOPROLOL TARTRATE 25 MG TAB PO SCH (22:04)
[2023-09-11] MEDS: GABAPENTIN 300 MG CAP PO SCH (22:06)
[2023-09-12] MEDS: LEVOTHYROXINE 50 MCG TAB PO SCH (05:53)
[2023-09-12] MEDS: FUROSEMIDE 40 MG TAB PO SCH (08:19)
[2023-09-12] MEDS: GABAPENTIN 300 MG CAP PO SCH ×3 (08:19→21:59)
[2023-09-12] MEDS: PANTOPRAZOLE 40 MG TABLET PO SCH ×2 (08:19→21:59)
[2023-09-12] MEDS: VENLAFAXINE HCL ER 150 MG CAP PO SCH (08:19)
[2023-09-12] MEDS: OXcarbazepine 150 MG TAB PO SCH (08:19)
[2023-09-12] MEDS: ASPIRIN 325 MG TAB PO SCH (08:20)
[2023-09-12] MEDS: busPIRone HCl 5 MG TAB PO SCH ×2 (08:20→21:58)
[2023-09-12] MEDS: CEVIMELINE 30 MG CAP PO SCH ×2 (08:20→21:58)
[2023-09-12] MEDS: MULTIVITAMINS, THERA 1 EACH TAB PO SCH (08:20)
[2023-09-12] MEDS: METOPROLOL TARTRATE 25 MG TAB PO SCH ×2 (08:20→21:59)
[2023-09-12] MEDS: FOLIC ACID 1 MG TAB PO SCH (08:20)
[2023-09-12] MEDS: HEPARIN SODIUM,PORCINE 5,000 UNIT/ML 1 ML VIAL SQ SCH ×2 (08:21→21:58)
[2023-09-12] MEDS: TOPIRAMATE 25 MG TAB PO SCH (08:21)
[2023-09-12] MEDS: ONDANSETRON ODT 4 MG TAB PO SCH ×3 (08:21→21:59)
[2023-09-12] MEDS: oxyCODONE-APAP 10-325MG 1 EACH TAB PO PRN ×3 (08:30→22:17)
[2023-09-12 09:47] LABS: Chol/HDL Ratio 2.73 Ratio; LDL Cholesterol,Calculated 48.7 mg/dL (0.0-131.0)
--- NOTE | 2023-09-12 12:12 | P.CNNES ---
History of Present Illness Consult date: 09/12/23 Requesting physician: Kevin Gerber Reason for Consult: cva History of Present Illness: This is a 73-year-old woman who presents because of upper and lower extremity spasm with intermittent jerking. Patient states the spams with body/extremities jerking was intermittent but lasted the entire day yesterday and could not control it. Denies any loss of consciousness, urinary or bowel incontinence or tongue bite. Denies history of seizures. Denies any focal weakness, numbness, visual disturbance. Denies of headache. Patient has significant arthritis and was recently started on radiation therapy a few days ago. Her body jerks has been intermittent for a few years. Patient is on home medication of Gabapentin 300mg tid, wellbutrin, Trileptal, topamax, effexor, flexeril, buspirone, synthroid. Of note, patient has similar episode in 11/2020 and was seen by Dr. Fregoso for myclonic jerks and he felt due metabolic dysfunction, pulmonary condition and possible opiate/Neurotin. He decrease Neurotin. Please defer to his notes for further details. Some of the work-up during these episodes consisted of: MCV is 100.6 other rest of cbc with diffe is unremarkable. Sodium, glucose, AST/ALT, calcium, BUN/C are within normal limits. Vitamin B12: 1052 Folate >20 TSH: 0.954 CT head is reported as Mild patchy changes of chronic small vessel ischemic disease. NO acute intracranial abnormality seen. I personally reviewed CT head and agree there is no acute or subacute ischemia. No bleed. CTA head: Is reported as No hemodymanically significant stenosis of the carotid or vertebral arteries of the neck. Mild, less than 20% proximal right ICA stenosis. CTA neck: Is negative. Review of Systems The positive and negative as per HPI. Past Medical History Past Medical History: Heart Failure, CVA/TIA, Fibromyalgia, GERD/Reflux, Hyperli pidemia, Hypertension, Osteoarthritis (OA), Pneumonia, Rheumatoid Arthritis (RA), Thyroid Disorder Additional Past Medical History / Comment(s): DJD,TIA -no residual ,lumbar s demetra stenosis,connective tissue disorder, limited rom olvin wrists(fused), states pneumonia 2019 with renal failure & CHF., recent hospitalization for weakness and sob, currently has PT & OT and Home Health Care., uses cane., states she has a "awful taste & smell that makes her nauseated " and "violent nightmares." History of Any Multi-Drug Resistant Organisms: None Reported Past Surgical History: Orthopedic Surgery, Tonsillectomy, Tubal Ligation Additional Past Surgical History / Comment(s): ORIF LEFT TIB/FIB, LEFT FOOT SX, LASIK EYE SX, carpal tunnel olvin. Additional Past Anesthesia/Blood Transfusion Reaction / Comment(s): STATES POST OP ORTHO SX ENDED UP WITH TRACH, UNSURE IF PROBLEM WAS RELATED TO ANESTHESIA OR NOT in 1968- No problems since., CLAUSTROPHOBIC, no problems with prior blood transfusion. Past Psychological History: Anxiety, Depression Smoking Status: Never smoker Past Alcohol Use History: Occasional Additional Past Alcohol Use History / Comment(s): . Past Drug Use History: None Reported - Past Family History Father Family Medical History: Cancer Additional Family Medical History / Comment(s): lung Brother(s) Family Medical History: Cancer Additional Family Medical History / Comment(s): stomach Mother Family Medical History: Renal Disease Additional Family Medical History / Comment(s): heart problem Medications and Allergies Home Medications Medication Instructions Recorded Confirmed Type Levothyroxine Sodium [Synthroid] 50 mcg PO AC-BRKFST 08/26/14 09/11/23 History Atorvastatin [Lipitor] 20 mg PO HS 02/13/19 09/11/23 History Folic Acid 1 mg PO DAILY 02/13/19 09/11/23 History Furosemide [Lasix] 40 mg PO DAILY 11/28/20 09/11/23 History Cyclobenzaprine [Flexeril] 10 mg PO TID 09/01/21 09/11/23 History Etanercept [Enbrel] 50 mg SQ LAWTON 09/01/21 09/11/23 History Melatonin 5 mg PO HS PRN 11/11/21 09/11/23 History Carboxymethylcellulose Sodium 1 drop BOTH EYES QID PRN 09/11/23 09/11/23 History [Refresh Tears] Cevimeline [Evoxac] 30 mg PO BID 09/11/23 09/11/23 History Gabapentin [Neurontin] 300 mg PO TID 09/11/23 09/11/23 History Metoprolol Tartrate [Lopressor] 25 mg PO BID 09/11/23 09/11/23 History Multivit-Min/FA/Lycopen/Lutein 1 tab PO DAILY 09/11/23 09/11/23 History [Centrum Silver Tablet] Naproxen Sod/Diphenhydramine 1 tab PO HS PRN 09/11/23 09/11/23 History [Aleve Pm Caplet] OXcarbazepine [Trileptal] 150 mg PO DAILY 09/11/23 09/11/23 History Ondansetron Odt [Zofran Odt] 4 mg PO TID 09/11/23 09/11/23 History Pantoprazole [Protonix] 40 mg PO BID 09/11/23 09/11/23 History Potassium Gluconate 99 mg PO DAILY 09/11/23 09/11/23 History Primidone [Mysoline] 50 mg PO HS 09/11/23 09/11/23 History Topiramate [Topamax] 50 mg PO DAILY 09/11/23 09/11/23 History Venlafaxine HCl ER [Effexor Xr] 150 mg PO DAILY 09/11/23 09/11/23 History buPROPion [Wellbutrin] 100 mg PO BID 09/11/23 09/11/23 History busPIRone HCL 15 mg PO BID 09/11/23 09/11/23 History oxyCODONE HCL/ACETAMINOPHEN 1 tab PO Q6HR PRN 09/11/23 09/11/23 History [Percocet 10-325 mg] Allergies Allergy/AdvReac Type Severity Reaction Status Date / Time lamotrigine Allergy Unknown Verified 09/11/23 14:59 paclitaxel Allergy Unknown Verified 09/11/23 14:59 amlodipine besylate AdvReac severe Verified 09/11/23 14:59 [From [facility]] nausea vomiting fentanyl AdvReac severe Verified 09/11/23 14:59 nausea vomiting Physical Examination - Vital Signs Vital Signs: Vital Signs Temp Pulse Pulse Resp BP BP Pulse Ox 09/12/23 07:00 97.6 F 69 18 144/73 97 09/12/23 02:00 97.6 F 78 16 143/90 95 09/11/23 22:22 75 09/11/23 22:02 75 121/78 93 L 09/11/23 18:16 97.8 F 72 16 143/80 96 09/11/23 17:41 74 18 133/83 94 L 09/11/23 16:00 74 18 137/96 95 09/11/23 14:16 73 18 104/80 95 09/11/23 12:39 97 F L 74 18 131/78 95 Intake and Output 09/11/23 09/12/23 09/12/23 22:59 06:59 14:59 Intake Total 118 Output Total 500 Balance -500 118 Intake: Oral 118 Output: Urine 500 Other: Voiding Method Bedside Commode # Voids 1 Weight 68.039 kg General: Lying in bed and is not in acute distress. Neuro: The patient is awake, alert, oriented to self, place and time. Is following simple commands. No aphasia or neglect. Pupils are round, left is 4mm and right is 3mm and reactive to light. Visual vega are full to confrontation. EOM is intact and no nystagmus throughout. Normal facial sensation to touch throughout. No facial weakness. No dysarthria. Tongue is midline and moves side. Motor: Strength is somewhat limited because of patient significant arthritis. But lifting all extremities above gravity (uppers > lowers) and no focality. Normal tone and bulk. Has significant arthritic changes of distal upper extremities. Sensation: Normal to touch throughout. Reflex: 2+ throughout. Plantars are mute bilaterally. Results - Laboratory Findings CBC and BMP: 09/11/23 13:04 09/11/23 13:04 Abnormal Lab Findings: Abnormal Labs 09/11/23 09/11/23 09/12/23 13:04 13:04 05:34 MCV 100.6 H Alkaline Phosphatase 154 H Triglycerides 156.00 H Vitamin B12 1052.0 H Assessment and Plan Assessment: This is a 73 y/o woman who presents for myoclonic jerks. She has been having it since 2020. She was evaluated by Dr. Fregoso on 11/2020 for same problem and at that he felt due to pulmonary and possible medication use Opiates/Neurotin. She denies loss of consciousness, urinary or bowel incontinence or tongue bite. Intermittent Myoclonic jerks that is ongoing: Possible medication use and p atient is on Polypharmacy. Is Opiates, neurotin, Wellbutirn, Busprione, Primidone, Flexeril. I cannot exclude seizure but I doubt it Arthritis (Rheumatoid and Osteoarthritis) Polypharmacy Plan: I ordered routine EEG and MRI Brain w/ and w/o. I feel patient is on polypharmacy and recommend for some of her medications to be modified by her PCP. Trileptal is ordered and pending. Will defer the rest of medical management to the primary team. Thank you for the consultation. Time with Patient: Greater than 30
--- NOTE | 2023-09-12 21:28 | P.HPIM ---
History of Present Illness H&P Date: 09/12/23 Chief Complaint: Strokelike symptoms Patient is a 73-year-old female with a known history of CVA/TIA with no residual deficits, fibromyalgia, hypertension, hyperlipidemia, osteoarthritis and rheumatoid arthritis and hypothyroidism, anxiety/depression presents to ER with complaints of slurred speech and left-sided weakness. Patient states that yesterday she felt very weak and leaned onto the floor. States that Left leg is more weak than the right. Patient stayed on the floor for about 5 to 10 minutes and crawled to the phone and called her daughter. Denies any loss of consciousness. No bladder or bowel incontinence. Patient is also complaining of spasms in the extremities and jerking movements. Denies any numbness or tingling. Patient felt her speech is slurry. Denies any diplopia. No headache or dizziness or lightheadedness. Patient does have history of myoclonic jerks November 2020 thought to be due to opiates and Neurontin. Dose decreased at that time. EKG showed sinus rhythm. CT head showed mild patchy changes of chronic small vessel ischemic disease. No acute intracranial abnormality seen. CT angiogram of the head and neck showed no hemodynamically significant stenosis. No large vessel intracranial arterial occlusion. Laboratory data showed WBC 7.4 hemoglobin 13.1 platelets 275 B12 1052 folate greater than 20 and TSH 0.9. LDL 48.7. Other laboratory data reviewed. Review of Systems Constitutional: Patient denies any fever or chills . Generalized weakness. Abdomen: Patient denied any nausea or vomiting or abd. pain Cardiovascular: Patient denies any chest pain or short of breath no palpitations. Respiratory: patient denied any cough . no sputum production. No shortness of breath Neurologic: Patient denied any numbness or tingling or headache. Complains of slurred speech and jerky movements. Musculoskeletal: Patient denies any complaints of joint swelling or deformity. Skin: Negative Psychiatric: Negative Endocrine: No heat or cold intolerance. No recent weight gain. Genitourinary: No dysuria or hematuria. All other 14 point ROS negative except the above Past Medical History Past Medical History: Heart Failure, CVA/TIA, Fibromyalgia, GERD/Reflux, Hyper lipidemia, Hypertension, Osteoarthritis (OA), Pneumonia, Rheumatoid Arthritis (RA), Thyroid Disorder Additional Past Medical History / Comment(s): DJD,TIA -no residual ,lumbar spinal stenosis,connective tissue disorder, limited rom olvin wrists(fused), states pneumonia 2019 with renal failure & CHF., recent hospitalization for weakness and sob, currently has PT & OT and Home Health Care., uses cane., states she has a "awful taste & smell that makes her nauseated " and "violent nightmares." History of Any Multi-Drug Resistant Organisms: None Reported Past Surgical History: Orthopedic Surgery, Tonsillectomy, Tubal Ligation Additional Past Surgical History / Comment(s): ORIF LEFT TIB/FIB, LEFT FOOT SX, LASIK EYE SX, carpal tunnel olvin. Additional Past Anesthesia/Blood Transfusion Reaction / Comment(s): STATES POST OP ORTHO SX ENDED UP WITH TRACH, UNSURE IF PROBLEM WAS RELATED TO ANESTHESIA OR NOT in 1968- No problems since., CLAUSTROPHOBIC, no problems with prior blood transfusion. Past Psychological History: Anxiety, Depression Smoking Status: Never smoker Past Alcohol Use History: Occasional Additional Past Alcohol Use History / Comment(s): . Past Drug Use History: None Reported - Past Family History Father Family Medical History: Cancer Additional Family Medical History / Comment(s): lung Brother(s) Family Medical History: Cancer Additional Family Medical History / Comment(s): stomach Mother Family Medical History: Renal Disease Additional Family Medical History / Comment(s): heart problem Medications and Allergies Home Medications Medication Instructions Recorded Confirmed Type Levothyroxine Sodium [Synthroid] 50 mcg PO AC-BRKFST 08/26/14 09/11/23 History Atorvastatin [Lipitor] 20 mg PO HS 02/13/19 09/11/23 History Folic Acid 1 mg PO DAILY 02/13/19 09/11/23 History Furosemide [Lasix] 40 mg PO DAILY 11/28/20 09/11/23 History Cyclobenzaprine [Flexeril] 10 mg PO TID 09/01/21 09/11/23 History Etanercept [Enbrel] 50 mg SQ LAWTON 09/01/21 09/11/23 History Melatonin 5 mg PO HS PRN 11/11/21 09/11/23 History Carboxymethylcellulose Sodium 1 drop BOTH EYES QID PRN 09/11/23 09/11/23 History [Refresh Tears] Cevimeline [Evoxac] 30 mg PO BID 09/11/23 09/11/23 History Gabapentin [Neurontin] 300 mg PO TID 09/11/23 09/11/23 History Metoprolol Tartrate [Lopressor] 25 mg PO BID 09/11/23 09/11/23 History Multivit-Min/FA/Lycopen/Lutein 1 tab PO DAILY 09/11/23 09/11/23 History [Centrum Silver Tablet] Naproxen Sod/Diphenhydramine 1 tab PO HS PRN 09/11/23 09/11/23 History [Aleve Pm Caplet] OXcarbazepine [Trileptal] 150 mg PO DAILY 09/11/23 09/11/23 History Ondansetron Odt [Zofran Odt] 4 mg PO TID 09/11/23 09/11/23 History Pantoprazole [Protonix] 40 mg PO BID 09/11/23 09/11/23 History Potassium Gluconate 99 mg PO DAILY 09/11/23 09/11/23 History Primidone [Mysoline] 50 mg PO HS 09/11/23 09/11/23 History Topiramate [Topamax] 50 mg PO DAILY 09/11/23 09/11/23 History Venlafaxine HCl ER [Effexor Xr] 150 mg PO DAILY 09/11/23 09/11/23 History buPROPion [Wellbutrin] 100 mg PO BID 09/11/23 09/11/23 History busPIRone HCL 15 mg PO BID 09/11/23 09/11/23 History oxyCODONE HCL/ACETAMINOPHEN 1 tab PO Q6HR PRN 09/11/23 09/11/23 History [Percocet 10-325 mg] Allergies Allergy/AdvReac Type Severity Reaction Status Date / Time lamotrigine Allergy Unknown Verified 09/11/23 14:59 paclitaxel Allergy Unknown Verified 09/11/23 14:59 amlodipine besylate AdvReac severe Verified 09/11/23 14:59 [From [facility]] nausea vomiting fentanyl AdvReac severe Verified 09/11/23 14:59 nausea vomiting Physical Exam Vitals: Vital Signs Temp Pulse Pulse Resp BP BP Pulse Ox 09/12/23 07:00 97.6 F 69 18 144/73 97 09/12/23 02:00 97.6 F 78 16 143/90 95 09/11/23 22:22 75 09/11/23 22:02 75 121/78 93 L 09/11/23 18:16 97.8 F 72 16 143/80 96 09/11/23 17:41 74 18 133/83 94 L 09/11/23 16:00 74 18 137/96 95 09/11/23 14:16 73 18 104/80 95 Intake and Output 09/11/23 09/12/23 09/12/23 22:59 06:59 14:59 Intake Total 118 Output Total 500 Balance -500 118 Intake: Oral 118 Output: Urine 500 Other: Voiding Method Bedside Commode # Voids 1 Weight 68.039 kg PHYSICAL EXAMINATION: Patient is lying in the bed comfortably, no acute distress, awake alert and oriented.. HEENT: Normocephalic. Neck is supple. Pupils reactive. Nostrils clear. Oral cavity is moist. Neck reveals no JVD, carotid bruits, or thyromegaly. CHEST EXAMINATION: Trachea is central. Symmetrical expansion. Lung vega clear to auscultation and percussion. CARDIAC: Normal S1, S2 with no gallops. No murmurs ABDOMEN: Soft. Bowel sounds present. Nontender. No organomegaly. No abdominal bruits. Extremities: reveal no edema. No clubbing or cyanosis Neurologically awake, alert, oriented x3. Able to move all extremities. Muscle strength 5 out of 5 in all 4 extremities. No gross focal deficits noted Skin: No rash or skin lesions. Psychiatric: Coperative. Nonsuicidal, Musculoskeletal: No joint swelling. Arthritic changes. Results CBC & Chem 7: 09/11/23 13:04 09/11/23 13:04 Labs: Abnormal Lab Results - Last 24 Hours (Table) 09/11/23 09/11/23 09/12/23 Range/Units 13:04 13:04 05:34 MCV 100.6 H (80.0-100.0) fL Alkaline Phosphatase 154 H (38-126) U/L Triglycerides 156.00 H (0.00-149.00) mg/dL Vitamin B12 1052.0 H (200.0-944.0) pg/mL Thrombosis Risk Factor Assmnt - DVT/VTE Prophylaxis DVT/VTE Prophylaxis: Pharmacologic Prophylaxis ordered - Choose All That Apply Any of the Below Risk Factors Present?: Yes Each Factor Represents 1 point: Obesity (BMI >25) Other Risk Factors: Yes Each Risk Factor Represents 3 Points: Age 75 years or older Other congenital or acquired thrombophilia - If yes, enter type in comment: No Thrombosis Risk Factor Assessment Total Risk Factor Score: 4 Thrombosis Risk Factor Assessment Level: Moderate Risk Assessment and Plan Assessment: Slurred speech and left-sided weakness. Acute CVA Myoclonic jerks with possible polypharmacy Rheumatoid arthritis Fibromyalgia Hypertension Hyperlipidemia GERD Osteoarthritis Hypothyroidism History of CVA/TIA with no residual weakness Chronic CHF with preserved extraction Anxiety/depression DVT prophylaxis with heparin subcu Plan: Patient will be continued on telemetry and continue with neurochecks. CT head and CT angiogram of the head and neck was done. MRI of the brain was ordered and also EEG as per neurology recommendations. Patient is being continued on BuSpar, cevimeline, gabapentin, Trileptal, Mysoline, topiramate, Effexor. Continue to titrate medications and follow-up closely. Time with Patient: Greater than 30
[2023-09-12] MEDS: ATORVASTATIN 20 MG TAB PO SCH (21:58)
[2023-09-12] MEDS: PRIMIDONE 50 MG TAB PO SCH (21:59)
--- NOTE | 2023-09-13 02:47 | EEG ---
ELECTROENCEPHALOGRAM REPORT RELEVANT MEDICATIONS: 1. Trileptal. 2. Gabapentin. 3. BuSpar. 4. Primidone. 5. Topiramate. EEG TYPE: A routine 21-channel EEG with video using the 10/20 electrode placement system. DESCRIPTION: Wakefulness and drowsiness are obtained. During awake state, background consists of [id number] voltage of 8.5 to 9.5 hertz activity that is somewhat poorly modulated and sustained. There is no physiological stage 2 sleep architecture. There is no focal slowing. Interictal and ictal is none. ACTIVATION PROCEDURE: Photic stimulation did not evoke a posterior driving response. There is no abnormality during the photic stimulation. Hyperventilation is not performed. CLINICAL INTERPRETATION: This is a normal routine EEG. There is no focal slowing, epileptiform discharge, or seizure on the EEG. Clinical correlation is recommended. CHARMAINE / CASSANDRA: [id number] /
[2023-09-13] MEDS: LEVOTHYROXINE 50 MCG TAB PO SCH (06:26)
[2023-09-13 07:27] VITALS: RESP 18
[2023-09-13 08:36] LABS: BUN/Creat Ratio 20.25 Ratio (12.00-20.00); Blood Urea Nitrogen 16.2 mg/dL (9.0-27.0); Calcium 9.3 mg/dL (8.7-10.3); Carbon Dioxide 29.1 mmol/L (21.6-31.8); Chloride 100 mmol/L (96-109); Glucose 76 mg/dL (70-110); Potassium 4.2 mmol/L (3.5-5.5); Sodium 139 mmol/L (135-145)
[2023-09-13] MEDS: ONDANSETRON ODT 4 MG TAB PO SCH ×2 (09:28→15:59)
[2023-09-13] MEDS: HEPARIN SODIUM,PORCINE 5,000 UNIT/ML 1 ML VIAL SQ SCH (09:28)
[2023-09-13] MEDS: METOPROLOL TARTRATE 25 MG TAB PO SCH (09:28)
[2023-09-13] MEDS: ASPIRIN 325 MG TAB PO SCH (09:29)
[2023-09-13] MEDS: busPIRone HCl 5 MG TAB PO SCH (09:29)
[2023-09-13] MEDS: OXcarbazepine 150 MG TAB PO SCH (09:29)
[2023-09-13] MEDS: TOPIRAMATE 25 MG TAB PO SCH (09:29)
[2023-09-13] MEDS: VENLAFAXINE HCL ER 150 MG CAP PO SCH (09:29)
[2023-09-13] MEDS: CEVIMELINE 30 MG CAP PO SCH (09:29)
[2023-09-13] MEDS: MULTIVITAMINS, THERA 1 EACH TAB PO SCH (09:29)
[2023-09-13] MEDS: GABAPENTIN 300 MG CAP PO SCH ×2 (09:29→15:59)
[2023-09-13] MEDS: FUROSEMIDE 40 MG TAB PO SCH (09:30)
[2023-09-13] MEDS: FOLIC ACID 1 MG TAB PO SCH (09:30)
[2023-09-13] MEDS: PANTOPRAZOLE 40 MG TABLET PO SCH (09:30)
[2023-09-13] MEDS ORDERED: NA PHOS,M-B/NA PHOS,DI-BA 133 ML ENEMA RECTAL ONE (09:31)
[2023-09-13] MEDS ORDERED: SENNOSIDES 8.6 MG TAB PO SCH (09:45)
--- NOTE | 2023-09-13 10:56 | P.PN ---
Subjective Progress Note Date: 09/13/23 I am following-up with patient and she feels she is doing well. No further myoclonic jerks. Denies of any new focal weakness or numbness or any new neurological issues. Objective - Vital Signs Vital signs: Vital Signs Temp 97.8 F 09/13/23 07:00 Pulse 72 09/13/23 07:00 Resp 18 09/13/23 07:00 BP 127/84 09/13/23 07:00 Pulse Ox 91 L 09/13/23 08:35 FiO2 Intake & Output 09/12/23 09/13/23 09/13/23 18:59 06:59 18:59 Intake Total 598 90 Balance 598 90 Intake: Oral 598 90 Other: Voiding Method Toilet # Voids 2 3 - Exam General: Lying in bed and is not in acute distress. Neuro: The patient is awake, alert, oriented to self, place and time. Is following simple commands. No aphasia or neglect. Pupils are round, left is 4mm and right is 3mm and reactive to light. Visual vega are full to confrontation. EOM is intact and no nystagmus throughout. Normal facial sensation to touch throughout. No facial weakness. No dysarthria. Tongue is midline and moves side. Motor: Strength is somewhat limited because of patient significant arthritis. But lifting all extremities above gravity (uppers > lowers) and no focality. Normal tone and bulk. Has significant arthritic changes of distal upper extremities. Sensation: Normal to touch throughout. Reflex: 2+ throughout. Plantars are mute bilaterally. Some of the work-up during these episodes consisted of: MCV is 100.6 other rest of cbc with diffe is unremarkable. Sodium, glucose, AST/ALT, calcium, BUN/C are within normal limits. Vitamin B12: 1052 Folate >20 TSH: 0.954 Lipid panel: TG 156, Cholestrol 126, LDL [address] head is reported as Mild patchy changes of chronic small vessel ischemic disease. NO acute intracranial abnormality seen. I personally reviewed CT head and agree there is no acute or subacute ischemia. No bleed. CTA head: Is reported as No hemodymanically significant stenosis of the carotid or vertebral arteries of the neck. Mild, less than 20% proximal right ICA stenosis. CTA neck: Is negative. Routine EEG is normal. - Labs CBC & Chem 7: 09/11/23 13:04 09/13/23 05:28 Labs: Abnormal Lab Results - Last 24 Hours (Table) 09/13/23 Range/Units 05:28 BUN/Creatinine Ratio 20.25 H (12.00-20.00) Ratio Assessment and Plan Assessment: This is a 73 y/o woman who presents for myoclonic jerks. She has been having it since 2020. She was evaluated by Dr. Fregoso on 11/2020 for same problem and at that he felt due to pulmonary and possible medication use Opiates/Neurotin. She denies loss of consciousness, urinary or bowel incontinence or tongue bite. Intermittent Myoclonic jerks that is ongoing: Possible medication use and patient is on Polypharmacy. Is Opiates, neurotin, Wellbutirn, Busprione, Primidone, Flexeril. I cannot exclude seizure. EEG is normal. No further myoclonic jerks. Arthritis (Rheumatoid and Osteoarthritis) Polypharmacy Plan: Cannot obtain MRI Brain w/ and w/o since has stimulator. But patient stated she can have MRI at [facility] even with stimulator. Therefore, recommend MRI Brain as outpatient and to be coordinated by her Neurologist. I feel patient is on polypharmacy and recommend for some of her medications to be modified by her PCP and neurologist as outpatient. Recommend a prolonged EEG as outpatient to capture myoclonic jerks to determine if any epileptic in nature. I will defer the work-up to her outpatient neurologist. Trileptal is ordered and pending. Will defer the rest of medical management to the primary team. Patient follows-up with Dr. Shah as outpatient and she needs to follow-up with them within 1-2 weeks. The plan is discussed with patient, primary team N.P. and her nurse. There is no further neurological work-up. Will sign off. Please reconsult if needed. Time with Patient: Less than 30
[2023-09-13 14:42] VITALS: BP 135/66; PULSE 80; TEMP 98.1
[2023-09-13] MEDS: oxyCODONE-APAP 10-325MG 1 EACH TAB PO PRN (16:02)
--- NOTE | 2023-09-15 06:43 | P.DS ---
Providers Date of admission: 09/11/23 14:45 Expected date of discharge: 09/13/23 Attending physician: Ruddy Shannon Consults: 09/11/23 14:45 Consult Physician Routine Consulting Provider: Narinder Davies Consult Reason/Comments: cva Do you want consulting provider notified?: Yes Primary care physician: Steve Stevens Hospital Course: Final diagnosis Slurred speech and left-sided weakness. Acute CVA ruled out Myoclonic jerks with possible polypharmacy Rheumatoid arthritis Fibromyalgia Hypertension Hyperlipidemia GERD Osteoarthritis Hypothyroidism History of CVA/TIA with no residual weakness Chronic CHF with preserved extraction Anxiety/depression DVT prophylaxis with heparin subcu Discharge disposition Patient is being discharged in a stable condition with guarded prognosis to home. Patient will follow-up with Dr. Stevens in the outpatient setting upon discharge. Patient is to continue with current medications and outpatient follow-up with neurologist as scheduled. Total time taken is greater than 35 minutes. Hospital course This is a 73-year-old female who was recently admitted with slurred speech and left-sided weakness being evaluated by neurology. Patient with history of CVA/TIA and CVA was ruled out this admission. Most likely medication effect and adjustments to medications have been made. Patient has been cleared by neurology recommending outpatient follow-up with her neurologist for further studies and possible EMG studies. please refer to consultation notes for further HPI.Currently no reports of chest pain, shortness of breath, or palpitations. Patient is afebrile. No reports of nausea or vomiting and patient is tolerating diet. Patient will be discharged home today.guarded prognosis Physical exam: Gen: This is a 73-year-old female who is awake, alert and oriented 3, well- developed and well-nourished HEENT: Head is atraumatic, normocephalic. Pupils equal, round. Sclerae is anicteric. NECK: Supple. No JVD. No lymphadenopathy. No thyromegaly. LUNGS: Clear to auscultation. No wheezes or rhonchi. No intercostal retractions. HEART: Regular rate and rhythm. No murmur. ABDOMEN: Soft. Bowel sounds are present. No masses. No tenderness. EXTREMITIES: No pedal edema. No calf tenderness. NEUROLOGICAL: Patient is awake, alert and oriented x3. Cranial nerves 2 through 12 are grossly intact. Please refer to medication reconciliation sheet for a list of medications. The impression and plan of care has been dictated by Natacha Lucas, Nurse Practitioner as directed. Dr. Ariadna MD I have performed a history and examination and MDM of this patient, discussed the same with the dictator, and agree with the dictator's assessment and plan as written ,documented as a scribe. Based on total visit time, I have performed more than 50% of the visit. Patient Condition at Discharge: Good Plan - Discharge Summary Discharge Rx Participant: No New Discharge Prescriptions: New Acetaminophen Tab [Tylenol] 650 mg PO Q6HR PRN tab PRN Reason: Fever And/ Or Pain Aspirin 81 mg PO DAILY #30 tab Continue Levothyroxine Sodium [Synthroid] 50 mcg PO AC-BRKFST Folic Acid 1 mg PO DAILY Atorvastatin [Lipitor] 20 mg PO HS Furosemide [Lasix] 40 mg PO DAILY Etanercept [Enbrel] 50 mg SQ LAWTON busPIRone HCL 15 mg PO BID Cevimeline [Evoxac] 30 mg PO BID Metoprolol Tartrate [Lopressor] 25 mg PO BID oxyCODONE HCL/ACETAMINOPHEN [Percocet 10-325 mg] 1 tab PO Q6HR PRN PRN Reason: Severe Pain (Scale 7 To 10) Topiramate [Topamax] 50 mg PO DAILY Venlafaxine HCl ER [Effexor XR] 150 mg PO DAILY Carboxymethylcellulose Sodium [Refresh Tears] 1 drop BOTH EYES QID PRN PRN Reason: dry eyes Potassium Gluconate 99 mg PO DAILY Naproxen Sod/Diphenhydramine [Aleve Pm Caplet] 1 tab PO HS PRN PRN Reason: Pain Melatonin 5 mg PO HS PRN PRN Reason: sleep Gabapentin [Neurontin] 300 mg PO TID Ondansetron Odt [Zofran ODT] 4 mg PO TID OXcarbazepine [Trileptal] 150 mg PO DAILY Pantoprazole [Protonix] 40 mg PO BID Primidone [Mysoline] 50 mg PO HS Multivit-Min/FA/Lycopen/Lutein [Centrum Silver Tablet] 1 tab PO DAILY Discontinued Cyclobenzaprine [Flexeril] 10 mg PO TID buPROPion [Wellbutrin] 100 mg PO BID Discharge Medication List Levothyroxine Sodium [Synthroid] 50 mcg PO AC-BRKFST 08/26/14 [History] Atorvastatin [Lipitor] 20 mg PO HS 02/13/19 [History] Folic Acid 1 mg PO DAILY 02/13/19 [History] Furosemide [Lasix] 40 mg PO DAILY 11/28/20 [History] Etanercept [Enbrel] 50 mg SQ LAWTON 09/01/21 [History] Melatonin 5 mg PO HS PRN 11/11/21 [History] Carboxymethylcellulose Sodium [Refresh Tears] 1 drop BOTH EYES QID PRN 09/11/23 [History] Cevimeline [Evoxac] 30 mg PO BID 09/11/23 [History] Gabapentin [Neurontin] 300 mg PO TID 09/11/23 [History] Metoprolol Tartrate [Lopressor] 25 mg PO BID 09/11/23 [History] Multivit-Min/FA/Lycopen/Lutein [Centrum Silver Tablet] 1 tab PO DAILY 09/11/23 [History] Naproxen Sod/Diphenhydramine [Aleve Pm Caplet] 1 tab PO HS PRN 09/11/23 [History] OXcarbazepine [Trileptal] 150 mg PO DAILY 09/11/23 [History] Ondansetron Odt [Zofran ODT] 4 mg PO TID 09/11/23 [History] Pantoprazole [Protonix] 40 mg PO BID 09/11/23 [History] Potassium Gluconate 99 mg PO DAILY 09/11/23 [History] Primidone [Mysoline] 50 mg PO HS 09/11/23 [History] Topiramate [Topamax] 50 mg PO DAILY 09/11/23 [History] Venlafaxine HCl ER [Effexor XR] 150 mg PO DAILY 09/11/23 [History] busPIRone HCL 15 mg PO BID 09/11/23 [History] oxyCODONE HCL/ACETAMINOPHEN [Percocet 10-325 mg] 1 tab PO Q6HR PRN 09/11/23 [History] Acetaminophen Tab [Tylenol] 650 mg PO Q6HR PRN tab 09/13/23 [Rx] Aspirin 81 mg PO DAILY #30 tab 09/13/23 [Rx] Follow up Appointment(s)/Referral(s): Marika Prieto MD [REFERRING] - 1 Week (Office will call with appointment time and date) Steve Stevens MD [Primary Care Provider] - 1-2 days [facility], [NON-STAFF] - ([facility] will call you to schedule your in home physical therapy visits. You have to see Dr. Stevens in the office before [facility] can see you.) Patient Instructions/Handouts: Transient Ischemic Attack (DC) Activity/Diet/Wound Care/Special Instructions: Activity Limited until follow-up Follow-up with primary care provider on discharge follow-up with neurologist this week Discuss all medications and recommend limiting and removing some of the medications Patient follow-up with neurology outpatient for MRI as well as prolonged EEG and possible nerve studies Discharge Disposition: HOME WITH HOME HEALTH SERVICES
== END 2023-09-13 16:50 | disposition home health service (06) ==
LOC: EC 12:35 → 6NMEDSUR 14:45
PROVIDERS: ADMIT Hospitalist; ATTEND Hospitalist
DX: I63.9 Cerebral infarction, unspecified (principal); G25.3 Myoclonus; I11.0 Hypertensive heart disease with heart failure; I50.9 Heart failure, unspecified; I65.21 Occlusion and stenosis of right carotid artery; M06.9 Rheumatoid arthritis, unspecified; K21.9 Gastro-esophageal reflux disease without esophagitis; M79.7 Fibromyalgia; Z79.82 Long term (current) use of aspirin; Z79.890 Hormone replacement therapy; Z79.899 Other long term (current) drug therapy; Z86.73 Personal history of transient ischemic attack (TIA), and cerebral infarction without residual deficits; E78.5 Hyperlipidemia, unspecified; E03.9 Hypothyroidism, unspecified
CPT/HCPCS: 96372 ×3; 99291; 36415; 94760; 95816; 93005; 97162; 80061; 80053; 80048; 84443; 80183; 82607; 82550; 82746; 84484; 85025; 85610; 85730; 70496; 70450; 70498; G0378 ×3; J1644 ×3; Q9967

== ENCOUNTER 2024-06-12 13:00 | Emergency (ER) | payer MEDICARE ==
[2024-06-12 13:09] VITALS: RESP 18; TEMP 98.4
[2024-06-12] MEDS: MORPHINE SULFATE 4 MG/ML SYRINGE IM STA ×2 (14:01→15:37)
[2024-06-12] MEDS: predniSONE 20 MG TAB PO STA (14:02)
[2024-06-12] MEDS: LIDOCAINE 4% PATCH TOPICAL STA (14:06)
--- NOTE | 2024-06-12 14:23 | ED ---
General Adult HPI - General Chief complaint: Back Pain/Injury Stated complaint: olvin. arm pain Time Seen by Provider: 06/12/24 13:40 Source: patient, RN notes reviewed, old records reviewed Mode of arrival: ambulatory Limitations: no limitations - History of Present Illness Initial comments: Patient is a 74-year-old female who presents emergency department complaining of neck pain. Patient has a history of heart failure, fibromyalgia, chronic neck pain status post cervical spine surgery done multiple months ago. Is complaining of worsening pain over the last few days but worse today. Also has acute on chronic shooting pains down both arms and pain in the muscles next in the neck. Denies chest pain or shortness of breath. Denies abdominal pain. States the pain is severe. She is on chronic pain control. Is unable to get into see her neurologist which is why she is here for evaluation. Denies any new injuries. Denies any lower extremity weakness or numbness. Still able to ambulate. Has no other acute complaints at this time. - Related Data Home Medications Medication Instructions Recorded Confirmed Levothyroxine Sodium [Synthroid] 50 mcg PO AC-BRKFST 08/26/14 09/11/23 Atorvastatin [Lipitor] 20 mg PO HS 02/13/19 09/11/23 Folic Acid 1 mg PO DAILY 02/13/19 09/11/23 Furosemide [Lasix] 40 mg PO DAILY 11/28/20 09/11/23 Etanercept [Enbrel] 50 mg SQ LAWTON 09/01/21 09/11/23 Melatonin 5 mg PO HS PRN 11/11/21 09/11/23 Carboxymethylcellulose Sodium 1 drop BOTH EYES QID PRN 09/11/23 09/11/23 [Refresh Tears] Cevimeline [Evoxac] 30 mg PO BID 09/11/23 09/11/23 Gabapentin [Neurontin] 300 mg PO TID 09/11/23 09/11/23 Metoprolol Tartrate [Lopressor] 25 mg PO BID 09/11/23 09/11/23 Multivit-Min/FA/Lycopen/Lutein 1 tab PO DAILY 09/11/23 09/11/23 [Centrum Silver Tablet] Naproxen Sod/Diphenhydramine 1 tab PO HS PRN 09/11/23 09/11/23 [Aleve Pm Caplet] OXcarbazepine [Trileptal] 150 mg PO DAILY 09/11/23 09/11/23 Ondansetron Odt [Zofran ODT] 4 mg PO TID 09/11/23 09/11/23 Pantoprazole [Protonix] 40 mg PO BID 09/11/23 09/11/23 Potassium Gluconate 99 mg PO DAILY 09/11/23 09/11/23 Primidone [Mysoline] 50 mg PO HS 09/11/23 09/11/23 Topiramate [Topamax] 50 mg PO DAILY 09/11/23 09/11/23 Venlafaxine HCl ER [Effexor XR] 150 mg PO DAILY 09/11/23 09/11/23 busPIRone HCL 15 mg PO BID 09/11/23 09/11/23 oxyCODONE HCL/ACETAMINOPHEN 1 tab PO Q6HR PRN 09/11/23 09/11/23 [Percocet 10-325 mg] Previous Rx's Medication Instructions Recorded Acetaminophen Tab [Tylenol] 650 mg PO Q6HR PRN tab 09/13/23 Aspirin 81 mg PO DAILY #30 tab 09/13/23 predniSONE [Deltasone] 40 mg PO DAILY 5 Days #10 tab 06/12/24 Allergies Allergy/AdvReac Type Severity Reaction Status Date / Time lamotrigine Allergy Unknown Verified 06/12/24 13:16 paclitaxel Allergy Unknown Verified 06/12/24 13:16 amlodipine besylate AdvReac severe Verified 06/12/24 13:16 [From [facility]] nausea vomiting fentanyl AdvReac severe Verified 06/12/24 13:16 nausea vomiting Review of Systems ROS Statement: Those systems with pertinent positive or pertinent negative responses have been documented in the HPI. Review of Systems: CONST: Denies fever EYES: Denies blurry vision ENT: Denies nasal congestion C/V: Denies Chest pain RESP: Denies shortness of breath GI: Denies abdominal pain : Denies dysuria SKIN: Denies rash. MSK: Endorses chronic neck pain NEURO: Denies headache ROS Other: All systems not noted in ROS Statement are negative. Past Medical History Past Medical History: Heart Failure, CVA/TIA, Fibromyalgia, GERD/Reflux, Hyperlipidemia, Hypertension, Osteoarthritis (OA), Pneumonia, Rheumatoid Arthritis (RA), Thyroid Disorder Additional Past Medical History / Comment(s): DJD,TIA -no residual ,lumbar spinal stenosis,connective tissue disorder, limited rom olvin wrists(fused), states pneumonia 2019 with renal failure & CHF., recent hospitalization for weakness and sob, currently has PT & OT and Home Health Care., uses cane., states she has a "awful taste & smell that makes her nauseated " and "violent nightmares." History of Any Multi-Drug Resistant Organisms: None Reported Past Surgical History: Orthopedic Surgery, Tonsillectomy, Tubal Ligation Additional Past Surgical History / Comment(s): ORIF LEFT TIB/FIB, LEFT FOOT SX, LASIK EYE SX, carpal tunnel olvin. Additional Past Anesthesia/Blood Transfusion Reaction / Comment(s): STATES POST OP ORTHO SX ENDED UP WITH TRACH, UNSURE IF PROBLEM WAS RELATED TO ANESTHESIA OR NOT in 1968- No problems since., CLAUSTROPHOBIC, no problems with prior blood t ransfusion. Past Psychological History: Anxiety, Depression Smoking Status: Never smoker Past Alcohol Use History: Occasional Past Drug Use History: None Reported - Past Family History Father Family Medical History: Cancer Additional Family Medical History / Comment(s): lung Brother(s) Family Medical History: Cancer Additional Family Medical History / Comment(s): stomach Mother Family Medical History: Renal Disease Additional Family Medical History / Comment(s): heart problem General Exam - General Exam Comments Initial Comments: General: Appears in mild distress secondary to neck pain. HEAD: Normal with no signs of head trauma. EYES: PERRLA, EOMI, conjunctiva normal, no discharge. ENT: Hearing grossly intact, normal oropharynx. RESPIRATORY: Clear breath sounds bilaterally. No wheezes, rales, or rhonchi. C/V: Regular rate and rhythm. S1 and S2 auscultated, peripheral pulses 2+ and intact throughout ABD: Abd is soft, nontender, nondistended EXT: Normal range of motion, no obvious deformity. Midline cervical spine tenderness to palpation which is chronic as well as paraspinal muscle tenderness to palpation of the cervical spine. Able to move bilateral upper extremities. Neurovascular intact throughout. SKIN: No rashes or lesions observed on exposed skin. NEURO: Alert and oriented x 4. Cranial nerves II-XII intact. No focal sensory or strength deficits. Limitations: no limitations Course Vital Signs 06/12/24 13:06 Temperature 98.4 F Pulse Rate 80 Respiratory 18 Rate Blood Pressure 135/79 O2 Sat by Pulse 95 Oximetry Medical Decision Making - Medical Decision Making Was pt. sent in by a medical professional or institution (JOSIAH Olivera, [employer] BOX TESTER, urgent care, hospital, or fdc...) When possible be specific @ -No Did you speak to anyone other than the patient for history (EMS, parent, family, police, friend...)? What history was obtained from this source @ -No Did you review nursing and triage notes (agree or disagree)? Why? @ -I reviewed and agree with nursing and triage notes Were old charts reviewed (outside hosp., previous admission, EMS record, old EKG, old radiological studies, urgent care reports/EKG's, fdc records)? Report findings @ -No old charts were reviewed Differential Diagnosis (chest pain, altered mental status, abdominal pain women, abdominal pain men, vaginal bleeding, weakness, fever, dyspnea, syncope, headache, dizziness, GI bleed, back pain, seizure, CVA, palpatations, mental health, musculoskeletal)? @ -Differential Back Pain: Strain, zoster, cauda equina syndrome, epidural abscess, vertebral osteomyelitis, discitis, fracture, subluxation, disc herniation, DJD, spinal stenosis, dissection, AAA, pancreatitis, peptic ulcer disease, pyelonephritis, kidney stone, this is not meant to be an all-inclusive list. EKG interpreted by me (3pts min.). @ -None done X-rays interpreted by me (1pt min.). @ -None done CT interpreted by me (1pt min.). @ -CT cervical spine reveals advanced degenerative changes with surgical interventions. Variable neuroforaminal stenosis present as well. No obvious acute process. U/S interpreted by me (1pt. min.). @ -None done What testing was considered but not performed or refused? (CT, X-rays, U/S, labs)? Why? @ -None What meds were considered but not given or refused? Why? @ -None Did you discuss the management of the patient with other professionals (professionals i.e. JOSIAH Olivera, [employer] BOX TESTER, lab, RT, psych nurse, social services analyst, cluster bore operator, teacher, sheriff officer, comp field case manager)? Give summary @ -No Was smoking cessation discussed for >3mins.? @ -No Was critical care preformed (if so, how long)? @ -No Were there social determinants of health that impacted care today? How? (Homelessness, low income, unemployed, alcoholism, drug addiction, transportation, low edu. Level, literacy, decrease access to med. care, skilled nursing, rehab)? @ -No Was there de-escalation of care discussed even if they declined (Discuss DNR or withdrawal of care, Hospice)? DNR status @ -No What co-morbidities impacted this encounter? (DM, HTN, Smoking, COPD, CAD, Cancer, CVA, ARF, Chemo, Hep., AIDS, mental health diagnosis, sleep apnea, morbid obesity)? @ -None Was patient admitted / discharged? Hospital course, mention meds given and route, prescriptions, significant lab abnormalities, going to OR and other pertinent info. @ -Patient presents with acute on chronic neck pain with radiculopathy. No obvious acute symptoms just worsening of the pain over the last day to few days. No obvious trauma but we we will obtain CT imaging of the cervical spine and provide pain relief with lidocaine patch, prednisone, as well as morphine. Patient was in agreement this plan. No evidence of cauda equina syndrome or other compression abnormalities at this time. I do suspect a cervical radiculopathy which does seem chronic. Patient was in agreement with this asse ssment. Imaging unremarkable. Updated the patient. Will be discharged home with instructions to follow-up with neurologist. Patient was in agreement this plan. I instructed the patient to follow up with their PCP in the next 1-3 days. I explained that the patient should return to the emergency department if they experience any worsening symptoms. Strict return precautions were discussed with the patient. The patient expressed understanding of these instructions. I answered all questions that the patient had. The patient was discharged home in good condition with their prescriptions and follow up information. Undiagnosed new problem with uncertain prognosis? @ -No Drug Therapy requiring intensive monitoring for toxicity (Heparin, Nitro, Insulin, Cardizem)? @ -No Were any procedures done? @ -No Diagnosis/symptom? @ -Acute on chronic cervical spine pain with radiculopathy Acute, or Chronic, or Acute on Chronic? @ -Acute on chronic Uncomplicated (without systemic symptoms) or Complicated (systemic symptoms)? @ -Uncomplicated Side effects of treatment? @ -None Exacerbation, Progression, or Severe Exacerbation] @ -No Poses a threat to life or bodily function? @ -Unlikely Disposition Clinical Impression: Chronic pain, Cervical radiculopathy Disposition: HOME SELF-CARE Condition: Good Instructions (If sedation given, give patient instructions): Cervical Radiculopathy (ED) Prescriptions: predniSONE [Deltasone] 40 mg PO DAILY 5 Days #10 tab Is patient prescribed a controlled substance at d/c from ED?: No Referrals: Steve Stevens MD [Primary Care Provider] - 1-2 days Kristi Ta DO [Doctor of Osteopathic Medicine] - 1-2 days Time of Disposition: 15:28
--- NOTE | 2024-06-12 15:00 | CT ---
EXAMINATION TYPE: CT cervical spine wo con DATE OF EXAM: 06/12/2024 COMPARISON: 02/03/2022 HISTORY: 74-year-old female chronic neck pain, radiculopathy TECHNIQUE: Contiguous axial scanning of the cervical spine without IV contrast. Coronal and sagittal reconstructions performed. CT DLP: 426.1 mGycm Automated exposure control for dose reduction was used. FINDINGS: No craniocervical junction abnormally, predental space widening, or prevertebral soft tissue swelling . Moderate to advanced multilevel discogenic endplate degenerative changes present throughout all with interval placement of C3-C5 ACDF. Bulky bridging and partially bridging anterior endplate spondylosis is present along the nonfused levels. Disc osteophyte complexes contribute to variable mild spinal canal stenoses along the nonfused levels , more mild to moderate below the fusion at C5-C6. No acute fracture of the cervical spine. Grade 1 anterolisthesis C7-T1. Remaining alignment maintained. Hypertrophic facet and uncovertebral joint arthropathy is present throughout. At C2-C3, changes result in moderate left neuroforaminal stenosis. At C3-C4, changes result in moderate bilateral neuroforaminal stenosis. At C4-C5, changes result in moderate to severe right and mild left neural foraminal stenosis. At C5-C6, changes result in moderate to severe right and mild left neuroforaminal stenosis. At C6-C7, changes result in moderate right greater than left neuroforaminal stenosis. Prominent breathing motion artifact in the visualized upper lungs. IMPRESSION: 1. INTERVAL PLACEMENT OF C3-C5 ACDF. 2. MODERATE TO ADVANCED MULTILEVEL SPONDYLOTIC CHANGES WITH DEGENERATIVE GRADE 1 ANTEROLISTHESIS C7-T 1. 3. MILD TO MODERATE SPINAL CANAL STENOSIS BELOW THE FUSION AT C5-C6. MILD ELSEWHERE THROUGHOUT THE SP INE. 4. VARIABLE NEUROFORAMINAL STENOSES OUTLINED ABOVE. [facility], , 06/12/2024 2:57 PM
[2024-06-12 15:53] VITALS: BP 125/74; PULSE 74
== END 2024-06-12 15:53 | disposition home or self-care (01) ==
LOC: EC 13:00
CPT/HCPCS: 72125; 99283